=== PATIENT | female | born 1965 | race Caucasian/White ===

== ENCOUNTER 2020-02-11 13:37 | Inpatient (IN) | payer MEDICARE, OTHER ==
[~2020-02-11] VITALS: Ht 154.9 cm; Wt 67.6 kg
[2020-02-11 21:00] VITALS: BP 114/78
--- NOTE | 2020-02-11 21:00 | NUR ---
pt arrived unit with ambulance attendance via girish richard of respiratory failure, s/p covid 19 pneumonia with acute respiratory distress syndrome,htn,seizure, cva and subarochnoid hemorrage, neurogic bladder, dysphagia, stroke in 2013 and ventriculoperitoneal shunt in 2019, and depression. 54 years old female admitted to room 409, awake and alert, orientedx2, joellen cheema called and notified admission. 2109- anabella sharif called and notified admission, ordered to follow all previous medication, notified that pt is on lexapro 10mg daily and seroquel 50mg h.s. 97.5,75,17,97%,114/78, g-tube site redness noted.
[2020-02-11] MEDS ORDERED: levETIRAcetam 250 MG TABLET ONE (23:11)
[2020-02-11] MEDS: levETIRAcetam 500 MG TABLET GT SCH (23:46)
[2020-02-12 00:13] VITALS: BP 125/72
[2020-02-12] MEDS ORDERED: SENNOSIDES 1 TABLET GT PRN (05:00)
[2020-02-12] MEDS ORDERED: ACETAMINOPHEN 650 MG/20 ML UDC- SA PATIENTS-PAIN ONLY GT PRN (05:00)
[2020-02-12] MEDS ORDERED: COD LIVER OIL/ZINC OXIDE OINT 113 GM TUBE TP PRN ×2 (07:45→08:30)
[2020-02-12] MEDS ORDERED: HYDROGEN PEROXIDE 3% 118 ML BOTTLE TP PRN (08:00)
[2020-02-12 08:08] VITALS: BP 116/73
[2020-02-12] MEDS ORDERED: CHOLECALCIFEROL 1,000 UNIT TABLET PO SCH (09:00)
[2020-02-12] MEDS ORDERED: CYANOCOBALAMIN 1,000 MCG TABLET PO SCH (09:00)
[2020-02-12] MEDS ORDERED: ESCITALOPRAM OXALATE 10 MG TABLET GT SCH (09:00)
[2020-02-12] MEDS ORDERED: TUBERCULIN,PURIF.PROT.DERIV. 5 TU/0.1 ML TEST ID ONE (09:00)
[2020-02-12] MEDS ORDERED: ENOXAPARIN SODIUM 40 MG/0.4 ML DISP.SYRIN SQ SCH (09:00)
[2020-02-12] MEDS: ASPIRIN 81 MG TAB.CHEW GT SCH (09:21)
[2020-02-12] MEDS: ZINC SULFATE 220 MG CAPSULE GT SCH (09:21)
[2020-02-12] MEDS: levETIRAcetam 500 MG TABLET GT SCH ×2 (09:21→20:42)
[2020-02-12] MEDS: AMLODIPINE 5 MG TABLET PO SCH (09:22)
[2020-02-12] MEDS: NEOMY/BACITRAC/POLYMI OINT 28.35 GM TUBE TOP SCH ×2 (09:28→20:43)
[2020-02-12] MEDS: HYDROGEN PEROXIDE 3% 118 ML BOTTLE TP SCH ×2 (09:37→20:51)
[2020-02-12 12:00] VITALS: BP 120/70
[2020-02-12] MEDS ORDERED: ESCITALOPRAM OXALATE 10 MG TABLET PO SCH (13:00)
--- NOTE | 2020-02-12 14:00 | NUR ---
Pt seen and examined by Dr Masters ,orders for Seroquel and Lexapro obtained,Dr Masters spoke to the patient and sign the consent,Seen and examined by Dr Ramirez,new orders noted.Zoom done with pt's ,urine culture sent to the lab.All needs attended.
[2020-02-12 15:10] LABS: ABG BASE EXCESS 4.7 mmol/L; ABG HCO3 29.5 mmol/L; ABG PCO2 44.7 mmHg (35.0-45.0); ABG PH 7.437 (7.350-7.450); ABG PO2 86.9 mmHg (75.0-100.0); ABG SITE RIGHT RADIAL; ABG TOTAL HEMOGLOBIN 11.9 G/dL (12.0-16.0); MetHb 0.2 % (0.0-1.5); O2Hb 95.9 % (94.0-97.0)
[2020-02-12 16:00] VITALS: BP 127/75
[2020-02-12 20:16] VITALS: BP 113/69
--- NOTE | 2020-02-12 20:24 | NUR ---
Received pt awake,alert, trached with Neymar#6 DCT trach, which is in placed and secured properly, on C/A via T-Piece with FIO2-30%. No s/s of respiratory distress noted. Airway care done, pt responded to physical stimuli(suction moderate amount of pale yellow thick secretion). Resus. bag and back up trach at bedside. Sx Rodríguez changed. Trach care done. Cont. monitor.
[2020-02-12] MEDS: DOCUSATE SODIUM 100 MG/10 ML LIQUID UDC GT SCH (20:42)
[2020-02-12] MEDS: ENOXAPARIN SODIUM 40 MG/0.4 ML DISP.SYRIN SQ SCH (20:42)
[2020-02-12] MEDS: MIRALAX 17 GM POWD.PACK GT SCH (20:42)
[2020-02-12] MEDS: QUETIAPINE FUMARATE 25 MG TABLET GT SCH (20:42)
[2020-02-12] MEDS ORDERED: SERTRALINE HCL 50 MG TABLET PO SCH (21:00)
--- NOTE | 2020-02-12 22:00 | NUR ---
Resident in bed resting comfortably. No s/s of acute distress noted. No SOB. No n/v. Resident has no complaint of pain or discomfort. No facial grimacing. No grunts or moans. No s/s of infection. Resident remains afebrile. Resident kept clean and dry. Call light left within reach. All needs met at this time. Will continue to monitor.
[2020-02-13] MEDS: CYANOCOBALAMIN 1,000 MCG TABLET GT SCH (05:25)
[2020-02-13] MEDS: HYDROGEN PEROXIDE 3% 118 ML BOTTLE TP SCH ×2 (07:32→21:26)
[2020-02-13 07:53] VITALS: BP 124/67
[2020-02-13 08:42] LABS: BASOPHILS % (AUTO) 0.8 % (0.0-2.0); EOSINOPHILS # (AUTO) 0.2 K/uL (0.0-0.7); EOSINOPHILS % (AUTO) 3.6 % (0.0-7.0); HEMATOCRIT 33.5 % (31.2-41.9); HEMOGLOBIN 11.3 g/dL (10.9-14.3); LYMPHOCYTES # (AUTO) 1.3 K/uL (20.0-40.0); MEAN CORPUSCULAR HEMOGLOBIN 31.6 uug (24.7-32.8); MEAN CORPUSCULAR HGB CONC 34 g/dL (32.3-35.6); MEAN CORPUSCULAR VOLUME 93.7 fL (75.5-95.3); MONOCYTES # (AUTO) 0.6 K/uL (2.0-10.0); NEUTROPHILS # (AUTO) 3.2 K/uL (1.8-8.9); NEUTROPHILS % (AUTO) 60.6 % (38.5-71.5); PLATELET COUNT (AUTO) 323 K/uL (179-408); RED BLOOD CELL COUNT(AUTO) 3.57 MIL/uL (3.63-4.92); WHITE BLOOD COUNT (AUTO) 5.2 K/uL (3.8-11.8)
[2020-02-13 08:57] LABS: CARBON DIOXIDE 32 mmol/L (21-32); CHLORIDE 103 mmol/L (98-107); CREATININE 0.4 mg/dL (0.6-1.3); GLUCOSE 99 mg/dL (74-106); MAGNESIUM 1.8 mg/dL (1.8-2.4); PHOSPHOROUS 3.8 mg/dL (2.5-4.9); POTASSIUM 3.9 mmol/L (3.5-5.1); UREA NITROGEN, BLOOD 16 mg/dL (7-18)
[2020-02-13] MEDS ORDERED: SCOPOLAMINE HYDROBROMIDE 1.5 MG PATCH TD SCH (09:00)
[2020-02-13] MEDS: ASPIRIN 81 MG TAB.CHEW GT SCH (09:17)
[2020-02-13] MEDS: levETIRAcetam 500 MG TABLET GT SCH ×2 (09:17→20:54)
[2020-02-13] MEDS: AMLODIPINE 5 MG TABLET PO SCH (09:20)
[2020-02-13] MEDS: ZINC SULFATE 220 MG CAPSULE GT SCH (09:20)
[2020-02-13] MEDS: NEOMY/BACITRAC/POLYMI OINT 28.35 GM TUBE TOP SCH ×2 (09:29→20:54)
[2020-02-13] MEDS: ESCITALOPRAM OXALATE 10 MG TABLET GT SCH (09:34)
--- NOTE | 2020-02-13 10:00 | NUR ---
Awake, a+ox3, able to make needs known, no acute respiratory distress noted, no c/o any discomfort.
[2020-02-13 12:00] VITALS: BP 108/69
[2020-02-13] MEDS: OSMOLITE 1.2 CAL 1,000 ML LIQUID GT PRN (12:34)
[2020-02-13] MEDS: SCOPOLAMINE TP SCH (14:23)
[2020-02-13 16:00] VITALS: BP 104/58
[2020-02-13 20:10] VITALS: BP_SYST 115; BP_SYST 125; BP_DIAS 68; BP_DIAS 69
--- NOTE | 2020-02-13 20:23 | NUR ---
Pt awake,alert, trached with Ileanaley#6 DCT trach, which is in placed and secured properly, received on C/A via T-Piece with FIO2-30%. No s/s of respiratory distress noted. Airway care done, pt responded to physical stimuli(suction moderate amount of pale yellow thick secretion). Resus. bag and back up trach at bedside. Trach care done. Cont. monitor.
[2020-02-13] MEDS: DOCUSATE SODIUM 100 MG/10 ML LIQUID UDC GT SCH (20:54)
[2020-02-13] MEDS: QUETIAPINE FUMARATE 25 MG TABLET GT SCH (20:54)
[2020-02-13] MEDS: MIRALAX 17 GM POWD.PACK GT SCH (20:54)
[2020-02-13] MEDS: ENOXAPARIN SODIUM 40 MG/0.4 ML DISP.SYRIN SQ SCH (20:54)
[2020-02-14] MEDS: CYANOCOBALAMIN 1,000 MCG TABLET GT SCH (05:08)
[2020-02-14] MEDS: CHOLECALCIFEROL 1,000 UNIT TABLET PO SCH (05:08)
[2020-02-14] MEDS: OSMOLITE 1.2 CAL 1,000 ML LIQUID GT PRN ×2 (05:41→21:30)
[2020-02-14 07:35] VITALS: BP 127/79
[2020-02-14] MEDS: HYDROGEN PEROXIDE 3% 118 ML BOTTLE TP SCH ×2 (08:07→21:45)
[2020-02-14] MEDS: levETIRAcetam 500 MG TABLET GT SCH ×2 (09:00→21:03)
[2020-02-14] MEDS: ASPIRIN 81 MG TAB.CHEW GT SCH (09:00)
[2020-02-14] MEDS: ZINC SULFATE 220 MG CAPSULE GT SCH (09:00)
--- NOTE | 2020-02-14 09:00 | NUR ---
Patient in bed, alert and oriented, uses PMV to communicate needs, no s/s of any distress noted, saturation 97%, v/s stable.
[2020-02-14] MEDS: AMLODIPINE 5 MG TABLET PO SCH (09:02)
[2020-02-14] MEDS: NEOMY/BACITRAC/POLYMI OINT 28.35 GM TUBE TOP SCH ×2 (09:03→21:13)
--- NOTE | 2020-02-14 09:30 | NUR ---
video chat done with pts at this time.
[2020-02-14] MEDS: ESCITALOPRAM OXALATE 10 MG TABLET GT SCH (09:40)
[2020-02-14 12:00] VITALS: BP 114/66
--- NOTE | 2020-02-14 13:40 | NUR ---
Recreation Program Coordinator Assessment: 11:30am: This SW met with the patient today to complete the initial psychosocial assessment. Patient is a 54 year old female. Patient was awake, alert, watching TV when SW entered the room. Patient was receptive to meeting with this SW. During today's assessment, patient was oriented x 2, aware of name, overall purpose of being in the hospital, but was not oriented to year or city. Per patient's medical records, patient was hospitalized for COVID pneumonia on 12/29/2019, requiring a trach and ventilator. Patient was able to be weaned off the ventilator, but continued to require a trach. Patient was then transferred to [facility], and then to [facility] on 02/11/2020. Patient is a fair historian, and was able to provide me with some medical and personal history, however provided this SW with verbal consent to contact her for additional information which patient was not able to remember. Patient lives in [place] with her , although she could not remember her address in order to verify information on patient's face sheet. Patient has 2 children (1 daughter and 1 son). Patient presents with some confusion and forgetfulness. Patient's affect was flat, behavior was appropriate. Patient was cooperative with this SW, and engaged in dialogue with this SW although patient's voice was low, and at times a whispering, due to patient's trach. Patient does not report any feelings of sadness, and no history of mental illness, although patient's current medication list includes Zyprexa and Seroquel. Patient reports a history of cigarette use, hx of alcohol use, and a hx of marijuana and cocaine use, stating "a long long time ago". Patient reports no recent or current use of alcohol, drugs, and cigarettes. No hallucination or delusions reported or observed. SW generated a discussion about patient's healthcare wishes and patient stated "ask my ". Patient is currently a Full Code. SW discussed the admission paperwork with the patient, and patient asked for this SW to speak with her about the paperwork. Patient is current displaying some confusion, and therefore the admission paperwork will be reviewed with the and signatures will be obtained from the . Patient will speak with patient's Avinash Bowling in order to complete patient's and obtain signatures on admission paperwork.
--- NOTE | 2020-02-14 15:52 | NUR ---
Baseline summary of care reviewed w/ spouse Avinash Bowling, all questions answered and understood. Electronically signed by Yuni Sylvester RN, BSN
[2020-02-14 16:00] VITALS: BP 120/62
--- NOTE | 2020-02-14 16:49 | NUR ---
3:40pm: SW spoke with patient's Avinash Bowling to complete patient's initial assessment. Some information gathered from Avinash was different then the information gathered from the patient. Although patient stated that prior to her current medical problems and hospitalizations, which began on 12/29/2019, she was living at home with her , patient's clarified that patient has actually been living at [facility] since March 2013. Patient's stated that patient had a CVA in 11/2012 and was in coma for 2 months, after which she needed placement and was discharged to [facility] ([id number], [place] [address]). Patient's Avinash also stated that patient needed subacute care for 11 months in , and was at [facility], but then returned back to [facility]. Patient's Avinash stated that patient's functional level has deteriorated over the years, resulting in the patient needing assistance with all ADL's. SW inquired about patient's healthcare directive, and patient's Avinash stated that although they began preparing one, they have not completed it, nor gotten it signed. Avinash stated they plan to do that soon, and is waiting for visitation restrictions to be lifted in order to work on finalizing patient's healthcare directive. Avinash stated that patient's healthcare wishes are to be a Full Code. Admission paperwork discussed with Avinash and SW offered to mail the forms to him for review and signature. Avinash expressed agreement and stated that once he signs them, he will mail it back to this SW. IDT meetings discussed, and Avniash stated he would like to participate. SW to notify Avinash of dates/times when scheduled. SADIA also discussed routine services for optometry and podiatry, and Avinash expressed agreement with patient being seen for an eye exam and for podiatry services. Discharge plans discussed, and Avinash stated that his goal would be for patient to return to [facility], but is uncertain at this time and that it would depend on patient's level of care needs. SW to mail admission paperwork to Avinash for review and completion.
[2020-02-14 19:57] VITALS: BP 115/62
--- NOTE | 2020-02-14 20:27 | NUR ---
Pt awake, trached with Ileanaley#6 DCT trach, which is in placed and secured properly, received on C/A via T-Piece with PMV on and FIO2-30%. No s/s of respiratory distress noted. Pt refused to be suction. According to pt she feels no difficulty breathing with PMV on. At this time PMV off and pharmacist in charge Tic notified. C/A set up changed. Resus. bag and back up trach at bedside. Trach care done. Cont. monitor.
[2020-02-14] MEDS: DOCUSATE SODIUM 100 MG/10 ML LIQUID UDC GT SCH (21:03)
[2020-02-14] MEDS: MIRALAX 17 GM POWD.PACK GT SCH (21:04)
[2020-02-14] MEDS: QUETIAPINE FUMARATE 25 MG TABLET GT SCH (21:05)
[2020-02-14] MEDS: ENOXAPARIN SODIUM 40 MG/0.4 ML DISP.SYRIN SQ SCH (21:06)
--- NOTE | 2020-02-14 23:35 | NUR ---
Patient is alert and oriented, trach is intact and patent, suctioned with moderate yellow secretions, denies any shortness of breath, Jt site noted with redness, treatment done as ordered, JT feeding tolerating well, no nausea or vomiting noted, kept clean and comfortable. Addendum: 02/15/20 at 0244 by JATIN NI RN Patient has GT not JT. Site noted with redness, treatment done as ordered. Addendum: 02/15/20 at 0245 by JATIN NI RN On contact isolation for ESBL Pneumonia, no respiratory distress noted, 02 sat at 98%.
[2020-02-15 01:02] VITALS: BP 132/77
[2020-02-15 04:00] VITALS: BP 119/71
[2020-02-15] MEDS: CYANOCOBALAMIN 1,000 MCG TABLET GT SCH (06:22)
[2020-02-15] MEDS: CHOLECALCIFEROL 1,000 UNIT TABLET PO SCH (06:22)
[2020-02-15 07:28] VITALS: BP 120/70
[2020-02-15] MEDS: ASPIRIN 81 MG TAB.CHEW GT SCH (08:19)
[2020-02-15] MEDS: levETIRAcetam 500 MG TABLET GT SCH ×2 (08:20→21:16)
[2020-02-15] MEDS: ESCITALOPRAM OXALATE 10 MG TABLET GT SCH (08:21)
[2020-02-15] MEDS: ZINC SULFATE 220 MG CAPSULE GT SCH (08:21)
[2020-02-15] MEDS: AMLODIPINE 5 MG TABLET PO SCH (08:22)
[2020-02-15] MEDS: NEOMY/BACITRAC/POLYMI OINT 28.35 GM TUBE TOP SCH ×2 (08:23→21:20)
[2020-02-15] MEDS: HYDROGEN PEROXIDE 3% 118 ML BOTTLE TP SCH ×2 (08:37→21:07)
--- NOTE | 2020-02-15 11:15 | NUR ---
video chat done with at this time.
[2020-02-15 12:00] VITALS: BP 122/68
--- NOTE | 2020-02-15 12:15 | NUR ---
SADIA faxed patient's face sheet to Gaby at Dr. Stockton's office (tel # [phone]; fax # [phone]) and scheduled patient's initial optometry exam for 03/02/2020.
[2020-02-15 17:00] VITALS: BP 135/73
[2020-02-15] MEDS: OSMOLITE 1.2 CAL 1,000 ML LIQUID GT PRN (17:32)
[2020-02-15 20:08] VITALS: BP 124/68
[2020-02-15] MEDS: DOCUSATE SODIUM 100 MG/10 ML LIQUID UDC GT SCH (21:16)
[2020-02-15] MEDS: MIRALAX 17 GM POWD.PACK GT SCH (21:17)
[2020-02-15] MEDS: QUETIAPINE FUMARATE 25 MG TABLET GT SCH (21:18)
[2020-02-15] MEDS: ENOXAPARIN SODIUM 40 MG/0.4 ML DISP.SYRIN SQ SCH (21:20)
--- NOTE | 2020-02-15 21:45 | NUR ---
joellen cheema, notified pt's covid 19 test is negative.
[2020-02-16] MEDS: CYANOCOBALAMIN 1,000 MCG TABLET GT SCH (06:11)
[2020-02-16] MEDS: CHOLECALCIFEROL 1,000 UNIT TABLET PO SCH (06:11)
[2020-02-16 07:53] VITALS: BP 107/65
[2020-02-16] MEDS: NEOMY/BACITRAC/POLYMI OINT 28.35 GM TUBE TOP SCH ×2 (08:27→21:44)
[2020-02-16] MEDS: ESCITALOPRAM OXALATE 10 MG TABLET GT SCH ×2 (08:27→08:58)
[2020-02-16] MEDS: AMLODIPINE 5 MG TABLET PO SCH (08:27)
[2020-02-16] MEDS: levETIRAcetam 500 MG TABLET GT SCH ×2 (08:27→21:42)
[2020-02-16] MEDS: ASPIRIN 81 MG TAB.CHEW GT SCH (08:27)
[2020-02-16] MEDS: ZINC SULFATE 220 MG CAPSULE GT SCH (08:27)
[2020-02-16] MEDS: HYDROGEN PEROXIDE 3% 118 ML BOTTLE TP SCH ×2 (09:00→19:10)
--- NOTE | 2020-02-16 12:03 | NUR ---
SW mailed the admission paperwork to patient's Avinash, for review and signatures. The paperwork includes: Conditions of Admission, Patient Rights Acknowledgement, An Important Message from Medicare about your Rights, Documentation of Preferred Intensity of Care, Voluntary Prior Express Consent Form, Race and Ethnicity Patient Self-Identification, and the [facility] Agreement. SW also included a copy of the Patient's Bill of Rights. SW provided instructions on how to complete the forms. SW also included a return addressed envelope, along with instructions to mail the completed and signed forms back to this SW. Forms were mailed to: [address] [place] [address], [id number] [place] [address]
[2020-02-16] MEDS: SCOPOLAMINE TP SCH (14:00)
[2020-02-16] MEDS ORDERED: GENTAMICIN SULFATE INJ 440 MG in IV DEXTROSE 5% 250 ML IV SCH (15:00)
--- NOTE | 2020-02-16 15:10 | NUR ---
video chat done with at this time.
--- NOTE | 2020-02-16 17:40 | NUR ---
Seen and examined by Dr Ramirez with new orders noted and carried out.
[2020-02-16 20:11] VITALS: BP 117/67
[2020-02-16] MEDS: DOCUSATE SODIUM 100 MG/10 ML LIQUID UDC GT SCH (21:40)
[2020-02-16] MEDS: MIRALAX 17 GM POWD.PACK GT SCH (21:42)
[2020-02-16] MEDS: QUETIAPINE FUMARATE 25 MG TABLET GT SCH (21:43)
[2020-02-16] MEDS: ENOXAPARIN SODIUM 40 MG/0.4 ML DISP.SYRIN SQ SCH (21:44)
[2020-02-17 00:43] LABS: CREATININE 0.5 mg/dL (0.6-1.3); POTASSIUM 4.1 mmol/L (3.5-5.1)
--- NOTE | 2020-02-17 05:29 | NUR ---
started on gentamicin iv for uti, no adverse reaction noted, no respiratory distress noted.
[2020-02-17] MEDS: CYANOCOBALAMIN 1,000 MCG TABLET GT SCH (05:53)
[2020-02-17] MEDS: CHOLECALCIFEROL 1,000 UNIT TABLET PO SCH (05:53)
[2020-02-17 07:54] VITALS: BP 119/70
[2020-02-17] MEDS: levETIRAcetam 500 MG TABLET GT SCH ×2 (09:32→21:48)
[2020-02-17] MEDS: ASPIRIN 81 MG TAB.CHEW GT SCH (09:32)
[2020-02-17] MEDS: ESCITALOPRAM OXALATE 10 MG TABLET GT SCH (09:32)
[2020-02-17] MEDS: ZINC SULFATE 220 MG CAPSULE GT SCH (09:32)
[2020-02-17] MEDS: NEOMY/BACITRAC/POLYMI OINT 28.35 GM TUBE TOP SCH ×2 (09:33→21:50)
[2020-02-17] MEDS: AMLODIPINE 5 MG TABLET PO SCH (09:33)
[2020-02-17] MEDS: HYDROGEN PEROXIDE 3% 118 ML BOTTLE TP SCH ×2 (09:33→21:34)
--- NOTE | 2020-02-17 12:14 | NUR ---
NEW ORDER CARRIED OUT FROM DR. MARION HooverTO D/C GENTAMICIN AND START ON MERREM IV FOR UTI.
[2020-02-17] MEDS: MEROPENEM 0.5 G in IV NORMAL SALINE 50 ML IV SCH ×2 (14:00→22:14)
--- NOTE | 2020-02-17 16:15 | NUR ---
NO A/R TO MERREM IV.
[2020-02-17 20:10] VITALS: BP 122/67
[2020-02-17] MEDS: DOCUSATE SODIUM 100 MG/10 ML LIQUID UDC GT SCH (21:47)
[2020-02-17] MEDS: MIRALAX 17 GM POWD.PACK GT SCH (21:49)
[2020-02-17] MEDS: QUETIAPINE FUMARATE 25 MG TABLET GT SCH (21:49)
[2020-02-17] MEDS: ENOXAPARIN SODIUM 40 MG/0.4 ML DISP.SYRIN SQ SCH (21:50)
[2020-02-17] MEDS: OSMOLITE 1.2 CAL 1,000 ML LIQUID GT PRN (22:03)
[2020-02-18] MEDS: CYANOCOBALAMIN 1,000 MCG TABLET GT SCH (05:44)
[2020-02-18] MEDS: CHOLECALCIFEROL 1,000 UNIT TABLET PO SCH (05:44)
[2020-02-18] MEDS: MEROPENEM 0.5 G in IV NORMAL SALINE 50 ML IV SCH ×3 (06:26→22:00)
[2020-02-18 07:53] VITALS: BP 116/66
--- NOTE | 2020-02-18 09:00 | NUR ---
SEEN AND EXAMINED BY DR. KRISTAL Hoover AND WITH NNO.
[2020-02-18] MEDS: ASPIRIN 81 MG TAB.CHEW GT SCH (09:05)
[2020-02-18] MEDS: levETIRAcetam 500 MG TABLET GT SCH ×2 (09:06→21:00)
[2020-02-18] MEDS: ESCITALOPRAM OXALATE 10 MG TABLET GT SCH (09:07)
[2020-02-18] MEDS: ZINC SULFATE 220 MG CAPSULE GT SCH (09:11)
[2020-02-18] MEDS: AMLODIPINE 5 MG TABLET PO SCH (09:24)
[2020-02-18] MEDS: NEOMY/BACITRAC/POLYMI OINT 28.35 GM TUBE TOP SCH ×2 (09:25→21:00)
[2020-02-18] MEDS: HYDROGEN PEROXIDE 3% 118 ML BOTTLE TP SCH ×2 (09:31→21:25)
--- NOTE | 2020-02-18 14:04 | NUR ---
SADIA called patient's Avinash [phone] and informed him that the IDT meeting for the patient is scheduled for 02/22/2020 at 11am. SADIA asked Avinash if he'd like to participate in the meeting via speaker phone. Avinash expressed agreement. SADIA asked Avinash to be available between 11am-12pm on 02/21 in order to receive this SW's call. Avinash expressed understanding and agreement.
[2020-02-18] MEDS: OSMOLITE 1.2 CAL 1,000 ML LIQUID GT PRN (16:29)
[2020-02-18] MEDS: DOCUSATE SODIUM 100 MG/10 ML LIQUID UDC GT SCH (21:00)
[2020-02-18] MEDS: ENOXAPARIN SODIUM 40 MG/0.4 ML DISP.SYRIN SQ SCH (21:00)
[2020-02-18] MEDS: MIRALAX 17 GM POWD.PACK GT SCH (21:00)
[2020-02-18] MEDS: QUETIAPINE FUMARATE 25 MG TABLET GT SCH (21:00)
[2020-02-18 22:22] VITALS: BP 126/83
--- NOTE | 2020-02-18 22:55 | NUR ---
Patient is afebrile, on merrem IV for UTI, no adverse reactions noted. Fluids given as ordered, denies any urinary discomfort, no hematuria noted, voiding freely to yellow urine, good anju care rendered, kept clean and comfortable.
[2020-02-19] MEDS: CYANOCOBALAMIN 1,000 MCG TABLET GT SCH (05:51)
[2020-02-19] MEDS: CHOLECALCIFEROL 1,000 UNIT TABLET PO SCH (05:51)
[2020-02-19] MEDS: MEROPENEM 0.5 G in IV NORMAL SALINE 50 ML IV SCH ×3 (06:33→21:38)
[2020-02-19 07:36] VITALS: BP 125/67
[2020-02-19] MEDS: HYDROGEN PEROXIDE 3% 118 ML BOTTLE TP SCH ×2 (09:00→21:13)
[2020-02-19] MEDS: ASPIRIN 81 MG TAB.CHEW GT SCH (09:30)
[2020-02-19] MEDS: levETIRAcetam 500 MG TABLET GT SCH ×2 (09:30→21:28)
[2020-02-19] MEDS: ESCITALOPRAM OXALATE 10 MG TABLET GT SCH (09:30)
[2020-02-19] MEDS: NEOMY/BACITRAC/POLYMI OINT 28.35 GM TUBE TOP SCH ×2 (09:35→21:31)
[2020-02-19] MEDS: AMLODIPINE 5 MG TABLET PO SCH (09:35)
[2020-02-19] MEDS: ZINC SULFATE 220 MG CAPSULE GT SCH (09:35)
[2020-02-19] MEDS: OSMOLITE 1.2 CAL 1,000 ML LIQUID GT PRN (11:51)
[2020-02-19] MEDS: SCOPOLAMINE TP SCH (15:00)
--- NOTE | 2020-02-19 20:22 | NUR ---
Received pt awake, alert, trached with Neymar#6 DCT trach, which is in placed and secured properly, on C/A via T-Piece with FIO2-30%. No respiratory distress noted. PMV on. Pt stated that she want's to keep PMV on, RN Tic notified. Resus. bag and back up trach at bedside. Sx Rodríguez and trach tube guard changed. Trach care done. Cont. monitor.
[2020-02-19] MEDS: DOCUSATE SODIUM 100 MG/10 ML LIQUID UDC GT SCH (21:28)
[2020-02-19] MEDS: QUETIAPINE FUMARATE 25 MG TABLET GT SCH (21:30)
[2020-02-19] MEDS: MIRALAX 17 GM POWD.PACK GT SCH (21:30)
[2020-02-19] MEDS: ENOXAPARIN SODIUM 40 MG/0.4 ML DISP.SYRIN SQ SCH (21:39)
[2020-02-19 22:18] VITALS: BP 106/68
--- NOTE | 2020-02-19 22:25 | NUR ---
still on merrem IV for UTI, no adverse reactions noted. Afebrile, Fluids given as ordered, denies any urinary discomfort, no hematuria noted, voiding freely to yellow urine, good anju care rendered, kept clean and comfortable.
[2020-02-20] MEDS: CHOLECALCIFEROL 1,000 UNIT TABLET PO SCH (05:37)
[2020-02-20] MEDS: CYANOCOBALAMIN 1,000 MCG TABLET GT SCH (05:37)
[2020-02-20] MEDS: MEROPENEM 0.5 G in IV NORMAL SALINE 50 ML IV SCH ×3 (05:37→21:04)
[2020-02-20 07:29] VITALS: BP 136/59
[2020-02-20] MEDS: HYDROGEN PEROXIDE 3% 118 ML BOTTLE TP SCH ×2 (08:11→21:10)
[2020-02-20] MEDS: ASPIRIN 81 MG TAB.CHEW GT SCH (08:41)
[2020-02-20] MEDS: levETIRAcetam 500 MG TABLET GT SCH ×2 (08:41→21:47)
[2020-02-20] MEDS: ESCITALOPRAM OXALATE 10 MG TABLET GT SCH (08:42)
[2020-02-20] MEDS: ZINC SULFATE 220 MG CAPSULE GT SCH (08:42)
[2020-02-20] MEDS: NEOMY/BACITRAC/POLYMI OINT 28.35 GM TUBE TOP SCH ×2 (08:43→21:50)
[2020-02-20] MEDS: AMLODIPINE 5 MG TABLET PO SCH (08:43)
--- NOTE | 2020-02-20 12:13 | NUR ---
ZOOM PROVIDED TO DAUGHTER.
--- NOTE | 2020-02-20 18:53 | NUR ---
DR MARION Hoover WAS CALLED AND MESSAGE LEFT WITH MANAGER PRODUCT SUPPORT RE:THE LENGTH OF THERAPY OF MEROPENEM AND ACCORDING TO MANAGER PRODUCT SUPPORT HE SAID TO DISCONTINUE BUT CH. NURSE ASKED HER TO TELL HIM TO CALL BACK HIMSELF DIRECTLY BECAUSE SHE CAN NOT TAKE ORDERS FROM 3RD DEMOCRAT AND SHE STATED THAT SHE WILL NOTIFY HIM THAT.
--- NOTE | 2020-02-20 20:24 | NUR ---
Received pt awake, alert, trached with Neymar#6 DCT trach, which is in placed and secured properly, on C/A via T-Piece with FIO2-30%. No s/s of respiratory distress noted. Pt would like to keep PMV on, battery charger tester Tic notified. Resus. bag and back up trach at bedside. Trach care done. Cont. monitor.
[2020-02-20 20:56] VITALS: BP 117/72
[2020-02-20] MEDS: MIRALAX 17 GM POWD.PACK GT SCH (21:00)
[2020-02-20] MEDS: DOCUSATE SODIUM 100 MG/10 ML LIQUID UDC GT SCH (21:46)
[2020-02-20] MEDS: QUETIAPINE FUMARATE 25 MG TABLET GT SCH (21:49)
[2020-02-20] MEDS: ENOXAPARIN SODIUM 40 MG/0.4 ML DISP.SYRIN SQ SCH (22:01)
[2020-02-20] MEDS: OSMOLITE 1.2 CAL 1,000 ML LIQUID GT PRN (22:50)
[2020-02-21] MEDS: CYANOCOBALAMIN 1,000 MCG TABLET GT SCH (05:56)
[2020-02-21] MEDS: CHOLECALCIFEROL 1,000 UNIT TABLET PO SCH (05:56)
[2020-02-21] MEDS: MEROPENEM 0.5 G in IV NORMAL SALINE 50 ML IV SCH (06:38)
[2020-02-21 07:35] VITALS: BP 123/67
[2020-02-21] MEDS: HYDROGEN PEROXIDE 3% 118 ML BOTTLE TP SCH ×2 (08:00→21:33)
[2020-02-21] MEDS: ASPIRIN 81 MG TAB.CHEW GT SCH (08:39)
[2020-02-21] MEDS: ESCITALOPRAM OXALATE 10 MG TABLET GT SCH (08:40)
[2020-02-21] MEDS: ZINC SULFATE 220 MG CAPSULE GT SCH (08:40)
[2020-02-21] MEDS: levETIRAcetam 500 MG TABLET GT SCH ×2 (08:40→21:20)
[2020-02-21] MEDS: AMLODIPINE 5 MG TABLET PO SCH (08:41)
[2020-02-21] MEDS: NEOMY/BACITRAC/POLYMI OINT 28.35 GM TUBE TOP SCH ×2 (08:41→21:21)
--- NOTE | 2020-02-21 12:05 | NUR ---
NEW ORDER WAS CARRIED OUT FROM DR. SCHULTZ TO D/C IV ATB MEROPENEM.
[2020-02-21 20:00] VITALS: BP 125/73
[2020-02-21] MEDS: DOCUSATE SODIUM 100 MG/10 ML LIQUID UDC GT SCH (21:20)
[2020-02-21] MEDS: QUETIAPINE FUMARATE 25 MG TABLET GT SCH (21:21)
[2020-02-21] MEDS: MIRALAX 17 GM POWD.PACK GT SCH (21:23)
[2020-02-21] MEDS: ENOXAPARIN SODIUM 40 MG/0.4 ML DISP.SYRIN SQ SCH (21:26)
[2020-02-22] MEDS: CHOLECALCIFEROL 1,000 UNIT TABLET PO SCH (06:01)
[2020-02-22] MEDS: CYANOCOBALAMIN 1,000 MCG TABLET GT SCH (06:01)
[2020-02-22] MEDS: HYDROGEN PEROXIDE 3% 118 ML BOTTLE TP SCH ×2 (07:14→20:49)
[2020-02-22 07:30] VITALS: BP 140/75
[2020-02-22] MEDS: ESCITALOPRAM OXALATE 10 MG TABLET GT SCH (09:26)
[2020-02-22] MEDS: ZINC SULFATE 220 MG CAPSULE GT SCH (09:26)
[2020-02-22] MEDS: levETIRAcetam 500 MG TABLET GT SCH ×2 (09:26→21:54)
[2020-02-22] MEDS: ASPIRIN 81 MG TAB.CHEW GT SCH (09:26)
[2020-02-22] MEDS: AMLODIPINE 5 MG TABLET PO SCH (09:27)
[2020-02-22] MEDS: NEOMY/BACITRAC/POLYMI OINT 28.35 GM TUBE TOP SCH ×2 (09:27→21:55)
[2020-02-22] MEDS: SCOPOLAMINE TP SCH (14:48)
--- NOTE | 2020-02-22 16:12 | NUR ---
INTERDISCIPLINARY PLAN OF CARE CONFERENCE was held today. Patient's Avinash participated in the meeting through speaker phone. Dr. Ramirez and the Interdisciplinary Team reviewed the current plan of care in detail. Patient was admitted to subacute on 02/11/2020. RN reported on patient's medical condition, and stated that patient remains on isolation precautions based on 14 day post-COVID isolation regulations. See RN IDT conference notes. Pharmacy discussed patient's medication regimen and stated that patient is currently stable on her medications. PT discussed treatment plan and stated that patient will be received physician therapy [address] discussed current treatment plan. See all other disciplines IDT notes and physician's progress notes for additional details. Avinash's questions were addressed by the IDT team and by Dr. Ramirez, and Avinash expressed being content with the current plan of care.
[2020-02-22 20:25] VITALS: BP 116/69
[2020-02-22] MEDS: MIRALAX 17 GM POWD.PACK GT SCH (21:54)
[2020-02-22] MEDS: ENOXAPARIN SODIUM 40 MG/0.4 ML DISP.SYRIN SQ SCH (21:54)
[2020-02-22] MEDS: QUETIAPINE FUMARATE 25 MG TABLET GT SCH (21:54)
[2020-02-22] MEDS: DOCUSATE SODIUM 100 MG/10 ML LIQUID UDC GT SCH (21:54)
[2020-02-23] MEDS: OSMOLITE 1.2 CAL 1,000 ML LIQUID GT PRN (04:30)
[2020-02-23] MEDS: CYANOCOBALAMIN 1,000 MCG TABLET GT SCH (05:26)
[2020-02-23] MEDS: CHOLECALCIFEROL 1,000 UNIT TABLET PO SCH (05:26)
[2020-02-23 07:57] VITALS: BP 129/73
[2020-02-23] MEDS: HYDROGEN PEROXIDE 3% 118 ML BOTTLE TP SCH ×2 (09:28→20:59)
[2020-02-23] MEDS: ASPIRIN 81 MG TAB.CHEW GT SCH (09:51)
[2020-02-23] MEDS: levETIRAcetam 500 MG TABLET GT SCH ×2 (09:51→21:00)
[2020-02-23] MEDS: ZINC SULFATE 220 MG CAPSULE GT SCH (09:51)
[2020-02-23] MEDS: ESCITALOPRAM OXALATE 10 MG TABLET GT SCH (09:51)
[2020-02-23] MEDS: AMLODIPINE 5 MG TABLET PO SCH (09:51)
[2020-02-23] MEDS: NEOMY/BACITRAC/POLYMI OINT 28.35 GM TUBE TOP SCH ×2 (09:51→21:00)
[2020-02-23 20:00] VITALS: BP 131/72
[2020-02-23] MEDS: ENOXAPARIN SODIUM 40 MG/0.4 ML DISP.SYRIN SQ SCH (21:00)
[2020-02-23] MEDS: DOCUSATE SODIUM 100 MG/10 ML LIQUID UDC GT SCH (21:00)
[2020-02-23] MEDS: MIRALAX 17 GM POWD.PACK GT SCH (21:00)
[2020-02-23] MEDS: QUETIAPINE FUMARATE 25 MG TABLET GT SCH (21:00)
[2020-02-24] MEDS: OSMOLITE 1.2 CAL 1,000 ML LIQUID GT PRN (00:45)
[2020-02-24] MEDS: CYANOCOBALAMIN 1,000 MCG TABLET GT SCH (05:14)
[2020-02-24] MEDS: CHOLECALCIFEROL 1,000 UNIT TABLET PO SCH (05:14)
[2020-02-24 08:00] VITALS: BP 110/67
[2020-02-24] MEDS: AMLODIPINE 5 MG TABLET PO SCH (09:00)
[2020-02-24] MEDS: levETIRAcetam 500 MG TABLET GT SCH ×2 (09:06→21:25)
[2020-02-24] MEDS: ZINC SULFATE 220 MG CAPSULE GT SCH (09:06)
[2020-02-24] MEDS: ESCITALOPRAM OXALATE 10 MG TABLET GT SCH (09:06)
[2020-02-24] MEDS: NEOMY/BACITRAC/POLYMI OINT 28.35 GM TUBE TOP SCH ×2 (09:06→21:31)
[2020-02-24] MEDS: ASPIRIN 81 MG TAB.CHEW GT SCH (09:06)
[2020-02-24] MEDS: HYDROGEN PEROXIDE 3% 118 ML BOTTLE TP SCH ×2 (09:28→20:46)
[2020-02-24 20:00] VITALS: BP 120/70
[2020-02-24] MEDS: ENOXAPARIN SODIUM 40 MG/0.4 ML DISP.SYRIN SQ SCH (21:24)
[2020-02-24] MEDS: DOCUSATE SODIUM 100 MG/10 ML LIQUID UDC GT SCH (21:25)
[2020-02-24] MEDS: MIRALAX 17 GM POWD.PACK GT SCH (21:27)
[2020-02-24] MEDS: QUETIAPINE FUMARATE 25 MG TABLET GT SCH (21:28)
[2020-02-25] MEDS: CYANOCOBALAMIN 1,000 MCG TABLET GT SCH (05:35)
[2020-02-25] MEDS: CHOLECALCIFEROL 1,000 UNIT TABLET PO SCH (05:35)
[2020-02-25 07:41] VITALS: BP 122/75
[2020-02-25] MEDS: ASPIRIN 81 MG TAB.CHEW GT SCH (08:47)
[2020-02-25] MEDS: NEOMY/BACITRAC/POLYMI OINT 28.35 GM TUBE TOP SCH ×2 (08:48→21:45)
[2020-02-25] MEDS: AMLODIPINE 5 MG TABLET PO SCH (08:48)
[2020-02-25] MEDS: levETIRAcetam 500 MG TABLET GT SCH ×2 (08:48→21:43)
[2020-02-25] MEDS: ESCITALOPRAM OXALATE 10 MG TABLET GT SCH (08:48)
[2020-02-25] MEDS: ZINC SULFATE 220 MG CAPSULE GT SCH (08:48)
[2020-02-25] MEDS: HYDROGEN PEROXIDE 3% 118 ML BOTTLE TP SCH ×2 (09:49→21:23)
--- NOTE | 2020-02-25 11:53 | NUR ---
Per Dr. Ramirez Speech therapist (Shiva), notified regarding swallow status evaluation.
[2020-02-25] MEDS: SCOPOLAMINE TP SCH (14:08)
--- NOTE | 2020-02-25 15:18 | NUR ---
Seen by Speech Therapist, swallow video evaluation scheduled to be on 02/29/20.
[2020-02-25 20:29] VITALS: BP 125/70
[2020-02-25] MEDS: ENOXAPARIN SODIUM 40 MG/0.4 ML DISP.SYRIN SQ SCH (21:00)
[2020-02-25] MEDS: QUETIAPINE FUMARATE 25 MG TABLET GT SCH (21:43)
[2020-02-25] MEDS: DOCUSATE SODIUM 100 MG/10 ML LIQUID UDC GT SCH (21:43)
[2020-02-25] MEDS: MIRALAX 17 GM POWD.PACK GT SCH (21:43)
[2020-02-26] MEDS: OSMOLITE 1.2 CAL 1,000 ML LIQUID GT PRN ×2 (02:07→17:58)
[2020-02-26] MEDS: CHOLECALCIFEROL 1,000 UNIT TABLET PO SCH (05:56)
[2020-02-26] MEDS: CYANOCOBALAMIN 1,000 MCG TABLET GT SCH (05:56)
[2020-02-26 08:11] VITALS: BP 111/73
[2020-02-26] MEDS: ASPIRIN 81 MG TAB.CHEW GT SCH (08:36)
[2020-02-26] MEDS: AMLODIPINE 5 MG TABLET PO SCH (08:37)
[2020-02-26] MEDS: ESCITALOPRAM OXALATE 10 MG TABLET GT SCH (08:37)
[2020-02-26] MEDS: levETIRAcetam 500 MG TABLET GT SCH ×2 (08:37→21:08)
[2020-02-26] MEDS: HYDROGEN PEROXIDE 3% 118 ML BOTTLE TP SCH ×2 (09:00→21:40)
[2020-02-26 20:08] VITALS: BP 113/67
--- NOTE | 2020-02-26 20:42 | NUR ---
Received pt awake, alert, trached with Neymar#6 DCT trach, which is in placed and secured properly, on C/A via T-Piece with FIO2-30%. No s/s of respiratory distress noted. Airway care done, pt responded to physical stimuli. PMV on. Resus. bag and back up trach at bedside. Sx Rodríguez and trach tube guard changed. Trach care done. Cont. monitor.
[2020-02-26] MEDS: DOCUSATE SODIUM 100 MG/10 ML LIQUID UDC GT SCH (21:08)
[2020-02-26] MEDS: MIRALAX 17 GM POWD.PACK GT SCH (21:08)
[2020-02-26] MEDS: QUETIAPINE FUMARATE 25 MG TABLET GT SCH (21:08)
[2020-02-26] MEDS: ENOXAPARIN SODIUM 40 MG/0.4 ML DISP.SYRIN SQ SCH (21:14)
[2020-02-27] MEDS: CYANOCOBALAMIN 1,000 MCG TABLET GT SCH (05:39)
[2020-02-27] MEDS: CHOLECALCIFEROL 1,000 UNIT TABLET PO SCH (05:39)
[2020-02-27 08:03] VITALS: BP 119/76
[2020-02-27] MEDS: ESCITALOPRAM OXALATE 10 MG TABLET GT SCH (08:56)
[2020-02-27] MEDS: ASPIRIN 81 MG TAB.CHEW GT SCH (08:56)
[2020-02-27] MEDS: levETIRAcetam 500 MG TABLET GT SCH ×2 (08:56→21:01)
[2020-02-27] MEDS: AMLODIPINE 5 MG TABLET PO SCH (08:56)
[2020-02-27] MEDS: HYDROGEN PEROXIDE 3% 118 ML BOTTLE TP SCH ×2 (09:30→21:22)
[2020-02-27] MEDS: OSMOLITE 1.2 CAL 1,000 ML LIQUID GT PRN (14:59)
[2020-02-27 20:20] VITALS: BP 116/71
--- NOTE | 2020-02-27 20:23 | NUR ---
Received pt awake, alert, trached with Neymar#6 DCT trach, which is in placed and secured properly, on C/A via T-Piece with FIO2-30%. No respiratory distress noted. Airway care done, pt responded to physical stimuli. PMV on. Resus. bag and back up trach at bedside. Trach care done. Cont. monitor.
[2020-02-27] MEDS: DOCUSATE SODIUM 100 MG/10 ML LIQUID UDC GT SCH (21:01)
[2020-02-27] MEDS: QUETIAPINE FUMARATE 25 MG TABLET GT SCH (21:02)
[2020-02-27] MEDS: MIRALAX 17 GM POWD.PACK GT SCH (21:02)
[2020-02-27] MEDS: ENOXAPARIN SODIUM 40 MG/0.4 ML DISP.SYRIN SQ SCH (21:05)
[2020-02-28] MEDS: OSMOLITE 1.2 CAL 1,000 ML LIQUID GT PRN ×2 (05:45→23:00)
[2020-02-28] MEDS: CHOLECALCIFEROL 1,000 UNIT TABLET PO SCH (05:46)
[2020-02-28] MEDS: CYANOCOBALAMIN 1,000 MCG TABLET GT SCH (05:46)
[2020-02-28 07:44] VITALS: BP 133/77
[2020-02-28] MEDS: AMLODIPINE 5 MG TABLET PO SCH (09:00)
[2020-02-28] MEDS: ASPIRIN 81 MG TAB.CHEW GT SCH (09:00)
[2020-02-28] MEDS: ESCITALOPRAM OXALATE 10 MG TABLET GT SCH (09:00)
[2020-02-28] MEDS: levETIRAcetam 500 MG TABLET GT SCH ×2 (09:00→21:57)
[2020-02-28] MEDS: HYDROGEN PEROXIDE 3% 118 ML BOTTLE TP SCH ×2 (09:14→21:38)
[2020-02-28] MEDS: SCOPOLAMINE TP SCH (14:00)
--- NOTE | 2020-02-28 20:22 | NUR ---
Received pt awake, alert, trached with Neymar#6 DCT trach, which is in placed and secured properly, on C/A via T-Piece with FIO2-30%. No distress noted. Airway care done, pt responded to physical stimuli. PMV on. Cool aerosol set up changed. Resus. bag and back up trach at bedside. Trach care done. Cont. monitor.
[2020-02-28 20:29] VITALS: BP 115/63
[2020-02-28] MEDS: DOCUSATE SODIUM 100 MG/10 ML LIQUID UDC GT SCH (21:54)
[2020-02-28] MEDS: QUETIAPINE FUMARATE 25 MG TABLET GT SCH (21:57)
[2020-02-28] MEDS: MIRALAX 17 GM POWD.PACK GT SCH (21:57)
[2020-02-28] MEDS: ENOXAPARIN SODIUM 40 MG/0.4 ML DISP.SYRIN SQ SCH (21:58)
[2020-02-29] MEDS: CHOLECALCIFEROL 1,000 UNIT TABLET PO SCH (06:13)
[2020-02-29] MEDS: CYANOCOBALAMIN 1,000 MCG TABLET GT SCH (06:13)
[2020-02-29] MEDS: HYDROGEN PEROXIDE 3% 118 ML BOTTLE TP SCH ×2 (08:13→21:15)
[2020-02-29] MEDS: ASPIRIN 81 MG TAB.CHEW GT SCH (08:42)
[2020-02-29] MEDS: levETIRAcetam 500 MG TABLET GT SCH ×2 (08:42→21:08)
[2020-02-29] MEDS: DOCUSATE SODIUM 100 MG/10 ML LIQUID UDC GT SCH (08:44)
[2020-02-29] MEDS: ESCITALOPRAM OXALATE 10 MG TABLET GT SCH (08:44)
[2020-02-29] MEDS: AMLODIPINE 5 MG TABLET PO SCH (09:00)
[2020-02-29 09:20] VITALS: BP 115/69
[2020-02-29] MEDS ORDERED: BARIUM SULFATE 148 GM SUSP.RECON PO ONE (13:00)
[2020-02-29] MEDS ORDERED: BARIUM SULFATE 240 ML ORAL.SUSP PO ONE (13:00)
[2020-02-29 20:51] VITALS: BP 109/69
[2020-02-29] MEDS: MIRALAX 17 GM POWD.PACK GT SCH (21:08)
[2020-02-29] MEDS: ENOXAPARIN SODIUM 40 MG/0.4 ML DISP.SYRIN SQ SCH (21:09)
[2020-02-29] MEDS: QUETIAPINE FUMARATE 25 MG TABLET GT SCH (21:11)
[2020-03-01] MEDS: OSMOLITE 1.2 CAL 1,000 ML LIQUID GT PRN ×2 (01:00→18:08)
[2020-03-01] MEDS: CYANOCOBALAMIN 1,000 MCG TABLET GT SCH (06:04)
[2020-03-01] MEDS: CHOLECALCIFEROL 1,000 UNIT TABLET PO SCH (06:04)
[2020-03-01] MEDS: levETIRAcetam 500 MG TABLET GT SCH ×2 (08:31→21:18)
[2020-03-01] MEDS: ASPIRIN 81 MG TAB.CHEW GT SCH (08:31)
[2020-03-01] MEDS: ESCITALOPRAM OXALATE 10 MG TABLET GT SCH (08:32)
[2020-03-01] MEDS: AMLODIPINE 5 MG TABLET PO SCH (08:35)
[2020-03-01] MEDS: HYDROGEN PEROXIDE 3% 118 ML BOTTLE TP SCH ×2 (08:43→19:22)
[2020-03-01 20:26] VITALS: BP 135/66
[2020-03-01] MEDS: DOCUSATE SODIUM 100 MG/10 ML LIQUID UDC GT SCH (21:18)
[2020-03-01] MEDS: MIRALAX 17 GM POWD.PACK GT SCH (21:19)
[2020-03-01] MEDS: QUETIAPINE FUMARATE 25 MG TABLET GT SCH (21:20)
[2020-03-01] MEDS: ENOXAPARIN SODIUM 40 MG/0.4 ML DISP.SYRIN SQ SCH (21:22)
[2020-03-02] MEDS: CHOLECALCIFEROL 1,000 UNIT TABLET PO SCH (06:06)
[2020-03-02] MEDS: CYANOCOBALAMIN 1,000 MCG TABLET GT SCH (06:06)
[2020-03-02] MEDS: HYDROGEN PEROXIDE 3% 118 ML BOTTLE TP SCH ×2 (07:17→21:28)
[2020-03-02 08:00] VITALS: BP 127/72
[2020-03-02] MEDS: levETIRAcetam 500 MG TABLET GT SCH ×2 (08:19→21:50)
[2020-03-02] MEDS: AMLODIPINE 5 MG TABLET PO SCH (08:19)
[2020-03-02] MEDS: ASPIRIN 81 MG TAB.CHEW GT SCH (08:19)
[2020-03-02] MEDS: ESCITALOPRAM OXALATE 10 MG TABLET GT SCH (08:19)
--- NOTE | 2020-03-02 10:41 | NUR ---
PER PT'S STATEMENT. PNEUMONIA VACCINE WAS GIVEN TO PT. ON 03/30/18 AND FLU VACCINE ON 02/24/19.
--- NOTE | 2020-03-02 11:26 | NUR ---
PT'S NERY WAS OFFERED FLU VACCINE FOR PT. AND HE GAVE CONSENT BY PHONE AND DR. ALVAREZ WAS OK ACCORDING TO NARENDRA GREEN KNOWING THAT PT. IS S/P COVID 19.
--- NOTE | 2020-03-02 11:33 | NUR ---
PER DR. ALVAREZ OK TO GET FLU VACCINE IF PT/ IS S/P COVID 19 .
--- NOTE | 2020-03-02 12:43 | NUR ---
SW met with the patient to check in on how patient was doing. Patient was awake and watching TV. Patient was receptive to meeting with this SW, and engaged in conversation with this SW. Patient expressed doing well, not having any concerns at this time. Patient stated that she is content with the care provided by nursing, and continues to participate in therapy. Patient asked when her can come visit her, and SW reminded the patient that visitation restrictions continue to remain in place due to the COVID-19 pandemic. Patient expressed understanding. SW reminded patient that she can continue to communicate with her by ZOOM, and patient expressed agreement. Patient thanked this SW for checking in with her. SW reminded the patient that SW continues to remain available to her, as needed, and patient expressed understanding.
[2020-03-02] MEDS: SCOPOLAMINE TP SCH (14:18)
--- NOTE | 2020-03-02 14:57 | NUR ---
SADIA called patient's Avinash [phone]. Avinash was not available, and therefore SADIA left a voicemail message for Avinash informing him that the next IDT meeting for the patient is scheduled for 03/07/2020 at 11am. SADIA asked Avinash to let this SW know if he would like to participate in the meeting through speaker phone.
[2020-03-02] MEDS: OSMOLITE 1.2 CAL 1,000 ML LIQUID GT PRN (17:19)
--- NOTE | 2020-03-02 19:03 | NUR ---
NEW ORDER OBTAINED FROM NARENDRA PETER P.AArmond FOR FLU VACCINE.
[2020-03-02] MEDS ORDERED: INFLUENZA VACCINE 2020-2021 0.5 ML DISP.SYRIN IM ONE (20:00)
[2020-03-02 20:39] VITALS: BP 140/59
--- NOTE | 2020-03-02 20:49 | NUR ---
Received pt awake, alert, trached with Neymar#6 DCT trach, which is in placed and secured properly, on C/A via T-Piece with FIO2-30%. No SOB noted. Pt refused to be suction. PMV on. Resus. bag and back up trach at bedside. Trach care done. Cont. monitor.
[2020-03-02] MEDS: DOCUSATE SODIUM 100 MG/10 ML LIQUID UDC GT SCH (21:50)
[2020-03-02] MEDS: MIRALAX 17 GM POWD.PACK GT SCH (21:51)
[2020-03-02] MEDS: QUETIAPINE FUMARATE 25 MG TABLET GT SCH (21:52)
[2020-03-02] MEDS: ENOXAPARIN SODIUM 40 MG/0.4 ML DISP.SYRIN SQ SCH (21:54)
[2020-03-03] MEDS: CHOLECALCIFEROL 1,000 UNIT TABLET PO SCH (05:14)
[2020-03-03] MEDS: CYANOCOBALAMIN 1,000 MCG TABLET GT SCH (05:14)
[2020-03-03 07:46] VITALS: BP 107/63
[2020-03-03] MEDS: HYDROGEN PEROXIDE 3% 118 ML BOTTLE TP SCH ×2 (08:11→21:22)
[2020-03-03] MEDS: ESCITALOPRAM OXALATE 10 MG TABLET GT SCH (08:16)
[2020-03-03] MEDS: AMLODIPINE 5 MG TABLET PO SCH (08:16)
[2020-03-03] MEDS: ASPIRIN 81 MG TAB.CHEW GT SCH (08:16)
[2020-03-03] MEDS: levETIRAcetam 500 MG TABLET GT SCH ×2 (08:16→21:17)
[2020-03-03] MEDS: OSMOLITE 1.2 CAL 1,000 ML LIQUID GT PRN ×2 (10:01→21:57)
--- NOTE | 2020-03-03 11:56 | NUR ---
ZOOM PROVIDED TO .
--- NOTE | 2020-03-03 15:30 | NUR ---
Patient seen by Dr. Stockton on 03/02/2020 for her initial eye exam. Please see optometry notes in patient's chart for details.
--- NOTE | 2020-03-03 18:48 | NUR ---
NO A/R TO FLU VACCINE ,AFEBRILE.
[2020-03-03 20:46] VITALS: BP 107/71
[2020-03-03] MEDS: DOCUSATE SODIUM 100 MG/10 ML LIQUID UDC GT SCH (21:17)
[2020-03-03] MEDS: MIRALAX 17 GM POWD.PACK GT SCH (21:18)
[2020-03-03] MEDS: QUETIAPINE FUMARATE 25 MG TABLET GT SCH (21:18)
[2020-03-03] MEDS: ENOXAPARIN SODIUM 40 MG/0.4 ML DISP.SYRIN SQ SCH (21:19)
--- NOTE | 2020-03-03 22:49 | NUR ---
Afebrile, no adverse reactions noted from the flu vaccine.
[2020-03-04] MEDS: CHOLECALCIFEROL 1,000 UNIT TABLET PO SCH (05:07)
[2020-03-04] MEDS: CYANOCOBALAMIN 1,000 MCG TABLET GT SCH (05:07)
[2020-03-04] MEDS: HYDROGEN PEROXIDE 3% 118 ML BOTTLE TP SCH ×2 (07:30→19:08)
[2020-03-04 07:46] VITALS: BP 115/67
[2020-03-04] MEDS: ASPIRIN 81 MG TAB.CHEW GT SCH (08:48)
[2020-03-04] MEDS: levETIRAcetam 500 MG TABLET GT SCH ×2 (08:49→20:16)
[2020-03-04] MEDS: ESCITALOPRAM OXALATE 10 MG TABLET GT SCH (08:50)
[2020-03-04] MEDS: AMLODIPINE 5 MG TABLET PO SCH (09:02)
--- NOTE | 2020-03-04 18:04 | NUR ---
NO A/R TO ATB TX ,AFEBRILE.
[2020-03-04] MEDS: MIRALAX 17 GM POWD.PACK GT SCH (20:16)
[2020-03-04] MEDS: QUETIAPINE FUMARATE 25 MG TABLET GT SCH (20:16)
[2020-03-04] MEDS: DOCUSATE SODIUM 100 MG/10 ML LIQUID UDC GT SCH (20:16)
[2020-03-04] MEDS: ENOXAPARIN SODIUM 40 MG/0.4 ML DISP.SYRIN SQ SCH (20:18)
[2020-03-04 20:52] VITALS: BP 115/61
--- NOTE | 2020-03-04 21:48 | NUR ---
Afebrile, no adverse reactions from flu vaccine, no redness on injection site.
[2020-03-05] MEDS: OSMOLITE 1.2 CAL 1,000 ML LIQUID GT PRN (05:51)
[2020-03-05] MEDS: CYANOCOBALAMIN 1,000 MCG TABLET GT SCH (05:51)
[2020-03-05] MEDS: CHOLECALCIFEROL 1,000 UNIT TABLET PO SCH (05:51)
[2020-03-05 07:48] VITALS: BP 130/61
[2020-03-05] MEDS: HYDROGEN PEROXIDE 3% 118 ML BOTTLE TP SCH ×2 (07:48→21:00)
[2020-03-05] MEDS: ASPIRIN 81 MG TAB.CHEW GT SCH (08:57)
[2020-03-05] MEDS: levETIRAcetam 500 MG TABLET GT SCH ×2 (08:57→21:49)
[2020-03-05] MEDS: ESCITALOPRAM OXALATE 10 MG TABLET GT SCH (08:58)
[2020-03-05] MEDS: AMLODIPINE 5 MG TABLET PO SCH (08:58)
--- NOTE | 2020-03-05 10:30 | NUR ---
VIDE0 ZOOM DONE WITH PT'S SISTER MIL PT'S ALLOWED IT.FOR 5 MIN AND PT. WAS VERY HAPPY.
--- NOTE | 2020-03-05 13:54 | NUR ---
NO A/R TO FLU VACCINE ,AFEBRILE.
[2020-03-05] MEDS: SCOPOLAMINE TP SCH (16:02)
[2020-03-05 20:25] VITALS: BP 104/71
[2020-03-05] MEDS: ENOXAPARIN SODIUM 40 MG/0.4 ML DISP.SYRIN SQ SCH (21:00)
[2020-03-05] MEDS: DOCUSATE SODIUM 100 MG/10 ML LIQUID UDC GT SCH (21:43)
[2020-03-05] MEDS: QUETIAPINE FUMARATE 25 MG TABLET GT SCH (21:49)
[2020-03-05] MEDS: MIRALAX 17 GM POWD.PACK GT SCH (21:49)
[2020-03-06] MEDS: CYANOCOBALAMIN 1,000 MCG TABLET GT SCH (05:29)
[2020-03-06] MEDS: CHOLECALCIFEROL 1,000 UNIT TABLET PO SCH (05:29)
--- NOTE | 2020-03-06 06:57 | NUR ---
No A/R to flu vaccine, afebrile.
[2020-03-06 07:49] VITALS: BP 133/64
[2020-03-06] MEDS: ASPIRIN 81 MG TAB.CHEW GT SCH (08:45)
[2020-03-06] MEDS: levETIRAcetam 500 MG TABLET GT SCH ×2 (08:46→20:51)
[2020-03-06] MEDS: ESCITALOPRAM OXALATE 10 MG TABLET GT SCH (08:47)
[2020-03-06] MEDS: AMLODIPINE 5 MG TABLET PO SCH (08:48)
[2020-03-06] MEDS: HYDROGEN PEROXIDE 3% 118 ML BOTTLE TP SCH ×2 (09:44→21:38)
--- NOTE | 2020-03-06 13:30 | NUR ---
SEEN BY NARENDRA MCDANIEL.
--- NOTE | 2020-03-06 14:21 | NUR ---
SADIA received a voicemail message from patient's Avinash, , in response to this SADIA's message left for Avinash on 03/02/2020 (see SS note dated 03/02), inviting Avinash to participate in the IDT meeting on 03/07/2020. Avinash stated in his voicemail that he would like to participate via speaker phone. This SW to contact Avinash during the IDT meeting.
--- NOTE | 2020-03-06 16:02 | NUR ---
DR. EDOUARD Hoover WAS CALLED AND MESSAGE LEFT TO F/U A PSYCHIATRIC CONSULT TO EVALUATE MEDICATIONS.
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
--- NOTE | 2020-03-06 17:14 | NUR ---
Zoom meeting provided with pt's .
--- NOTE | 2020-03-06 19:50 | NUR ---
Received pt awake, alert, trached with Neymar#6 DCT trach, which is in placed and secured properly, on C/A via T-Piece with FIO2-30%. No respiratory distress noted. PMV on. Resus. bag and back up trach at bedside. Trach care done. Cont. monitor.
[2020-03-06 20:44] VITALS: BP 128/67
[2020-03-06] MEDS: DOCUSATE SODIUM 100 MG/10 ML LIQUID UDC GT SCH (20:50)
[2020-03-06] MEDS: MIRALAX 17 GM POWD.PACK GT SCH (20:51)
[2020-03-06] MEDS: QUETIAPINE FUMARATE 25 MG TABLET GT SCH (20:51)
[2020-03-06] MEDS: ENOXAPARIN SODIUM 40 MG/0.4 ML DISP.SYRIN SQ SCH (21:00)
[2020-03-07] MEDS: CHOLECALCIFEROL 1,000 UNIT TABLET PO SCH (05:05)
[2020-03-07] MEDS: CYANOCOBALAMIN 1,000 MCG TABLET GT SCH (05:05)
[2020-03-07] MEDS: OSMOLITE 1.2 CAL 1,000 ML LIQUID GT PRN ×2 (05:06→22:14)
[2020-03-07 08:03] VITALS: BP 128/80
[2020-03-07] MEDS: HYDROGEN PEROXIDE 3% 118 ML BOTTLE TP SCH ×2 (08:12→21:37)
[2020-03-07] MEDS: levETIRAcetam 500 MG TABLET GT SCH ×2 (08:15→21:03)
[2020-03-07] MEDS: ASPIRIN 81 MG TAB.CHEW GT SCH (08:15)
[2020-03-07] MEDS: ESCITALOPRAM OXALATE 10 MG TABLET GT SCH (08:15)
[2020-03-07] MEDS: AMLODIPINE 5 MG TABLET PO SCH (08:16)
--- NOTE | 2020-03-07 16:12 | NUR ---
INTERDISCIPLINARY PLAN OF CARE CONFERENCE was held today. Patient's Avinash participated in the meeting through speaker phone. Dr. Ramirez and the Interdisciplinary Team reviewed the current plan of care in detail. RN reported on patient's medical condition and recent treatments, and stated that the regulatory 14-day isolation precautions have been discontinued. See RN IDT conference notes. PT, OT, and ST discussed their treatment plans and progress. Pharmacy, Dietary, and RT reported no concerns. See all disciplines IDT notes and physician's progress notes for additional details. Avinash's questions were addressed by Dr. Ramirez and the IDT team, and Avinash expressed being content with the current plan of care.
[2020-03-07 20:00] VITALS: BP 126/82
--- NOTE | 2020-03-07 20:23 | NUR ---
Received pt awake, alert, trached with Neymar#6 DCT trach, which is in placed and secured properly, on C/A via T-Piece with FIO2-30%. No distress noted. PMV on. Resus. bag and back up trach at bedside. Trach care done. Cont. monitor.
[2020-03-07] MEDS: MIRALAX 17 GM POWD.PACK GT SCH (21:03)
[2020-03-07] MEDS: DOCUSATE SODIUM 100 MG/10 ML LIQUID UDC GT SCH (21:03)
[2020-03-07] MEDS: QUETIAPINE FUMARATE 25 MG TABLET GT SCH (21:04)
[2020-03-07] MEDS: ENOXAPARIN SODIUM 40 MG/0.4 ML DISP.SYRIN SQ SCH (21:04)
[2020-03-08] MEDS: CYANOCOBALAMIN 1,000 MCG TABLET GT SCH (05:59)
[2020-03-08] MEDS: CHOLECALCIFEROL 1,000 UNIT TABLET PO SCH (05:59)
[2020-03-08] MEDS: HYDROGEN PEROXIDE 3% 118 ML BOTTLE TP SCH ×2 (07:13→21:17)
[2020-03-08 07:46] LABS: ALANINE AMINOTRANSFERASE 20 U/L (14-59); ALKALINE PHOSPHATASE 69 U/L (50-136); ASPARTATE AMINOTRANSFERASE 6 U/L (15-37); BILIRUBIN,TOTAL 0.2 mg/dL (0.2-1.0); CARBON DIOXIDE 37 mmol/L (21-32); CHLORIDE 101 mmol/L (98-107); CREATININE 0.4 mg/dL (0.6-1.3); GLUCOSE 106 mg/dL (74-106); POTASSIUM 4.3 mmol/L (3.5-5.1); TOTAL PROTEIN, SERUM 7.9 g/dL (6.4-8.2); UREA NITROGEN, BLOOD 16 mg/dL (7-18)
[2020-03-08 07:47] VITALS: BP 132/87
[2020-03-08 07:49] LABS: BASOPHILS % (AUTO) 0.5 % (0.0-2.0); EOSINOPHILS # (AUTO) 0.1 K/uL (0.0-0.7); EOSINOPHILS % (AUTO) 2.6 % (0.0-7.0); HEMATOCRIT 34.6 % (31.2-41.9); HEMOGLOBIN 11.7 g/dL (10.9-14.3); LYMPHOCYTES # (AUTO) 1.4 K/uL (20.0-40.0); LYMPHOCYTES % (AUTO) 31.9 % (20.5-51.5); MEAN CORPUSCULAR HEMOGLOBIN 31.6 uug (24.7-32.8); MEAN CORPUSCULAR HGB CONC 34 g/dL (32.3-35.6); MEAN CORPUSCULAR VOLUME 93.5 fL (75.5-95.3); MONOCYTES # (AUTO) 0.5 K/uL (2.0-10.0); MONOCYTES % (AUTO) 10.6 % (0.0-11.0); NEUTROPHILS # (AUTO) 2.5 K/uL (1.8-8.9); NEUTROPHILS % (AUTO) 54.4 % (38.5-71.5); PLATELET COUNT (AUTO) 284 K/uL (179-408); WHITE BLOOD COUNT (AUTO) 4.5 K/uL (3.8-11.8)
[2020-03-08] MEDS: ASPIRIN 81 MG TAB.CHEW GT SCH (09:00)
[2020-03-08] MEDS: ESCITALOPRAM OXALATE 10 MG TABLET GT SCH (09:04)
[2020-03-08] MEDS: levETIRAcetam 500 MG TABLET GT SCH ×2 (09:04→20:46)
[2020-03-08] MEDS: AMLODIPINE 5 MG TABLET PO SCH (09:05)
[2020-03-08] MEDS: SCOPOLAMINE TP SCH (14:14)
[2020-03-08] MEDS: OSMOLITE 1.2 CAL 1,000 ML LIQUID GT PRN (18:00)
[2020-03-08 20:00] VITALS: BP 117/73
[2020-03-08] MEDS: DOCUSATE SODIUM 100 MG/10 ML LIQUID UDC GT SCH (20:46)
[2020-03-08] MEDS: MIRALAX 17 GM POWD.PACK GT SCH (20:46)
[2020-03-08] MEDS: QUETIAPINE FUMARATE 25 MG TABLET GT SCH (20:47)
[2020-03-08] MEDS: ENOXAPARIN SODIUM 40 MG/0.4 ML DISP.SYRIN SQ SCH (20:48)
--- NOTE | 2020-03-08 22:49 | NUR ---
Staff noted patient's finger nails are long and asked the patient to cut her nails but she refused.
[2020-03-09] MEDS: CYANOCOBALAMIN 1,000 MCG TABLET GT SCH (06:07)
[2020-03-09] MEDS: CHOLECALCIFEROL 1,000 UNIT TABLET PO SCH (06:07)
[2020-03-09 07:25] VITALS: BP 102/74
[2020-03-09] MEDS: HYDROGEN PEROXIDE 3% 118 ML BOTTLE TP SCH ×2 (09:00→21:34)
[2020-03-09] MEDS: levETIRAcetam 500 MG TABLET GT SCH ×2 (09:00→21:44)
[2020-03-09] MEDS: ASPIRIN 81 MG TAB.CHEW GT SCH (09:00)
[2020-03-09] MEDS: ESCITALOPRAM OXALATE 10 MG TABLET GT SCH (09:00)
[2020-03-09] MEDS: AMLODIPINE 5 MG TABLET PO SCH (09:00)
[2020-03-09] MEDS: OSMOLITE 1.2 CAL 1,000 ML LIQUID GT PRN (11:26)
--- NOTE | 2020-03-09 12:52 | NUR ---
CALLED RESPONSIBLE LIBERTARIAN, MAIRA GABRIEL ON [phone] AND INFORMED HIM OF HIS WIFES POSSIBLE COVID-19 EXPOSURE, PLANED 10 DAYS QUARANTINE AND THE TESTING PLAN FOR THE NEXT 14 DAYS, MANDATED BY [facility] REGULATIONS ALSO MAIRA NOTIFIED THAT NURSING WILL CALL HIM WITH THE COVID-19 RESULT. MAIRA EXPRESSED UNDERSTANDING.
[2020-03-09 20:00] VITALS: BP 108/76
--- NOTE | 2020-03-09 20:42 | NUR ---
Received a phone call from Marina from the lab result on the Rapid COVID-19 test is negative.
--- NOTE | 2020-03-09 20:47 | NUR ---
I spoke with Avinash ( patient's ) and made him aware that covid-19 test result that was done today which resulted negative.
[2020-03-09] MEDS: DOCUSATE SODIUM 100 MG/10 ML LIQUID UDC GT SCH (21:44)
[2020-03-09] MEDS: QUETIAPINE FUMARATE 25 MG TABLET GT SCH (21:44)
[2020-03-09] MEDS: MIRALAX 17 GM POWD.PACK GT SCH (21:44)
[2020-03-09] MEDS: ENOXAPARIN SODIUM 40 MG/0.4 ML DISP.SYRIN SQ SCH (21:45)
[2020-03-10] MEDS: OSMOLITE 1.2 CAL 1,000 ML LIQUID GT PRN ×2 (01:12→21:12)
--- NOTE | 2020-03-10 01:14 | NUR ---
Patient is afebrile, denies any respiratory distress, 02 sat is 100%, will continue monitor.
[2020-03-10] MEDS: CHOLECALCIFEROL 1,000 UNIT TABLET PO SCH (05:51)
[2020-03-10] MEDS: CYANOCOBALAMIN 1,000 MCG TABLET GT SCH (05:51)
--- NOTE | 2020-03-10 07:07 | NUR ---
Patient called and showed me a red and intact blister like on Right lateral thumb, skin is intact and patient denies pain when I touched the affected area. No treatment indicated at this time, will continue monitor.
[2020-03-10 07:40] VITALS: BP 113/77
[2020-03-10] MEDS: ASPIRIN 81 MG TAB.CHEW GT SCH (08:58)
[2020-03-10] MEDS: ESCITALOPRAM OXALATE 10 MG TABLET GT SCH (08:59)
[2020-03-10] MEDS: levETIRAcetam 500 MG TABLET GT SCH ×2 (08:59→20:40)
[2020-03-10] MEDS: AMLODIPINE 5 MG TABLET PO SCH (08:59)
[2020-03-10] MEDS: HYDROGEN PEROXIDE 3% 118 ML BOTTLE TP SCH ×2 (09:10→21:00)
--- NOTE | 2020-03-10 15:42 | NUR ---
ZOOM PROVIDED TO .
[2020-03-10] MEDS: MIRALAX 17 GM POWD.PACK GT SCH (20:40)
[2020-03-10] MEDS: DOCUSATE SODIUM 100 MG/10 ML LIQUID UDC GT SCH (20:40)
[2020-03-10] MEDS: QUETIAPINE FUMARATE 25 MG TABLET GT SCH (20:40)
[2020-03-10] MEDS: ENOXAPARIN SODIUM 40 MG/0.4 ML DISP.SYRIN SQ SCH (20:41)
[2020-03-10 22:46] VITALS: BP 112/74
[2020-03-11] MEDS: CHOLECALCIFEROL 1,000 UNIT TABLET PO SCH (05:21)
[2020-03-11] MEDS: CYANOCOBALAMIN 1,000 MCG TABLET GT SCH (05:21)
[2020-03-11] MEDS: HYDROGEN PEROXIDE 3% 118 ML BOTTLE TP SCH ×2 (07:11→21:01)
[2020-03-11 07:56] VITALS: BP 124/50
--- NOTE | 2020-03-11 09:00 | NUR ---
notified covid19 results (negative).
[2020-03-11] MEDS: levETIRAcetam 500 MG TABLET GT SCH ×2 (09:25→20:36)
[2020-03-11] MEDS: ESCITALOPRAM OXALATE 10 MG TABLET GT SCH (09:25)
[2020-03-11] MEDS: ASPIRIN 81 MG TAB.CHEW GT SCH (09:25)
[2020-03-11] MEDS: AMLODIPINE 5 MG TABLET PO SCH (09:27)
[2020-03-11] MEDS: SCOPOLAMINE TP SCH (14:50)
[2020-03-11] MEDS: OSMOLITE 1.2 CAL 1,000 ML LIQUID GT PRN (14:50)
--- NOTE | 2020-03-11 20:00 | NUR ---
Resident in bed, appears to be comfortable. MRI SPECIALIST offered resident if she wanted to be changed. Resident refused to be changed. MRI SPECIALIST notified nurse. Nurse asked resident why she didn't want to be changed. Resident stated that she didn't need to be changed at this time. Risks and benefits explained. Will continue to monitor. Call light left within reach.
--- NOTE | 2020-03-11 20:12 | NUR ---
Pt received awake, alert, trached with Neymar#6 DCT trach, which is in placed and secured properly, on C/A via T-Piece with FIO2-30%. No respiratory distress noted. PMV on. Sx Rodríguez changed. Resus. bag and back up trach at bedside. Trach care done. Cont. monitor.
[2020-03-11] MEDS: DOCUSATE SODIUM 100 MG/10 ML LIQUID UDC GT SCH (20:36)
[2020-03-11] MEDS: MIRALAX 17 GM POWD.PACK GT SCH (20:36)
[2020-03-11] MEDS: QUETIAPINE FUMARATE 25 MG TABLET GT SCH (20:36)
[2020-03-11] MEDS: ENOXAPARIN SODIUM 40 MG/0.4 ML DISP.SYRIN SQ SCH (20:36)
[2020-03-11 23:03] VITALS: BP 137/75
--- NOTE | 2020-03-12 00:01 | NUR ---
Resident in bed, appears to be comfortable. MERCHANDISE EXECUTION LEADER offered resident if she needed to be changed. Resident refused and verbalized that she did not want to be changed at this time. MERCHANDISE EXECUTION LEADER notified nurse. Nurse explained risks and benefits to resident. Resident continued to refuse. Call light left within reach, will continue to monitor.
[2020-03-12] MEDS: CYANOCOBALAMIN 1,000 MCG TABLET GT SCH (05:01)
[2020-03-12] MEDS: CHOLECALCIFEROL 1,000 UNIT TABLET PO SCH (05:02)
--- NOTE | 2020-03-12 05:29 | NUR ---
Resident called via call light at this time, stated that she wanted to be changed. Nurse notified INSURANCE CLAIM REPRESENTATIVE. Nurse also explained to the resident the risks of not being changed throughout the shift. Resident verbalized understanding. Resident currently being changed at this time. Call light left within reach. Will continue to monitor.
[2020-03-12 07:44] VITALS: BP 120/175
[2020-03-12] MEDS: ASPIRIN 81 MG TAB.CHEW GT SCH (08:43)
[2020-03-12] MEDS: levETIRAcetam 500 MG TABLET GT SCH ×2 (08:43→20:37)
[2020-03-12] MEDS: AMLODIPINE 5 MG TABLET PO SCH (08:43)
[2020-03-12] MEDS: ESCITALOPRAM OXALATE 10 MG TABLET GT SCH (08:43)
[2020-03-12] MEDS: HYDROGEN PEROXIDE 3% 118 ML BOTTLE TP SCH ×2 (09:14→21:28)
--- NOTE | 2020-03-12 11:46 | NUR ---
New orders for Covid 19 today.carried out.
--- NOTE | 2020-03-12 12:00 | NUR ---
Resident used ZOOM to call . Will continue to monitor.
[2020-03-12] MEDS: OSMOLITE 1.2 CAL 1,000 ML LIQUID GT PRN (16:56)
--- NOTE | 2020-03-12 17:15 | NUR ---
Resident in stable condition. Remains afebrile. No SOB noted. Continues on quarantine per protocol. Will continue to monitor.
[2020-03-12] MEDS: QUETIAPINE FUMARATE 25 MG TABLET GT SCH (20:37)
[2020-03-12] MEDS: DOCUSATE SODIUM 100 MG/10 ML LIQUID UDC GT SCH (20:37)
[2020-03-12] MEDS: MIRALAX 17 GM POWD.PACK GT SCH (20:37)
[2020-03-12] MEDS: ENOXAPARIN SODIUM 40 MG/0.4 ML DISP.SYRIN SQ SCH (20:38)
[2020-03-12 22:47] VITALS: BP 118/66
[2020-03-13] MEDS: OSMOLITE 1.2 CAL 1,000 ML LIQUID GT PRN (01:52)
[2020-03-13] MEDS: CYANOCOBALAMIN 1,000 MCG TABLET GT SCH (05:17)
[2020-03-13] MEDS: CHOLECALCIFEROL 1,000 UNIT TABLET PO SCH (05:17)
[2020-03-13 07:34] VITALS: BP 127/74
[2020-03-13] MEDS: ASPIRIN 81 MG TAB.CHEW GT SCH (08:01)
[2020-03-13] MEDS: levETIRAcetam 500 MG TABLET GT SCH ×2 (08:02→20:47)
[2020-03-13] MEDS: ESCITALOPRAM OXALATE 10 MG TABLET GT SCH (08:02)
[2020-03-13] MEDS: AMLODIPINE 5 MG TABLET PO SCH (08:03)
[2020-03-13] MEDS: HYDROGEN PEROXIDE 3% 118 ML BOTTLE TP SCH ×2 (09:00→21:37)
--- NOTE | 2020-03-13 10:00 | NUR ---
video chat done with pt's .
--- NOTE | 2020-03-13 15:31 | NUR ---
3:29pm: SADIA called patient's Avinash [phone]. Avinash was not available, and this SW left a voicemail message for Avinash. In the voicemail message, SADIA reminded Avinash that SADIA had not yet received the admission paperwork back from Avinash that SADIA had mailed to him a couple of weeks ago for review and signatures. SADIA also stated in this voicemail message information pertaining to ordering new eye glasses for the patient, per recommendations of Dr. Stockton (vc++ developer). SADIA asked Avinash to call this SW back to further discuss the status of the admission paperwork and the eyeglasses.
[2020-03-13 20:34] VITALS: BP 126/78
[2020-03-13] MEDS: MIRALAX 17 GM POWD.PACK GT SCH (20:47)
[2020-03-13] MEDS: QUETIAPINE FUMARATE 25 MG TABLET GT SCH (20:47)
[2020-03-13] MEDS: DOCUSATE SODIUM 100 MG/10 ML LIQUID UDC GT SCH (20:47)
[2020-03-13] MEDS: ENOXAPARIN SODIUM 40 MG/0.4 ML DISP.SYRIN SQ SCH (20:49)
--- NOTE | 2020-03-13 23:17 | NUR ---
Patient refused to be change and repositioned, offered to change X 2 but patient refused.
[2020-03-13 23:30] VITALS: BP 126/78
--- NOTE | 2020-03-14 01:25 | NUR ---
Received a call from [facility] ( Lab) about the COVID-19 test that was done on Friday which had resulted and the patient's result is negative.
[2020-03-14] MEDS: CYANOCOBALAMIN 1,000 MCG TABLET GT SCH (06:34)
[2020-03-14] MEDS: CHOLECALCIFEROL 1,000 UNIT TABLET PO SCH (06:34)
[2020-03-14 07:26] VITALS: BP 139/70
[2020-03-14] MEDS: HYDROGEN PEROXIDE 3% 118 ML BOTTLE TP SCH ×2 (07:28→21:00)
[2020-03-14] MEDS: ESCITALOPRAM OXALATE 10 MG TABLET GT SCH (08:00)
[2020-03-14] MEDS: levETIRAcetam 500 MG TABLET GT SCH ×2 (08:00→21:43)
[2020-03-14] MEDS: ASPIRIN 81 MG TAB.CHEW GT SCH (08:00)
[2020-03-14] MEDS: AMLODIPINE 5 MG TABLET PO SCH (08:00)
--- NOTE | 2020-03-14 14:30 | NUR ---
PATIENT'S WAS NOTIFIED OF COVID19 RESULT WAS NEGATIVE.
[2020-03-14] MEDS: SCOPOLAMINE TP SCH (14:38)
--- NOTE | 2020-03-14 18:00 | NUR ---
VIDEO CHAT DONE WITH PT'S .
[2020-03-14 20:18] VITALS: BP 123/68
[2020-03-14] MEDS: DOCUSATE SODIUM 100 MG/10 ML LIQUID UDC GT SCH (21:43)
[2020-03-14] MEDS: MIRALAX 17 GM POWD.PACK GT SCH (21:46)
[2020-03-14] MEDS: QUETIAPINE FUMARATE 25 MG TABLET GT SCH (21:47)
[2020-03-14] MEDS: ENOXAPARIN SODIUM 40 MG/0.4 ML DISP.SYRIN SQ SCH (21:50)
[2020-03-14] MEDS: OSMOLITE 1.2 CAL 1,000 ML LIQUID GT PRN (23:00)
[2020-03-15] MEDS: CYANOCOBALAMIN 1,000 MCG TABLET GT SCH (05:28)
[2020-03-15] MEDS: CHOLECALCIFEROL 1,000 UNIT TABLET PO SCH (05:28)
[2020-03-15 07:31] VITALS: BP 122/69
[2020-03-15] MEDS: ESCITALOPRAM OXALATE 10 MG TABLET GT SCH (08:13)
[2020-03-15] MEDS: levETIRAcetam 500 MG TABLET GT SCH ×2 (08:13→21:59)
[2020-03-15] MEDS: ASPIRIN 81 MG TAB.CHEW GT SCH (08:13)
[2020-03-15] MEDS: AMLODIPINE 5 MG TABLET PO SCH (08:15)
[2020-03-15] MEDS: HYDROGEN PEROXIDE 3% 118 ML BOTTLE TP SCH ×2 (08:18→21:31)
--- NOTE | 2020-03-15 12:11 | NUR ---
SADIA had received a voicemail message from patient's Avinash [phone], in response to the message this SW had left Avinash on 03/13. Avinash was not available. SW left another voicemail for Avinash, asking for Avniash to call this SW back.
--- NOTE | 2020-03-15 12:30 | NUR ---
VIDEO CHAT DONE WITH PT'S .
[2020-03-15 20:27] VITALS: BP 120/84
[2020-03-15] MEDS: MIRALAX 17 GM POWD.PACK GT SCH (21:00)
[2020-03-15] MEDS: ENOXAPARIN SODIUM 40 MG/0.4 ML DISP.SYRIN SQ SCH (21:00)
[2020-03-15] MEDS: QUETIAPINE FUMARATE 25 MG TABLET GT SCH (21:00)
--- NOTE | 2020-03-15 21:12 | NUR ---
Pt received awake, alert, trached with Neymar#6 DCT trach, which is in placed and secured properly, on C/A via trach mask with FIO2-30%. No respiratory distress noted. Airway care done, pt responded to physical stimuli. PMV was off and per pt's request placed PMV back on, nurse Anita notified. Resus. bag and back up trach at bedside. Trach care done. Cont. monitor.
[2020-03-15] MEDS: DOCUSATE SODIUM 100 MG/10 ML LIQUID UDC GT SCH (21:59)
[2020-03-16] MEDS: CHOLECALCIFEROL 1,000 UNIT TABLET PO SCH (05:27)
[2020-03-16] MEDS: CYANOCOBALAMIN 1,000 MCG TABLET GT SCH (05:27)
[2020-03-16] MEDS: OSMOLITE 1.2 CAL 1,000 ML LIQUID GT PRN ×2 (06:21→18:35)
[2020-03-16 08:06] VITALS: BP 120/75
[2020-03-16] MEDS: ASPIRIN 81 MG TAB.CHEW GT SCH (08:49)
[2020-03-16] MEDS: levETIRAcetam 500 MG TABLET GT SCH ×2 (08:50→21:42)
[2020-03-16] MEDS: ESCITALOPRAM OXALATE 10 MG TABLET GT SCH (08:50)
[2020-03-16] MEDS: AMLODIPINE 5 MG TABLET PO SCH (08:52)
[2020-03-16] MEDS: HYDROGEN PEROXIDE 3% 118 ML BOTTLE TP SCH ×2 (09:51→21:43)
--- NOTE | 2020-03-16 17:20 | NUR ---
Patient's Avinash called this SW back today. Avinash apologized for the delay in sending back the admission paperwork, however stated that they were all completed and he would be mailing it back to this SW today. SADIA thanked Avinash for her response. SADIA will follow-up with Avinash if paperwork is not received.
[2020-03-16 20:00] VITALS: BP 114/79
[2020-03-16] MEDS: DOCUSATE SODIUM 100 MG/10 ML LIQUID UDC GT SCH (21:42)
[2020-03-16] MEDS: MIRALAX 17 GM POWD.PACK GT SCH (21:43)
[2020-03-16] MEDS: QUETIAPINE FUMARATE 25 MG TABLET GT SCH (21:43)
[2020-03-16] MEDS: ENOXAPARIN SODIUM 40 MG/0.4 ML DISP.SYRIN SQ SCH (21:45)
[2020-03-17] MEDS: CHOLECALCIFEROL 1,000 UNIT TABLET PO SCH (06:06)
[2020-03-17] MEDS: CYANOCOBALAMIN 1,000 MCG TABLET GT SCH (06:06)
[2020-03-17 08:07] VITALS: BP 120/74
[2020-03-17] MEDS: ASPIRIN 81 MG TAB.CHEW GT SCH (08:42)
[2020-03-17] MEDS: ESCITALOPRAM OXALATE 10 MG TABLET GT SCH (08:42)
[2020-03-17] MEDS: levETIRAcetam 500 MG TABLET GT SCH ×2 (08:42→20:50)
[2020-03-17] MEDS: AMLODIPINE 5 MG TABLET PO SCH (08:43)
[2020-03-17] MEDS: HYDROGEN PEROXIDE 3% 118 ML BOTTLE TP SCH ×2 (09:00→20:27)
[2020-03-17] MEDS: OSMOLITE 1.2 CAL 1,000 ML LIQUID GT PRN (11:57)
[2020-03-17] MEDS: SCOPOLAMINE TP SCH (14:15)
[2020-03-17 20:13] VITALS: BP 120/62
[2020-03-17] MEDS: QUETIAPINE FUMARATE 25 MG TABLET GT SCH (20:50)
[2020-03-17] MEDS: MIRALAX 17 GM POWD.PACK GT SCH (20:50)
[2020-03-17] MEDS: DOCUSATE SODIUM 100 MG/10 ML LIQUID UDC GT SCH (20:50)
[2020-03-17] MEDS: ENOXAPARIN SODIUM 40 MG/0.4 ML DISP.SYRIN SQ SCH (20:53)
[2020-03-18] MEDS: CHOLECALCIFEROL 1,000 UNIT TABLET PO SCH (05:15)
[2020-03-18] MEDS: CYANOCOBALAMIN 1,000 MCG TABLET GT SCH (05:15)
[2020-03-18 07:59] VITALS: BP 118/80
[2020-03-18] MEDS: ESCITALOPRAM OXALATE 10 MG TABLET GT SCH (08:26)
[2020-03-18] MEDS: levETIRAcetam 500 MG TABLET GT SCH ×2 (08:26→20:48)
[2020-03-18] MEDS: ASPIRIN 81 MG TAB.CHEW GT SCH (08:26)
[2020-03-18] MEDS: AMLODIPINE 5 MG TABLET PO SCH (08:27)
[2020-03-18] MEDS: HYDROGEN PEROXIDE 3% 118 ML BOTTLE TP SCH ×2 (09:00→21:45)
[2020-03-18 20:15] VITALS: BP 119/74
[2020-03-18] MEDS: QUETIAPINE FUMARATE 25 MG TABLET GT SCH (20:48)
[2020-03-18] MEDS: MIRALAX 17 GM POWD.PACK GT SCH (20:48)
[2020-03-18] MEDS: DOCUSATE SODIUM 100 MG/10 ML LIQUID UDC GT SCH (20:48)
[2020-03-18] MEDS: ENOXAPARIN SODIUM 40 MG/0.4 ML DISP.SYRIN SQ SCH (20:50)
[2020-03-18] MEDS: NEOMY/BACITRA/POLYMYXIN B OINT UD PACKET TP SCH (20:51)
[2020-03-18] MEDS: OSMOLITE 1.2 CAL 1,000 ML LIQUID GT PRN (21:26)
[2020-03-19] MEDS: CYANOCOBALAMIN 1,000 MCG TABLET GT SCH (05:17)
[2020-03-19] MEDS: CHOLECALCIFEROL 1,000 UNIT TABLET PO SCH (05:17)
[2020-03-19] MEDS: OSMOLITE 1.2 CAL 1,000 ML LIQUID GT PRN ×2 (05:18→17:09)
[2020-03-19] MEDS: HYDROGEN PEROXIDE 3% 118 ML BOTTLE TP SCH ×2 (07:34→21:18)
[2020-03-19 08:05] VITALS: BP 139/84
[2020-03-19] MEDS: ASPIRIN 81 MG TAB.CHEW GT SCH (08:35)
[2020-03-19] MEDS: levETIRAcetam 500 MG TABLET GT SCH ×2 (08:37→21:28)
[2020-03-19] MEDS: ESCITALOPRAM OXALATE 10 MG TABLET GT SCH (08:47)
[2020-03-19] MEDS: AMLODIPINE 5 MG TABLET PO SCH (08:48)
[2020-03-19] MEDS: NEOMY/BACITRA/POLYMYXIN B OINT UD PACKET TP SCH ×2 (09:00→21:29)
--- NOTE | 2020-03-19 11:00 | NUR ---
Video chat provided with .
--- NOTE | 2020-03-19 13:30 | NUR ---
PT'S REQUESTED VIDEO CHAT VIA ZOOM FOR PT'S DTR. SASHA D/T SHE JUST GOT IN THIS PRECISE MOMENTS AND WANTS TO SAY HELLO TO HER MOTHER WEARING HER WEDDING DRESS AND DONE AT THIS TIME FOR 2 MIN.,PT. VERY HAPPY AND THANKED THE NURSE.
[2020-03-19 20:58] VITALS: BP 121/80
[2020-03-19] MEDS: DOCUSATE SODIUM 100 MG/10 ML LIQUID UDC GT SCH (21:28)
[2020-03-19] MEDS: MIRALAX 17 GM POWD.PACK GT SCH (21:28)
[2020-03-19] MEDS: QUETIAPINE FUMARATE 25 MG TABLET GT SCH (21:29)
[2020-03-19] MEDS: ENOXAPARIN SODIUM 40 MG/0.4 ML DISP.SYRIN SQ SCH (21:34)
[2020-03-20] MEDS: CYANOCOBALAMIN 1,000 MCG TABLET GT SCH (05:38)
[2020-03-20] MEDS: CHOLECALCIFEROL 1,000 UNIT TABLET PO SCH (05:38)
[2020-03-20 07:33] VITALS: BP 125/80
[2020-03-20] MEDS: ASPIRIN 81 MG TAB.CHEW GT SCH (09:03)
[2020-03-20] MEDS: levETIRAcetam 500 MG TABLET GT SCH ×2 (09:03→20:49)
[2020-03-20] MEDS: AMLODIPINE 5 MG TABLET PO SCH (09:04)
[2020-03-20] MEDS: ESCITALOPRAM OXALATE 10 MG TABLET GT SCH (09:04)
[2020-03-20] MEDS: NEOMY/BACITRA/POLYMYXIN B OINT UD PACKET TP SCH ×2 (09:05→21:03)
[2020-03-20] MEDS: HYDROGEN PEROXIDE 3% 118 ML BOTTLE TP SCH ×2 (09:10→21:30)
--- NOTE | 2020-03-20 09:30 | NUR ---
DATA TYPIST assigned to Pt for the shift reported pt became restless and aggressive at the time AM care was been rendered. Pt pushed DATA TYPIST away with her hand and kicked the water basin that was been used to give her bed bath on the floor. When asked why she did that she stated she wanted to watch TV. DATA TYPIST asked pt to allow her to finish her performing AM care but Pt showed more attention to the show playing on TV than what she was been told. She eventually allowed her to continue after a few minutes and Pt stated, she liked that show and wanted to watch it. Pt has Hx. of short term memory loss and easily forgets conversations, repeatedly asks same question over and over again. Pt re-oriented all the time to place and time. She is oriented to person. Will continue to monitor for any further aggressive and restless episode/incidents.
[2020-03-20] MEDS: SCOPOLAMINE TP SCH (13:05)
--- NOTE | 2020-03-20 16:00 | NUR ---
SEEN BY NARENDRA Mtz AND DR. EDOUARD HooverAND NEW ORDERS CARRIED OUT.
[2020-03-20 20:36] VITALS: BP 115/66
[2020-03-20] MEDS: ENOXAPARIN SODIUM 40 MG/0.4 ML DISP.SYRIN SQ SCH (20:47)
[2020-03-20] MEDS: DOCUSATE SODIUM 100 MG/10 ML LIQUID UDC GT SCH (20:49)
[2020-03-20] MEDS: MIRALAX 17 GM POWD.PACK GT SCH (20:50)
[2020-03-20] MEDS: QUETIAPINE FUMARATE 25 MG TABLET GT SCH (20:50)
[2020-03-21] MEDS: CHOLECALCIFEROL 1,000 UNIT TABLET PO SCH (05:01)
[2020-03-21] MEDS: CYANOCOBALAMIN 1,000 MCG TABLET GT SCH (05:01)
--- NOTE | 2020-03-21 05:46 | NUR ---
pt called, went in room, feeding was alarming, pt pointed machine, nurse turned off due to dose fed, pt watching t.v., no distress noted.
[2020-03-21 07:26] LABS: BASOPHILS % (AUTO) 0.3 % (0.0-2.0); EOSINOPHILS # (AUTO) 0.2 K/uL (0.0-0.7); EOSINOPHILS % (AUTO) 3.6 % (0.0-7.0); HEMATOCRIT 34.4 % (31.2-41.9); HEMOGLOBIN 11.2 g/dL (10.9-14.3); LYMPHOCYTES # (AUTO) 1.5 K/uL (20.0-40.0); LYMPHOCYTES % (AUTO) 27.1 % (20.5-51.5); MEAN CORPUSCULAR HEMOGLOBIN 30.2 uug (24.7-32.8); MEAN CORPUSCULAR HGB CONC 33 g/dL (32.3-35.6); MEAN CORPUSCULAR VOLUME 92.6 fL (75.5-95.3); MONOCYTES # (AUTO) 0.6 K/uL (2.0-10.0); NEUTROPHILS # (AUTO) 3.2 K/uL (1.8-8.9); PLATELET COUNT (AUTO) 291 K/uL (179-408); RED BLOOD CELL COUNT(AUTO) 3.72 MIL/uL (3.63-4.92); WHITE BLOOD COUNT (AUTO) 5.4 K/uL (3.8-11.8)
[2020-03-21] MEDS: HYDROGEN PEROXIDE 3% 118 ML BOTTLE TP SCH ×2 (07:28→21:13)
[2020-03-21 07:45] LABS: ALANINE AMINOTRANSFERASE 22 U/L (14-59); ALKALINE PHOSPHATASE 62 U/L (50-136); ASPARTATE AMINOTRANSFERASE 12 U/L (15-37); BILIRUBIN,TOTAL 0.1 mg/dL (0.2-1.0); CHLORIDE 102 mmol/L (98-107); CREATININE 0.4 mg/dL (0.6-1.3); GLUCOSE 98 mg/dL (74-106); PHOSPHOROUS 3.5 mg/dL (2.5-4.9); POTASSIUM 4.3 mmol/L (3.5-5.1); TOTAL PROTEIN, SERUM 7.4 g/dL (6.4-8.2); UREA NITROGEN, BLOOD 16 mg/dL (7-18)
[2020-03-21 07:48] LABS: CARBON DIOXIDE 42 mmol/L (21-32)
--- NOTE | 2020-03-21 07:50 | NUR ---
Reported by Elidia Henry is 43 ,Left message to Dr Masters.
[2020-03-21 07:56] VITALS: BP 136/57
[2020-03-21] MEDS: ASPIRIN 81 MG TAB.CHEW GT SCH (09:38)
[2020-03-21] MEDS: levETIRAcetam 500 MG TABLET GT SCH ×2 (09:38→21:31)
[2020-03-21] MEDS: ESCITALOPRAM OXALATE 10 MG TABLET GT SCH (09:39)
[2020-03-21] MEDS: NEOMY/BACITRA/POLYMYXIN B OINT UD PACKET TP SCH ×2 (09:40→21:33)
[2020-03-21] MEDS: AMLODIPINE 5 MG TABLET PO SCH (09:40)
--- NOTE | 2020-03-21 10:43 | NUR ---
Verified with Faizan from infectious disease,regarding the isolation precaution for Covid exposure,he Stated today is 14 days since the exposure day and we can dc the isolation.
--- NOTE | 2020-03-21 10:53 | NUR ---
SADIA received a recommendation for bifocal glasses for the patient from Dr. Stockton, pathology tech. SADIA called patient's Avinash [phone] to inform him of this, and Avinash has some questions for Dr. Stockton. SADIA stated that she will try to coordinate contact between Avinash and Dr. Stockton. Avinash expressed agreement. Avinash wanted to discuss the consideration of having the patient move to a facility closer to him, since Avinash lives in [place]. Avinash discussed a recent conversation he had had with patient's physician, Dr. Ramirez, specifically pertaining to the removal of patient's trach. Avinash expressed his wishes about eventually having the trach removed, however stated that Dr. Ramirez had informed him about the current need for the trach. Avinash stated that ideally he would want for patient to return to [facility], which was the facility that patient was living at prior to her hospitalizations. SADIA offered to look into facilities closer to [place] that can provide trach care, and Avinash expressed agreement. SW to work on these resources.
--- NOTE | 2020-03-21 11:09 | NUR ---
SADIA called Dr. Stockton's office and spoke with Gaby regarding patient's 's request to speak with Dr. Stockton. Gaby stated that Dr. Stockton would be in the office on Tuesday 03/27 and Wednesday 03/28, and that the patient's can call the office and ask to speak with Dr. Stockton. SADIA called patients' Avinash again, , and informed him of above. SADIA provided Avinash with Dr. Stockton's office number [phone]. Avinash stated that he will follow-up with Dr. Stockton. SADIA also informed Avinash that the next IDT meeting for the patient is scheduled for 03/28/2020, and asked Avinash if he would like to participate in the meeting through speaker phone. Avinash stated that he would like to participate. SADIA asked Avinash to be available on 03/28 between 11am-12pm in order to receive this SADIA's call during the meeting, and Avinash expressed agreement.
--- NOTE | 2020-03-21 13:22 | NUR ---
Cleo Brock aware of Co2 results,with new orders noted.ABG in Am.
--- NOTE | 2020-03-21 16:12 | NUR ---
PT. OBSERVED WITH SHORT TERM MEMORY ,ABLE TO USE CALL LIGHT BUT THEN FORGETTING WHY SHE WAS CALLING THE NURSE.
[2020-03-21] MEDS: OSMOLITE 1.2 CAL 1,000 ML LIQUID GT PRN (18:17)
--- NOTE | 2020-03-21 20:08 | NUR ---
Received pt awake, trached with Neymar#6 DCT trach, which is in placed and secured properly, on C/A via trach mask with FIO2-30%. No s/s of respiratory distress noted. PMV on. Resus. bag and back up trach at bedside. Trach care done. Cont. monitor.
[2020-03-21 20:42] VITALS: BP 138/75
[2020-03-21] MEDS: ENOXAPARIN SODIUM 40 MG/0.4 ML DISP.SYRIN SQ SCH (21:29)
[2020-03-21] MEDS: DOCUSATE SODIUM 100 MG/10 ML LIQUID UDC GT SCH (21:31)
[2020-03-21] MEDS: QUETIAPINE FUMARATE 25 MG TABLET GT SCH (21:31)
[2020-03-21] MEDS: MIRALAX 17 GM POWD.PACK GT SCH (21:31)
[2020-03-22] MEDS: CYANOCOBALAMIN 1,000 MCG TABLET GT SCH (05:24)
[2020-03-22] MEDS: CHOLECALCIFEROL 1,000 UNIT TABLET PO SCH (05:24)
[2020-03-22 07:28] VITALS: BP 120/74
[2020-03-22 07:42] LABS: ABG BASE EXCESS 12.4 mmol/L; ABG HCO3 41.3 mmol/L; ABG PH 7.331 (7.350-7.450); ABG PO2 140.8 mmHg (75.0-100.0); ABG SITE RIGHT RADIAL; ABG TOTAL HEMOGLOBIN 11.8 G/dL (12.0-16.0); COHb 0.8 % (0.5-1.5); MetHb 0.3 % (0.0-1.5); O2Hb 98.1 % (94.0-97.0); VENT MODE Trach Collar 30%
[2020-03-22] MEDS: HYDROGEN PEROXIDE 3% 118 ML BOTTLE TP SCH ×2 (08:05→21:46)
[2020-03-22] MEDS: ESCITALOPRAM OXALATE 10 MG TABLET GT SCH (09:07)
[2020-03-22] MEDS: ASPIRIN 81 MG TAB.CHEW GT SCH (09:07)
[2020-03-22] MEDS: levETIRAcetam 500 MG TABLET GT SCH ×2 (09:07→21:09)
[2020-03-22] MEDS: AMLODIPINE 5 MG TABLET PO SCH (09:07)
[2020-03-22] MEDS: NEOMY/BACITRA/POLYMYXIN B OINT UD PACKET TP SCH ×2 (09:07→21:09)
--- NOTE | 2020-03-22 11:00 | NUR ---
Left message to Dr Ramirez regarding the ABG results.
--- NOTE | 2020-03-22 12:34 | NUR ---
Cleo Brock called back ,Dr Ramirez will be here later afternoon and will examine the patient.
--- NOTE | 2020-03-22 17:15 | NUR ---
Seen and examined by Dr Ramirez notified regarding the Abg result with new orders noted,o2 decrease to 28 %.
--- NOTE | 2020-03-22 18:02 | NUR ---
Video chat provided to pt.and her with no problem noted, pt. kept clean and comfortable, all needs attended and anticipated.
--- NOTE | 2020-03-22 19:00 | NUR ---
Covid 19 results negative.
[2020-03-22 20:56] VITALS: BP 124/79
[2020-03-22] MEDS: ENOXAPARIN SODIUM 40 MG/0.4 ML DISP.SYRIN SQ SCH (21:00)
[2020-03-22] MEDS: QUETIAPINE FUMARATE 25 MG TABLET GT SCH (21:09)
[2020-03-22] MEDS: DOCUSATE SODIUM 100 MG/10 ML LIQUID UDC GT SCH (21:09)
[2020-03-22] MEDS: MIRALAX 17 GM POWD.PACK GT SCH (21:09)
--- NOTE | 2020-03-22 23:35 | NUR ---
Patient is alert with episodes of forgetfulness, noted with productive cough, denies any difficulty breathing, suctioned frequently, kept patient clean and comfortable.
[2020-03-23] MEDS: CYANOCOBALAMIN 1,000 MCG TABLET GT SCH (06:49)
[2020-03-23] MEDS: CHOLECALCIFEROL 1,000 UNIT TABLET PO SCH (06:49)
[2020-03-23] MEDS: OSMOLITE 1.2 CAL 1,000 ML LIQUID GT PRN ×2 (06:50→21:08)
[2020-03-23 07:45] VITALS: BP 123/76
[2020-03-23] MEDS: ACETAzolamide 250 MG TABLET GT SCH (09:03)
[2020-03-23] MEDS: AMLODIPINE 5 MG TABLET PO SCH (09:03)
[2020-03-23] MEDS: ASPIRIN 81 MG TAB.CHEW GT SCH (09:03)
[2020-03-23] MEDS: levETIRAcetam 500 MG TABLET GT SCH ×2 (09:03→20:58)
[2020-03-23] MEDS: ESCITALOPRAM OXALATE 10 MG TABLET GT SCH (09:03)
[2020-03-23] MEDS: NEOMY/BACITRA/POLYMYXIN B OINT UD PACKET TP SCH ×2 (09:03→20:59)
[2020-03-23] MEDS: HYDROGEN PEROXIDE 3% 118 ML BOTTLE TP SCH ×2 (09:19→20:53)
[2020-03-23 12:27] LABS: CREATININE 0.5 mg/dL (0.6-1.3); POTASSIUM 3.5 mmol/L (3.5-5.1)
[2020-03-23] MEDS: SCOPOLAMINE TP SCH (14:08)
[2020-03-23] MEDS: QUETIAPINE FUMARATE 25 MG TABLET GT SCH (20:58)
[2020-03-23] MEDS: MIRALAX 17 GM POWD.PACK GT SCH (20:58)
[2020-03-23] MEDS: DOCUSATE SODIUM 100 MG/10 ML LIQUID UDC GT SCH (20:58)
[2020-03-23] MEDS: ENOXAPARIN SODIUM 40 MG/0.4 ML DISP.SYRIN SQ SCH (21:01)
[2020-03-23 22:16] VITALS: BP 122/74
--- NOTE | 2020-03-24 04:45 | NUR ---
Patient is sleeping, suctioned with moderate yellow secretions, suctioned, 02 sat is 97%, no signs of any distress, needs anticipated, will continue monitor.
[2020-03-24] MEDS: CYANOCOBALAMIN 1,000 MCG TABLET GT SCH (05:20)
[2020-03-24] MEDS: CHOLECALCIFEROL 1,000 UNIT TABLET PO SCH (05:20)
[2020-03-24 07:31] VITALS: BP 123/78
[2020-03-24] MEDS: ASPIRIN 81 MG TAB.CHEW GT SCH (08:57)
[2020-03-24] MEDS: ESCITALOPRAM OXALATE 10 MG TABLET GT SCH (08:58)
[2020-03-24] MEDS: ACETAzolamide 250 MG TABLET GT SCH (08:58)
[2020-03-24] MEDS: levETIRAcetam 500 MG TABLET GT SCH ×2 (08:58→21:22)
[2020-03-24] MEDS: AMLODIPINE 5 MG TABLET PO SCH (08:59)
[2020-03-24] MEDS: NEOMY/BACITRA/POLYMYXIN B OINT UD PACKET TP SCH ×2 (08:59→21:22)
[2020-03-24] MEDS: HYDROGEN PEROXIDE 3% 118 ML BOTTLE TP SCH ×2 (09:00→21:13)
[2020-03-24] MEDS: OSMOLITE 1.2 CAL 1,000 ML LIQUID GT PRN (15:22)
[2020-03-24] MEDS: DOCUSATE SODIUM 100 MG/10 ML LIQUID UDC GT SCH (21:00)
[2020-03-24] MEDS: MIRALAX 17 GM POWD.PACK GT SCH (21:00)
[2020-03-24] MEDS: QUETIAPINE FUMARATE 25 MG TABLET GT SCH (21:22)
[2020-03-24] MEDS: ENOXAPARIN SODIUM 40 MG/0.4 ML DISP.SYRIN SQ SCH (21:36)
[2020-03-24 22:23] VITALS: BP 111/72
[2020-03-25] MEDS: CHOLECALCIFEROL 1,000 UNIT TABLET PO SCH (05:07)
[2020-03-25] MEDS: CYANOCOBALAMIN 1,000 MCG TABLET GT SCH (05:07)
[2020-03-25 07:36] VITALS: BP 109/74
[2020-03-25] MEDS: HYDROGEN PEROXIDE 3% 118 ML BOTTLE TP SCH ×2 (09:00→20:27)
[2020-03-25] MEDS: AMLODIPINE 5 MG TABLET PO SCH (09:00)
[2020-03-25] MEDS: ASPIRIN 81 MG TAB.CHEW GT SCH (09:06)
[2020-03-25] MEDS: ACETAzolamide 250 MG TABLET GT SCH (09:07)
[2020-03-25] MEDS: ESCITALOPRAM OXALATE 10 MG TABLET GT SCH (09:08)
[2020-03-25] MEDS: levETIRAcetam 500 MG TABLET GT SCH ×2 (09:08→21:25)
[2020-03-25] MEDS: NEOMY/BACITRA/POLYMYXIN B OINT UD PACKET TP SCH (09:09)
[2020-03-25] MEDS: OSMOLITE 1.2 CAL 1,000 ML LIQUID GT PRN (09:27)
--- NOTE | 2020-03-25 20:04 | NUR ---
Pt received awake, trached with Neymar#6 DCT trach, which is in placed and secured properly, on C/A via trach mask with FIO2-28% No s/s of respiratory distress noted. PMV on and pt wants to keep it over night. Resus. bag and back up trach at bedside. Trach care done. Cont. monitor.
[2020-03-25] MEDS: ENOXAPARIN SODIUM 40 MG/0.4 ML DISP.SYRIN SQ SCH (21:24)
[2020-03-25] MEDS: MIRALAX 17 GM POWD.PACK GT SCH (21:25)
[2020-03-25] MEDS: DOCUSATE SODIUM 100 MG/10 ML LIQUID UDC GT SCH (21:25)
[2020-03-25] MEDS: QUETIAPINE FUMARATE 25 MG TABLET GT SCH (21:25)
[2020-03-25 22:36] VITALS: BP 101/73
[2020-03-26] MEDS: OSMOLITE 1.2 CAL 1,000 ML LIQUID GT PRN ×2 (00:06→16:49)
[2020-03-26] MEDS: CYANOCOBALAMIN 1,000 MCG TABLET GT SCH (05:21)
[2020-03-26] MEDS: CHOLECALCIFEROL 1,000 UNIT TABLET PO SCH (05:21)
[2020-03-26 07:50] VITALS: BP 126/76
[2020-03-26] MEDS: ASPIRIN 81 MG TAB.CHEW GT SCH (08:41)
[2020-03-26] MEDS: ACETAzolamide 250 MG TABLET GT SCH (08:51)
[2020-03-26] MEDS: levETIRAcetam 500 MG TABLET GT SCH ×2 (08:51→21:00)
[2020-03-26] MEDS: ESCITALOPRAM OXALATE 10 MG TABLET GT SCH (08:52)
[2020-03-26] MEDS: AMLODIPINE 5 MG TABLET PO SCH (08:53)
[2020-03-26] MEDS: HYDROGEN PEROXIDE 3% 118 ML BOTTLE TP SCH ×2 (09:20→21:15)
[2020-03-26] MEDS: SCOPOLAMINE TP SCH (13:48)
--- NOTE | 2020-03-26 20:08 | NUR ---
Pt awake, received trached with Neymar#6 DCT trach, which is in placed and secured properly, on C/A via trach mask with FIO2-28% No s/s of respiratory distress noted. PMV on. Resus. bag and back up trach at bedside. Trach care done. Sx PRN. Cont. monitor.
[2020-03-26] MEDS: DOCUSATE SODIUM 100 MG/10 ML LIQUID UDC GT SCH (21:00)
[2020-03-26] MEDS: MIRALAX 17 GM POWD.PACK GT SCH (21:00)
[2020-03-26] MEDS: QUETIAPINE FUMARATE 25 MG TABLET GT SCH (21:00)
[2020-03-26] MEDS: ENOXAPARIN SODIUM 40 MG/0.4 ML DISP.SYRIN SQ SCH (21:00)
[2020-03-26 22:55] VITALS: BP 116/66
[2020-03-27] MEDS: CYANOCOBALAMIN 1,000 MCG TABLET GT SCH (05:49)
[2020-03-27] MEDS: CHOLECALCIFEROL 1,000 UNIT TABLET PO SCH (05:49)
[2020-03-27 07:37] VITALS: BP 124/71
[2020-03-27] MEDS: ACETAzolamide 250 MG TABLET GT SCH (08:32)
[2020-03-27] MEDS: levETIRAcetam 500 MG TABLET GT SCH ×2 (08:33→21:59)
[2020-03-27] MEDS: AMLODIPINE 5 MG TABLET PO SCH (08:33)
[2020-03-27] MEDS: ESCITALOPRAM OXALATE 10 MG TABLET GT SCH (08:33)
[2020-03-27] MEDS: ASPIRIN 81 MG TAB.CHEW GT SCH (08:41)
[2020-03-27] MEDS: HYDROGEN PEROXIDE 3% 118 ML BOTTLE TP SCH ×2 (09:27→21:45)
[2020-03-27] MEDS: OSMOLITE 1.2 CAL 1,000 ML LIQUID GT PRN (15:40)
[2020-03-27 20:24] VITALS: BP 110/66
[2020-03-27] MEDS: DOCUSATE SODIUM 100 MG/10 ML LIQUID UDC GT SCH (21:59)
[2020-03-27] MEDS: MIRALAX 17 GM POWD.PACK GT SCH (21:59)
[2020-03-27] MEDS: ENOXAPARIN SODIUM 40 MG/0.4 ML DISP.SYRIN SQ SCH (21:59)
[2020-03-27] MEDS: QUETIAPINE FUMARATE 25 MG TABLET GT SCH (21:59)
[2020-03-28] MEDS: CYANOCOBALAMIN 1,000 MCG TABLET GT SCH (05:43)
[2020-03-28] MEDS: CHOLECALCIFEROL 1,000 UNIT TABLET PO SCH (05:43)
[2020-03-28] MEDS: OSMOLITE 1.2 CAL 1,000 ML LIQUID GT PRN ×2 (06:52→23:18)
[2020-03-28 07:37] VITALS: BP 125/77
[2020-03-28] MEDS: HYDROGEN PEROXIDE 3% 118 ML BOTTLE TP SCH ×2 (08:42→21:09)
[2020-03-28] MEDS: ASPIRIN 81 MG TAB.CHEW GT SCH (08:54)
[2020-03-28] MEDS: levETIRAcetam 500 MG TABLET GT SCH ×2 (08:55→21:11)
[2020-03-28] MEDS: ESCITALOPRAM OXALATE 10 MG TABLET GT SCH (08:55)
[2020-03-28] MEDS: AMLODIPINE 5 MG TABLET PO SCH (08:56)
--- NOTE | 2020-03-28 15:29 | NUR ---
INTERDISCIPLINARY PLAN OF CARE CONFERENCE was held today. Patient's Avinash participated in the meeting through speaker phone. Dr. Ramirez and the Interdisciplinary team reviewed the current plan of care in detail. RN reported on the patient's medical condition and new medications. Pharmacy also discussed medications and reported that patient is currently stable on medication regimen. No major changes in condition were reported by RN. See RN IDT conference notes. PT, OT, and ST discussed the patient's current treatment plan and progress. See all disciplines IDT notes and physician's progress notes for additional details. Avinash's questions were addressed by the IDT team and by Dr. Ramirez, and Avinash expressed being content with the current plan of care.
[2020-03-28 20:19] VITALS: BP 117/69
[2020-03-28] MEDS: DOCUSATE SODIUM 100 MG/10 ML LIQUID UDC GT SCH (21:11)
[2020-03-28] MEDS: MIRALAX 17 GM POWD.PACK GT SCH (21:11)
[2020-03-28] MEDS: QUETIAPINE FUMARATE 25 MG TABLET GT SCH (21:11)
[2020-03-28] MEDS: ENOXAPARIN SODIUM 40 MG/0.4 ML DISP.SYRIN SQ SCH (21:12)
[2020-03-29] MEDS: CYANOCOBALAMIN 1,000 MCG TABLET GT SCH (05:54)
[2020-03-29] MEDS: CHOLECALCIFEROL 1,000 UNIT TABLET PO SCH (05:54)
[2020-03-29 07:30] VITALS: BP 125/69
[2020-03-29] MEDS: HYDROGEN PEROXIDE 3% 118 ML BOTTLE TP SCH ×2 (07:30→19:10)
[2020-03-29] MEDS: ASPIRIN 81 MG TAB.CHEW GT SCH (08:53)
[2020-03-29] MEDS: AMLODIPINE 5 MG TABLET PO SCH (08:53)
[2020-03-29] MEDS: ESCITALOPRAM OXALATE 10 MG TABLET GT SCH (08:53)
[2020-03-29] MEDS: levETIRAcetam 500 MG TABLET GT SCH ×2 (08:53→21:16)
[2020-03-29] MEDS: SCOPOLAMINE TP SCH (13:01)
--- NOTE | 2020-03-29 16:59 | NUR ---
on 03/27, SADIA received patient's admission paperwork, signed by patient's Avinash. The admission paperwork included Conditions of Admission, Patient Rights Acknowledgement, An Important Message from Medicare about your Rights, Documentation of Preferred Intensity of Care, Voluntary Prior Express Consent Form, Race and Ethnicity Patient Self-Identification, and the [facility] Agreement. Today, SADIA mailed a copy of the paperwork to Avinash, per Avinash's request. The paperwork was mailed to: [address] [place] [address], [id number] [place] [address]
[2020-03-29] MEDS: OSMOLITE 1.2 CAL 1,000 ML LIQUID GT PRN (17:47)
[2020-03-29 19:56] VITALS: BP 94/71
[2020-03-29] MEDS: MIRALAX 17 GM POWD.PACK GT SCH (21:16)
[2020-03-29] MEDS: ENOXAPARIN SODIUM 40 MG/0.4 ML DISP.SYRIN SQ SCH (21:16)
[2020-03-29] MEDS: QUETIAPINE FUMARATE 25 MG TABLET GT SCH (21:16)
[2020-03-29] MEDS: DOCUSATE SODIUM 100 MG/10 ML LIQUID UDC GT SCH (21:16)
[2020-03-30] MEDS: CYANOCOBALAMIN 1,000 MCG TABLET GT SCH (05:59)
[2020-03-30] MEDS: CHOLECALCIFEROL 1,000 UNIT TABLET PO SCH (05:59)
[2020-03-30] MEDS: HYDROGEN PEROXIDE 3% 118 ML BOTTLE TP SCH ×2 (07:49→21:23)
[2020-03-30 07:54] VITALS: BP 96/71
[2020-03-30] MEDS: ESCITALOPRAM OXALATE 10 MG TABLET GT SCH (08:49)
[2020-03-30] MEDS: levETIRAcetam 500 MG TABLET GT SCH ×2 (08:49→21:13)
[2020-03-30] MEDS: ASPIRIN 81 MG TAB.CHEW GT SCH (08:49)
[2020-03-30] MEDS: AMLODIPINE 5 MG TABLET PO SCH (08:50)
[2020-03-30] MEDS: OSMOLITE 1.2 CAL 1,000 ML LIQUID GT PRN (10:52)
[2020-03-30 20:01] VITALS: BP 115/71
--- NOTE | 2020-03-30 20:34 | NUR ---
Pt awake, received trached with Neymar#6 DCT trach, which is in placed and secured properly, on C/A via trach mask with FIO2-28% No SOB noted. PMV on. Resus. bag and back up trach at bedside. Trach care done. Sx PRN. Cont. monitor.
[2020-03-30] MEDS: DOCUSATE SODIUM 100 MG/10 ML LIQUID UDC GT SCH (21:13)
[2020-03-30] MEDS: MIRALAX 17 GM POWD.PACK GT SCH (21:13)
[2020-03-30] MEDS: QUETIAPINE FUMARATE 25 MG TABLET GT SCH (21:14)
[2020-03-30] MEDS: ENOXAPARIN SODIUM 40 MG/0.4 ML DISP.SYRIN SQ SCH (21:16)
[2020-03-31] MEDS: OSMOLITE 1.2 CAL 1,000 ML LIQUID GT PRN ×2 (02:50→20:31)
[2020-03-31] MEDS: CHOLECALCIFEROL 1,000 UNIT TABLET PO SCH (06:22)
[2020-03-31] MEDS: CYANOCOBALAMIN 1,000 MCG TABLET GT SCH (06:22)
[2020-03-31 07:30] VITALS: BP 124/73
[2020-03-31] MEDS: ESCITALOPRAM OXALATE 10 MG TABLET GT SCH (08:33)
[2020-03-31] MEDS: ASPIRIN 81 MG TAB.CHEW GT SCH (08:33)
[2020-03-31] MEDS: levETIRAcetam 500 MG TABLET GT SCH ×2 (08:33→20:30)
[2020-03-31] MEDS: AMLODIPINE 5 MG TABLET PO SCH (08:33)
[2020-03-31] MEDS: HYDROGEN PEROXIDE 3% 118 ML BOTTLE TP SCH ×2 (09:50→18:59)
--- NOTE | 2020-03-31 18:33 | NUR ---
PT. WAS SEEN NAD EXAMINED BY DR. ALVAREZ AND WITH NEW ORDERS AND CARRIED OUT.
[2020-03-31] MEDS: ENOXAPARIN SODIUM 40 MG/0.4 ML DISP.SYRIN SQ SCH (20:30)
[2020-03-31] MEDS: QUETIAPINE FUMARATE 25 MG TABLET GT SCH (20:30)
[2020-03-31] MEDS: DOCUSATE SODIUM 100 MG/10 ML LIQUID UDC GT SCH (20:30)
[2020-03-31] MEDS: MIRALAX 17 GM POWD.PACK GT SCH (20:30)
[2020-03-31 20:43] VITALS: BP 168/78
[2020-04-01] MEDS: CHOLECALCIFEROL 1,000 UNIT TABLET PO SCH (05:20)
[2020-04-01] MEDS: CYANOCOBALAMIN 1,000 MCG TABLET GT SCH (05:20)
[2020-04-01] MEDS: HYDROGEN PEROXIDE 3% 118 ML BOTTLE TP SCH ×2 (07:14→21:29)
[2020-04-01 07:28] VITALS: BP 142/89
[2020-04-01] MEDS: NEOMY/BACITRA/POLYMYXIN B OINT UD PACKET TP SCH ×2 (09:51→20:38)
[2020-04-01] MEDS: ASPIRIN 81 MG TAB.CHEW GT SCH (09:51)
[2020-04-01] MEDS: levETIRAcetam 500 MG TABLET GT SCH ×2 (09:52→20:38)
[2020-04-01] MEDS: ESCITALOPRAM OXALATE 10 MG TABLET GT SCH (09:53)
[2020-04-01] MEDS: AMLODIPINE 5 MG TABLET PO SCH (09:58)
--- NOTE | 2020-04-01 13:21 | NUR ---
PT. HAD VIDEO CHAT ZOOM WITH HER AND WHEN HE MENTIONED IF SHE COULD CONSIDER TRIMMING HER LONG AND SHARP FINGERNAILS OR HER HAIR SHE REFUSED AND ENDED CONVERSATION SOONER ALSO BECAUSE CONNECTION SOUND WAS NOT VERY GOOD.
[2020-04-01] MEDS: SCOPOLAMINE TP SCH (13:32)
[2020-04-01] MEDS: OSMOLITE 1.2 CAL 1,000 ML LIQUID GT PRN (15:43)
[2020-04-01 20:00] VITALS: BP 110/72
[2020-04-01] MEDS: QUETIAPINE FUMARATE 25 MG TABLET GT SCH (20:38)
[2020-04-01] MEDS: MIRALAX 17 GM POWD.PACK GT SCH (20:38)
[2020-04-01] MEDS: DOCUSATE SODIUM 100 MG/10 ML LIQUID UDC GT SCH (20:38)
[2020-04-01] MEDS: ENOXAPARIN SODIUM 40 MG/0.4 ML DISP.SYRIN SQ SCH (20:39)
[2020-04-02] MEDS: CYANOCOBALAMIN 1,000 MCG TABLET GT SCH (05:02)
[2020-04-02] MEDS: CHOLECALCIFEROL 1,000 UNIT TABLET PO SCH (05:02)
[2020-04-02] MEDS: HYDROGEN PEROXIDE 3% 118 ML BOTTLE TP SCH ×2 (07:19→21:21)
[2020-04-02 07:26] VITALS: BP 124/71
[2020-04-02] MEDS: ASPIRIN 81 MG TAB.CHEW GT SCH (08:37)
[2020-04-02] MEDS: levETIRAcetam 500 MG TABLET GT SCH ×2 (08:37→20:40)
[2020-04-02] MEDS: AMLODIPINE 5 MG TABLET PO SCH (08:38)
[2020-04-02] MEDS: ESCITALOPRAM OXALATE 10 MG TABLET GT SCH (08:38)
[2020-04-02] MEDS: NEOMY/BACITRA/POLYMYXIN B OINT UD PACKET TP SCH ×2 (08:38→20:40)
[2020-04-02] MEDS: OSMOLITE 1.2 CAL 1,000 ML LIQUID GT PRN (11:17)
--- NOTE | 2020-04-02 16:06 | NUR ---
NEW ORDER WAS CARRIED OUT FROM DR. NUNN FOR COVID 19 TEST.AND MESSAGE LEFT TO PT'S .
[2020-04-02 20:26] VITALS: BP 120/74
--- NOTE | 2020-04-02 20:34 | NUR ---
Pt awake, received trached with Neymar#6 DCT trach, which is in placed and secured properly, on C/A via trach mask with FIO2-28% No distress noted. PMV on. Resus. bag and back up trach at bedside. Trach care done. Sx PRN. Cont. monitor.
[2020-04-02] MEDS: QUETIAPINE FUMARATE 25 MG TABLET GT SCH (20:40)
[2020-04-02] MEDS: ENOXAPARIN SODIUM 40 MG/0.4 ML DISP.SYRIN SQ SCH (20:40)
[2020-04-02] MEDS: DOCUSATE SODIUM 100 MG/10 ML LIQUID UDC GT SCH (20:40)
[2020-04-02] MEDS: MIRALAX 17 GM POWD.PACK GT SCH (20:40)
[2020-04-03] MEDS: OSMOLITE 1.2 CAL 1,000 ML LIQUID GT PRN ×2 (01:37→21:15)
[2020-04-03] MEDS: CYANOCOBALAMIN 1,000 MCG TABLET GT SCH (05:14)
[2020-04-03] MEDS: CHOLECALCIFEROL 1,000 UNIT TABLET PO SCH (05:14)
[2020-04-03 05:57] LABS: ABG BASE EXCESS 12.4 mmol/L; ABG HCO3 41.2 mmol/L; ABG PCO2 78.9 mmHg (35.0-45.0); ABG PH 7.336 (7.350-7.450); ABG PO2 105.2 mmHg (75.0-100.0); ABG SITE RIGHT RADIAL; ABG TOTAL HEMOGLOBIN 11.9 G/dL (12.0-16.0); COHb 0.7 % (0.5-1.5); MetHb 0.1 % (0.0-1.5); O2Hb 97.1 % (94.0-97.0); VENT MODE COOL AEROSOL
--- NOTE | 2020-04-03 06:25 | NUR ---
ABG done, critical values reported to charge poster Tic.
--- NOTE | 2020-04-03 06:45 | NUR ---
LEFT MESSAGE TO REGARDING THE ABG RESULT AND AWAITING TO CALL BACK.
--- NOTE | 2020-04-03 07:05 | NUR ---
DR. ALVAREZ RETURNED CALL AND ASKED HOW THE RESIDENT WAS DOING. NOTIFIED THAT THE RESIDENT IS IN BED COMFORTABLE WATCHING TV. PER DR. ALVAREZ, HE WILL EXAMINE RESIDENT LATER IN THE DAY. WILL NOTIFY CHARGE NURSE
[2020-04-03 07:30] VITALS: BP 109/79
[2020-04-03] MEDS: HYDROGEN PEROXIDE 3% 118 ML BOTTLE TP SCH ×2 (07:37→21:04)
[2020-04-03] MEDS: ESCITALOPRAM OXALATE 10 MG TABLET GT SCH (08:41)
[2020-04-03] MEDS: levETIRAcetam 500 MG TABLET GT SCH ×2 (08:41→20:43)
[2020-04-03] MEDS: ASPIRIN 81 MG TAB.CHEW GT SCH (08:41)
[2020-04-03] MEDS: AMLODIPINE 5 MG TABLET PO SCH (08:42)
[2020-04-03] MEDS: NEOMY/BACITRA/POLYMYXIN B OINT UD PACKET TP SCH ×2 (08:43→20:44)
--- NOTE | 2020-04-03 10:30 | NUR ---
[facility]
--- NOTE | 2020-04-03 11:00 | NUR ---
PT. REFUSED TO STAY IN [facility] AND REQUESTED TO GO BACK TO BED AND PT. AWARE.
--- NOTE | 2020-04-03 15:22 | NUR ---
PT'S WAS CALLED AND AWARE THAT PT. IS NEGATIVE FOR COVID 19 TEST YESTERDAY AND HE WAS AWARE THAT [facility] AND THAT SHE WANTED TO GO BACK TO BED ,HE STATED THAT ASK PT. TO MAYBE USE A MEMORY FOAM CUSHION WHEN SHE IS SITTING.
--- NOTE | 2020-04-03 15:28 | NUR ---
PER PT. KASSI REDDY CUSHION WAS USED BUT STILL SHE DIS NOT WANT TO STAY UP IN [facility].
--- NOTE | 2020-04-03 18:34 | NUR ---
ZOOM PROVIDED TO .
--- NOTE | 2020-04-03 20:32 | NUR ---
Pt awake, received trached with Neymar#6 DCT trach, which is in placed and secured properly, on C/A via trach mask with FIO2-28% No respiratory distress noted. PMV on. Resus. bag and back up trach at bedside. Trach care done. Sx PRN. Cont. monitor.
[2020-04-03 20:37] VITALS: BP 140/90
[2020-04-03] MEDS: QUETIAPINE FUMARATE 25 MG TABLET GT SCH (20:43)
[2020-04-03] MEDS: DOCUSATE SODIUM 100 MG/10 ML LIQUID UDC GT SCH (20:43)
[2020-04-03] MEDS: MIRALAX 17 GM POWD.PACK GT SCH (20:43)
[2020-04-03] MEDS: ENOXAPARIN SODIUM 40 MG/0.4 ML DISP.SYRIN SQ SCH (21:47)
[2020-04-04] MEDS: CYANOCOBALAMIN 1,000 MCG TABLET GT SCH (05:15)
[2020-04-04] MEDS: CHOLECALCIFEROL 1,000 UNIT TABLET PO SCH (05:15)
[2020-04-04 07:30] VITALS: BP 121/79
[2020-04-04] MEDS: ESCITALOPRAM OXALATE 10 MG TABLET GT SCH (09:11)
[2020-04-04] MEDS: ASPIRIN 81 MG TAB.CHEW GT SCH (09:11)
[2020-04-04] MEDS: levETIRAcetam 500 MG TABLET GT SCH ×2 (09:11→20:57)
[2020-04-04] MEDS: NEOMY/BACITRA/POLYMYXIN B OINT UD PACKET TP SCH ×2 (09:13→21:05)
[2020-04-04] MEDS: AMLODIPINE 5 MG TABLET PO SCH (09:13)
[2020-04-04] MEDS: HYDROGEN PEROXIDE 3% 118 ML BOTTLE TP SCH ×2 (09:23→18:56)
[2020-04-04] MEDS: SCOPOLAMINE TP SCH (14:00)
[2020-04-04 20:21] VITALS: BP 134/81
[2020-04-04] MEDS: DOCUSATE SODIUM 100 MG/10 ML LIQUID UDC GT SCH (20:57)
[2020-04-04] MEDS: MIRALAX 17 GM POWD.PACK GT SCH (21:00)
[2020-04-04] MEDS: QUETIAPINE FUMARATE 25 MG TABLET GT SCH (21:03)
[2020-04-04] MEDS: ENOXAPARIN SODIUM 40 MG/0.4 ML DISP.SYRIN SQ SCH (21:07)
[2020-04-05] MEDS: CYANOCOBALAMIN 1,000 MCG TABLET GT SCH (05:36)
[2020-04-05] MEDS: CHOLECALCIFEROL 1,000 UNIT TABLET PO SCH (05:36)
[2020-04-05 07:29] VITALS: BP 127/88
[2020-04-05] MEDS: ASPIRIN 81 MG TAB.CHEW GT SCH (08:51)
[2020-04-05] MEDS: ESCITALOPRAM OXALATE 10 MG TABLET GT SCH (08:52)
[2020-04-05] MEDS: levETIRAcetam 500 MG TABLET GT SCH ×2 (08:52→20:49)
[2020-04-05] MEDS: NEOMY/BACITRA/POLYMYXIN B OINT UD PACKET TP SCH ×2 (08:53→20:53)
[2020-04-05] MEDS: AMLODIPINE 5 MG TABLET PO SCH (08:53)
[2020-04-05] MEDS: HYDROGEN PEROXIDE 3% 118 ML BOTTLE TP SCH ×2 (09:19→21:32)
[2020-04-05] MEDS ORDERED: ALBUTEROL SULFATE 1.25 MG/3 ML NEBU NEB PRN (19:00)
[2020-04-05] MEDS ORDERED: IPRATROPIUM BROMIDE 0.5 MG/2.5 ML NEBU NEB PRN (19:00)
[2020-04-05] MEDS: BUDESONIDE 0.5 MG/2 ML NEBU NEB SCH (19:40)
[2020-04-05 20:20] VITALS: BP 126/86
[2020-04-05] MEDS: DOCUSATE SODIUM 100 MG/10 ML LIQUID UDC GT SCH (20:49)
[2020-04-05] MEDS: MIRALAX 17 GM POWD.PACK GT SCH (20:52)
[2020-04-05] MEDS: QUETIAPINE FUMARATE 25 MG TABLET GT SCH (20:52)
[2020-04-05] MEDS: ENOXAPARIN SODIUM 40 MG/0.4 ML DISP.SYRIN SQ SCH (20:53)
[2020-04-05] MEDS: OSMOLITE 1.2 CAL 1,000 ML LIQUID GT PRN (20:58)
[2020-04-06] MEDS: ALBUTEROL SULFATE 2.5 MG/3 ML NEBU NEB SCH ×7 (00:12→23:14)
[2020-04-06] MEDS: IPRATROPIUM BROMIDE 0.5 MG/2.5 ML NEBU NEB SCH ×7 (00:12→23:14)
[2020-04-06] MEDS: CYANOCOBALAMIN 1,000 MCG TABLET GT SCH (05:22)
[2020-04-06] MEDS: CHOLECALCIFEROL 1,000 UNIT TABLET PO SCH (05:22)
[2020-04-06 07:30] VITALS: BP 120/68
[2020-04-06] MEDS: BUDESONIDE 0.5 MG/2 ML NEBU NEB SCH ×2 (07:33→19:18)
[2020-04-06] MEDS: HYDROGEN PEROXIDE 3% 118 ML BOTTLE TP SCH ×2 (07:33→21:00)
[2020-04-06] MEDS: ASPIRIN 81 MG TAB.CHEW GT SCH (08:59)
[2020-04-06] MEDS: levETIRAcetam 500 MG TABLET GT SCH ×2 (08:59→21:53)
[2020-04-06] MEDS: ESCITALOPRAM OXALATE 10 MG TABLET GT SCH (09:00)
[2020-04-06] MEDS: AMLODIPINE 5 MG TABLET PO SCH (09:01)
[2020-04-06] MEDS: NEOMY/BACITRA/POLYMYXIN B OINT UD PACKET TP SCH ×2 (09:01→21:55)
[2020-04-06] MEDS: OSMOLITE 1.2 CAL 1,000 ML LIQUID GT PRN (17:07)
[2020-04-06 20:00] VITALS: BP 114/77
[2020-04-06] MEDS: ENOXAPARIN SODIUM 40 MG/0.4 ML DISP.SYRIN SQ SCH (21:00)
[2020-04-06] MEDS: DOCUSATE SODIUM 100 MG/10 ML LIQUID UDC GT SCH (21:53)
[2020-04-06] MEDS: MIRALAX 17 GM POWD.PACK GT SCH (21:54)
[2020-04-06] MEDS: QUETIAPINE FUMARATE 25 MG TABLET GT SCH (21:55)
[2020-04-07] MEDS: ALBUTEROL SULFATE 2.5 MG/3 ML NEBU NEB SCH ×6 (03:06→23:30)
[2020-04-07] MEDS: IPRATROPIUM BROMIDE 0.5 MG/2.5 ML NEBU NEB SCH ×6 (03:06→23:30)
[2020-04-07] MEDS: CYANOCOBALAMIN 1,000 MCG TABLET GT SCH (05:21)
[2020-04-07] MEDS: CHOLECALCIFEROL 1,000 UNIT TABLET PO SCH (05:21)
[2020-04-07] MEDS: BUDESONIDE 0.5 MG/2 ML NEBU NEB SCH ×2 (07:05→18:59)
[2020-04-07 07:31] VITALS: BP 129/77
[2020-04-07] MEDS: ASPIRIN 81 MG TAB.CHEW GT SCH (08:16)
[2020-04-07] MEDS: levETIRAcetam 500 MG TABLET GT SCH ×2 (08:16→21:57)
[2020-04-07] MEDS: ESCITALOPRAM OXALATE 10 MG TABLET GT SCH (08:17)
[2020-04-07] MEDS: NEOMY/BACITRA/POLYMYXIN B OINT UD PACKET TP SCH ×2 (08:18→21:58)
[2020-04-07] MEDS: AMLODIPINE 5 MG TABLET PO SCH (08:18)
[2020-04-07] MEDS: HYDROGEN PEROXIDE 3% 118 ML BOTTLE TP SCH ×2 (08:35→18:59)
--- NOTE | 2020-04-07 10:49 | NUR ---
This SW received a physician's order to schedule an ENT appointment for the patient, with Dr. Jean Khanna. SW called patient's Avinash [phone] and informed him of order for ENT appointment, and that SW would be contacting the ENT's office to obtain options for appointment times to then coordinate with him. Avinash expressed agreement. Transportation also discussed, and this SW to coordinate safe and appropriate transportation. SW also informed Avinash that the next IDT meeting for the patient is scheduled for 04/11/2020 and asked Avinash if he would like to participate in the meeting through speaker phone. Avinash stated that he would like to participate in the meeting, and this SW asked Avinash to be available on 04/11 between 11am-12pm to received this SW's call. Avinash expressed understanding and agreement. SW to follow up with Avinash regarding arrangements for ENT appointment.
[2020-04-07] MEDS: OSMOLITE 1.2 CAL 1,000 ML LIQUID GT PRN (12:04)
--- NOTE | 2020-04-07 12:16 | NUR ---
SADIA called Dr. Jean Khanna's office and spoke with Savannah regarding appointment options. Savannah provided available days and times for both Tuesday 04/10 and Wednesday 04/11. SADIA stated she will speak with patient's and call back to confirm appointment day/time. SADIA then called patient's Avinash [phone] and discussed appointment options with him. Avinash confirmed his availability for 04/11 at 2:45pm. Transportation options discussed, and SADIA stated that ambulance transport would be arranged for the patient, and the patient's can either follow the ambulance in his own car, or just meet the patient at Dr. Khanna's office. SADIA then called Dr. Khanna's office and spoke with Shane, and scheduled an appointment for the patient for 04/11 at 2:45pm. Shane stated that 1 person can accompany the patient, which in this case will be patient's . Shane asked for patient to bring a copy of her face sheet and list of medications, along with an ID, to the appointment. SADIA to coordinate this.
--- NOTE | 2020-04-07 13:43 | NUR ---
SADIA called [facility] to arrange ambulance transport for the patient for the ENT appointment scheduled for Wednesday 04/11. SADIA spoke with Zachery in dispatch, . Zachery ran patient's insurance and stated that Medicare wouldn't cover transport for this type of doctor's appointment, and stated that patient's [facility] [employer] would require a pre-authorization. SADIA to call [facility] [place], operated by [facility] [phone].
[2020-04-07] MEDS: SCOPOLAMINE TP SCH (14:00)
--- NOTE | 2020-04-07 14:03 | NUR ---
1:45pm: This SW called [facility] [phone] to request a pre-authorization for patient's ambulance transport. SADIA spoke with Dora, who then transferred this SW to the authorization department. SADIA then spoke with Yana who stated that the ambulance company would need to call [facility] directly in order to request authorization, and provide their NPI number, along with information on the services codes and units of services. SW to follow-up with [facility] again.
--- NOTE | 2020-04-07 14:17 | NUR ---
This SW spoke with Zac, county supervisor, at [facility], , and discussed need for ambulance transport and insurance requirements, as written in previous SS notes. Zac stated that he would look into patient's benefits and get back to this SW with further information. SW waiting to hear back from Zac.
--- NOTE | 2020-04-07 14:26 | NUR ---
SADIA called patient's Avinash [phone] and informed him that patient ENT appointment is scheduled with Dr. Jean Khanna for Friday04/11/2020 at 2:45pm. SADIA informed Avinash to bring patient's ID with him, but Avinash stated that patient's ID was misplaced years ago, and has been . SADIA stated that SW will let doctor's office know. SADIA stated that SADIA will be working on transportation arrangements. SADIA asked Avinash if he would be interested in receiving information on [employer] transportation services, which is something that he can arrange and use with the patient in the future, and Avinash expressed agreement with receiving this information. Avinash reported that earlier this week he had spoken with social science professor at [facility], where patient was living perviously, and that they expressed agreement with having the patient return to their facility when patient was medically stable, however they would not be able to provide trach care at [facility]. Avinash stated that this would be his ideal wish, for patient to be able to return to [facility]. SADIA offered to send Avinash a list of facility closer to him that provide trach care, just for him to have additional resource, if needed, and Avinash expressed agreement. SADIA will be mailing Avinash a list of these facilities, along with information on ACCESS transportation services.
--- NOTE | 2020-04-07 15:58 | NUR ---
3:10pm: SADIA received a call back from Zac from [facility], who stated that he will be assigning this request to Tara, , who would be assisting this SW with obtaining authorization from patient's [employer] insurance. SADIA called Tara at 3:19pm. Tara was not available, and therefore SADIA left a voicemail message asking for a call back.
--- NOTE | 2020-04-07 16:03 | NUR ---
SW mailed patient's information on ACCESS transportation, including eligibility guidelines and how to apply, by calling Customer Service at [phone]. SADIA also mailed the following [facility] facilities as alternate facilities for patient's to consider, if he would prefer to have patient closer to his home: [facility] [address] [place] [address] [facility] [address] [place] [address] [address] All above information was mailed to patient's Avinash Bowling at: [address] [facility] [id number] [place] [address]
[2020-04-07] MEDS: QUETIAPINE FUMARATE 25 MG TABLET GT SCH (21:57)
[2020-04-07] MEDS: MIRALAX 17 GM POWD.PACK GT SCH (21:57)
[2020-04-07] MEDS: DOCUSATE SODIUM 100 MG/10 ML LIQUID UDC GT SCH (21:58)
[2020-04-07] MEDS: ENOXAPARIN SODIUM 40 MG/0.4 ML DISP.SYRIN SQ SCH (22:03)
[2020-04-07 22:22] VITALS: BP 127/62
[2020-04-08] MEDS: OSMOLITE 1.2 CAL 1,000 ML LIQUID GT PRN ×2 (02:38→18:52)
[2020-04-08] MEDS: ALBUTEROL SULFATE 2.5 MG/3 ML NEBU NEB SCH ×6 (02:41→23:00)
[2020-04-08] MEDS: IPRATROPIUM BROMIDE 0.5 MG/2.5 ML NEBU NEB SCH ×6 (02:41→23:00)
[2020-04-08] MEDS: CYANOCOBALAMIN 1,000 MCG TABLET GT SCH (06:23)
[2020-04-08] MEDS: CHOLECALCIFEROL 1,000 UNIT TABLET PO SCH (06:24)
[2020-04-08] MEDS: BUDESONIDE 0.5 MG/2 ML NEBU NEB SCH ×2 (07:04→19:50)
[2020-04-08 07:41] VITALS: BP 111/73
[2020-04-08] MEDS: ESCITALOPRAM OXALATE 10 MG TABLET GT SCH (08:11)
[2020-04-08] MEDS: levETIRAcetam 500 MG TABLET GT SCH ×2 (08:11→20:35)
[2020-04-08] MEDS: ASPIRIN 81 MG TAB.CHEW GT SCH (08:11)
[2020-04-08] MEDS: AMLODIPINE 5 MG TABLET PO SCH (08:12)
[2020-04-08] MEDS: HYDROGEN PEROXIDE 3% 118 ML BOTTLE TP SCH ×2 (09:00→21:23)
[2020-04-08] MEDS: DOCUSATE SODIUM 100 MG/10 ML LIQUID UDC GT SCH (20:34)
[2020-04-08] MEDS: MIRALAX 17 GM POWD.PACK GT SCH (20:35)
[2020-04-08] MEDS: QUETIAPINE FUMARATE 25 MG TABLET GT SCH (20:35)
[2020-04-08] MEDS: ENOXAPARIN SODIUM 40 MG/0.4 ML DISP.SYRIN SQ SCH (21:34)
[2020-04-08 22:31] VITALS: BP 102/71
[2020-04-09] MEDS: IPRATROPIUM BROMIDE 0.5 MG/2.5 ML NEBU NEB SCH ×6 (03:01→22:35)
[2020-04-09] MEDS: ALBUTEROL SULFATE 2.5 MG/3 ML NEBU NEB SCH ×6 (03:01→22:35)
[2020-04-09] MEDS: CYANOCOBALAMIN 1,000 MCG TABLET GT SCH (05:15)
[2020-04-09] MEDS: CHOLECALCIFEROL 1,000 UNIT TABLET PO SCH (05:15)
[2020-04-09] MEDS: BUDESONIDE 0.5 MG/2 ML NEBU NEB SCH ×2 (07:28→18:43)
[2020-04-09 07:53] VITALS: BP 133/84
[2020-04-09] MEDS: ASPIRIN 81 MG TAB.CHEW GT SCH (08:54)
[2020-04-09] MEDS: levETIRAcetam 500 MG TABLET GT SCH ×2 (08:54→21:17)
[2020-04-09] MEDS: ESCITALOPRAM OXALATE 10 MG TABLET GT SCH (08:56)
[2020-04-09] MEDS: AMLODIPINE 5 MG TABLET PO SCH (08:57)
[2020-04-09] MEDS: HYDROGEN PEROXIDE 3% 118 ML BOTTLE TP SCH ×2 (09:21→18:44)
[2020-04-09] MEDS ORDERED: ALBUTEROL SULFATE 2.5 MG/3 ML NEBU NEB PRN (16:15)
[2020-04-09] MEDS: OSMOLITE 1.2 CAL 1,000 ML LIQUID GT PRN (17:54)
--- NOTE | 2020-04-09 18:37 | NUR ---
Covid 19 test done today.per [facility] requirement.
[2020-04-09] MEDS: ENOXAPARIN SODIUM 40 MG/0.4 ML DISP.SYRIN SQ SCH (21:15)
[2020-04-09] MEDS: DOCUSATE SODIUM 100 MG/10 ML LIQUID UDC GT SCH (21:17)
[2020-04-09] MEDS: QUETIAPINE FUMARATE 25 MG TABLET GT SCH (21:17)
[2020-04-09] MEDS: MIRALAX 17 GM POWD.PACK GT SCH (21:17)
[2020-04-09 22:28] VITALS: BP 126/76
[2020-04-10] MEDS: ALBUTEROL SULFATE 2.5 MG/3 ML NEBU NEB SCH ×6 (02:30→22:40)
[2020-04-10] MEDS: IPRATROPIUM BROMIDE 0.5 MG/2.5 ML NEBU NEB SCH ×6 (02:30→22:40)
[2020-04-10] MEDS: CYANOCOBALAMIN 1,000 MCG TABLET GT SCH (05:08)
[2020-04-10] MEDS: CHOLECALCIFEROL 1,000 UNIT TABLET PO SCH (05:08)
[2020-04-10] MEDS: BUDESONIDE 0.5 MG/2 ML NEBU NEB SCH ×2 (07:19→19:50)
[2020-04-10 07:32] VITALS: BP 122/72
[2020-04-10] MEDS: HYDROGEN PEROXIDE 3% 118 ML BOTTLE TP SCH ×2 (08:26→21:20)
[2020-04-10] MEDS: levETIRAcetam 500 MG TABLET GT SCH ×2 (08:37→20:22)
[2020-04-10] MEDS: ASPIRIN 81 MG TAB.CHEW GT SCH (08:37)
[2020-04-10] MEDS: AMLODIPINE 5 MG TABLET PO SCH (08:38)
[2020-04-10] MEDS: ESCITALOPRAM OXALATE 10 MG TABLET GT SCH (08:38)
[2020-04-10] MEDS: OSMOLITE 1.2 CAL 1,000 ML LIQUID GT PRN ×2 (09:55→10:13)
--- NOTE | 2020-04-10 10:30 | NUR ---
9:00am: Zac from [facility] followed up with this SW to see if SADIA was able to coordinate with Tara (see previous SS note dated 04/07). SADIA stated that SADIA has not been able to connect with Tara. Zac stated he would follow-up. 10:00am: Zac called this SW and informed her to once again try calling [facility] for an authorization, and that [facility] would then follow up with additional paperwork, once authorization is obtained. SADIA stated she will try and let Zac know. SADIA also informed SANDY Lugo of above, and will provide Jean with an update after [facility] one more [facility].
--- NOTE | 2020-04-10 12:24 | NUR ---
10:37am: This SW called patient's insurance, [facility] [phone], and spoke with Karely. Karely transferred this SW to health care services, and SADIA spoke with sample case porter Jennifer. Jennifer then transferred this SW to the authorization department. SW remained on the phone for over 15 minutes and was not able to connect with anyone and was then asked by an automated services to leave a voicemail. SADIA then consulted with SANDY Lugo, who stated that this SW can still move forward with contacting Zac at [facility] to coordinate transportation. SW contact Zac, who stated that he worl on coordination of transport and get back to this SW with further instructions/information.
--- NOTE | 2020-04-10 13:13 | NUR ---
PT. WAS SEEN AND EXAMINED BY NARENDRA Mtz AND WITH NEW ORDER TO CHANGE TRACH TO CUFFLESS BUT HAVE CUFFED TRACH AVAILABLE PER DR. ALVAREZ'S RECOMMENDATION.
[2020-04-10] MEDS: SCOPOLAMINE TP SCH (14:10)
--- NOTE | 2020-04-10 15:02 | NUR ---
2:50pm: After receiving approval from SANDY Lugo, this SW scheduled ambulance transportation for this patient. SW called [facility] and spoke with Jaylen. Reservations were made for patient to be picked-up on 04/11 from [facility] and taken to Dr. Jean Khanna's office at [address] [place] [address],. [address], [place] (phone # [phone]). Ambulance pick-up scheduled for 1:45pm on 04/11/2020.
[2020-04-10] MEDS: ENOXAPARIN SODIUM 40 MG/0.4 ML DISP.SYRIN SQ SCH (20:16)
[2020-04-10 20:21] VITALS: BP 113/73
[2020-04-10] MEDS: QUETIAPINE FUMARATE 25 MG TABLET GT SCH (20:22)
[2020-04-10] MEDS: MIRALAX 17 GM POWD.PACK GT SCH (20:22)
[2020-04-10] MEDS: DOCUSATE SODIUM 100 MG/10 ML LIQUID UDC GT SCH (20:22)
[2020-04-10 20:48] VITALS: BP 140/90
[2020-04-11] MEDS: IPRATROPIUM BROMIDE 0.5 MG/2.5 ML NEBU NEB SCH ×6 (02:40→23:16)
[2020-04-11] MEDS: ALBUTEROL SULFATE 2.5 MG/3 ML NEBU NEB SCH ×6 (02:40→23:16)
[2020-04-11] MEDS: CYANOCOBALAMIN 1,000 MCG TABLET GT SCH (05:34)
[2020-04-11] MEDS: CHOLECALCIFEROL 1,000 UNIT TABLET PO SCH (05:34)
[2020-04-11 07:20] VITALS: BP 107/64
[2020-04-11] MEDS: BUDESONIDE 0.5 MG/2 ML NEBU NEB SCH ×2 (07:42→19:07)
[2020-04-11] MEDS: HYDROGEN PEROXIDE 3% 118 ML BOTTLE TP SCH ×2 (08:36→21:09)
[2020-04-11] MEDS: levETIRAcetam 500 MG TABLET GT SCH ×2 (08:52→21:00)
[2020-04-11] MEDS: ASPIRIN 81 MG TAB.CHEW GT SCH (08:52)
[2020-04-11] MEDS: ESCITALOPRAM OXALATE 10 MG TABLET GT SCH (08:52)
[2020-04-11] MEDS: AMLODIPINE 5 MG TABLET PO SCH (08:52)
--- NOTE | 2020-04-11 15:35 | NUR ---
INTERDISCIPLINARY PLAN OF CARE CONFERENCE was held today. Patient's Avinash participated in the meeting through speaker phone. Dr. Ramirez and the Interdisciplinary Team reviewed the current plan of care in detail. RN reported on patient's medical condition. See RN IDT conference notes. PT, OT, and ST reported on ongoing treatment plan and patient's progress. See all disciplines IDT notes and physician's progress notes for additional details. Avinash's questions were addressed by the IDT team and Avinash expressed understanding and agreement with the current plan of care.
[2020-04-11 20:22] VITALS: BP 116/68
[2020-04-11] MEDS: DOCUSATE SODIUM 100 MG/10 ML LIQUID UDC GT SCH (21:00)
[2020-04-11] MEDS: QUETIAPINE FUMARATE 25 MG TABLET GT SCH (21:00)
[2020-04-11] MEDS: MIRALAX 17 GM POWD.PACK GT SCH (21:00)
[2020-04-11] MEDS: ENOXAPARIN SODIUM 40 MG/0.4 ML DISP.SYRIN SQ SCH (21:00)
[2020-04-12] MEDS: OSMOLITE 1.2 CAL 1,000 ML LIQUID GT PRN (00:45)
[2020-04-12] MEDS: IPRATROPIUM BROMIDE 0.5 MG/2.5 ML NEBU NEB SCH ×6 (02:54→22:40)
[2020-04-12] MEDS: ALBUTEROL SULFATE 2.5 MG/3 ML NEBU NEB SCH ×6 (02:54→22:40)
[2020-04-12] MEDS: CHOLECALCIFEROL 1,000 UNIT TABLET PO SCH (05:43)
[2020-04-12] MEDS: CYANOCOBALAMIN 1,000 MCG TABLET GT SCH (05:43)
[2020-04-12] MEDS: BUDESONIDE 0.5 MG/2 ML NEBU NEB SCH ×2 (07:00→18:52)
[2020-04-12] MEDS: HYDROGEN PEROXIDE 3% 118 ML BOTTLE TP SCH ×2 (07:20→18:52)
[2020-04-12 07:30] VITALS: BP 103/59
[2020-04-12] MEDS: AMLODIPINE 5 MG TABLET PO SCH (09:00)
[2020-04-12] MEDS: levETIRAcetam 500 MG TABLET GT SCH ×2 (09:11→21:19)
[2020-04-12] MEDS: ESCITALOPRAM OXALATE 10 MG TABLET GT SCH (09:11)
[2020-04-12] MEDS: ASPIRIN 81 MG TAB.CHEW GT SCH (09:11)
--- NOTE | 2020-04-12 18:00 | NUR ---
Pt went for appointment with Dr Jey Malik by Ambulance,back in stable condition. Addendum: 04/12/20 at 2015 by SELENA JENNINGS RN MIKEY for 04/11/20 1800 pm
--- NOTE | 2020-04-12 18:30 | NUR ---
Seen and examined by Dr Ramirez ,notified regarding Dr Khanna consultation notes ,no new orders.
[2020-04-12 20:39] VITALS: BP 121/66
[2020-04-12] MEDS: DOCUSATE SODIUM 100 MG/10 ML LIQUID UDC GT SCH (21:19)
[2020-04-12] MEDS: QUETIAPINE FUMARATE 25 MG TABLET GT SCH (21:19)
[2020-04-12] MEDS: MIRALAX 17 GM POWD.PACK GT SCH (21:19)
[2020-04-12] MEDS: ENOXAPARIN SODIUM 40 MG/0.4 ML DISP.SYRIN SQ SCH (21:50)
[2020-04-13] MEDS: ALBUTEROL SULFATE 2.5 MG/3 ML NEBU NEB SCH ×6 (02:35→22:30)
[2020-04-13] MEDS: IPRATROPIUM BROMIDE 0.5 MG/2.5 ML NEBU NEB SCH ×6 (02:35→22:30)
[2020-04-13] MEDS: CHOLECALCIFEROL 1,000 UNIT TABLET PO SCH (05:04)
[2020-04-13] MEDS: CYANOCOBALAMIN 1,000 MCG TABLET GT SCH (05:04)
[2020-04-13] MEDS: HYDROGEN PEROXIDE 3% 118 ML BOTTLE TP SCH ×2 (07:10→18:56)
[2020-04-13] MEDS: BUDESONIDE 0.5 MG/2 ML NEBU NEB SCH ×2 (07:10→18:56)
[2020-04-13 07:52] VITALS: BP 115/61
[2020-04-13] MEDS: AMLODIPINE 5 MG TABLET PO SCH (09:00)
[2020-04-13] MEDS: ASPIRIN 81 MG TAB.CHEW GT SCH (09:19)
[2020-04-13] MEDS: ESCITALOPRAM OXALATE 10 MG TABLET GT SCH (09:19)
[2020-04-13] MEDS: levETIRAcetam 500 MG TABLET GT SCH ×2 (09:19→21:38)
[2020-04-13] MEDS: OSMOLITE 1.2 CAL 1,000 ML LIQUID GT PRN (12:11)
[2020-04-13] MEDS: SCOPOLAMINE TP SCH (14:14)
--- NOTE | 2020-04-13 18:00 | NUR ---
SEEN AND EXAMINED BY AND AWARE THAT PT.AT TIMES SHAKES HER HANDS AND HE ASKED PT. AND SHE ALSO CONFIRMED IT (WHEN BRUSHING HER TEETH) AND NNO AT THIS TIME HE STATED THAT WILL BE MONITORED AND A LOT OF CAUTION SHOULD BE DONE WHEN IF NEEDED TO REASSESS PSYCH. MEDS.
[2020-04-13 20:00] VITALS: BP 120/63
[2020-04-13] MEDS: MIRALAX 17 GM POWD.PACK GT SCH (21:00)
[2020-04-13] MEDS: QUETIAPINE FUMARATE 25 MG TABLET GT SCH (21:38)
[2020-04-13] MEDS: DOCUSATE SODIUM 100 MG/10 ML LIQUID UDC GT SCH (21:38)
[2020-04-13] MEDS: ENOXAPARIN SODIUM 40 MG/0.4 ML DISP.SYRIN SQ SCH (21:40)
[2020-04-13] MEDS: COD LIVER OIL/ZINC OXIDE OINT 113 GM TUBE TP SCH (21:43)
[2020-04-14] MEDS: ALBUTEROL SULFATE 2.5 MG/3 ML NEBU NEB SCH ×6 (02:30→23:08)
[2020-04-14] MEDS: IPRATROPIUM BROMIDE 0.5 MG/2.5 ML NEBU NEB SCH ×6 (02:30→23:08)
[2020-04-14] MEDS: CYANOCOBALAMIN 1,000 MCG TABLET GT SCH (05:02)
[2020-04-14] MEDS: CHOLECALCIFEROL 1,000 UNIT TABLET PO SCH (05:02)
[2020-04-14] MEDS: OSMOLITE 1.2 CAL 1,000 ML LIQUID GT PRN ×2 (06:10→21:25)
[2020-04-14] MEDS: BUDESONIDE 0.5 MG/2 ML NEBU NEB SCH ×2 (07:20→19:06)
[2020-04-14 07:33] VITALS: BP 124/68
[2020-04-14] MEDS: HYDROGEN PEROXIDE 3% 118 ML BOTTLE TP SCH ×2 (09:07→21:10)
[2020-04-14] MEDS: ASPIRIN 81 MG TAB.CHEW GT SCH (09:09)
[2020-04-14] MEDS: levETIRAcetam 500 MG TABLET GT SCH (09:09)
[2020-04-14] MEDS: ESCITALOPRAM OXALATE 10 MG TABLET GT SCH (09:09)
[2020-04-14] MEDS: AMLODIPINE 5 MG TABLET PO SCH (09:10)
[2020-04-14] MEDS: COD LIVER OIL/ZINC OXIDE OINT 113 GM TUBE TP SCH ×2 (09:11→21:22)
--- NOTE | 2020-04-14 16:49 | NUR ---
SADIA called patient's Avinash [phone], who was available to speak with this SW. SADIA informed Avinash that the next IDT meeting for the patient is scheduled for 04/18/2020 at 11am, and asked Avinash if he would like to participate in the meeting through speaker phone. Avinash stated he would like to participate, and this SW asked Avinash to be available between 11am-12pm to receive the team's call. Avinash expressed agreement.
[2020-04-14 20:30] VITALS: BP 112/50
[2020-04-14] MEDS: QUETIAPINE FUMARATE 25 MG TABLET GT SCH (21:22)
[2020-04-14] MEDS: DOCUSATE SODIUM 100 MG/10 ML LIQUID UDC GT SCH (21:22)
[2020-04-14] MEDS: levETIRAcetam 500 MG/5 ML LIQUID UDC GT SCH (21:22)
[2020-04-14] MEDS: MIRALAX 17 GM POWD.PACK GT SCH (21:22)
[2020-04-14] MEDS: ENOXAPARIN SODIUM 40 MG/0.4 ML DISP.SYRIN SQ SCH (21:34)
[2020-04-15] MEDS: ALBUTEROL SULFATE 2.5 MG/3 ML NEBU NEB SCH ×6 (03:01→22:40)
[2020-04-15] MEDS: IPRATROPIUM BROMIDE 0.5 MG/2.5 ML NEBU NEB SCH ×6 (03:01→22:40)
[2020-04-15] MEDS: CYANOCOBALAMIN 1,000 MCG TABLET GT SCH (05:36)
[2020-04-15] MEDS: CHOLECALCIFEROL 1,000 UNIT TABLET PO SCH (05:36)
[2020-04-15 07:35] VITALS: BP 118/99
[2020-04-15] MEDS: BUDESONIDE 0.5 MG/2 ML NEBU NEB SCH ×2 (07:50→19:41)
[2020-04-15] MEDS: ASPIRIN 81 MG TAB.CHEW GT SCH (08:45)
[2020-04-15] MEDS: levETIRAcetam 500 MG/5 ML LIQUID UDC GT SCH ×2 (08:46→21:28)
[2020-04-15] MEDS: ESCITALOPRAM OXALATE 10 MG TABLET GT SCH (08:48)
[2020-04-15] MEDS: AMLODIPINE 5 MG TABLET PO SCH (08:52)
[2020-04-15] MEDS: COD LIVER OIL/ZINC OXIDE OINT 113 GM TUBE TP SCH ×2 (08:53→21:29)
[2020-04-15] MEDS: HYDROGEN PEROXIDE 3% 118 ML BOTTLE TP SCH ×2 (08:57→21:19)
[2020-04-15] MEDS: OSMOLITE 1.2 CAL 1,000 ML LIQUID GT PRN (13:48)
[2020-04-15 20:31] VITALS: BP 99/65
[2020-04-15] MEDS: MIRALAX 17 GM POWD.PACK GT SCH (21:00)
[2020-04-15] MEDS: DOCUSATE SODIUM 100 MG/10 ML LIQUID UDC GT SCH (21:00)
[2020-04-15] MEDS: QUETIAPINE FUMARATE 25 MG TABLET GT SCH (21:29)
[2020-04-15] MEDS: ENOXAPARIN SODIUM 40 MG/0.4 ML DISP.SYRIN SQ SCH (21:35)
[2020-04-16] MEDS: ALBUTEROL SULFATE 2.5 MG/3 ML NEBU NEB SCH ×6 (02:40→22:40)
[2020-04-16] MEDS: IPRATROPIUM BROMIDE 0.5 MG/2.5 ML NEBU NEB SCH ×6 (02:40→22:40)
[2020-04-16] MEDS: CYANOCOBALAMIN 1,000 MCG TABLET GT SCH (05:36)
[2020-04-16] MEDS: CHOLECALCIFEROL 1,000 UNIT TABLET PO SCH (05:36)
--- NOTE | 2020-04-16 06:00 | NUR ---
Nurse noted blood on patient's diaper and asked patient if she is expecting her monthly period, patient stated " yes, I still get my periods." Patient denies any pain or discomfort at this time, kept patient clean and comfortable, will continue monitor.
[2020-04-16] MEDS: HYDROGEN PEROXIDE 3% 118 ML BOTTLE TP SCH ×2 (07:14→20:49)
[2020-04-16] MEDS: BUDESONIDE 0.5 MG/2 ML NEBU NEB SCH ×2 (07:14→19:45)
[2020-04-16 07:48] VITALS: BP 110/70
[2020-04-16] MEDS: AMLODIPINE 5 MG TABLET PO SCH (09:00)
[2020-04-16] MEDS: ASPIRIN 81 MG TAB.CHEW GT SCH (09:01)
[2020-04-16] MEDS: levETIRAcetam 500 MG/5 ML LIQUID UDC GT SCH ×2 (09:02→21:43)
[2020-04-16] MEDS: ESCITALOPRAM OXALATE 10 MG TABLET GT SCH (09:03)
[2020-04-16] MEDS: SCOPOLAMINE PATCH 1 MG/72 HRS PATCH TD SCH (09:04)
[2020-04-16] MEDS: COD LIVER OIL/ZINC OXIDE OINT 113 GM TUBE TP SCH ×2 (09:04→21:45)
[2020-04-16 20:36] VITALS: BP 99/57
[2020-04-16] MEDS: DOCUSATE SODIUM 100 MG/10 ML LIQUID UDC GT SCH (21:43)
[2020-04-16] MEDS: MIRALAX 17 GM POWD.PACK GT SCH (21:43)
[2020-04-16] MEDS: QUETIAPINE FUMARATE 25 MG TABLET GT SCH (21:45)
[2020-04-16] MEDS: OSMOLITE 1.2 CAL 1,000 ML LIQUID GT PRN (21:53)
[2020-04-16] MEDS: ENOXAPARIN SODIUM 40 MG/0.4 ML DISP.SYRIN SQ SCH (22:19)
[2020-04-17] MEDS: ALBUTEROL SULFATE 2.5 MG/3 ML NEBU NEB SCH ×6 (02:40→22:50)
[2020-04-17] MEDS: IPRATROPIUM BROMIDE 0.5 MG/2.5 ML NEBU NEB SCH ×6 (02:40→22:50)
[2020-04-17] MEDS: CHOLECALCIFEROL 1,000 UNIT TABLET PO SCH (05:27)
[2020-04-17] MEDS: CYANOCOBALAMIN 1,000 MCG TABLET GT SCH (05:27)
--- NOTE | 2020-04-17 06:54 | NUR ---
Will test patient for COVID-19 today.
[2020-04-17] MEDS: BUDESONIDE 0.5 MG/2 ML NEBU NEB SCH ×2 (07:20→19:10)
[2020-04-17 07:27] VITALS: BP 111/65
[2020-04-17] MEDS: ASPIRIN 81 MG TAB.CHEW GT SCH (08:38)
[2020-04-17] MEDS: levETIRAcetam 500 MG/5 ML LIQUID UDC GT SCH ×2 (08:38→21:46)
[2020-04-17] MEDS: ESCITALOPRAM OXALATE 10 MG TABLET GT SCH (08:39)
[2020-04-17] MEDS: AMLODIPINE 5 MG TABLET PO SCH (08:39)
[2020-04-17] MEDS: COD LIVER OIL/ZINC OXIDE OINT 113 GM TUBE TP SCH ×2 (08:40→21:47)
[2020-04-17 08:48] LABS: ABG BASE EXCESS 5.5 mmol/L; ABG HCO3 31.3 mmol/L; ABG PCO2 51.3 mmHg (35.0-45.0); ABG PH 7.403 (7.350-7.450); ABG PO2 92.1 mmHg (75.0-100.0); ABG SITE RIGHT RADIAL; ABG TOTAL HEMOGLOBIN 11.1 G/dL (12.0-16.0); COHb 0.5 % (0.5-1.5); MetHb 0.1 % (0.0-1.5); O2Hb 96.1 % (94.0-97.0); VENT MODE COOL AEROSOL
[2020-04-17] MEDS: HYDROGEN PEROXIDE 3% 118 ML BOTTLE TP SCH ×2 (09:21→21:28)
--- NOTE | 2020-04-17 10:23 | NUR ---
PT'S AWARE AND IN AGREEMENT OF COVID 19 TEST TODAY.
--- NOTE | 2020-04-17 12:45 | NUR ---
SEEN BY NARENDRA Mtz AND WITH NNO.
[2020-04-17 20:16] VITALS: BP 118/67
[2020-04-17] MEDS: ENOXAPARIN SODIUM 40 MG/0.4 ML DISP.SYRIN SQ SCH (21:00)
[2020-04-17] MEDS: DOCUSATE SODIUM 100 MG/10 ML LIQUID UDC GT SCH (21:46)
[2020-04-17] MEDS: MIRALAX 17 GM POWD.PACK GT SCH (21:46)
[2020-04-17] MEDS: QUETIAPINE FUMARATE 25 MG TABLET GT SCH (21:47)
[2020-04-18] MEDS: ALBUTEROL SULFATE 2.5 MG/3 ML NEBU NEB SCH ×6 (03:27→22:40)
[2020-04-18] MEDS: IPRATROPIUM BROMIDE 0.5 MG/2.5 ML NEBU NEB SCH ×6 (03:27→22:40)
[2020-04-18] MEDS: CHOLECALCIFEROL 1,000 UNIT TABLET PO SCH (06:24)
[2020-04-18] MEDS: CYANOCOBALAMIN 1,000 MCG TABLET GT SCH (06:24)
[2020-04-18] MEDS: BUDESONIDE 0.5 MG/2 ML NEBU NEB SCH ×2 (07:23→19:40)
[2020-04-18 07:35] VITALS: BP 125/77
[2020-04-18] MEDS: AMLODIPINE 5 MG TABLET PO SCH (09:00)
[2020-04-18] MEDS: ASPIRIN 81 MG TAB.CHEW GT SCH (09:27)
[2020-04-18] MEDS: ESCITALOPRAM OXALATE 10 MG TABLET GT SCH (09:27)
[2020-04-18] MEDS: levETIRAcetam 500 MG/5 ML LIQUID UDC GT SCH ×2 (09:27→20:48)
[2020-04-18] MEDS: COD LIVER OIL/ZINC OXIDE OINT 113 GM TUBE TP SCH ×2 (09:28→20:43)
[2020-04-18] MEDS: HYDROGEN PEROXIDE 3% 118 ML BOTTLE TP SCH ×2 (09:58→21:10)
[2020-04-18] MEDS: OSMOLITE 1.2 CAL 1,000 ML LIQUID GT PRN (12:23)
--- NOTE | 2020-04-18 13:59 | NUR ---
INTERDISCIPLINARY PLAN OF CARE CONFERENCE was held today. Patient's Avinash participated in the meeting through speaker phone. Dr. Ramirez and the Interdisciplinary team reviewed the current plan of care in detail. RN reported on the patient's medical condition. Pharmacy, RT, and RD reported on patient's current treatment plan, stating that patient remains stable. PT, OT, and ST reported on patient's ongoing treatment plan and progress in therapy. No major changes in patient's condition were reported by RN or by the other disciplines. See all disciplines IDT notes and physician's progress notes for additional details. Patient's recent ENT appointment was discussed by Dr. Ramirez, and Avinash's questions were addressed by Dr. Ramirez and the IDT team. Avinash expressed not having any concerns with the current plan of care.
[2020-04-18 20:09] VITALS: BP 106/60
[2020-04-18] MEDS: QUETIAPINE FUMARATE 25 MG TABLET GT SCH (20:48)
[2020-04-18] MEDS: MIRALAX 17 GM POWD.PACK GT SCH (20:48)
[2020-04-18] MEDS: DOCUSATE SODIUM 100 MG/10 ML LIQUID UDC GT SCH (20:48)
[2020-04-18] MEDS: ENOXAPARIN SODIUM 40 MG/0.4 ML DISP.SYRIN SQ SCH (20:49)
[2020-04-19] MEDS: IPRATROPIUM BROMIDE 0.5 MG/2.5 ML NEBU NEB SCH ×6 (02:40→22:40)
[2020-04-19] MEDS: ALBUTEROL SULFATE 2.5 MG/3 ML NEBU NEB SCH ×6 (02:40→22:40)
--- NOTE | 2020-04-19 05:39 | NUR ---
Patient is still having her period (menstruation) at this time, denies any pain or discomfort, will continue monitor.
[2020-04-19] MEDS: CYANOCOBALAMIN 1,000 MCG TABLET GT SCH (06:01)
[2020-04-19] MEDS: CHOLECALCIFEROL 1,000 UNIT TABLET PO SCH (06:01)
[2020-04-19 07:22] VITALS: BP 110/63
[2020-04-19] MEDS: BUDESONIDE 0.5 MG/2 ML NEBU NEB SCH ×2 (08:10→19:41)
[2020-04-19] MEDS: ASPIRIN 81 MG TAB.CHEW GT SCH (08:19)
[2020-04-19] MEDS: ESCITALOPRAM OXALATE 10 MG TABLET GT SCH (08:19)
[2020-04-19] MEDS: levETIRAcetam 500 MG/5 ML LIQUID UDC GT SCH ×2 (08:19→21:09)
[2020-04-19] MEDS: AMLODIPINE 5 MG TABLET PO SCH (08:19)
[2020-04-19] MEDS: SCOPOLAMINE PATCH 1 MG/72 HRS PATCH TD SCH (08:20)
[2020-04-19] MEDS: COD LIVER OIL/ZINC OXIDE OINT 113 GM TUBE TP SCH ×2 (08:21→21:17)
[2020-04-19] MEDS: OSMOLITE 1.2 CAL 1,000 ML LIQUID GT PRN ×2 (08:21→21:30)
[2020-04-19] MEDS: HYDROGEN PEROXIDE 3% 118 ML BOTTLE TP SCH ×2 (09:07→20:47)
--- NOTE | 2020-04-19 15:00 | NUR ---
video chat done with pt's .
--- NOTE | 2020-04-19 17:06 | NUR ---
Seen and examined by Dr Masters ,no new orders.
[2020-04-19] MEDS: MIRALAX 17 GM POWD.PACK GT SCH (21:09)
[2020-04-19] MEDS: QUETIAPINE FUMARATE 25 MG TABLET GT SCH (21:09)
[2020-04-19] MEDS: DOCUSATE SODIUM 100 MG/10 ML LIQUID UDC GT SCH (21:09)
[2020-04-19] MEDS: ENOXAPARIN SODIUM 40 MG/0.4 ML DISP.SYRIN SQ SCH (21:10)
[2020-04-19 22:28] VITALS: BP 107/56
[2020-04-20] MEDS: IPRATROPIUM BROMIDE 0.5 MG/2.5 ML NEBU NEB SCH ×6 (02:42→22:35)
[2020-04-20] MEDS: ALBUTEROL SULFATE 2.5 MG/3 ML NEBU NEB SCH ×6 (02:42→22:35)
[2020-04-20] MEDS: CHOLECALCIFEROL 1,000 UNIT TABLET PO SCH (06:13)
[2020-04-20] MEDS: CYANOCOBALAMIN 1,000 MCG TABLET GT SCH ×2 (06:13→21:10)
--- NOTE | 2020-04-20 06:41 | NUR ---
Changed time of administration for Vitamin D and Vitamin B12 per patient's request, patient doesn't want to bothered too early in the morning.
[2020-04-20 06:44] LABS: CARBON DIOXIDE 33 mmol/L (21-32); CHLORIDE 105 mmol/L (98-107); CREATININE 0.4 mg/dL (0.6-1.3); GLUCOSE 74 mg/dL (74-106); MAGNESIUM 2.1 mg/dL (1.8-2.4); PHOSPHOROUS 4.1 mg/dL (2.5-4.9); POTASSIUM 4.1 mmol/L (3.5-5.1); UREA NITROGEN, BLOOD 18 mg/dL (7-18)
[2020-04-20 06:46] LABS: BASOPHILS % (AUTO) 0.3 % (0.0-2.0); EOSINOPHILS # (AUTO) 0.2 K/uL (0.0-0.7); EOSINOPHILS % (AUTO) 3.5 % (0.0-7.0); HEMATOCRIT 30.5 % (31.2-41.9); HEMOGLOBIN 10.1 g/dL (10.9-14.3); LYMPHOCYTES # (AUTO) 1.8 K/uL (20.0-40.0); LYMPHOCYTES % (AUTO) 37.3 % (20.5-51.5); MEAN CORPUSCULAR HEMOGLOBIN 30.3 uug (24.7-32.8); MEAN CORPUSCULAR HGB CONC 33 g/dL (32.3-35.6); MEAN CORPUSCULAR VOLUME 91.4 fL (75.5-95.3); MONOCYTES # (AUTO) 0.5 K/uL (2.0-10.0); MONOCYTES % (AUTO) 10.2 % (0.0-11.0); NEUTROPHILS # (AUTO) 2.3 K/uL (1.8-8.9); NEUTROPHILS % (AUTO) 48.7 % (38.5-71.5); PLATELET COUNT (AUTO) 301 K/uL (179-408); RED BLOOD CELL COUNT(AUTO) 3.34 MIL/uL (3.63-4.92); WHITE BLOOD COUNT (AUTO) 4.8 K/uL (3.8-11.8)
[2020-04-20] MEDS: BUDESONIDE 0.5 MG/2 ML NEBU NEB SCH ×2 (07:18→18:59)
[2020-04-20 07:27] VITALS: BP 113/72
[2020-04-20] MEDS: AMLODIPINE 5 MG TABLET PO SCH (09:00)
[2020-04-20] MEDS: ASPIRIN 81 MG TAB.CHEW GT SCH (09:08)
[2020-04-20] MEDS: ESCITALOPRAM OXALATE 10 MG TABLET GT SCH (09:08)
[2020-04-20] MEDS: levETIRAcetam 500 MG/5 ML LIQUID UDC GT SCH ×2 (09:08→21:06)
[2020-04-20] MEDS: COD LIVER OIL/ZINC OXIDE OINT 113 GM TUBE TP SCH ×2 (09:09→21:13)
[2020-04-20] MEDS: HYDROGEN PEROXIDE 3% 118 ML BOTTLE TP SCH ×2 (11:30→18:59)
--- NOTE | 2020-04-20 17:38 | NUR ---
SEEN AND EXAMINED BY DR. ALVAREZ WITH NEW ORDERS NOTED AND CARRIED OUT.
[2020-04-20 20:04] VITALS: BP 112/61
[2020-04-20] MEDS: DOCUSATE SODIUM 100 MG/10 ML LIQUID UDC GT SCH (21:06)
[2020-04-20] MEDS: MIRALAX 17 GM POWD.PACK GT SCH (21:09)
[2020-04-20] MEDS: QUETIAPINE FUMARATE 25 MG TABLET GT SCH (21:09)
[2020-04-20] MEDS: CHOLECALCIFEROL 1,000 UNIT TABLET GT SCH (21:11)
[2020-04-20] MEDS: ENOXAPARIN SODIUM 40 MG/0.4 ML DISP.SYRIN SQ SCH (21:12)
[2020-04-21] MEDS: IPRATROPIUM BROMIDE 0.5 MG/2.5 ML NEBU NEB SCH ×6 (02:35→23:06)
[2020-04-21] MEDS: ALBUTEROL SULFATE 2.5 MG/3 ML NEBU NEB SCH ×6 (02:35→23:06)
--- NOTE | 2020-04-21 03:26 | NUR ---
Dago from Lab called to relay patient's covid-19 result that is negative.
[2020-04-21] MEDS: OSMOLITE 1.2 CAL 1,000 ML LIQUID GT PRN ×2 (03:27→20:57)
--- NOTE | 2020-04-21 05:34 | NUR ---
No menstrual bleeding at this time, patient denies any pain or discomfort at this time.
[2020-04-21] MEDS: BUDESONIDE 0.5 MG/2 ML NEBU NEB SCH ×2 (07:20→19:06)
[2020-04-21 07:34] VITALS: BP 113/62
[2020-04-21] MEDS: HYDROGEN PEROXIDE 3% 118 ML BOTTLE TP SCH ×2 (08:56→21:09)
[2020-04-21] MEDS: AMLODIPINE 5 MG TABLET PO SCH (09:00)
[2020-04-21] MEDS: ASPIRIN 81 MG TAB.CHEW GT SCH (09:34)
[2020-04-21] MEDS: ESCITALOPRAM OXALATE 10 MG TABLET GT SCH (09:35)
[2020-04-21] MEDS: levETIRAcetam 500 MG/5 ML LIQUID UDC GT SCH ×2 (09:35→20:56)
[2020-04-21] MEDS: COD LIVER OIL/ZINC OXIDE OINT 113 GM TUBE TP SCH ×2 (09:35→20:57)
--- NOTE | 2020-04-21 11:45 | NUR ---
WOUND CARE CONSULT: PT SEEN FOR DRY SCRATCH TO LEFT SIDE OF NOSE. PER NURSING STAFF, PT PREVIOUSLY SCRATCHED AT HER NOSE. CONCUR WITH CURRENT TREATMENT OF TRIPLE AB OINTMENT. WILL SEE PRN. IN AGREEMENT WITH PLAN OF CARE.
[2020-04-21 19:37] VITALS: BP 96/52
[2020-04-21] MEDS: MIRALAX 17 GM POWD.PACK GT SCH (20:56)
[2020-04-21] MEDS: CYANOCOBALAMIN 1,000 MCG TABLET GT SCH (20:56)
[2020-04-21] MEDS: CHOLECALCIFEROL 1,000 UNIT TABLET GT SCH (20:56)
[2020-04-21] MEDS: DOCUSATE SODIUM 100 MG/10 ML LIQUID UDC GT SCH (20:56)
[2020-04-21] MEDS: QUETIAPINE FUMARATE 25 MG TABLET GT SCH (20:56)
[2020-04-21] MEDS: ENOXAPARIN SODIUM 40 MG/0.4 ML DISP.SYRIN SQ SCH (20:56)
[2020-04-22] MEDS: ALBUTEROL SULFATE 2.5 MG/3 ML NEBU NEB SCH ×6 (03:34→22:40)
[2020-04-22] MEDS: IPRATROPIUM BROMIDE 0.5 MG/2.5 ML NEBU NEB SCH ×6 (03:34→22:40)
[2020-04-22] MEDS: OSMOLITE 1.2 CAL 1,000 ML LIQUID GT PRN ×2 (06:57→21:02)
[2020-04-22] MEDS: BUDESONIDE 0.5 MG/2 ML NEBU NEB SCH ×2 (07:20→18:51)
[2020-04-22 07:30] VITALS: BP 121/66
[2020-04-22] MEDS: ASPIRIN 81 MG TAB.CHEW GT SCH (08:03)
[2020-04-22] MEDS: AMLODIPINE 5 MG TABLET PO SCH (08:03)
[2020-04-22] MEDS: ESCITALOPRAM OXALATE 10 MG TABLET GT SCH (08:03)
[2020-04-22] MEDS: levETIRAcetam 500 MG/5 ML LIQUID UDC GT SCH ×2 (08:03→21:01)
[2020-04-22] MEDS: COD LIVER OIL/ZINC OXIDE OINT 113 GM TUBE TP SCH ×2 (08:05→21:01)
[2020-04-22] MEDS: HYDROGEN PEROXIDE 3% 118 ML BOTTLE TP SCH ×2 (08:58→18:51)
[2020-04-22] MEDS: SCOPOLAMINE PATCH 1 MG/72 HRS PATCH TD SCH (09:00)
[2020-04-22 19:33] VITALS: BP 109/61
[2020-04-22] MEDS: MIRALAX 17 GM POWD.PACK GT SCH (21:01)
[2020-04-22] MEDS: CHOLECALCIFEROL 1,000 UNIT TABLET GT SCH (21:01)
[2020-04-22] MEDS: QUETIAPINE FUMARATE 25 MG TABLET GT SCH (21:01)
[2020-04-22] MEDS: ENOXAPARIN SODIUM 40 MG/0.4 ML DISP.SYRIN SQ SCH (21:01)
[2020-04-22] MEDS: CYANOCOBALAMIN 1,000 MCG TABLET GT SCH (21:01)
[2020-04-22] MEDS: DOCUSATE SODIUM 100 MG/10 ML LIQUID UDC GT SCH (21:01)
[2020-04-23] MEDS: ALBUTEROL SULFATE 2.5 MG/3 ML NEBU NEB SCH ×6 (02:35→23:06)
[2020-04-23] MEDS: IPRATROPIUM BROMIDE 0.5 MG/2.5 ML NEBU NEB SCH ×6 (02:35→23:06)
[2020-04-23] MEDS: BUDESONIDE 0.5 MG/2 ML NEBU NEB SCH ×2 (07:20→19:31)
[2020-04-23 07:25] VITALS: BP 112/67
[2020-04-23] MEDS: AMLODIPINE 5 MG TABLET PO SCH (09:00)
[2020-04-23] MEDS: HYDROGEN PEROXIDE 3% 118 ML BOTTLE TP SCH ×2 (09:00→20:29)
[2020-04-23] MEDS: ASPIRIN 81 MG TAB.CHEW GT SCH (09:35)
[2020-04-23] MEDS: levETIRAcetam 500 MG/5 ML LIQUID UDC GT SCH ×2 (09:36→21:02)
[2020-04-23] MEDS: ESCITALOPRAM OXALATE 10 MG TABLET GT SCH (09:38)
[2020-04-23] MEDS: COD LIVER OIL/ZINC OXIDE OINT 113 GM TUBE TP SCH ×2 (09:39→21:02)
--- NOTE | 2020-04-23 16:00 | NUR ---
Video chat done with pt's .
[2020-04-23 19:15] VITALS: BP 108/69
[2020-04-23] MEDS: DOCUSATE SODIUM 100 MG/10 ML LIQUID UDC GT SCH (21:02)
[2020-04-23] MEDS: ENOXAPARIN SODIUM 40 MG/0.4 ML DISP.SYRIN SQ SCH (21:02)
[2020-04-23] MEDS: CHOLECALCIFEROL 1,000 UNIT TABLET GT SCH (21:02)
[2020-04-23] MEDS: MIRALAX 17 GM POWD.PACK GT SCH (21:02)
[2020-04-23] MEDS: CYANOCOBALAMIN 1,000 MCG TABLET GT SCH (21:02)
[2020-04-23] MEDS: QUETIAPINE FUMARATE 25 MG TABLET GT SCH (21:02)
--- NOTE | 2020-04-23 21:50 | NUR ---
SOAP GRINDER NOTED RESIDENT HAD TO BE CHANGED AT THIS TIME. RESIDENT REFUSED SO SOAP GRINDER NOTIFIED NURSE. NURSE ASKS THE RESIDENT WHY SHE IS REFUSING AND RESIDENT ANGRILY STATES, " THE SOAP GRINDER SAYS I'M WET BUT I AM NOT WET." NURSE EXPLAINED RISKS AND BENEFITS. RESIDENT CONTINUES TO REFUSE CARE. WILL OFFER CARE AGAIN AT A LATER TIME.
--- NOTE | 2020-04-23 23:42 | NUR ---
RESIDENT CONTINUE TO REFUSE CARE. RISKS AND BENEFITS EXPLAINED TO RESIDENT. WILL OFFER CARE AGAIN AT A LATER TIME
--- NOTE | 2020-04-24 02:30 | NUR ---
RESIDENT REFUSED TO BE CHANGED AT THIS TIME. RISKS AND BENEFITS EXPLAINED. WILL OFFER CARE AGAIN AT A LATER TIME
[2020-04-24] MEDS: IPRATROPIUM BROMIDE 0.5 MG/2.5 ML NEBU NEB SCH ×6 (03:10→23:08)
[2020-04-24] MEDS: ALBUTEROL SULFATE 2.5 MG/3 ML NEBU NEB SCH ×6 (03:10→23:08)
--- NOTE | 2020-04-24 05:20 | NUR ---
Resident called and asked to be changed at this time. Notified LENS INSERTER. Resident is currently being changed
[2020-04-24] MEDS: BUDESONIDE 0.5 MG/2 ML NEBU NEB SCH ×2 (07:13→18:57)
[2020-04-24 07:35] VITALS: BP 108/66
[2020-04-24] MEDS: AMLODIPINE 5 MG TABLET PO SCH (09:00)
[2020-04-24] MEDS: HYDROGEN PEROXIDE 3% 118 ML BOTTLE TP SCH ×2 (09:00→21:08)
[2020-04-24] MEDS: levETIRAcetam 500 MG/5 ML LIQUID UDC GT SCH ×2 (09:39→20:48)
[2020-04-24] MEDS: ESCITALOPRAM OXALATE 10 MG TABLET GT SCH (09:39)
[2020-04-24] MEDS: ASPIRIN 81 MG TAB.CHEW GT SCH (09:39)
[2020-04-24] MEDS: COD LIVER OIL/ZINC OXIDE OINT 113 GM TUBE TP SCH ×2 (09:40→20:54)
[2020-04-24 20:28] VITALS: BP 113/71
[2020-04-24] MEDS: DOCUSATE SODIUM 100 MG/10 ML LIQUID UDC GT SCH (20:47)
[2020-04-24] MEDS: MIRALAX 17 GM POWD.PACK GT SCH (20:48)
[2020-04-24] MEDS: QUETIAPINE FUMARATE 25 MG TABLET GT SCH (20:49)
[2020-04-24] MEDS: CYANOCOBALAMIN 1,000 MCG TABLET GT SCH (20:49)
[2020-04-24] MEDS: CHOLECALCIFEROL 1,000 UNIT TABLET GT SCH (20:53)
[2020-04-24] MEDS: ENOXAPARIN SODIUM 40 MG/0.4 ML DISP.SYRIN SQ SCH (20:54)
[2020-04-25] MEDS: OSMOLITE 1.2 CAL 1,000 ML LIQUID GT PRN (02:00)
[2020-04-25] MEDS: IPRATROPIUM BROMIDE 0.5 MG/2.5 ML NEBU NEB SCH ×6 (03:07→23:09)
[2020-04-25] MEDS: ALBUTEROL SULFATE 2.5 MG/3 ML NEBU NEB SCH ×6 (03:08→23:09)
[2020-04-25] MEDS: BUDESONIDE 0.5 MG/2 ML NEBU NEB SCH ×2 (07:18→19:07)
[2020-04-25 07:30] VITALS: BP 136/70
[2020-04-25] MEDS: ASPIRIN 81 MG TAB.CHEW GT SCH (09:00)
[2020-04-25] MEDS: levETIRAcetam 500 MG/5 ML LIQUID UDC GT SCH ×2 (09:00→21:02)
[2020-04-25] MEDS: ESCITALOPRAM OXALATE 10 MG TABLET GT SCH (09:02)
[2020-04-25] MEDS: AMLODIPINE 5 MG TABLET PO SCH (09:03)
[2020-04-25] MEDS: SCOPOLAMINE PATCH 1 MG/72 HRS PATCH TD SCH (09:05)
[2020-04-25] MEDS: COD LIVER OIL/ZINC OXIDE OINT 113 GM TUBE TP SCH ×2 (09:05→21:12)
[2020-04-25] MEDS: HYDROGEN PEROXIDE 3% 118 ML BOTTLE TP SCH ×2 (09:36→20:40)
[2020-04-25 20:27] VITALS: BP 99/55
[2020-04-25] MEDS: DOCUSATE SODIUM 100 MG/10 ML LIQUID UDC GT SCH (21:02)
[2020-04-25] MEDS: MIRALAX 17 GM POWD.PACK GT SCH (21:02)
[2020-04-25] MEDS: QUETIAPINE FUMARATE 25 MG TABLET GT SCH (21:10)
[2020-04-25] MEDS: CHOLECALCIFEROL 1,000 UNIT TABLET GT SCH (21:11)
[2020-04-25] MEDS: CYANOCOBALAMIN 1,000 MCG TABLET GT SCH (21:11)
[2020-04-25] MEDS: ENOXAPARIN SODIUM 40 MG/0.4 ML DISP.SYRIN SQ SCH (21:27)
[2020-04-26] MEDS: ALBUTEROL SULFATE 2.5 MG/3 ML NEBU NEB SCH ×6 (03:07→22:40)
[2020-04-26] MEDS: IPRATROPIUM BROMIDE 0.5 MG/2.5 ML NEBU NEB SCH ×6 (03:07→22:40)
[2020-04-26] MEDS: BUDESONIDE 0.5 MG/2 ML NEBU NEB SCH ×2 (07:15→19:50)
[2020-04-26 08:02] VITALS: BP 110/63
[2020-04-26] MEDS: levETIRAcetam 500 MG/5 ML LIQUID UDC GT SCH ×2 (08:44→21:01)
[2020-04-26] MEDS: ASPIRIN 81 MG TAB.CHEW GT SCH (08:44)
[2020-04-26] MEDS: ESCITALOPRAM OXALATE 10 MG TABLET GT SCH (08:47)
[2020-04-26] MEDS: AMLODIPINE 5 MG TABLET PO SCH (08:48)
[2020-04-26] MEDS: COD LIVER OIL/ZINC OXIDE OINT 113 GM TUBE TP SCH ×2 (08:49→21:05)
[2020-04-26] MEDS: HYDROGEN PEROXIDE 3% 118 ML BOTTLE TP SCH ×2 (08:50→21:01)
[2020-04-26] MEDS: CHOLECALCIFEROL 1,000 UNIT TABLET GT SCH (21:04)
[2020-04-26] MEDS: MIRALAX 17 GM POWD.PACK GT SCH (21:04)
[2020-04-26] MEDS: CYANOCOBALAMIN 1,000 MCG TABLET GT SCH (21:04)
[2020-04-26] MEDS: QUETIAPINE FUMARATE 25 MG TABLET GT SCH (21:04)
[2020-04-26] MEDS: DOCUSATE SODIUM 100 MG/10 ML LIQUID UDC GT SCH (21:14)
[2020-04-26] MEDS: ENOXAPARIN SODIUM 40 MG/0.4 ML DISP.SYRIN SQ SCH (21:19)
[2020-04-26 22:46] VITALS: BP 122/60
[2020-04-27] MEDS: OSMOLITE 1.2 CAL 1,000 ML LIQUID GT PRN ×2 (02:00→17:49)
[2020-04-27] MEDS: ALBUTEROL SULFATE 2.5 MG/3 ML NEBU NEB SCH ×6 (02:40→23:05)
[2020-04-27] MEDS: IPRATROPIUM BROMIDE 0.5 MG/2.5 ML NEBU NEB SCH ×6 (02:40→23:05)
[2020-04-27] MEDS: BUDESONIDE 0.5 MG/2 ML NEBU NEB SCH ×2 (07:31→19:44)
[2020-04-27] MEDS: HYDROGEN PEROXIDE 3% 118 ML BOTTLE TP SCH ×2 (07:31→20:54)
[2020-04-27 07:46] VITALS: BP 115/68
[2020-04-27] MEDS: levETIRAcetam 500 MG/5 ML LIQUID UDC GT SCH ×2 (08:23→20:46)
[2020-04-27] MEDS: ASPIRIN 81 MG TAB.CHEW GT SCH (08:23)
[2020-04-27] MEDS: ESCITALOPRAM OXALATE 10 MG TABLET GT SCH (08:24)
[2020-04-27] MEDS: AMLODIPINE 5 MG TABLET PO SCH (08:24)
[2020-04-27] MEDS: COD LIVER OIL/ZINC OXIDE OINT 113 GM TUBE TP SCH ×2 (08:24→20:49)
--- NOTE | 2020-04-27 19:07 | NUR ---
SEEN AND EXAMINED BY DR. ALVAREZ AND WITH NEW ORDER CARRIED OUT.
[2020-04-27 20:00] VITALS: BP 115/62
[2020-04-27] MEDS: DOCUSATE SODIUM 100 MG/10 ML LIQUID UDC GT SCH (20:43)
[2020-04-27] MEDS: MIRALAX 17 GM POWD.PACK GT SCH (20:47)
[2020-04-27] MEDS: CHOLECALCIFEROL 1,000 UNIT TABLET GT SCH (20:48)
[2020-04-27] MEDS: CYANOCOBALAMIN 1,000 MCG TABLET GT SCH (20:48)
[2020-04-27] MEDS: QUETIAPINE FUMARATE 25 MG TABLET GT SCH (20:48)
[2020-04-27] MEDS: ENOXAPARIN SODIUM 40 MG/0.4 ML DISP.SYRIN SQ SCH (21:15)
[2020-04-28] MEDS: ALBUTEROL SULFATE 2.5 MG/3 ML NEBU NEB SCH ×6 (03:06→23:05)
[2020-04-28] MEDS: IPRATROPIUM BROMIDE 0.5 MG/2.5 ML NEBU NEB SCH ×6 (03:06→23:05)
[2020-04-28] MEDS: BUDESONIDE 0.5 MG/2 ML NEBU NEB SCH ×2 (07:20→19:03)
[2020-04-28 07:48] VITALS: BP 115/68
[2020-04-28] MEDS: ESCITALOPRAM OXALATE 10 MG TABLET GT SCH (08:57)
[2020-04-28] MEDS: ASPIRIN 81 MG TAB.CHEW GT SCH (08:57)
[2020-04-28] MEDS: levETIRAcetam 500 MG/5 ML LIQUID UDC GT SCH ×2 (08:57→21:44)
[2020-04-28] MEDS: SCOPOLAMINE PATCH 1 MG/72 HRS PATCH TD SCH (08:58)
[2020-04-28] MEDS: COD LIVER OIL/ZINC OXIDE OINT 113 GM TUBE TP SCH ×2 (08:58→21:44)
[2020-04-28] MEDS: AMLODIPINE 5 MG TABLET PO SCH (08:58)
[2020-04-28] MEDS: HYDROGEN PEROXIDE 3% 118 ML BOTTLE TP SCH ×2 (09:21→21:18)
--- NOTE | 2020-04-28 16:00 | NUR ---
Provided video chat to pt and her with no problem noted, pt remains comfortable, all needs attended and anticipated.
[2020-04-28] MEDS: ENOXAPARIN SODIUM 40 MG/0.4 ML DISP.SYRIN SQ SCH (21:00)
[2020-04-28] MEDS: DOCUSATE SODIUM 100 MG/10 ML LIQUID UDC GT SCH (21:44)
[2020-04-28] MEDS: MIRALAX 17 GM POWD.PACK GT SCH (21:44)
[2020-04-28] MEDS: CYANOCOBALAMIN 1,000 MCG TABLET GT SCH (21:44)
[2020-04-28] MEDS: CHOLECALCIFEROL 1,000 UNIT TABLET GT SCH (21:44)
[2020-04-28] MEDS: QUETIAPINE FUMARATE 25 MG TABLET GT SCH (21:44)
[2020-04-28 22:24] VITALS: BP 109/66
[2020-04-29] MEDS: IPRATROPIUM BROMIDE 0.5 MG/2.5 ML NEBU NEB SCH ×6 (03:01→22:40)
[2020-04-29] MEDS: ALBUTEROL SULFATE 2.5 MG/3 ML NEBU NEB SCH ×6 (03:01→22:40)
[2020-04-29] MEDS: BUDESONIDE 0.5 MG/2 ML NEBU NEB SCH ×2 (07:19→19:40)
[2020-04-29 07:37] VITALS: BP 115/60
[2020-04-29] MEDS: ESCITALOPRAM OXALATE 10 MG TABLET GT SCH (08:31)
[2020-04-29] MEDS: AMLODIPINE 5 MG TABLET PO SCH (08:31)
[2020-04-29] MEDS: ASPIRIN 81 MG TAB.CHEW GT SCH (08:31)
[2020-04-29] MEDS: COD LIVER OIL/ZINC OXIDE OINT 113 GM TUBE TP SCH ×2 (08:31→21:12)
[2020-04-29] MEDS: levETIRAcetam 500 MG/5 ML LIQUID UDC GT SCH ×2 (08:31→21:10)
[2020-04-29] MEDS: HYDROGEN PEROXIDE 3% 118 ML BOTTLE TP SCH ×2 (09:09→21:13)
[2020-04-29] MEDS: ENOXAPARIN SODIUM 40 MG/0.4 ML DISP.SYRIN SQ SCH (21:00)
[2020-04-29] MEDS: DOCUSATE SODIUM 100 MG/10 ML LIQUID UDC GT SCH (21:06)
[2020-04-29] MEDS: MIRALAX 17 GM POWD.PACK GT SCH (21:08)
[2020-04-29] MEDS: QUETIAPINE FUMARATE 25 MG TABLET GT SCH (21:10)
[2020-04-29] MEDS: CHOLECALCIFEROL 1,000 UNIT TABLET GT SCH (21:12)
[2020-04-29] MEDS: CYANOCOBALAMIN 1,000 MCG TABLET GT SCH (21:13)
[2020-04-29] MEDS: OSMOLITE 1.2 CAL 1,000 ML LIQUID GT PRN (21:45)
[2020-04-29 22:19] VITALS: BP 106/59
[2020-04-30] MEDS: ALBUTEROL SULFATE 2.5 MG/3 ML NEBU NEB SCH ×6 (02:40→22:40)
[2020-04-30] MEDS: IPRATROPIUM BROMIDE 0.5 MG/2.5 ML NEBU NEB SCH ×6 (02:40→22:40)
[2020-04-30 07:36] VITALS: BP 119/70
[2020-04-30] MEDS: HYDROGEN PEROXIDE 3% 118 ML BOTTLE TP SCH ×2 (07:42→21:14)
[2020-04-30] MEDS: BUDESONIDE 0.5 MG/2 ML NEBU NEB SCH ×2 (07:42→19:40)
[2020-04-30] MEDS: ESCITALOPRAM OXALATE 10 MG TABLET GT SCH (09:03)
[2020-04-30] MEDS: levETIRAcetam 500 MG/5 ML LIQUID UDC GT SCH ×2 (09:03→20:39)
[2020-04-30] MEDS: ASPIRIN 81 MG TAB.CHEW GT SCH (09:03)
[2020-04-30] MEDS: AMLODIPINE 5 MG TABLET PO SCH (09:04)
[2020-04-30] MEDS: COD LIVER OIL/ZINC OXIDE OINT 113 GM TUBE TP SCH ×2 (09:05→20:50)
--- NOTE | 2020-04-30 12:05 | NUR ---
Video chat provided to pt.and her with no problem noted, pt. kept clean and comfortable, all needs attended and anticipated.
[2020-04-30] MEDS: DOCUSATE SODIUM 100 MG/10 ML LIQUID UDC GT SCH (20:39)
[2020-04-30] MEDS: MIRALAX 17 GM POWD.PACK GT SCH (20:39)
[2020-04-30] MEDS: QUETIAPINE FUMARATE 25 MG TABLET GT SCH (20:39)
[2020-04-30] MEDS: CHOLECALCIFEROL 1,000 UNIT TABLET GT SCH (20:40)
[2020-04-30] MEDS: CYANOCOBALAMIN 1,000 MCG TABLET GT SCH (20:40)
[2020-04-30] MEDS: ENOXAPARIN SODIUM 40 MG/0.4 ML DISP.SYRIN SQ SCH (20:49)
[2020-04-30 21:31] VITALS: BP 116/78
[2020-05-01] MEDS: IPRATROPIUM BROMIDE 0.5 MG/2.5 ML NEBU NEB SCH ×6 (02:40→22:30)
[2020-05-01] MEDS: ALBUTEROL SULFATE 2.5 MG/3 ML NEBU NEB SCH ×6 (02:40→22:30)
[2020-05-01] MEDS: BUDESONIDE 0.5 MG/2 ML NEBU NEB SCH ×2 (07:26→19:15)
[2020-05-01 07:27] VITALS: BP 109/68
[2020-05-01] MEDS: HYDROGEN PEROXIDE 3% 118 ML BOTTLE TP SCH ×2 (07:27→19:15)
[2020-05-01] MEDS: levETIRAcetam 500 MG/5 ML LIQUID UDC GT SCH ×2 (08:41→21:42)
[2020-05-01] MEDS: AMLODIPINE 5 MG TABLET PO SCH (08:41)
[2020-05-01] MEDS: ESCITALOPRAM OXALATE 10 MG TABLET GT SCH (08:41)
[2020-05-01] MEDS: ASPIRIN 81 MG TAB.CHEW GT SCH (08:41)
[2020-05-01] MEDS: SCOPOLAMINE PATCH 1 MG/72 HRS PATCH TD SCH (08:42)
[2020-05-01] MEDS: COD LIVER OIL/ZINC OXIDE OINT 113 GM TUBE TP SCH ×2 (08:42→21:44)
--- NOTE | 2020-05-01 15:10 | NUR ---
Zoom chat provided to pt. and her with no problem noted, pt. kept clean and comfortable, all needs attended and anticipated.
--- NOTE | 2020-05-01 18:00 | NUR ---
NEW ORDER CARRIED OUT FROM DR. ALVAREZ PER [facility] RECOMMENDATION FOR VIDEOSWALLOW IN AM.
[2020-05-01 20:16] VITALS: BP 111/63
[2020-05-01] MEDS: ENOXAPARIN SODIUM 40 MG/0.4 ML DISP.SYRIN SQ SCH (21:14)
[2020-05-01] MEDS: DOCUSATE SODIUM 100 MG/10 ML LIQUID UDC GT SCH (21:42)
[2020-05-01] MEDS: CHOLECALCIFEROL 1,000 UNIT TABLET GT SCH (21:43)
[2020-05-01] MEDS: QUETIAPINE FUMARATE 25 MG TABLET GT SCH (21:43)
[2020-05-01] MEDS: CYANOCOBALAMIN 1,000 MCG TABLET GT SCH (21:43)
[2020-05-01] MEDS: MIRALAX 17 GM POWD.PACK GT SCH (21:43)
[2020-05-02] MEDS: IPRATROPIUM BROMIDE 0.5 MG/2.5 ML NEBU NEB SCH ×6 (02:35→23:24)
[2020-05-02] MEDS: ALBUTEROL SULFATE 2.5 MG/3 ML NEBU NEB SCH ×6 (02:35→23:24)
[2020-05-02 05:50] LABS: ABG BASE EXCESS 3.8 mmol/L; ABG HCO3 29.5 mmol/L; ABG PCO2 49.9 mmHg (35.0-45.0); ABG PO2 97.9 mmHg (75.0-100.0); ABG SITE RIGHT RADIAL; ABG TOTAL HEMOGLOBIN 10.9 G/dL (12.0-16.0); COHb 1.5 % (0.5-1.5); MetHb 0.2 % (0.0-1.5); O2Hb 96.3 % (94.0-97.0); VENT MODE C/A FIO2-28%
[2020-05-02] MEDS: OSMOLITE 1.2 CAL 1,000 ML LIQUID GT PRN ×2 (07:00→21:45)
[2020-05-02 07:34] VITALS: BP 131/68
[2020-05-02] MEDS: BUDESONIDE 0.5 MG/2 ML NEBU NEB SCH ×2 (07:40→19:49)
[2020-05-02] MEDS: levETIRAcetam 500 MG/5 ML LIQUID UDC GT SCH ×2 (09:28→21:39)
[2020-05-02] MEDS: ASPIRIN 81 MG TAB.CHEW GT SCH (09:28)
[2020-05-02] MEDS: ESCITALOPRAM OXALATE 10 MG TABLET GT SCH (09:29)
[2020-05-02] MEDS: AMLODIPINE 5 MG TABLET PO SCH (09:29)
[2020-05-02] MEDS: COD LIVER OIL/ZINC OXIDE OINT 113 GM TUBE TP SCH ×2 (09:30→21:40)
[2020-05-02] MEDS: HYDROGEN PEROXIDE 3% 118 ML BOTTLE TP SCH ×2 (09:48→20:51)
--- NOTE | 2020-05-02 15:30 | NUR ---
SEEN AND EXAMINED BY DR Sandoval,NO NEW ORDERS.
--- NOTE | 2020-05-02 15:51 | NUR ---
PT. HAD VIDEO SWALLO WITH ST (SEE RECORD).
[2020-05-02 20:03] VITALS: BP 105/69
[2020-05-02] MEDS: DOCUSATE SODIUM 100 MG/10 ML LIQUID UDC GT SCH (21:39)
[2020-05-02] MEDS: CYANOCOBALAMIN 1,000 MCG TABLET GT SCH (21:39)
[2020-05-02] MEDS: CHOLECALCIFEROL 1,000 UNIT TABLET GT SCH (21:39)
[2020-05-02] MEDS: QUETIAPINE FUMARATE 25 MG TABLET GT SCH (21:39)
[2020-05-02] MEDS: MIRALAX 17 GM POWD.PACK GT SCH (21:39)
[2020-05-02] MEDS: ENOXAPARIN SODIUM 40 MG/0.4 ML DISP.SYRIN SQ SCH (21:46)
[2020-05-03] MEDS: ALBUTEROL SULFATE 2.5 MG/3 ML NEBU NEB SCH ×6 (03:18→22:40)
[2020-05-03] MEDS: IPRATROPIUM BROMIDE 0.5 MG/2.5 ML NEBU NEB SCH ×6 (03:18→22:40)
[2020-05-03] MEDS: BUDESONIDE 0.5 MG/2 ML NEBU NEB SCH ×2 (07:17→19:46)
[2020-05-03 07:24] VITALS: BP 116/66
[2020-05-03] MEDS: HYDROGEN PEROXIDE 3% 118 ML BOTTLE TP SCH ×2 (09:00→21:26)
--- NOTE | 2020-05-03 09:00 | NUR ---
PT. GOT BED BATH AT THIS TIME AND SHE BRUSHED HER TEETH BY HERSELF .
[2020-05-03] MEDS: levETIRAcetam 500 MG/5 ML LIQUID UDC GT SCH ×2 (09:28→21:24)
[2020-05-03] MEDS: ASPIRIN 81 MG TAB.CHEW GT SCH (09:28)
[2020-05-03] MEDS: ESCITALOPRAM OXALATE 10 MG TABLET GT SCH (09:29)
[2020-05-03] MEDS: AMLODIPINE 5 MG TABLET PO SCH (09:29)
[2020-05-03] MEDS: COD LIVER OIL/ZINC OXIDE OINT 113 GM TUBE TP SCH ×2 (09:31→21:26)
--- NOTE | 2020-05-03 10:00 | NUR ---
PT. STATED THAT SHE DOES OT REMEMBER BRUSHING HER TEETH EARLIER ,REASSURANCE AND CUEIND DONE TO HELP HER REMEMBER AND AVOID WORRY AND ANXIETY.
[2020-05-03] MEDS: OSMOLITE 1.2 CAL 1,000 ML LIQUID GT PRN (15:30)
--- NOTE | 2020-05-03 16:00 | NUR ---
PT. OBSERVED WITH STRONG ODOR URINE AND TEA COLOR /PINKISH COLOR URINE ON DIAPER.DENIES ANY DYSURIA ,REMAINS AFEBRILE ,NO C/O DISCOMFORT ONLY OBSERVED FREQUENT DIAPER CHANGE TO PLYWOOD LAYUP LINE CORE FEEDER ,WATER FLUSHES GIVEN ORDERED ,GOOD PROMPT PERINEAL CARE GIVEN ,CH. NURSE AWARE AND WILL F/U.
[2020-05-03 20:04] VITALS: BP 102/63
[2020-05-03] MEDS: QUETIAPINE FUMARATE 25 MG TABLET GT SCH (21:24)
[2020-05-03] MEDS: DOCUSATE SODIUM 100 MG/10 ML LIQUID UDC GT SCH (21:24)
[2020-05-03] MEDS: CYANOCOBALAMIN 1,000 MCG TABLET GT SCH (21:24)
[2020-05-03] MEDS: MIRALAX 17 GM POWD.PACK GT SCH (21:24)
[2020-05-03] MEDS: CHOLECALCIFEROL 1,000 UNIT TABLET GT SCH (21:26)
[2020-05-03] MEDS: ENOXAPARIN SODIUM 40 MG/0.4 ML DISP.SYRIN SQ SCH (21:27)
[2020-05-04] MEDS: ALBUTEROL SULFATE 2.5 MG/3 ML NEBU NEB SCH ×6 (02:40→23:08)
[2020-05-04] MEDS: IPRATROPIUM BROMIDE 0.5 MG/2.5 ML NEBU NEB SCH ×6 (02:40→23:08)
--- NOTE | 2020-05-04 03:01 | NUR ---
Patient is sleeping, denies any pain, voided x1 with yellow urine, good anju care rendered, patient denies any abdominal pain or pain on urination, fluids given as ordered, kept clean and comfortable. Will continue monitor.
[2020-05-04 06:45] VITALS: BP 100/60
--- NOTE | 2020-05-04 06:46 | NUR ---
SOFTWARE DEVELOPER MANAGER reported that patient have pinkish urine on her diaper, urine has strong smell, patient denies any abdominal pain, or pain in urination. Good anju care rendered,patient is afebrile, fluids given as ordered, will continue monitor.
[2020-05-04 07:43] VITALS: BP 122/64
[2020-05-04] MEDS: BUDESONIDE 0.5 MG/2 ML NEBU NEB SCH ×2 (07:48→19:00)
[2020-05-04] MEDS: ASPIRIN 81 MG TAB.CHEW GT SCH (08:45)
[2020-05-04] MEDS: levETIRAcetam 500 MG/5 ML LIQUID UDC GT SCH ×2 (08:45→21:49)
[2020-05-04] MEDS: ESCITALOPRAM OXALATE 10 MG TABLET GT SCH (08:47)
[2020-05-04] MEDS: AMLODIPINE 5 MG TABLET PO SCH (08:48)
[2020-05-04] MEDS: SCOPOLAMINE PATCH 1 MG/72 HRS PATCH TD SCH (08:48)
[2020-05-04] MEDS: COD LIVER OIL/ZINC OXIDE OINT 113 GM TUBE TP SCH ×2 (08:48→21:50)
[2020-05-04] MEDS: HYDROGEN PEROXIDE 3% 118 ML BOTTLE TP SCH ×2 (09:00→21:03)
[2020-05-04] MEDS: OSMOLITE 1.2 CAL 1,000 ML LIQUID GT PRN (10:52)
[2020-05-04 20:00] VITALS: BP 128/63
[2020-05-04] MEDS: MIRALAX 17 GM POWD.PACK GT SCH (21:49)
[2020-05-04] MEDS: QUETIAPINE FUMARATE 25 MG TABLET GT SCH (21:49)
[2020-05-04] MEDS: DOCUSATE SODIUM 100 MG/10 ML LIQUID UDC GT SCH (21:49)
[2020-05-04] MEDS: CHOLECALCIFEROL 1,000 UNIT TABLET GT SCH (21:50)
[2020-05-04] MEDS: CYANOCOBALAMIN 1,000 MCG TABLET GT SCH (21:50)
[2020-05-04] MEDS: ENOXAPARIN SODIUM 40 MG/0.4 ML DISP.SYRIN SQ SCH (22:00)
[2020-05-05] MEDS: OSMOLITE 1.2 CAL 1,000 ML LIQUID GT PRN ×2 (01:18→19:46)
[2020-05-05] MEDS: IPRATROPIUM BROMIDE 0.5 MG/2.5 ML NEBU NEB SCH ×6 (03:06→22:41)
[2020-05-05] MEDS: ALBUTEROL SULFATE 2.5 MG/3 ML NEBU NEB SCH ×6 (03:06→22:41)
--- NOTE | 2020-05-05 06:26 | NUR ---
Patient is afebrile, fluids given as ordered, voiding freely, no hematuria noted, urine is yellow, denies any pain in urination, or itching in the vaginal area, good anju care rendered, kept clean and comfortable, will continue monitor.
[2020-05-05] MEDS: BUDESONIDE 0.5 MG/2 ML NEBU NEB SCH ×2 (07:21→19:49)
[2020-05-05 07:31] VITALS: BP 138/65
[2020-05-05] MEDS: ASPIRIN 81 MG TAB.CHEW GT SCH (08:53)
[2020-05-05] MEDS: levETIRAcetam 500 MG/5 ML LIQUID UDC GT SCH ×2 (08:53→20:15)
[2020-05-05] MEDS: COD LIVER OIL/ZINC OXIDE OINT 113 GM TUBE TP SCH ×2 (08:54→20:21)
[2020-05-05] MEDS: AMLODIPINE 5 MG TABLET PO SCH (08:54)
[2020-05-05] MEDS: ESCITALOPRAM OXALATE 10 MG TABLET GT SCH (08:54)
[2020-05-05] MEDS: HYDROGEN PEROXIDE 3% 118 ML BOTTLE TP SCH ×2 (09:10→21:22)
--- NOTE | 2020-05-05 11:42 | NUR ---
ZOOM PROVIDED TO .
--- NOTE | 2020-05-05 15:46 | NUR ---
SADIA called patient's Avinash [phone] and informed him that the next IDT meeting for the patient is scheduled for Friday, 05/09, at 11am. SADIA asked Avinash if he wanted to participate in the meeting via speaker phone, and Avinash expressed agreement. SADIA asked Avinash to be available on 05/09 between 11am-12pm to receive the team's call, and Avinash expressed understanding and agreement.
[2020-05-05 20:00] VITALS: BP 106/59
[2020-05-05] MEDS: DOCUSATE SODIUM 100 MG/10 ML LIQUID UDC GT SCH (20:14)
[2020-05-05] MEDS: CHOLECALCIFEROL 1,000 UNIT TABLET GT SCH (20:15)
[2020-05-05] MEDS: MIRALAX 17 GM POWD.PACK GT SCH (20:15)
[2020-05-05] MEDS: CYANOCOBALAMIN 1,000 MCG TABLET GT SCH (20:15)
[2020-05-05] MEDS: QUETIAPINE FUMARATE 25 MG TABLET GT SCH (20:15)
[2020-05-05] MEDS: ENOXAPARIN SODIUM 40 MG/0.4 ML DISP.SYRIN SQ SCH (20:20)
[2020-05-06] MEDS: ALBUTEROL SULFATE 2.5 MG/3 ML NEBU NEB SCH ×6 (02:53→22:40)
[2020-05-06] MEDS: IPRATROPIUM BROMIDE 0.5 MG/2.5 ML NEBU NEB SCH ×6 (02:53→22:40)
--- NOTE | 2020-05-06 06:00 | NUR ---
Afebrile, on monitoring for strong odor urine, per staff no odor at this time but alpa color, denies any pain on urination, or vaginal itching, fluids given as ordered, good anju care rendered, will continue monitor.
[2020-05-06 07:48] VITALS: BP 118/67
[2020-05-06] MEDS: BUDESONIDE 0.5 MG/2 ML NEBU NEB SCH ×2 (07:49→19:40)
[2020-05-06] MEDS: levETIRAcetam 500 MG/5 ML LIQUID UDC GT SCH ×2 (08:45→20:26)
[2020-05-06] MEDS: ASPIRIN 81 MG TAB.CHEW GT SCH (08:45)
[2020-05-06] MEDS: ESCITALOPRAM OXALATE 10 MG TABLET GT SCH (08:46)
[2020-05-06] MEDS: COD LIVER OIL/ZINC OXIDE OINT 113 GM TUBE TP SCH ×2 (08:47→20:26)
[2020-05-06] MEDS: AMLODIPINE 5 MG TABLET PO SCH (08:47)
[2020-05-06] MEDS: HYDROGEN PEROXIDE 3% 118 ML BOTTLE TP SCH ×2 (09:00→21:31)
--- NOTE | 2020-05-06 11:00 | NUR ---
Dr Masters was notified ,regarding the strong odor urine,pinkish reddish colored with new orders for Ua and urine culture carried out.
[2020-05-06 16:06] LABS: *BILIRUBIN,URIN NEGATIVE (NEGATIVE); *BLOOD, URINE 3+ (NEGATIVE); *CLARITY,URINE CLOUDY (CLEAR); *COLOR,URINE Brown (YELLOW); *KETONES,URINE NEGATIVE (NEGATIVE); *UROBILINOGEN,URINE 0.2 E.U./dl (NORMAL); LEUKOCYTE ESTERASE ,URINE 3+ (NEGATIVE); NITRITE, URINE POSITIVE (NEGATIVE); PH,URINE 8.5 (5.0-8.0); UGLUCOSE NEGATIVE (NEGATIVE)
--- NOTE | 2020-05-06 17:21 | NUR ---
New ivatb orders for uti,Cefepine 1 gm Ivpb every 12 hours ,carried out.
[2020-05-06] MEDS ORDERED: CEFEPIME HCL 1 G in IV DEXTROSE 5% 50 ML IV SCH (18:00)
--- NOTE | 2020-05-06 18:16 | NUR ---
Pt's joellen notified regarding the new orders,he agreed with the new orders and plan of care.
[2020-05-06 19:17] LABS: BACTERIA,URINE MODERATE /HPF (NONE SEEN); RBC,URINE TNTC /HPF (0-3); SQUAMOUS EPITHELIAL CELL,UR FEW /HPF (NONE SEEN); WBC,URINE 50-80 /HPF (0-3)
[2020-05-06] MEDS: QUETIAPINE FUMARATE 25 MG TABLET GT SCH (20:26)
[2020-05-06] MEDS: CHOLECALCIFEROL 1,000 UNIT TABLET GT SCH (20:26)
[2020-05-06] MEDS: DOCUSATE SODIUM 100 MG/10 ML LIQUID UDC GT SCH (20:26)
[2020-05-06] MEDS: MIRALAX 17 GM POWD.PACK GT SCH (20:26)
[2020-05-06] MEDS: CYANOCOBALAMIN 1,000 MCG TABLET GT SCH (20:26)
[2020-05-06] MEDS: ENOXAPARIN SODIUM 40 MG/0.4 ML DISP.SYRIN SQ SCH (20:27)
[2020-05-06] MEDS: CEFEPIME HCL 1 G in IV DEXTROSE 5% 50 ML IV SCH (20:28)
[2020-05-06 22:07] VITALS: BP 106/62
[2020-05-07] MEDS: IPRATROPIUM BROMIDE 0.5 MG/2.5 ML NEBU NEB SCH ×6 (02:40→22:35)
[2020-05-07] MEDS: ALBUTEROL SULFATE 2.5 MG/3 ML NEBU NEB SCH ×6 (02:40→22:35)
[2020-05-07] MEDS: BUDESONIDE 0.5 MG/2 ML NEBU NEB SCH ×2 (07:32→19:13)
[2020-05-07 07:35] VITALS: BP 105/61
[2020-05-07] MEDS: SCOPOLAMINE PATCH 1 MG/72 HRS PATCH TD SCH (08:26)
[2020-05-07] MEDS: levETIRAcetam 500 MG/5 ML LIQUID UDC GT SCH ×2 (08:26→21:14)
[2020-05-07] MEDS: ASPIRIN 81 MG TAB.CHEW GT SCH (08:26)
[2020-05-07] MEDS: ESCITALOPRAM OXALATE 10 MG TABLET GT SCH (08:26)
[2020-05-07] MEDS: AMLODIPINE 5 MG TABLET PO SCH (08:26)
[2020-05-07] MEDS: COD LIVER OIL/ZINC OXIDE OINT 113 GM TUBE TP SCH ×2 (08:26→21:20)
[2020-05-07] MEDS: CEFEPIME HCL 1 G in IV DEXTROSE 5% 50 ML IV SCH ×2 (08:31→20:00)
[2020-05-07] MEDS: HYDROGEN PEROXIDE 3% 118 ML BOTTLE TP SCH ×2 (09:54→19:13)
[2020-05-07] MEDS: OSMOLITE 1.2 CAL 1,000 ML LIQUID GT PRN (10:30)
--- NOTE | 2020-05-07 18:00 | NUR ---
pt on ivatb cefepine 1 gm ivpb for uti,no adverse reaction noted,iv site on the L hand intact ,no s/s of infiltration noted.No complaints of bladder discomfort noted.
[2020-05-07 20:22] VITALS: BP 119/67
[2020-05-07] MEDS ORDERED: CEFEPIME HCL 1 G VIAL ONE (20:39)
[2020-05-07] MEDS: ENOXAPARIN SODIUM 40 MG/0.4 ML DISP.SYRIN SQ SCH (21:00)
[2020-05-07] MEDS: MIRALAX 17 GM POWD.PACK GT SCH (21:14)
[2020-05-07] MEDS: DOCUSATE SODIUM 100 MG/10 ML LIQUID UDC GT SCH (21:14)
[2020-05-07] MEDS: QUETIAPINE FUMARATE 25 MG TABLET GT SCH (21:15)
[2020-05-07] MEDS: CYANOCOBALAMIN 1,000 MCG TABLET GT SCH (21:15)
[2020-05-07] MEDS: CHOLECALCIFEROL 1,000 UNIT TABLET GT SCH (21:20)
[2020-05-08] MEDS: ALBUTEROL SULFATE 2.5 MG/3 ML NEBU NEB SCH ×6 (02:35→22:40)
[2020-05-08] MEDS: IPRATROPIUM BROMIDE 0.5 MG/2.5 ML NEBU NEB SCH ×6 (02:35→22:40)
[2020-05-08] MEDS: OSMOLITE 1.2 CAL 1,000 ML LIQUID GT PRN (05:37)
[2020-05-08 07:42] VITALS: BP 122/69
[2020-05-08] MEDS: BUDESONIDE 0.5 MG/2 ML NEBU NEB SCH ×2 (07:50→20:06)
[2020-05-08] MEDS: CEFEPIME HCL 1 G in IV DEXTROSE 5% 50 ML IV SCH ×2 (08:56→20:03)
[2020-05-08] MEDS: COD LIVER OIL/ZINC OXIDE OINT 113 GM TUBE TP SCH ×2 (09:25→21:03)
[2020-05-08] MEDS: ESCITALOPRAM OXALATE 10 MG TABLET GT SCH (09:25)
[2020-05-08] MEDS: AMLODIPINE 5 MG TABLET PO SCH (09:25)
[2020-05-08] MEDS: levETIRAcetam 500 MG/5 ML LIQUID UDC GT SCH ×2 (09:25→21:00)
[2020-05-08] MEDS: ASPIRIN 81 MG TAB.CHEW GT SCH (09:25)
[2020-05-08] MEDS: HYDROGEN PEROXIDE 3% 118 ML BOTTLE TP SCH ×2 (12:23→21:59)
--- NOTE | 2020-05-08 15:00 | NUR ---
Provided video chat to pt. and her with no problem. Kept pt. clean and comfortable.
[2020-05-08 20:10] VITALS: BP 111/74
[2020-05-08] MEDS: QUETIAPINE FUMARATE 25 MG TABLET GT SCH (21:00)
[2020-05-08] MEDS: MIRALAX 17 GM POWD.PACK GT SCH (21:00)
[2020-05-08] MEDS: DOCUSATE SODIUM 100 MG/10 ML LIQUID UDC GT SCH (21:00)
[2020-05-08] MEDS: CHOLECALCIFEROL 1,000 UNIT TABLET GT SCH (21:01)
[2020-05-08] MEDS: CYANOCOBALAMIN 1,000 MCG TABLET GT SCH (21:01)
[2020-05-08] MEDS: ENOXAPARIN SODIUM 40 MG/0.4 ML DISP.SYRIN SQ SCH (21:02)
--- NOTE | 2020-05-08 21:28 | NUR ---
Patient is Cefepime IV for UTI, no adverse reactions noted, fluids given as ordered, voiding freely to yellow urine, denies vaginal itching or pain on urination, good anju care rendered, kept clean and comfortable.
[2020-05-09] MEDS: IPRATROPIUM BROMIDE 0.5 MG/2.5 ML NEBU NEB SCH ×6 (02:32→23:56)
[2020-05-09] MEDS: ALBUTEROL SULFATE 2.5 MG/3 ML NEBU NEB SCH ×6 (02:32→23:56)
[2020-05-09] MEDS: CYANOCOBALAMIN 1,000 MCG TABLET GT SCH (05:37)
[2020-05-09] MEDS: HYDROGEN PEROXIDE 3% 118 ML BOTTLE TP SCH ×2 (07:25→21:20)
[2020-05-09] MEDS: BUDESONIDE 0.5 MG/2 ML NEBU NEB SCH ×2 (07:25→19:29)
[2020-05-09 07:26] VITALS: BP 116/69
[2020-05-09] MEDS: CEFEPIME HCL 1 G in IV DEXTROSE 5% 50 ML IV SCH ×2 (07:44→20:15)
[2020-05-09] MEDS: COD LIVER OIL/ZINC OXIDE OINT 113 GM TUBE TP SCH ×2 (09:19→21:07)
[2020-05-09] MEDS: ASPIRIN 81 MG TAB.CHEW GT SCH (09:19)
[2020-05-09] MEDS: AMLODIPINE 5 MG TABLET PO SCH (09:19)
[2020-05-09] MEDS: ESCITALOPRAM OXALATE 10 MG TABLET GT SCH (09:19)
[2020-05-09] MEDS: levETIRAcetam 500 MG/5 ML LIQUID UDC GT SCH ×2 (09:19→21:00)
--- NOTE | 2020-05-09 15:19 | NUR ---
INTERDISCIPLINARY PLAN OF CARE CONFERENCE was held today. Patient's Avinash participated in the IDT meeting through speaker phone. Dr. Ramirez and the Interdisciplinary Team reviewed the current plan of care in detail. Nursing reported on patient's medical condition and current treatments. See nursing IDT conference notes. PT, OT, and ST reported on current treatment plan and ongoing progress. No major changes in medical condition were reported by nursing. See all other disciplines IDT notes and physician's progress notes for additional details. Avinash's questions were addressed by the IDT team and by Dr. Ramirez, and Avinash expressed being content with the current plan of care.
--- NOTE | 2020-05-09 16:27 | NUR ---
Noted with new order for PT evaluation and therapeutic exercises noted and carried out. Left a message to PT department .
[2020-05-09 20:02] VITALS: BP 119/66
[2020-05-09] MEDS: DOCUSATE SODIUM 100 MG/10 ML LIQUID UDC GT SCH (20:59)
[2020-05-09] MEDS: MIRALAX 17 GM POWD.PACK GT SCH (21:04)
[2020-05-09] MEDS: QUETIAPINE FUMARATE 25 MG TABLET GT SCH (21:05)
[2020-05-09] MEDS: CHOLECALCIFEROL 1,000 UNIT TABLET GT SCH (21:05)
[2020-05-09] MEDS: ENOXAPARIN SODIUM 40 MG/0.4 ML DISP.SYRIN SQ SCH (21:06)
[2020-05-10] MEDS: ALBUTEROL SULFATE 2.5 MG/3 ML NEBU NEB SCH ×6 (03:11→23:07)
[2020-05-10] MEDS: IPRATROPIUM BROMIDE 0.5 MG/2.5 ML NEBU NEB SCH ×6 (03:11→23:07)
--- NOTE | 2020-05-10 05:28 | NUR ---
continue on cefepime 1gm iv for uti, no adverse reaction noted, afebrile, call light within reach.
[2020-05-10] MEDS: BUDESONIDE 0.5 MG/2 ML NEBU NEB SCH ×2 (07:02→19:14)
[2020-05-10 07:30] VITALS: BP 109/55
[2020-05-10] MEDS: CEFEPIME HCL 1 G in IV DEXTROSE 5% 50 ML IV SCH ×2 (08:45→20:27)
[2020-05-10] MEDS: ESCITALOPRAM OXALATE 10 MG TABLET GT SCH (08:57)
[2020-05-10] MEDS: levETIRAcetam 500 MG/5 ML LIQUID UDC GT SCH ×2 (08:57→21:26)
[2020-05-10] MEDS: AMLODIPINE 5 MG TABLET PO SCH (08:57)
[2020-05-10] MEDS: ASPIRIN 81 MG TAB.CHEW GT SCH (08:57)
[2020-05-10] MEDS: COD LIVER OIL/ZINC OXIDE OINT 113 GM TUBE TP SCH ×2 (08:58→21:38)
[2020-05-10] MEDS: SCOPOLAMINE PATCH 1 MG/72 HRS PATCH TD SCH (08:58)
[2020-05-10] MEDS: HYDROGEN PEROXIDE 3% 118 ML BOTTLE TP SCH ×2 (09:00→20:51)
--- NOTE | 2020-05-10 12:30 | NUR ---
Resident appears to get easily upset when being offered to be cleaned or any nursing activity. Pt appears agitated and becomes mad with any other explanation being given if it's not what she wants. Will continue to monitor pt.
--- NOTE | 2020-05-10 12:45 | NUR ---
CONTINUE ON IVATB CEFEPINE 1 GM FOR UTI ,NO ADVERSE REACTION NOTED.
--- NOTE | 2020-05-10 14:00 | NUR ---
Resident used the call light and made aware that her gown was wet and wants to be changed due to spillage of some GT feeding which was small amount and that can easily happen. Pt. noted to be trying to get out of the bed and appears to be upset and mumbling words that is difficult to understand. Tried to console and calm pt. down but still remains to be pre occupied with anger instead of focusing on the solution that is being done at the moment. Charge nurse made aware of this situation.
--- NOTE | 2020-05-10 15:53 | NUR ---
Dr Pretty notified regarding patient behavior with new orders noted and carried out.
--- NOTE | 2020-05-10 17:00 | NUR ---
Provided video chat to pt and her with no problem noted. Pt remains comfortable, all needs attended.
--- NOTE | 2020-05-10 17:00 | NUR ---
Provided video chat to pt. and her with no problem noted, Pt remains vcom
--- NOTE | 2020-05-10 18:44 | NUR ---
Pt's notify regarding the Covid 19 result negative,and notify regarding the new orders to increase Lexapro,pt's refused,he stated "if they increase the lexapro can cause pt to get more anxious",Dr Pretty was notified with new orders to continue with Lexapro 10 mg and get a Psych consult.
--- NOTE | 2020-05-10 19:20 | NUR ---
Dr Pretty call back he stated "pt's spoke to him and inform him regarding the list of medications ,pt was use to be on for anxiety ," with new orders noted to Flakito Juan,and start on welbutrin 100 mg via GT at bedtime.pt's was notified of new orders ,but he stated the pt use to be on 150 mg twice a day,notified him, Psych consult is ordered,and we will be inform the psychiatrist to talk to him when he comes
[2020-05-10 20:09] VITALS: BP 105/60
[2020-05-10] MEDS: DOCUSATE SODIUM 100 MG/10 ML LIQUID UDC GT SCH (21:25)
[2020-05-10] MEDS: MIRALAX 17 GM POWD.PACK GT SCH (21:27)
[2020-05-10] MEDS: QUETIAPINE FUMARATE 25 MG TABLET GT SCH (21:30)
[2020-05-10] MEDS: CHOLECALCIFEROL 1,000 UNIT TABLET GT SCH (21:32)
[2020-05-10] MEDS: CYANOCOBALAMIN 1,000 MCG TABLET GT SCH (21:32)
[2020-05-10] MEDS: ENOXAPARIN SODIUM 40 MG/0.4 ML DISP.SYRIN SQ SCH (21:36)
[2020-05-11] MEDS: OSMOLITE 1.2 CAL 1,000 ML LIQUID GT PRN ×2 (01:24→20:40)
[2020-05-11] MEDS: IPRATROPIUM BROMIDE 0.5 MG/2.5 ML NEBU NEB SCH ×6 (03:18→23:05)
[2020-05-11] MEDS: ALBUTEROL SULFATE 2.5 MG/3 ML NEBU NEB SCH ×6 (03:18→23:05)
[2020-05-11] MEDS: HYDROGEN PEROXIDE 3% 118 ML BOTTLE TP SCH ×2 (07:21→21:05)
[2020-05-11] MEDS: BUDESONIDE 0.5 MG/2 ML NEBU NEB SCH ×2 (07:21→19:07)
[2020-05-11 07:37] VITALS: BP 118/67
[2020-05-11] MEDS: ASPIRIN 81 MG TAB.CHEW GT SCH (08:18)
[2020-05-11] MEDS: levETIRAcetam 500 MG/5 ML LIQUID UDC GT SCH ×2 (08:18→20:44)
[2020-05-11] MEDS: AMLODIPINE 5 MG TABLET PO SCH (08:20)
[2020-05-11] MEDS: COD LIVER OIL/ZINC OXIDE OINT 113 GM TUBE TP SCH ×2 (08:21→20:54)
[2020-05-11] MEDS: CEFEPIME HCL 1 G in IV DEXTROSE 5% 50 ML IV SCH ×2 (08:28→20:30)
--- NOTE | 2020-05-11 08:30 | NUR ---
PT. OBSERVED CALMED AND AWARE OF SURROUNDINGS ABLE TO MAKE NEEDS KNOWN VERBALLY AND NOTED WITH CLEAR SPEECH.
--- NOTE | 2020-05-11 08:50 | NUR ---
PT'S CALLED TO THE UNIT AT THIS TIME AND REQUESTED TO SPEAK TO PSYCHIATRIST WHEN HE COMES AND ASSESS PT.
--- NOTE | 2020-05-11 09:59 | NUR ---
MESSAGE LEFT TO DR. DEL RIO (PSYCHIATRIST) RE: NEW CONSULTATION ORDERED BY DR. BERGERON.(NEUROLOGIST)
--- NOTE | 2020-05-11 11:53 | NUR ---
PT'S AND RESP. DEMOCRAT NERY RAO GAVE CONSENT TO 2 NURSES TO CONTINUE WITH TX OF SEROQUEL AND WELLBUTRIN SINCE HE ALREADY SPOKE TO DR. BERGERON ABOUT HER NEW TX REGIMEN AND IN AGREEMENT WITH IT.HE STATED THAT WHEN THE PSYCHIATRIST EVALUATE PT. HE WILLSPEAK TO HIM ABOUT THE PAST MEDICATIONS THAT PT. USED TO HAVE IN THE PREVIOUS FACILITY.HE WAS ALSO AWARE AND REMINDED THAT PT. IS CURRENTLY BEING TREATED FOR UTI AND IN AGREEMENT.
--- NOTE | 2020-05-11 15:22 | NUR ---
DR. BERGERON (NEUROLOGIST) WAS HERE AND SAW PT. SIGNED CONSENT FOR WELLBUTRIN AND STATED THAT HE SPOKE TO PT'S MAIRA GABRIEL AND HE REFERED HIM TO THE PSYCHIATRIST PIECE MAKER TODAY DR. DEL RIO.
--- NOTE | 2020-05-11 18:00 | NUR ---
PT. REMAINS CALMED AND COHERENT NO S/S OF ACUTE DISTRESSNO A/R TO IV ATB TX,LEFT HAND PERIPHERAL LINE INTACT AND PATENT,ABLE TO MAKE NEEDS KNOWN AND ABLE TO USE CALL LIGHT.
--- NOTE | 2020-05-11 18:50 | NUR ---
NEW ORDER CARRIED OUT FROM DR. EDOUARD Hoover ( [place] PHARMACIST SPOKE TO HIM)
[2020-05-11] MEDS: DOCUSATE SODIUM 100 MG/10 ML LIQUID UDC GT SCH (20:43)
[2020-05-11] MEDS: MIRALAX 17 GM POWD.PACK GT SCH (20:44)
[2020-05-11] MEDS: QUETIAPINE FUMARATE 25 MG TABLET GT SCH (20:44)
[2020-05-11] MEDS: buPROPion 100 MG TABLET GT SCH (20:50)
[2020-05-11] MEDS: CYANOCOBALAMIN 1,000 MCG TABLET GT SCH (20:50)
[2020-05-11] MEDS: CHOLECALCIFEROL 1,000 UNIT TABLET GT SCH (20:50)
[2020-05-11] MEDS: ENOXAPARIN SODIUM 40 MG/0.4 ML DISP.SYRIN SQ SCH (20:54)
[2020-05-11 22:47] VITALS: BP 131/71
[2020-05-12] MEDS: ALBUTEROL SULFATE 2.5 MG/3 ML NEBU NEB SCH ×6 (03:06→23:43)
[2020-05-12] MEDS: IPRATROPIUM BROMIDE 0.5 MG/2.5 ML NEBU NEB SCH ×6 (03:06→23:43)
[2020-05-12] MEDS: BUDESONIDE 0.5 MG/2 ML NEBU NEB SCH ×2 (07:28→19:20)
[2020-05-12 07:31] VITALS: BP 123/65
[2020-05-12] MEDS: CEFEPIME HCL 1 G in IV DEXTROSE 5% 50 ML IV SCH ×2 (07:59→20:00)
[2020-05-12] MEDS: AMLODIPINE 5 MG TABLET PO SCH (08:56)
[2020-05-12] MEDS: ASPIRIN 81 MG TAB.CHEW GT SCH (08:56)
[2020-05-12] MEDS: levETIRAcetam 500 MG/5 ML LIQUID UDC GT SCH ×2 (08:56→20:43)
[2020-05-12] MEDS: COD LIVER OIL/ZINC OXIDE OINT 113 GM TUBE TOP SCH ×2 (08:57→21:01)
[2020-05-12] MEDS: COD LIVER OIL/ZINC OXIDE OINT 113 GM TUBE TP SCH ×2 (08:57→21:01)
[2020-05-12] MEDS: HYDROGEN PEROXIDE 3% 118 ML BOTTLE TP SCH ×2 (09:10→21:20)
--- NOTE | 2020-05-12 09:49 | NUR ---
PSYCHIATRIST MILIEU THERAPIST WAS CALLED AND MESSAGE LEFT AGAIN. RE:PENDING CONSULTATION REQUESTED BY DR. BERGERON.PT. REMAINS CALMED AND COHERENT,ABLE TO USE CALL LIGHT AND MAKE NEEDS KNOWN.
--- NOTE | 2020-05-12 09:53 | NUR ---
NO A/R TO IV ATB TX ,LEFT HAND PERIPHERAL LINE INTACT AND PATENT.
[2020-05-12 15:40] LABS: BASOPHILS % (AUTO) 0.4 % (0.0-2.0); EOSINOPHILS # (AUTO) 0.1 K/uL (0.0-0.7); EOSINOPHILS % (AUTO) 2.4 % (0.0-7.0); HEMATOCRIT 31.3 % (31.2-41.9); HEMOGLOBIN 10.4 g/dL (10.9-14.3); LYMPHOCYTES # (AUTO) 1.4 K/uL (20.0-40.0); MEAN CORPUSCULAR HGB CONC 33 g/dL (32.3-35.6); MEAN CORPUSCULAR VOLUME 90.8 fL (75.5-95.3); MONOCYTES # (AUTO) 0.6 K/uL (2.0-10.0); MONOCYTES % (AUTO) 11.3 % (0.0-11.0); NEUTROPHILS # (AUTO) 3.1 K/uL (1.8-8.9); NEUTROPHILS % (AUTO) 58.9 % (38.5-71.5); PLATELET COUNT (AUTO) 330 K/uL (179-408); RED BLOOD CELL COUNT(AUTO) 3.45 MIL/uL (3.63-4.92); WHITE BLOOD COUNT (AUTO) 5.3 K/uL (3.8-11.8)
[2020-05-12 15:46] LABS: CREATININE 0.5 mg/dL (0.6-1.3); POTASSIUM 4.1 mmol/L (3.5-5.1)
[2020-05-12] MEDS: OSMOLITE 1.2 CAL 1,000 ML LIQUID GT PRN (17:01)
--- NOTE | 2020-05-12 18:15 | NUR ---
FREQUENT VISUAL CHECKS DONE AND NOTED NO BEHAVIORAL PROBLEMS OBSERVED ,ALL MEDSATTENDED IN ADVANCE AND ABLE TO USE CALL LIGHT,PT'S AWARE AND HE ASKED NURSETP PLEASE PLACE BED ALARM ON JUST IN CASE SHE TRIES TO GET OUT OF BED BECAUSE SHE HAD DONE IT IN PREVIOUS FACILITY WHEN SHE USED TO BE AGITATED ,HE WANTS IT LIKE THAT JUST FOR HIS PEACE OF MIND .STILL AWAITING FOR PSYCH. CONSULT . NO A/R TO IV ATB TX ,LEFT HAND WITH INTACT AND PATENT PERIPHERAL LINE.
--- NOTE | 2020-05-12 18:50 | NUR ---
New order carried out from dr. palmira buckley for bed alarm per pt's request.
[2020-05-12] MEDS: CHOLECALCIFEROL 1,000 UNIT TABLET GT SCH (20:43)
[2020-05-12] MEDS: CYANOCOBALAMIN 1,000 MCG TABLET GT SCH (20:43)
[2020-05-12] MEDS: DOCUSATE SODIUM 100 MG/10 ML LIQUID UDC GT SCH (20:43)
[2020-05-12] MEDS: QUETIAPINE FUMARATE 25 MG TABLET GT SCH (20:43)
[2020-05-12] MEDS: buPROPion 100 MG TABLET GT SCH (20:43)
[2020-05-12] MEDS: MIRALAX 17 GM POWD.PACK GT SCH (20:43)
[2020-05-12] MEDS: ENOXAPARIN SODIUM 40 MG/0.4 ML DISP.SYRIN SQ SCH (20:44)
--- NOTE | 2020-05-12 22:06 | NUR ---
Alert with episode of forgetfulness, oriented as necessary, Afebrile, on Maxepime IV for UTI, no adverse reactions noted, fluids given as ordered, voiding freely with yellow urine, no hematuria noted, denies vaginal itching or pain on urination, good anju care rendered, kept clean and comfortable.
[2020-05-12 22:11] VITALS: BP 118/69
--- NOTE | 2020-05-13 00:25 | NUR ---
For COVID-19 testing as per [facility] requirement.
[2020-05-13] MEDS: IPRATROPIUM BROMIDE 0.5 MG/2.5 ML NEBU NEB SCH ×6 (03:22→23:15)
[2020-05-13] MEDS: ALBUTEROL SULFATE 2.5 MG/3 ML NEBU NEB SCH ×6 (03:22→23:15)
[2020-05-13] MEDS: BUDESONIDE 0.5 MG/2 ML NEBU NEB SCH ×2 (07:20→19:20)
[2020-05-13 07:34] VITALS: BP 117/69
--- NOTE | 2020-05-13 08:35 | NUR ---
PT. OBSERVED IRRITABLE AND ANXIOUS ,REFUSED IV ATB AT THIS TIME AND CRYING BECAUSE SHE WANTS TO SEE HER AND CHILDREN AND ESCALATING LITTLE BY LITTLE THAT THE NURSE CAN NOT COMMUNICATE WITH HER ANY MORE DUE TO SHE WOULD NOT LISTEN TO NOBODY.FREQUENT VISUAL CHECKS DONE FOR SAFETY AND TO ATTEND ALL NEEDS IN ADVANCE MUCH POSSIBLE.
[2020-05-13] MEDS: CEFEPIME HCL 1 G in IV DEXTROSE 5% 50 ML IV SCH (08:39)
[2020-05-13] MEDS: HYDROGEN PEROXIDE 3% 118 ML BOTTLE TP SCH ×2 (08:57→21:10)
[2020-05-13] MEDS: COD LIVER OIL/ZINC OXIDE OINT 113 GM TUBE TOP SCH ×2 (09:00→20:50)
--- NOTE | 2020-05-13 09:35 | NUR ---
CNO HENRIQUE MCGUIRE AND CARBIDE POWDER PROCESSOR JACKY MONTANO WERE NOTIFIED RE: NO CALL BACK FROM PSYCHIATRIST DR. DEL RIO,AND PER HENRIQUE HAMMOND(PSYCHIATRIST) WILL F/U CONSULT .
[2020-05-13] MEDS: ASPIRIN 81 MG TAB.CHEW GT SCH (10:30)
[2020-05-13] MEDS: AMLODIPINE 5 MG TABLET PO SCH (10:30)
[2020-05-13] MEDS: levETIRAcetam 500 MG/5 ML LIQUID UDC GT SCH ×2 (10:30→20:50)
[2020-05-13] MEDS: COD LIVER OIL/ZINC OXIDE OINT 113 GM TUBE TP SCH ×2 (10:30→20:50)
[2020-05-13] MEDS: SCOPOLAMINE PATCH 1 MG/72 HRS PATCH TD SCH (10:30)
--- NOTE | 2020-05-13 11:00 | NUR ---
DR. HAMMOND (PSYCHIATRIST) CONSULTED AND INTERVIEWED PT. VIA FACE TIME AND HE WILL TALK TO PT'S DIRECTLY BEFORE ORDERING ANY MEDICATION OR BEFORE MAKING ANY CHANGES AND LAUREN FAX THE CONSENT SIGNED BY HIM VIA FAX TO SUB ACUTE UNIT IF NEEDED.(ALL THESE WAS DONE IN ORDER TO FOLLOW COVID 19 PRECAUTIONS )PT. WAS COHERENT IN INTERVIEW AND ACCEPTED THAT SHE FELT VERY IRRITABLE ,ALSO OBSERVED SOMEHOW FORGETFUL( SEE NOTES FROM PSYCH).
--- NOTE | 2020-05-13 11:13 | NUR ---
DR. ALVAREZ JUST NOW AWARE OF PT'S CONSULTATION .PT'S MAIRA ALSO AWARE THAT DR. HAMMOND WILL CONTACT HIM ANY TIME SOON TO DISCUSS TX AND CONDITION OF PT. AND HE WAS ADVISED TO BE ATTENT TO THE PHONE BECAUSE NO NEW TX WILL BE STARTED WITH OUT HIS AUTHORIZATION AND WITH OUT HIS AUTHORIZATION.PT'S ASLO NOTIFIED CH. NURSE THAT HE WILL BE SENDING SOME MEDICAL RECORDS FROM PREVIOUS HOSPITAL TO THE UNIT SO MD CAN REVIEW AND USE TO ASSESS BETTER PT.
[2020-05-13] MEDS: OSMOLITE 1.2 CAL 1,000 ML LIQUID GT PRN (11:58)
--- NOTE | 2020-05-13 12:36 | NUR ---
PT'S AWARE AND IN AGREEMENT OF COVID 19 TEST FOR TODAY.
--- NOTE | 2020-05-13 16:00 | NUR ---
CH. NURSE WAS AWAITING FOR PT'S TO CALL TO UNIT AND ARRANGE FOR ZOOM TIME D/T HE WAS WORKING DRIVING AND NOW HE HAS A FREE TIME TO DO IT.PT.WAS AWARE OF THIS AND IMPROVED HER MOOD TO HAPPY JUST TO KNOW IT.ZOOM TIME WENT FINE PT. WAS VERY HAPPY AND SWEET TO HER ,COHERENT AND AWARE THAT SHE WAS SEEN BY PSYCHIATRIST TODAY.PT'S ASKED HER TO PLS DON'T TRY TO JUMP OUT OF BED AND PT. WAS IN AGREEMENT AND SHE IS THE ONE THAT ENDED VIDEO CALL WITH HER AFTER ABOUT 4 MIN.
[2020-05-13] MEDS: DOCUSATE SODIUM 100 MG/10 ML LIQUID UDC GT SCH (20:50)
[2020-05-13] MEDS: QUETIAPINE FUMARATE 25 MG TABLET GT SCH (20:50)
[2020-05-13] MEDS: CYANOCOBALAMIN 1,000 MCG TABLET GT SCH (20:50)
[2020-05-13] MEDS: buPROPion 100 MG TABLET GT SCH (20:50)
[2020-05-13] MEDS: MIRALAX 17 GM POWD.PACK GT SCH (20:50)
[2020-05-13] MEDS: CHOLECALCIFEROL 1,000 UNIT TABLET GT SCH (20:50)
[2020-05-13] MEDS: ENOXAPARIN SODIUM 40 MG/0.4 ML DISP.SYRIN SQ SCH (21:06)
--- NOTE | 2020-05-13 21:23 | NUR ---
Patient is awake watching TV at this time, answers questions appropriately, no aggressive or untoward behaviors noted at this time, Denies pain at t his time, will continue monitor closely.
--- NOTE | 2020-05-13 21:26 | NUR ---
Last dose of IV Maxepime given in am, patient is afebrile, fluids given as ordered, voiding freely,no hematuria, denies itching or pain on urination, good anju care rendered, kept patient clean and comfortable.
[2020-05-13 22:06] VITALS: BP 99/61
[2020-05-14] MEDS: OSMOLITE 1.2 CAL 1,000 ML LIQUID GT PRN ×2 (01:26→20:50)
[2020-05-14] MEDS: ALBUTEROL SULFATE 2.5 MG/3 ML NEBU NEB SCH ×6 (02:46→23:27)
[2020-05-14] MEDS: IPRATROPIUM BROMIDE 0.5 MG/2.5 ML NEBU NEB SCH ×6 (02:46→23:27)
[2020-05-14] MEDS: BUDESONIDE 0.5 MG/2 ML NEBU NEB SCH ×2 (07:20→19:21)
[2020-05-14 07:42] VITALS: BP 116/68
[2020-05-14] MEDS: HYDROGEN PEROXIDE 3% 118 ML BOTTLE TP SCH ×2 (08:41→21:37)
[2020-05-14] MEDS: COD LIVER OIL/ZINC OXIDE OINT 113 GM TUBE TOP SCH ×2 (08:47→21:00)
[2020-05-14] MEDS: AMLODIPINE 5 MG TABLET PO SCH (08:47)
[2020-05-14] MEDS: COD LIVER OIL/ZINC OXIDE OINT 113 GM TUBE TP SCH ×2 (08:47→21:00)
[2020-05-14] MEDS: levETIRAcetam 500 MG/5 ML LIQUID UDC GT SCH ×2 (08:47→20:59)
[2020-05-14] MEDS: ASPIRIN 81 MG TAB.CHEW GT SCH (08:47)
--- NOTE | 2020-05-14 17:15 | NUR ---
PT'S MAIRA WAS AWARE COVID 19 TEST WAS NEGATIVE.
[2020-05-14] MEDS: DOCUSATE SODIUM 100 MG/10 ML LIQUID UDC GT SCH (20:59)
[2020-05-14] MEDS: MIRALAX 17 GM POWD.PACK GT SCH (20:59)
[2020-05-14] MEDS: QUETIAPINE FUMARATE 25 MG TABLET GT SCH (20:59)
[2020-05-14] MEDS: CYANOCOBALAMIN 1,000 MCG TABLET GT SCH (21:00)
[2020-05-14] MEDS: CHOLECALCIFEROL 1,000 UNIT TABLET GT SCH (21:00)
[2020-05-14] MEDS: buPROPion 100 MG TABLET GT SCH (21:00)
[2020-05-14] MEDS: ENOXAPARIN SODIUM 40 MG/0.4 ML DISP.SYRIN SQ SCH (21:25)
[2020-05-14 22:10] VITALS: BP 112/62
[2020-05-15] MEDS: IPRATROPIUM BROMIDE 0.5 MG/2.5 ML NEBU NEB SCH ×6 (03:02→23:05)
[2020-05-15] MEDS: ALBUTEROL SULFATE 2.5 MG/3 ML NEBU NEB SCH ×6 (03:03→23:05)
[2020-05-15 07:34] VITALS: BP 120/68
[2020-05-15] MEDS: BUDESONIDE 0.5 MG/2 ML NEBU NEB SCH ×2 (07:53→19:10)
[2020-05-15] MEDS: COD LIVER OIL/ZINC OXIDE OINT 113 GM TUBE TP SCH ×2 (08:39→21:02)
[2020-05-15] MEDS: AMLODIPINE 5 MG TABLET PO SCH (08:39)
[2020-05-15] MEDS: ASPIRIN 81 MG TAB.CHEW GT SCH (08:39)
[2020-05-15] MEDS: COD LIVER OIL/ZINC OXIDE OINT 113 GM TUBE TOP SCH ×2 (08:39→21:02)
[2020-05-15] MEDS: levETIRAcetam 500 MG/5 ML LIQUID UDC GT SCH ×2 (08:39→20:59)
[2020-05-15] MEDS: HYDROGEN PEROXIDE 3% 118 ML BOTTLE TP SCH ×2 (09:00→21:18)
--- NOTE | 2020-05-15 13:47 | NUR ---
PT. WAS SEEN AND EXAMINED BY NARENDRA SAAVEDRA AND WITH BILLYO.
--- NOTE | 2020-05-15 16:12 | NUR ---
NEW ORDER WAS CARRIED OUT FROM DR. EDOUARD Hoover PER PT. RECOMMENDATION.
[2020-05-15] MEDS: OSMOLITE 1.2 CAL 1,000 ML LIQUID GT PRN (16:45)
--- NOTE | 2020-05-15 18:50 | NUR ---
PT. REQUESTED TO SPEAK WITH HER BY PHONE AND CONTACTED AND ABLE TO DO IT.
[2020-05-15 20:00] VITALS: BP 138/77
[2020-05-15] MEDS: DOCUSATE SODIUM 100 MG/10 ML LIQUID UDC GT SCH (20:59)
[2020-05-15] MEDS: QUETIAPINE FUMARATE 25 MG TABLET GT SCH (21:00)
[2020-05-15] MEDS: CYANOCOBALAMIN 1,000 MCG TABLET GT SCH (21:00)
[2020-05-15] MEDS: MIRALAX 17 GM POWD.PACK GT SCH (21:00)
[2020-05-15] MEDS: buPROPion 100 MG TABLET GT SCH (21:01)
[2020-05-15] MEDS: CHOLECALCIFEROL 1,000 UNIT TABLET GT SCH (21:02)
[2020-05-15] MEDS: ENOXAPARIN SODIUM 40 MG/0.4 ML DISP.SYRIN SQ SCH (21:56)
[2020-05-16] MEDS: IPRATROPIUM BROMIDE 0.5 MG/2.5 ML NEBU NEB SCH ×6 (03:06→23:08)
[2020-05-16] MEDS: ALBUTEROL SULFATE 2.5 MG/3 ML NEBU NEB SCH ×6 (03:06→23:08)
[2020-05-16 07:26] VITALS: BP 115/71
[2020-05-16] MEDS: BUDESONIDE 0.5 MG/2 ML NEBU NEB SCH ×2 (07:31→19:13)
[2020-05-16] MEDS: HYDROGEN PEROXIDE 3% 118 ML BOTTLE TP SCH ×2 (08:52→21:00)
[2020-05-16] MEDS: levETIRAcetam 500 MG/5 ML LIQUID UDC GT SCH ×2 (09:29→21:04)
[2020-05-16] MEDS: ASPIRIN 81 MG TAB.CHEW GT SCH (09:29)
[2020-05-16] MEDS: AMLODIPINE 5 MG TABLET PO SCH (09:29)
[2020-05-16] MEDS: SCOPOLAMINE PATCH 1 MG/72 HRS PATCH TD SCH (09:30)
[2020-05-16] MEDS: COD LIVER OIL/ZINC OXIDE OINT 113 GM TUBE TOP SCH ×2 (09:30→21:12)
[2020-05-16] MEDS: COD LIVER OIL/ZINC OXIDE OINT 113 GM TUBE TP SCH ×2 (09:30→21:12)
[2020-05-16] MEDS: OSMOLITE 1.2 CAL 1,000 ML LIQUID GT PRN (11:10)
--- NOTE | 2020-05-16 13:55 | NUR ---
Seen and examined by Dr rubin ,no new orders.
--- NOTE | 2020-05-16 14:18 | NUR ---
Seen and examined by Cleo Brock,no new orders.
[2020-05-16 20:00] VITALS: BP 112/53
[2020-05-16] MEDS: DOCUSATE SODIUM 100 MG/10 ML LIQUID UDC GT SCH (21:04)
[2020-05-16] MEDS: MIRALAX 17 GM POWD.PACK GT SCH (21:05)
[2020-05-16] MEDS: QUETIAPINE FUMARATE 25 MG TABLET GT SCH (21:05)
[2020-05-16] MEDS: CYANOCOBALAMIN 1,000 MCG TABLET GT SCH (21:07)
[2020-05-16] MEDS: CHOLECALCIFEROL 1,000 UNIT TABLET GT SCH (21:08)
[2020-05-16] MEDS: ENOXAPARIN SODIUM 40 MG/0.4 ML DISP.SYRIN SQ SCH (21:12)
[2020-05-16] MEDS: buPROPion 100 MG TABLET GT SCH (21:12)
[2020-05-17] MEDS: IPRATROPIUM BROMIDE 0.5 MG/2.5 ML NEBU NEB SCH ×6 (04:28→23:11)
[2020-05-17] MEDS: ALBUTEROL SULFATE 2.5 MG/3 ML NEBU NEB SCH ×6 (04:28→23:11)
[2020-05-17] MEDS: OSMOLITE 1.2 CAL 1,000 ML LIQUID GT PRN ×2 (07:00→21:20)
[2020-05-17 07:28] VITALS: BP 108/63
[2020-05-17] MEDS: BUDESONIDE 0.5 MG/2 ML NEBU NEB SCH ×2 (07:44→19:42)
[2020-05-17] MEDS: levETIRAcetam 500 MG/5 ML LIQUID UDC GT SCH ×2 (08:32→20:56)
[2020-05-17] MEDS: AMLODIPINE 5 MG TABLET PO SCH (08:32)
[2020-05-17] MEDS: ASPIRIN 81 MG TAB.CHEW GT SCH (08:32)
[2020-05-17] MEDS: COD LIVER OIL/ZINC OXIDE OINT 113 GM TUBE TOP SCH ×2 (08:32→20:59)
[2020-05-17] MEDS: COD LIVER OIL/ZINC OXIDE OINT 113 GM TUBE TP SCH ×2 (08:33→20:59)
[2020-05-17] MEDS: HYDROGEN PEROXIDE 3% 118 ML BOTTLE TP SCH ×2 (11:11→21:38)
--- NOTE | 2020-05-17 17:10 | NUR ---
video chat done with pt's .
[2020-05-17 20:00] VITALS: BP 102/64
[2020-05-17] MEDS: DOCUSATE SODIUM 100 MG/10 ML LIQUID UDC GT SCH (20:56)
[2020-05-17] MEDS: MIRALAX 17 GM POWD.PACK GT SCH (20:56)
[2020-05-17] MEDS: QUETIAPINE FUMARATE 25 MG TABLET GT SCH (20:57)
[2020-05-17] MEDS: CHOLECALCIFEROL 1,000 UNIT TABLET GT SCH (20:58)
[2020-05-17] MEDS: buPROPion 100 MG TABLET GT SCH (20:58)
[2020-05-17] MEDS: CYANOCOBALAMIN 1,000 MCG TABLET GT SCH (20:58)
[2020-05-17] MEDS: ENOXAPARIN SODIUM 40 MG/0.4 ML DISP.SYRIN SQ SCH (21:19)
[2020-05-18] MEDS: IPRATROPIUM BROMIDE 0.5 MG/2.5 ML NEBU NEB SCH ×6 (03:10→23:20)
[2020-05-18] MEDS: ALBUTEROL SULFATE 2.5 MG/3 ML NEBU NEB SCH ×6 (03:10→23:20)
[2020-05-18] MEDS: HYDROGEN PEROXIDE 3% 118 ML BOTTLE TP SCH ×2 (07:22→21:37)
[2020-05-18] MEDS: BUDESONIDE 0.5 MG/2 ML NEBU NEB SCH ×2 (07:22→18:27)
[2020-05-18 07:34] VITALS: BP 119/67
[2020-05-18] MEDS: ASPIRIN 81 MG TAB.CHEW GT SCH (08:25)
[2020-05-18] MEDS: AMLODIPINE 5 MG TABLET PO SCH (08:25)
[2020-05-18] MEDS: levETIRAcetam 500 MG/5 ML LIQUID UDC GT SCH ×2 (08:25→21:17)
[2020-05-18] MEDS: COD LIVER OIL/ZINC OXIDE OINT 113 GM TUBE TP SCH ×2 (08:26→21:24)
[2020-05-18] MEDS: COD LIVER OIL/ZINC OXIDE OINT 113 GM TUBE TOP SCH ×2 (08:26→21:24)
[2020-05-18] MEDS: OSMOLITE 1.2 CAL 1,000 ML LIQUID GT PRN (17:54)
--- NOTE | 2020-05-18 19:30 | NUR ---
Patient was very frustrated looking for her make- up bag and cellphone, staff informed her that she does not have make-up bag and cellphone and patient is saying the "F" word to the staff. Patient is getting so upset and keeps talking about her make- up bag and cellphone that she thought that was on her bedside table all this time. I called patient's Avinash and ask to talk with the patient. Avinash () talked to the patient and explained to her that, She has a make up bag but is currently in her room at the facility where she used to live. Avinash ( ) promised her that he will go and pick it up and will send it to her here. Also, he told her that he has the patient's cellphone in his storage and will keep it for now, the patient agreed. I thanked Avinash for talking to the patient. The patient thanked staff and is more calm, needs attended, call light within reach, will monitor closely.
[2020-05-18 20:00] VITALS: BP 100/76
[2020-05-18] MEDS: DOCUSATE SODIUM 100 MG/10 ML LIQUID UDC GT SCH (21:16)
[2020-05-18] MEDS: MIRALAX 17 GM POWD.PACK GT SCH (21:18)
[2020-05-18] MEDS: QUETIAPINE FUMARATE 25 MG TABLET GT SCH (21:20)
[2020-05-18] MEDS: CYANOCOBALAMIN 1,000 MCG TABLET GT SCH (21:20)
[2020-05-18] MEDS: CHOLECALCIFEROL 1,000 UNIT TABLET GT SCH (21:22)
[2020-05-18] MEDS: buPROPion 100 MG TABLET GT SCH (21:22)
[2020-05-18] MEDS: ENOXAPARIN SODIUM 40 MG/0.4 ML DISP.SYRIN SQ SCH (21:24)
--- NOTE | 2020-05-18 22:12 | NUR ---
Patient is still awake and is watching TV, no signs of any distress, patient is clam and is talking to the staff calmly, patient's needs anticipated and call light within reach, will continue monitor.
[2020-05-19] MEDS: ALBUTEROL SULFATE 2.5 MG/3 ML NEBU NEB SCH ×6 (03:18→23:00)
[2020-05-19] MEDS: IPRATROPIUM BROMIDE 0.5 MG/2.5 ML NEBU NEB SCH ×6 (03:18→22:59)
--- NOTE | 2020-05-19 05:10 | NUR ---
Patient is sleeping, no signs of any distress, restlessness or agitation noted at this time, needs attended, call light within reach.
[2020-05-19] MEDS: BUDESONIDE 0.5 MG/2 ML NEBU NEB SCH ×2 (07:13→19:45)
[2020-05-19 07:35] VITALS: BP 101/62
[2020-05-19] MEDS: AMLODIPINE 5 MG TABLET PO SCH (08:43)
[2020-05-19] MEDS: ASPIRIN 81 MG TAB.CHEW GT SCH (08:43)
[2020-05-19] MEDS: levETIRAcetam 500 MG/5 ML LIQUID UDC GT SCH ×2 (08:43→21:59)
[2020-05-19] MEDS: SCOPOLAMINE PATCH 1 MG/72 HRS PATCH TD SCH (08:44)
[2020-05-19] MEDS: COD LIVER OIL/ZINC OXIDE OINT 113 GM TUBE TOP SCH ×2 (09:00→21:00)
[2020-05-19] MEDS: OSMOLITE 1.2 CAL 1,000 ML LIQUID GT PRN (09:00)
[2020-05-19] MEDS: COD LIVER OIL/ZINC OXIDE OINT 113 GM TUBE TP SCH ×2 (09:00→21:00)
[2020-05-19] MEDS: HYDROGEN PEROXIDE 3% 118 ML BOTTLE TP SCH ×2 (09:29→21:38)
--- NOTE | 2020-05-19 10:00 | NUR ---
noted patient agitated and crying saying she wants to see her , charge nurse made aware, joellen called and provided zoom call for patient with . patient stated she feels better but misses , patient stable, will continue to monitor.
--- NOTE | 2020-05-19 14:49 | NUR ---
SADIA called patient's Avinash [phone] and informed him that the next IDT meeting for the patient is scheduled for Friday, 05/23 at 11am. SADIA asked Avinash if he would like to participate in the meeting on speaker phone, and Avinash expressed agreement. SADIA asked Avinash to be available on 05/23 between 11am-12pm to receive the IDT team's call. Avinash also expressed concerns over the changes in patient's psych medications, and stated that he has left a message for Dr. Agosto. SADIA stated that SADIA will ask charge nurse to also follow-up with Dr. Agosto, and ask Dr. Agosto to follow-up with Avinash. SADIA informed charge operator Mingo about Avinash's request to want to speak with Dr. Agosto, and Mingo stated that he would contact Dr. Agosto.
--- NOTE | 2020-05-19 15:00 | NUR ---
Left message to Dr. Agosto to call back regarding patient's agitation episode, and per request to review medications and to contact him.
--- NOTE | 2020-05-19 19:30 | NUR ---
pt called, staff went in room, pt very upset and stating my diaper is wet, i have been calling over 30minutes for diaper change, pt try to hit staff, staff left room, went back to room this time she let staff to change diaper, no further episode noted.
[2020-05-19 20:00] VITALS: BP 109/70
[2020-05-19] MEDS: buPROPion 100 MG TABLET GT SCH (21:00)
[2020-05-19] MEDS: ENOXAPARIN SODIUM 40 MG/0.4 ML DISP.SYRIN SQ SCH (21:00)
[2020-05-19] MEDS: CHOLECALCIFEROL 1,000 UNIT TABLET GT SCH (21:00)
[2020-05-19] MEDS: MIRALAX 17 GM POWD.PACK GT SCH (21:59)
[2020-05-19] MEDS: DOCUSATE SODIUM 100 MG/10 ML LIQUID UDC GT SCH (21:59)
[2020-05-19] MEDS: QUETIAPINE FUMARATE 25 MG TABLET GT SCH (21:59)
[2020-05-19] MEDS: CYANOCOBALAMIN 1,000 MCG TABLET GT SCH (22:00)
[2020-05-20] MEDS: IPRATROPIUM BROMIDE 0.5 MG/2.5 ML NEBU NEB SCH ×6 (03:05→23:08)
[2020-05-20] MEDS: ALBUTEROL SULFATE 2.5 MG/3 ML NEBU NEB SCH ×6 (03:05→23:08)
[2020-05-20] MEDS: BUDESONIDE 0.5 MG/2 ML NEBU NEB SCH ×2 (07:29→19:19)
[2020-05-20 07:49] VITALS: BP 119/66
[2020-05-20] MEDS: ASPIRIN 81 MG TAB.CHEW GT SCH (08:57)
[2020-05-20] MEDS: AMLODIPINE 5 MG TABLET PO SCH (08:57)
[2020-05-20] MEDS: levETIRAcetam 500 MG/5 ML LIQUID UDC GT SCH ×2 (08:57→21:52)
[2020-05-20] MEDS: COD LIVER OIL/ZINC OXIDE OINT 113 GM TUBE TOP SCH ×2 (08:57→21:54)
[2020-05-20] MEDS: COD LIVER OIL/ZINC OXIDE OINT 113 GM TUBE TP SCH ×2 (08:57→21:54)
[2020-05-20] MEDS: OSMOLITE 1.2 CAL 1,000 ML LIQUID GT PRN ×2 (08:58→23:56)
[2020-05-20] MEDS: HYDROGEN PEROXIDE 3% 118 ML BOTTLE TP SCH ×2 (09:20→21:55)
--- NOTE | 2020-05-20 14:47 | NUR ---
patient called when entered room noted patient very upset and crying asking where she was, reoriented her told her she was in [facility] and her blue makeup bag she is looking for is being mailed to her by her . called patients joellen for zoom with patient. charge nurse notified regarding incident. will continue monitoring.
--- NOTE | 2020-05-20 15:00 | NUR ---
ana mariaom provided for patient with joellen, explained to patient that he will send her the makeup bag by mail, patient remains upset and refused to speak to him. patient called to nursing station phone showing concern for and if the doctor could be notified about getting an order for ativan. charge nurse notified. will continue to monitor patient.
--- NOTE | 2020-05-20 15:33 | NUR ---
patient appears calm and relaxed at this time. will continue monitoring.
[2020-05-20] MEDS ORDERED: QUETIAPINE FUMARATE 25 MG TABLET GT SCH (16:15)
--- NOTE | 2020-05-20 19:30 | NUR ---
New orders noted from Dr Agosto,psych,with new orders noted for seroquel 25 mg at 0900,1300,and 50 mg at bedtime.orders carried out.
[2020-05-20 20:28] VITALS: BP 106/60
[2020-05-20] MEDS: DOCUSATE SODIUM 100 MG/10 ML LIQUID UDC GT SCH (21:52)
[2020-05-20] MEDS: QUETIAPINE FUMARATE 25 MG TABLET GT SCH (21:53)
[2020-05-20] MEDS: CHOLECALCIFEROL 1,000 UNIT TABLET GT SCH (21:53)
[2020-05-20] MEDS: MIRALAX 17 GM POWD.PACK GT SCH (21:53)
[2020-05-20] MEDS: buPROPion 100 MG TABLET GT SCH (21:53)
[2020-05-20] MEDS: CYANOCOBALAMIN 1,000 MCG TABLET GT SCH (21:53)
[2020-05-20] MEDS: ENOXAPARIN SODIUM 40 MG/0.4 ML DISP.SYRIN SQ SCH (21:54)
[2020-05-21] MEDS: ALBUTEROL SULFATE 2.5 MG/3 ML NEBU NEB SCH ×6 (03:08→23:07)
[2020-05-21] MEDS: IPRATROPIUM BROMIDE 0.5 MG/2.5 ML NEBU NEB SCH ×6 (03:08→23:07)
--- NOTE | 2020-05-21 04:34 | NUR ---
no episode of agitation observed, pt calm and oriented, slept on long hours, call light within reach.
[2020-05-21] MEDS: BUDESONIDE 0.5 MG/2 ML NEBU NEB SCH ×2 (07:21→19:08)
[2020-05-21 07:32] VITALS: BP 106/62
[2020-05-21] MEDS: AMLODIPINE 5 MG TABLET PO SCH (09:00)
[2020-05-21] MEDS: HYDROGEN PEROXIDE 3% 118 ML BOTTLE TP SCH ×2 (09:00→21:08)
[2020-05-21] MEDS: levETIRAcetam 500 MG/5 ML LIQUID UDC GT SCH ×2 (09:18→21:00)
[2020-05-21] MEDS: QUETIAPINE FUMARATE 25 MG TABLET GT SCH ×3 (09:18→21:00)
[2020-05-21] MEDS: ASPIRIN 81 MG TAB.CHEW GT SCH (09:18)
[2020-05-21] MEDS: COD LIVER OIL/ZINC OXIDE OINT 113 GM TUBE TOP SCH ×2 (09:19→21:00)
[2020-05-21] MEDS: COD LIVER OIL/ZINC OXIDE OINT 113 GM TUBE TP SCH ×2 (09:19→21:00)
[2020-05-21] MEDS: OSMOLITE 1.2 CAL 1,000 ML LIQUID GT PRN (18:05)
--- NOTE | 2020-05-21 18:39 | NUR ---
Video call provided with the pt. and family(). No complaint and issues brought up by the family. Pt. stable and no respiratory distress. No episode of agitation. Pt. is calm and can follow simple instruction. Will continue to monitor.
[2020-05-21 20:07] VITALS: BP 125/70
[2020-05-21] MEDS: buPROPion 100 MG TABLET GT SCH (21:00)
[2020-05-21] MEDS: CYANOCOBALAMIN 1,000 MCG TABLET GT SCH (21:00)
[2020-05-21] MEDS: ENOXAPARIN SODIUM 40 MG/0.4 ML DISP.SYRIN SQ SCH (21:00)
[2020-05-21] MEDS: CHOLECALCIFEROL 1,000 UNIT TABLET GT SCH (21:00)
[2020-05-21] MEDS: DOCUSATE SODIUM 100 MG/10 ML LIQUID UDC GT SCH (21:00)
[2020-05-21] MEDS: MIRALAX 17 GM POWD.PACK GT SCH (21:00)
[2020-05-22] MEDS: IPRATROPIUM BROMIDE 0.5 MG/2.5 ML NEBU NEB SCH ×6 (03:00→23:15)
[2020-05-22] MEDS: ALBUTEROL SULFATE 2.5 MG/3 ML NEBU NEB SCH ×6 (03:00→23:16)
[2020-05-22] MEDS: BUDESONIDE 0.5 MG/2 ML NEBU NEB SCH ×2 (07:15→19:25)
[2020-05-22 07:34] VITALS: BP 124/68
[2020-05-22] MEDS: ASPIRIN 81 MG TAB.CHEW GT SCH (08:49)
[2020-05-22] MEDS: levETIRAcetam 500 MG/5 ML LIQUID UDC GT SCH ×2 (08:49→21:33)
[2020-05-22] MEDS: QUETIAPINE FUMARATE 25 MG TABLET GT SCH ×3 (08:49→21:33)
[2020-05-22] MEDS: COD LIVER OIL/ZINC OXIDE OINT 113 GM TUBE TP SCH ×2 (08:50→21:34)
[2020-05-22] MEDS: AMLODIPINE 5 MG TABLET PO SCH (08:50)
[2020-05-22] MEDS: COD LIVER OIL/ZINC OXIDE OINT 113 GM TUBE TOP SCH ×2 (08:50→21:34)
[2020-05-22] MEDS: SCOPOLAMINE PATCH 1 MG/72 HRS PATCH TD SCH (08:50)
[2020-05-22] MEDS: HYDROGEN PEROXIDE 3% 118 ML BOTTLE TP SCH ×2 (09:09→21:25)
--- NOTE | 2020-05-22 15:47 | NUR ---
Video call provided with the patient and family(). No complaint at this time. Pt. stable and no respiratory distress at this time. Calm and no episode of agitation. Will continue to monitor.
[2020-05-22 20:23] VITALS: BP 111/61
--- NOTE | 2020-05-22 21:12 | NUR ---
Noted patient's diaper with pinkish urine, patient denies any pain on urination, denies abdominal pain or costovertebral pain, patient denies itching in the vaginal area, fluids given as ordered, good anju care rendered, kept patient clean and comfortable, call light within reach, will continue monitor.
[2020-05-22] MEDS: ENOXAPARIN SODIUM 40 MG/0.4 ML DISP.SYRIN SQ SCH (21:31)
[2020-05-22] MEDS: MIRALAX 17 GM POWD.PACK GT SCH (21:33)
[2020-05-22] MEDS: CHOLECALCIFEROL 1,000 UNIT TABLET GT SCH (21:33)
[2020-05-22] MEDS: CYANOCOBALAMIN 1,000 MCG TABLET GT SCH (21:33)
[2020-05-22] MEDS: buPROPion 100 MG TABLET GT SCH (21:34)
[2020-05-22] MEDS: DOCUSATE SODIUM 100 MG/10 ML LIQUID UDC GT SCH (21:36)
[2020-05-23] MEDS: ALBUTEROL SULFATE 2.5 MG/3 ML NEBU NEB SCH ×6 (03:18→22:51)
[2020-05-23] MEDS: IPRATROPIUM BROMIDE 0.5 MG/2.5 ML NEBU NEB SCH ×6 (03:18→22:51)
[2020-05-23] MEDS: OSMOLITE 1.2 CAL 1,000 ML LIQUID GT PRN ×2 (06:53→20:43)
[2020-05-23] MEDS: BUDESONIDE 0.5 MG/2 ML NEBU NEB SCH ×2 (07:25→19:05)
[2020-05-23] MEDS: HYDROGEN PEROXIDE 3% 118 ML BOTTLE TP SCH ×2 (07:25→21:58)
[2020-05-23 07:31] VITALS: BP 108/63
[2020-05-23] MEDS: AMLODIPINE 5 MG TABLET PO SCH (09:00)
[2020-05-23] MEDS: ASPIRIN 81 MG TAB.CHEW GT SCH (09:08)
[2020-05-23] MEDS: levETIRAcetam 500 MG/5 ML LIQUID UDC GT SCH ×2 (09:08→20:28)
[2020-05-23] MEDS: QUETIAPINE FUMARATE 25 MG TABLET GT SCH ×3 (09:08→20:28)
[2020-05-23] MEDS: COD LIVER OIL/ZINC OXIDE OINT 113 GM TUBE TOP SCH ×2 (09:09→20:38)
[2020-05-23] MEDS: COD LIVER OIL/ZINC OXIDE OINT 113 GM TUBE TP SCH ×2 (09:09→20:30)
--- NOTE | 2020-05-23 16:26 | NUR ---
INTERDISCIPLINARY PLAN OF CARE CONFERENCE was held today. Patient's Avinash was on speaker phone during the the IDT meeting today. Dr. Ramirez and the Interdisciplinary Team reviewed the current plan of care in detail. Nursing reported on patient's medical condition and recent psychiatry consultation. See RN IDT conference notes. PT, OT, and ST reported on current treatment plan. No major changes in medical condition were reported. See all disciplines IDT notes and physician's progress notes for additional details. Avinash's questions were addressed by the IDT team and by Dr. Ramirez, and Avinash expressed being content with the current plan of care.
--- NOTE | 2020-05-23 18:39 | NUR ---
No episodes of pinkish urine,hieu color urine,no discomfort noted.
--- NOTE | 2020-05-23 18:42 | NUR ---
Video call provided with the pt. and family (). The brought up the isue about the make-up kit whether it is allowed to give it to her . As per Young, do not give the make up kit bag for safety reason. Pt. no episode of agitation, pt is calm and cooperative. Will continue to monitor.
[2020-05-23 20:00] VITALS: BP 111/66
[2020-05-23] MEDS: DOCUSATE SODIUM 100 MG/10 ML LIQUID UDC GT SCH (20:27)
[2020-05-23] MEDS: MIRALAX 17 GM POWD.PACK GT SCH (20:28)
[2020-05-23] MEDS: CHOLECALCIFEROL 1,000 UNIT TABLET GT SCH (20:28)
[2020-05-23] MEDS: CYANOCOBALAMIN 1,000 MCG TABLET GT SCH (20:28)
[2020-05-23] MEDS: buPROPion 100 MG TABLET GT SCH (20:30)
[2020-05-23] MEDS: ENOXAPARIN SODIUM 40 MG/0.4 ML DISP.SYRIN SQ SCH (20:37)
[2020-05-24] MEDS: IPRATROPIUM BROMIDE 0.5 MG/2.5 ML NEBU NEB SCH ×6 (03:08→23:06)
[2020-05-24] MEDS: ALBUTEROL SULFATE 2.5 MG/3 ML NEBU NEB SCH ×6 (03:08→23:06)
[2020-05-24] MEDS: BUDESONIDE 0.5 MG/2 ML NEBU NEB SCH ×2 (07:10→19:17)
[2020-05-24 07:35] VITALS: BP 114/65
[2020-05-24] MEDS: QUETIAPINE FUMARATE 25 MG TABLET GT SCH ×3 (09:00→20:57)
[2020-05-24] MEDS: COD LIVER OIL/ZINC OXIDE OINT 113 GM TUBE TP SCH ×2 (09:00→21:01)
[2020-05-24] MEDS: COD LIVER OIL/ZINC OXIDE OINT 113 GM TUBE TOP SCH ×2 (09:00→21:01)
[2020-05-24] MEDS: AMLODIPINE 5 MG TABLET PO SCH (09:00)
[2020-05-24] MEDS: levETIRAcetam 500 MG/5 ML LIQUID UDC GT SCH ×2 (09:00→20:56)
[2020-05-24] MEDS: ASPIRIN 81 MG TAB.CHEW GT SCH (09:00)
[2020-05-24] MEDS: HYDROGEN PEROXIDE 3% 118 ML BOTTLE TP SCH ×2 (09:31→21:19)
[2020-05-24 20:00] VITALS: BP 116/65
[2020-05-24] MEDS: DOCUSATE SODIUM 100 MG/10 ML LIQUID UDC GT SCH (20:53)
[2020-05-24] MEDS: MIRALAX 17 GM POWD.PACK GT SCH (20:56)
[2020-05-24] MEDS: CHOLECALCIFEROL 1,000 UNIT TABLET GT SCH (20:59)
[2020-05-24] MEDS: CYANOCOBALAMIN 1,000 MCG TABLET GT SCH (20:59)
[2020-05-24] MEDS: buPROPion 100 MG TABLET GT SCH (20:59)
[2020-05-24] MEDS: ENOXAPARIN SODIUM 40 MG/0.4 ML DISP.SYRIN SQ SCH (21:04)
[2020-05-25] MEDS: IPRATROPIUM BROMIDE 0.5 MG/2.5 ML NEBU NEB SCH ×6 (03:07→22:40)
[2020-05-25] MEDS: ALBUTEROL SULFATE 2.5 MG/3 ML NEBU NEB SCH ×6 (03:07→22:40)
[2020-05-25] MEDS: BUDESONIDE 0.5 MG/2 ML NEBU NEB SCH ×2 (07:10→19:52)
[2020-05-25] MEDS: OSMOLITE 1.2 CAL 1,000 ML LIQUID GT PRN ×2 (07:36→23:56)
[2020-05-25 07:51] VITALS: BP 122/67
[2020-05-25] MEDS: ASPIRIN 81 MG TAB.CHEW GT SCH (08:25)
[2020-05-25] MEDS: levETIRAcetam 500 MG/5 ML LIQUID UDC GT SCH ×2 (08:25→21:17)
[2020-05-25] MEDS: QUETIAPINE FUMARATE 25 MG TABLET GT SCH ×3 (08:26→21:20)
[2020-05-25] MEDS: SCOPOLAMINE PATCH 1 MG/72 HRS PATCH TD SCH (08:26)
[2020-05-25] MEDS: AMLODIPINE 5 MG TABLET PO SCH (08:26)
[2020-05-25] MEDS: COD LIVER OIL/ZINC OXIDE OINT 113 GM TUBE TP SCH ×2 (08:27→21:24)
[2020-05-25] MEDS: COD LIVER OIL/ZINC OXIDE OINT 113 GM TUBE TOP SCH ×2 (08:27→21:24)
[2020-05-25] MEDS: HYDROGEN PEROXIDE 3% 118 ML BOTTLE TP SCH ×2 (09:00→21:36)
--- NOTE | 2020-05-25 12:29 | NUR ---
Spoke with Pt's Avinash Bowling. Verbal consent given by Avinash Bowling for patient to receive COVID 19 Vaccine.
[2020-05-25 20:00] VITALS: BP 121/65
[2020-05-25] MEDS: DOCUSATE SODIUM 100 MG/10 ML LIQUID UDC GT SCH (21:17)
[2020-05-25] MEDS: MIRALAX 17 GM POWD.PACK GT SCH (21:19)
[2020-05-25] MEDS: buPROPion 100 MG TABLET GT SCH (21:22)
[2020-05-25] MEDS: CYANOCOBALAMIN 1,000 MCG TABLET GT SCH (21:22)
[2020-05-25] MEDS: CHOLECALCIFEROL 1,000 UNIT TABLET GT SCH (21:22)
[2020-05-25] MEDS: ENOXAPARIN SODIUM 40 MG/0.4 ML DISP.SYRIN SQ SCH (21:24)
[2020-05-26] MEDS: ALBUTEROL SULFATE 2.5 MG/3 ML NEBU NEB SCH ×6 (02:40→22:40)
[2020-05-26] MEDS: IPRATROPIUM BROMIDE 0.5 MG/2.5 ML NEBU NEB SCH ×6 (02:40→22:40)
[2020-05-26] MEDS: BUDESONIDE 0.5 MG/2 ML NEBU NEB SCH ×2 (07:09→19:51)
[2020-05-26 08:08] VITALS: BP 112/61
[2020-05-26] MEDS: AMLODIPINE 5 MG TABLET PO SCH (09:00)
[2020-05-26] MEDS: HYDROGEN PEROXIDE 3% 118 ML BOTTLE TP SCH ×2 (09:00→21:34)
[2020-05-26] MEDS: QUETIAPINE FUMARATE 25 MG TABLET GT SCH ×3 (09:12→21:25)
[2020-05-26] MEDS: ASPIRIN 81 MG TAB.CHEW GT SCH (09:12)
[2020-05-26] MEDS: levETIRAcetam 500 MG/5 ML LIQUID UDC GT SCH ×2 (09:12→21:25)
[2020-05-26] MEDS: COD LIVER OIL/ZINC OXIDE OINT 113 GM TUBE TP SCH ×2 (09:13→21:29)
[2020-05-26] MEDS: OSMOLITE 1.2 CAL 1,000 ML LIQUID GT PRN (18:48)
[2020-05-26 20:00] VITALS: BP 136/60
[2020-05-26] MEDS: ENOXAPARIN SODIUM 40 MG/0.4 ML DISP.SYRIN SQ SCH (21:22)
[2020-05-26] MEDS: DOCUSATE SODIUM 100 MG/10 ML LIQUID UDC GT SCH (21:24)
[2020-05-26] MEDS: MIRALAX 17 GM POWD.PACK GT SCH (21:25)
[2020-05-26] MEDS: CYANOCOBALAMIN 1,000 MCG TABLET GT SCH (21:29)
[2020-05-26] MEDS: CHOLECALCIFEROL 1,000 UNIT TABLET GT SCH (21:29)
[2020-05-26] MEDS: buPROPion 100 MG TABLET GT SCH (21:29)
[2020-05-27] MEDS: IPRATROPIUM BROMIDE 0.5 MG/2.5 ML NEBU NEB SCH ×6 (02:40→22:35)
[2020-05-27] MEDS: ALBUTEROL SULFATE 2.5 MG/3 ML NEBU NEB SCH ×6 (02:40→22:35)
[2020-05-27] MEDS: OSMOLITE 1.2 CAL 1,000 ML LIQUID GT PRN (04:47)
[2020-05-27] MEDS: HYDROGEN PEROXIDE 3% 118 ML BOTTLE TP SCH ×2 (07:20→21:09)
[2020-05-27] MEDS: BUDESONIDE 0.5 MG/2 ML NEBU NEB SCH ×2 (07:20→18:06)
[2020-05-27 08:04] VITALS: BP 141/69
[2020-05-27] MEDS: levETIRAcetam 500 MG/5 ML LIQUID UDC GT SCH ×2 (08:53→21:25)
[2020-05-27] MEDS: QUETIAPINE FUMARATE 25 MG TABLET GT SCH ×3 (08:56→21:26)
[2020-05-27] MEDS: COD LIVER OIL/ZINC OXIDE OINT 113 GM TUBE TP SCH ×2 (08:57→21:27)
[2020-05-27] MEDS: AMLODIPINE 5 MG TABLET PO SCH (08:57)
[2020-05-27] MEDS: ASPIRIN 81 MG TAB.CHEW GT SCH (08:58)
[2020-05-27] MEDS: MIRALAX 17 GM POWD.PACK GT SCH (21:25)
[2020-05-27] MEDS: DOCUSATE SODIUM 100 MG/10 ML LIQUID UDC GT SCH (21:25)
[2020-05-27] MEDS: CHOLECALCIFEROL 1,000 UNIT TABLET GT SCH (21:26)
[2020-05-27] MEDS: CYANOCOBALAMIN 1,000 MCG TABLET GT SCH (21:26)
[2020-05-27] MEDS: buPROPion 100 MG TABLET GT SCH (21:26)
[2020-05-27] MEDS: ENOXAPARIN SODIUM 40 MG/0.4 ML DISP.SYRIN SQ SCH (21:27)
[2020-05-27 22:02] VITALS: BP 118/67
--- NOTE | 2020-05-27 22:57 | NUR ---
Patient threw her oxygen mask on the floor saying, " I don't need that anymore, I am ok with room air."
--- NOTE | 2020-05-27 22:58 | NUR ---
Patient refused to use oxygen at this time, offered X3 but patient refused. Patient is breathing even and non-labored, 02 sat 100% will closely monitor patient.
[2020-05-28] MEDS: ALBUTEROL SULFATE 2.5 MG/3 ML NEBU NEB SCH ×7 (02:48→23:30)
[2020-05-28] MEDS: IPRATROPIUM BROMIDE 0.5 MG/2.5 ML NEBU NEB SCH ×7 (02:48→23:30)
--- NOTE | 2020-05-28 04:30 | NUR ---
Air mattress was delivered, utilized air mattress for skin management.
[2020-05-28] MEDS: OSMOLITE 1.2 CAL 1,000 ML LIQUID GT PRN ×2 (04:40→23:43)
--- NOTE | 2020-05-28 06:30 | NUR ---
Patient is awake and no signs of any respiratory distress noted, still refusing oxygen use. Patient on room air. Will continue monitor.
--- NOTE | 2020-05-28 07:33 | NUR ---
Patient is still on room air and is breathing even and non- labored, no signs of any respiratory distress noted during rounds, endorse to incoming shift, patient still refused to pack back oxygen mask and oxygen use, Patient stated, I am ok.
[2020-05-28] MEDS: HYDROGEN PEROXIDE 3% 118 ML BOTTLE TP SCH ×2 (07:42→21:35)
[2020-05-28] MEDS: BUDESONIDE 0.5 MG/2 ML NEBU NEB SCH ×2 (07:42→19:00)
[2020-05-28 07:46] VITALS: BP 102/59
[2020-05-28] MEDS: ASPIRIN 81 MG TAB.CHEW GT SCH (08:49)
[2020-05-28] MEDS: levETIRAcetam 500 MG/5 ML LIQUID UDC GT SCH ×2 (08:52→21:46)
[2020-05-28] MEDS: QUETIAPINE FUMARATE 25 MG TABLET GT SCH ×3 (08:52→21:46)
[2020-05-28] MEDS: COD LIVER OIL/ZINC OXIDE OINT 113 GM TUBE TP SCH ×2 (08:53→21:46)
[2020-05-28] MEDS: SCOPOLAMINE PATCH 1 MG/72 HRS PATCH TD SCH (08:53)
[2020-05-28] MEDS: AMLODIPINE 5 MG TABLET PO SCH (08:53)
--- NOTE | 2020-05-28 12:43 | NUR ---
DR. ALVAREZ WAS CALLED RE: PT. REFUSING O2 TRACH MASK ,NO S/S OF ACUTE DISTRESS NOTED ,FREQUENT VISUAL CHECKS DONE FOR SAFETY AND COMFORT.
--- NOTE | 2020-05-28 12:46 | NUR ---
PT'S WAS CALLED AND MESSAGE LEFT RE: REFUSING OXIGEN AND THAT PT. IS NEGATIVE FOR COVID 19 TEST FROM 05/25/20.
--- NOTE | 2020-05-28 16:10 | NUR ---
DR. HUTTON AWARE OF PT. REFUSING O2 VIA TRACH MASK AND OF O2 SAT 98% AND HR 76X' AND NO S/S OF ACUTE DISTRESS,NO SOB ,NO DESATURATION AND NNO AT THIS TIME JUST MONITOR PT.
[2020-05-28] MEDS: ENOXAPARIN SODIUM 40 MG/0.4 ML DISP.SYRIN SQ SCH (21:00)
[2020-05-28] MEDS: CHOLECALCIFEROL 1,000 UNIT TABLET GT SCH (21:46)
[2020-05-28] MEDS: MIRALAX 17 GM POWD.PACK GT SCH (21:46)
[2020-05-28] MEDS: CYANOCOBALAMIN 1,000 MCG TABLET GT SCH (21:46)
[2020-05-28] MEDS: DOCUSATE SODIUM 100 MG/10 ML LIQUID UDC GT SCH (21:46)
[2020-05-28] MEDS: buPROPion 100 MG TABLET GT SCH (21:46)
[2020-05-28 22:28] VITALS: BP 118/62
[2020-05-29] MEDS: IPRATROPIUM BROMIDE 0.5 MG/2.5 ML NEBU NEB SCH ×6 (03:30→23:30)
[2020-05-29] MEDS: ALBUTEROL SULFATE 2.5 MG/3 ML NEBU NEB SCH ×6 (03:30→23:30)
[2020-05-29 07:33] VITALS: BP 121/67
[2020-05-29] MEDS: BUDESONIDE 0.5 MG/2 ML NEBU NEB SCH ×2 (07:42→19:23)
[2020-05-29] MEDS: QUETIAPINE FUMARATE 25 MG TABLET GT SCH ×3 (09:15→21:47)
[2020-05-29] MEDS: ASPIRIN 81 MG TAB.CHEW GT SCH (09:15)
[2020-05-29] MEDS: levETIRAcetam 500 MG/5 ML LIQUID UDC GT SCH ×2 (09:15→21:47)
[2020-05-29] MEDS: COD LIVER OIL/ZINC OXIDE OINT 113 GM TUBE TP SCH ×2 (09:18→21:48)
[2020-05-29] MEDS: AMLODIPINE 5 MG TABLET PO SCH (09:18)
[2020-05-29] MEDS: HYDROGEN PEROXIDE 3% 118 ML BOTTLE TP SCH ×2 (09:57→21:15)
--- NOTE | 2020-05-29 13:02 | NUR ---
SEEN NARENDRA Mtz AND WITH BILLYO.
[2020-05-29] MEDS: OSMOLITE 1.2 CAL 1,000 ML LIQUID GT PRN (18:05)
[2020-05-29 20:47] VITALS: BP 124/71
[2020-05-29] MEDS: ENOXAPARIN SODIUM 40 MG/0.4 ML DISP.SYRIN SQ SCH (21:00)
[2020-05-29] MEDS: buPROPion 100 MG TABLET GT SCH (21:47)
[2020-05-29] MEDS: MIRALAX 17 GM POWD.PACK GT SCH (21:47)
[2020-05-29] MEDS: DOCUSATE SODIUM 100 MG/10 ML LIQUID UDC GT SCH (21:47)
[2020-05-29] MEDS: CYANOCOBALAMIN 1,000 MCG TABLET GT SCH (21:47)
[2020-05-29] MEDS: CHOLECALCIFEROL 1,000 UNIT TABLET GT SCH (21:47)
[2020-05-30] MEDS: ALBUTEROL SULFATE 2.5 MG/3 ML NEBU NEB SCH ×6 (03:30→23:30)
[2020-05-30] MEDS: IPRATROPIUM BROMIDE 0.5 MG/2.5 ML NEBU NEB SCH ×6 (03:30→23:30)
[2020-05-30] MEDS: BUDESONIDE 0.5 MG/2 ML NEBU NEB SCH ×2 (07:24→19:00)
[2020-05-30] MEDS: HYDROGEN PEROXIDE 3% 118 ML BOTTLE TP SCH ×2 (07:25→21:47)
[2020-05-30 07:34] VITALS: BP 119/69
[2020-05-30] MEDS: levETIRAcetam 500 MG/5 ML LIQUID UDC GT SCH ×2 (08:35→20:56)
[2020-05-30] MEDS: QUETIAPINE FUMARATE 25 MG TABLET GT SCH ×3 (08:35→21:08)
[2020-05-30] MEDS: ASPIRIN 81 MG TAB.CHEW GT SCH (08:35)
[2020-05-30] MEDS: AMLODIPINE 5 MG TABLET PO SCH (08:38)
[2020-05-30] MEDS: COD LIVER OIL/ZINC OXIDE OINT 113 GM TUBE TP SCH ×2 (08:38→21:09)
[2020-05-30] MEDS: OSMOLITE 1.2 CAL 1,000 ML LIQUID GT PRN (12:50)
--- NOTE | 2020-05-30 13:00 | NUR ---
Seen and examined by Cleo Brock ,notified her pt still refusing the O2,no respiratory distress noted O2 sat 97 %,no new orders.
--- NOTE | 2020-05-30 19:48 | NUR ---
New orders to Give COVID vaccine x 1 carried out.
--- NOTE | 2020-05-30 19:57 | NUR ---
RT reported that patient has been refusing breathing treatment, patient still refusing oxygen use. Patient is alert with forgetful, will continue to offer oxygen and breathing treatments. Patient is breathing even and non- labored, 02 sat is 99% on room air, will continue monitor.
[2020-05-30 20:29] VITALS: BP 129/66
[2020-05-30] MEDS: DOCUSATE SODIUM 100 MG/10 ML LIQUID UDC GT SCH (20:56)
[2020-05-30] MEDS: buPROPion 100 MG TABLET GT SCH (21:08)
[2020-05-30] MEDS: MIRALAX 17 GM POWD.PACK GT SCH (21:08)
[2020-05-30] MEDS: CYANOCOBALAMIN 1,000 MCG TABLET GT SCH (21:08)
[2020-05-30] MEDS: CHOLECALCIFEROL 1,000 UNIT TABLET GT SCH (21:08)
[2020-05-30] MEDS: ENOXAPARIN SODIUM 40 MG/0.4 ML DISP.SYRIN SQ SCH (21:09)
[2020-05-31] MEDS: IPRATROPIUM BROMIDE 0.5 MG/2.5 ML NEBU NEB SCH ×6 (03:30→23:30)
[2020-05-31] MEDS: ALBUTEROL SULFATE 2.5 MG/3 ML NEBU NEB SCH ×6 (03:30→23:30)
[2020-05-31] MEDS: OSMOLITE 1.2 CAL 1,000 ML LIQUID GT PRN (03:55)
[2020-05-31 04:15] VITALS: BP 122/68
--- NOTE | 2020-05-31 04:30 | NUR ---
Patient called because she is wet on her abdominal area. On assessment, noted with blood coming from the gt site, gt is intact and is flushing well, patient doesn't remember if she tried to pull out gt or scratched gt site. Cleansed gt area and gt care done, will monitor for any further bleeding, patient is currently on Lovenox and aspirin at this time.Kept patient clean and comfortable, will continue monitor closely.
[2020-05-31] MEDS: HYDROGEN PEROXIDE 3% 118 ML BOTTLE TP SCH ×2 (07:30→21:27)
[2020-05-31] MEDS: BUDESONIDE 0.5 MG/2 ML NEBU NEB SCH ×2 (07:30→19:50)
[2020-05-31 07:32] VITALS: BP 108/66
[2020-05-31] MEDS: AMLODIPINE 5 MG TABLET PO SCH (09:00)
[2020-05-31] MEDS: levETIRAcetam 500 MG/5 ML LIQUID UDC GT SCH ×2 (09:05→21:01)
[2020-05-31] MEDS: ASPIRIN 81 MG TAB.CHEW GT SCH (09:05)
[2020-05-31] MEDS: QUETIAPINE FUMARATE 25 MG TABLET GT SCH ×3 (09:16→21:03)
[2020-05-31] MEDS: SCOPOLAMINE PATCH 1 MG/72 HRS PATCH TD SCH (09:22)
[2020-05-31] MEDS: COD LIVER OIL/ZINC OXIDE OINT 113 GM TUBE TP SCH ×2 (09:23→21:09)
--- NOTE | 2020-05-31 17:00 | NUR ---
PT. HAD COVID 19 VACCINE FROM MODERNA ON RT DELTOID AND HAD NO A/R AND MESSAGE LEFT TO AND PT. STATED THAT SHE FEELS OK.
[2020-05-31] MEDS ORDERED: COVID-19 VACC,MRNA(MODERNA)/PF 100 MCG/0.5 ML VIAL IM ONE (17:15)
--- NOTE | 2020-05-31 18:08 | NUR ---
PT'S CALLED BACK AND AWARE OF ADMINISTRATION OF COVID 19 VACCINE AND THAT PT. STATED THAT SHE FEELS OK WITH NO A/R.
[2020-05-31 20:36] VITALS: BP 104/75
[2020-05-31] MEDS: DOCUSATE SODIUM 100 MG/10 ML LIQUID UDC GT SCH (21:01)
[2020-05-31] MEDS: MIRALAX 17 GM POWD.PACK GT SCH (21:03)
[2020-05-31] MEDS: CYANOCOBALAMIN 1,000 MCG TABLET GT SCH (21:04)
[2020-05-31] MEDS: CHOLECALCIFEROL 1,000 UNIT TABLET GT SCH (21:04)
[2020-05-31] MEDS: buPROPion 100 MG TABLET GT SCH (21:08)
[2020-05-31] MEDS: ENOXAPARIN SODIUM 40 MG/0.4 ML DISP.SYRIN SQ SCH (21:09)
[2020-06-01] MEDS: IPRATROPIUM BROMIDE 0.5 MG/2.5 ML NEBU NEB SCH ×6 (03:30→23:23)
[2020-06-01] MEDS: ALBUTEROL SULFATE 2.5 MG/3 ML NEBU NEB SCH ×6 (03:30→23:23)
[2020-06-01] MEDS: BUDESONIDE 0.5 MG/2 ML NEBU NEB SCH ×2 (08:00→18:03)
[2020-06-01 08:30] VITALS: BP 130/70
[2020-06-01] MEDS: HYDROGEN PEROXIDE 3% 118 ML BOTTLE TP SCH ×2 (09:23→20:35)
[2020-06-01] MEDS: ASPIRIN 81 MG TAB.CHEW GT SCH (09:28)
[2020-06-01] MEDS: levETIRAcetam 500 MG/5 ML LIQUID UDC GT SCH ×2 (09:29→20:43)
[2020-06-01] MEDS: QUETIAPINE FUMARATE 25 MG TABLET GT SCH ×3 (09:29→20:46)
[2020-06-01] MEDS: AMLODIPINE 5 MG TABLET PO SCH (09:31)
[2020-06-01] MEDS: COD LIVER OIL/ZINC OXIDE OINT 113 GM TUBE TP SCH ×2 (09:32→20:48)
--- NOTE | 2020-06-01 18:32 | NUR ---
No a/r noted from covid19 vaccine.
[2020-06-01] MEDS: OSMOLITE 1.2 CAL 1,000 ML LIQUID GT PRN (20:40)
[2020-06-01] MEDS: DOCUSATE SODIUM 100 MG/10 ML LIQUID UDC GT SCH (20:43)
[2020-06-01] MEDS: MIRALAX 17 GM POWD.PACK GT SCH (20:44)
[2020-06-01] MEDS: CHOLECALCIFEROL 1,000 UNIT TABLET GT SCH (20:48)
[2020-06-01] MEDS: buPROPion 100 MG TABLET GT SCH (20:48)
[2020-06-01] MEDS: CYANOCOBALAMIN 1,000 MCG TABLET GT SCH (20:48)
[2020-06-01] MEDS: ENOXAPARIN SODIUM 40 MG/0.4 ML DISP.SYRIN SQ SCH (21:41)
[2020-06-01 23:00] VITALS: BP 107/74
--- NOTE | 2020-06-01 23:30 | NUR ---
Patient is afebrile, no signs of any adverse reactions noted from the COVID-19 vaccine.
--- NOTE | 2020-06-02 01:00 | NUR ---
Patient is refusing oxygen and breathing treatment, no signs of any distress noted, kept clean and comfortable.
[2020-06-02] MEDS: ALBUTEROL SULFATE 2.5 MG/3 ML NEBU NEB SCH ×6 (03:30→23:30)
[2020-06-02] MEDS: IPRATROPIUM BROMIDE 0.5 MG/2.5 ML NEBU NEB SCH ×6 (03:30→23:30)
[2020-06-02] MEDS: BUDESONIDE 0.5 MG/2 ML NEBU NEB SCH ×2 (07:28→19:20)
[2020-06-02 07:48] VITALS: BP 112/64
[2020-06-02] MEDS: QUETIAPINE FUMARATE 25 MG TABLET GT SCH ×3 (09:00→21:00)
[2020-06-02] MEDS: AMLODIPINE 5 MG TABLET PO SCH (09:00)
[2020-06-02] MEDS: HYDROGEN PEROXIDE 3% 118 ML BOTTLE TP SCH ×2 (09:00→21:25)
[2020-06-02] MEDS: ASPIRIN 81 MG TAB.CHEW GT SCH (09:00)
[2020-06-02] MEDS: levETIRAcetam 500 MG/5 ML LIQUID UDC GT SCH ×2 (09:00→21:00)
[2020-06-02] MEDS: COD LIVER OIL/ZINC OXIDE OINT 113 GM TUBE TP SCH ×2 (09:01→21:00)
[2020-06-02] MEDS: OSMOLITE 1.2 CAL 1,000 ML LIQUID GT PRN (12:17)
--- NOTE | 2020-06-02 17:51 | NUR ---
No a/r noted from covid19 vaccine, no acute respiratory distress noted o2 sat 97%, pt on room air.
[2020-06-02 20:30] VITALS: BP 125/84
[2020-06-02] MEDS: ENOXAPARIN SODIUM 40 MG/0.4 ML DISP.SYRIN SQ SCH (21:00)
[2020-06-02] MEDS: MIRALAX 17 GM POWD.PACK GT SCH (21:00)
[2020-06-02] MEDS: CYANOCOBALAMIN 1,000 MCG TABLET GT SCH (21:00)
[2020-06-02] MEDS: DOCUSATE SODIUM 100 MG/10 ML LIQUID UDC GT SCH (21:00)
[2020-06-02] MEDS: CHOLECALCIFEROL 1,000 UNIT TABLET GT SCH (21:00)
[2020-06-02] MEDS: buPROPion 100 MG TABLET GT SCH (21:00)
--- NOTE | 2020-06-02 23:08 | NUR ---
Patient is afebrile, no signs of adverse effects from Covid-19 vaccine.
[2020-06-03] MEDS: ALBUTEROL SULFATE 2.5 MG/3 ML NEBU NEB SCH ×6 (03:30→23:12)
[2020-06-03] MEDS: IPRATROPIUM BROMIDE 0.5 MG/2.5 ML NEBU NEB SCH ×6 (03:30→23:12)
[2020-06-03 07:42] VITALS: BP 118/65
[2020-06-03] MEDS: BUDESONIDE 0.5 MG/2 ML NEBU NEB SCH ×2 (08:19→19:10)
[2020-06-03] MEDS: AMLODIPINE 5 MG TABLET PO SCH (09:00)
[2020-06-03] MEDS: HYDROGEN PEROXIDE 3% 118 ML BOTTLE TP SCH ×2 (09:20→20:35)
[2020-06-03] MEDS: levETIRAcetam 500 MG/5 ML LIQUID UDC GT SCH ×2 (09:33→21:19)
[2020-06-03] MEDS: ASPIRIN 81 MG TAB.CHEW GT SCH (09:33)
[2020-06-03] MEDS: SCOPOLAMINE PATCH 1 MG/72 HRS PATCH TD SCH (09:36)
[2020-06-03] MEDS: COD LIVER OIL/ZINC OXIDE OINT 113 GM TUBE TP SCH ×2 (09:36→21:32)
[2020-06-03] MEDS: QUETIAPINE FUMARATE 25 MG TABLET GT SCH ×3 (09:37→21:19)
--- NOTE | 2020-06-03 17:20 | NUR ---
Patient found on the floor by primary nurse, patient stated " I sled out of bed", bed in low position and locked, call light within reach, body check done, no injuries noted, no c/o pain or discomfort, soda dry house operator, Sneha Sebastian and (Avinash) notified of incident, will continue monitoring. 105/54, p 79, o2sat 97%, t 98.3.
[2020-06-03 17:30] VITALS: BP 105/54
--- NOTE | 2020-06-03 18:27 | NUR ---
Patient continues in bed,alert, v/s. patient stated, " I feel good and no pain.", rails up as ordered, bed lock position and call light in place. will continue monitoring pt.
--- NOTE | 2020-06-03 18:35 | NUR ---
NO A/R OF COVID19 VACCINE NOTED AT THIS TIME. WILL CONTINUE MONITORING.
[2020-06-03 20:08] VITALS: BP 102/62
[2020-06-03] MEDS: DOCUSATE SODIUM 100 MG/10 ML LIQUID UDC GT SCH (21:19)
[2020-06-03] MEDS: MIRALAX 17 GM POWD.PACK GT SCH (21:19)
[2020-06-03] MEDS: CYANOCOBALAMIN 1,000 MCG TABLET GT SCH (21:20)
[2020-06-03] MEDS: CHOLECALCIFEROL 1,000 UNIT TABLET GT SCH (21:27)
[2020-06-03] MEDS: buPROPion 100 MG TABLET GT SCH (21:30)
[2020-06-03] MEDS: ENOXAPARIN SODIUM 40 MG/0.4 ML DISP.SYRIN SQ SCH (21:35)
--- NOTE | 2020-06-04 02:45 | NUR ---
call light within reach, bed in low position, no c/o pain or discomfort, 98.1,102/62,82,18, o2sat 99%, slept long hours.
[2020-06-04] MEDS: ALBUTEROL SULFATE 2.5 MG/3 ML NEBU NEB SCH ×6 (03:10→23:12)
[2020-06-04] MEDS: IPRATROPIUM BROMIDE 0.5 MG/2.5 ML NEBU NEB SCH ×6 (03:10→23:12)
[2020-06-04] MEDS: BUDESONIDE 0.5 MG/2 ML NEBU NEB SCH ×2 (07:11→19:21)
[2020-06-04 07:42] VITALS: BP 116/66
[2020-06-04] MEDS: HYDROGEN PEROXIDE 3% 118 ML BOTTLE TP SCH ×2 (09:00→20:38)
[2020-06-04] MEDS: QUETIAPINE FUMARATE 25 MG TABLET GT SCH ×3 (09:23→20:37)
[2020-06-04] MEDS: levETIRAcetam 500 MG/5 ML LIQUID UDC GT SCH ×2 (09:23→20:34)
[2020-06-04] MEDS: ASPIRIN 81 MG TAB.CHEW GT SCH (09:23)
[2020-06-04] MEDS: COD LIVER OIL/ZINC OXIDE OINT 113 GM TUBE TP SCH ×2 (09:24→20:41)
[2020-06-04] MEDS: AMLODIPINE 5 MG TABLET PO SCH (09:24)
[2020-06-04 20:04] VITALS: BP 110/68
[2020-06-04] MEDS: DOCUSATE SODIUM 100 MG/10 ML LIQUID UDC GT SCH (20:32)
[2020-06-04] MEDS: CHOLECALCIFEROL 1,000 UNIT TABLET GT SCH (20:33)
[2020-06-04] MEDS: MIRALAX 17 GM POWD.PACK GT SCH (20:33)
[2020-06-04] MEDS: CYANOCOBALAMIN 1,000 MCG TABLET GT SCH (20:38)
[2020-06-04] MEDS: buPROPion 100 MG TABLET GT SCH (20:38)
[2020-06-04] MEDS: ENOXAPARIN SODIUM 40 MG/0.4 ML DISP.SYRIN SQ SCH (20:39)
[2020-06-04] MEDS: OSMOLITE 1.2 CAL 1,000 ML LIQUID GT PRN (20:47)
[2020-06-05] MEDS: ALBUTEROL SULFATE 2.5 MG/3 ML NEBU NEB SCH (03:10)
[2020-06-05] MEDS: IPRATROPIUM BROMIDE 0.5 MG/2.5 ML NEBU NEB SCH (03:10)
== END 2020-06-01 23:59 | disposition still patient (30) | DRG 189 ==
LOC: SA 21:53
PROVIDERS: ADMIT Internal Medicine Nephrology; ATTEND Internal Medicine Nephrology
DX: J96.01 Acute respiratory failure with hypoxia (principal); N39.0 Urinary tract infection, site not specified; F33.2 Major depressive disorder, recurrent severe without psychotic features; Z16.19 Resistance to other specified beta lactam antibiotics; Z93.0 Tracheostomy status; G40.909 Epilepsy, unspecified, not intractable, without status epilepticus; I10 Essential (primary) hypertension; J40 Bronchitis, not specified as acute or chronic; N31.9 Neuromuscular dysfunction of bladder, unspecified; R13.10 Dysphagia, unspecified; Z74.01 Bed confinement status; F41.9 Anxiety disorder, unspecified; Z93.1 Gastrostomy status; Z98.2 Presence of cerebrospinal fluid drainage device; Z86.19 Personal history of other infectious and parasitic diseases; Z88.2 Allergy status to sulfonamides; Z87.01 Personal history of pneumonia (recurrent); Z88.0 Allergy status to penicillin; Z87.891 Personal history of nicotine dependence
CPT/HCPCS: 36415; 36600; 71045; 74230; 83735; 84100; 85025; 86580; 86625; 87046; 87070; 87077; 87086; 90686; 94640; 94664; A4663; C1758; J0692; J1580; J1650; J2185; J3490; J3590; J7060; J8499; U0003

== ENCOUNTER 2020-06-02 | Inpatient (IN) | payer MEDICARE, OTHER ==
[~2020-06-02] VITALS: Ht 154.9 cm; Wt 68.9 kg
[2020-06-05 07:29] VITALS: BP 113/59
[2020-06-05] MEDS: HYDROGEN PEROXIDE 3% 118 ML BOTTLE TP SCH ×2 (07:30→21:00)
[2020-06-05] MEDS ORDERED: HYDROGEN PEROXIDE 3% 118 ML BOTTLE TP PRN (08:45)
[2020-06-05] MEDS ORDERED: ALBUTEROL SULFATE 2.5 MG/3 ML NEBU NEB PRN (08:45)
[2020-06-05] MEDS ORDERED: COD LIVER OIL/ZINC OXIDE OINT 113 GM TUBE TP PRN (08:45)
[2020-06-05] MEDS ORDERED: IPRATROPIUM BROMIDE 0.5 MG/2.5 ML NEBU NEB PRN (08:45)
[2020-06-05] MEDS ORDERED: SCOPOLAMINE PATCH 1 MG/72 HRS PATCH TD SCH (08:45)
[2020-06-05] MEDS ORDERED: BUDESONIDE 0.5 MG/2 ML NEBU NEB SCH (08:45)
[2020-06-05] MEDS ORDERED: SENNOSIDES 1 TABLET GT PRN (08:45)
[2020-06-05] MEDS ORDERED: OSMOLITE 1.2 CAL 1,000 ML LIQUID GT PRN (08:45)
[2020-06-05] MEDS: QUETIAPINE FUMARATE 25 MG TABLET GT SCH ×3 (09:00→20:44)
[2020-06-05] MEDS: AMLODIPINE 5 MG TABLET PO SCH (09:00)
[2020-06-05] MEDS: levETIRAcetam 500 MG/5 ML LIQUID UDC GT SCH ×2 (09:00→20:45)
[2020-06-05] MEDS: COD LIVER OIL/ZINC OXIDE OINT 113 GM TUBE TP SCH ×2 (09:00→20:47)
[2020-06-05] MEDS: ASPIRIN 81 MG TAB.CHEW GT SCH (09:00)
[2020-06-05] MEDS: ALBUTEROL SULFATE 2.5 MG/3 ML NEBU NEB SCH ×4 (11:30→23:30)
[2020-06-05] MEDS: IPRATROPIUM BROMIDE 0.5 MG/2.5 ML NEBU NEB SCH ×4 (11:30→23:30)
[2020-06-05] MEDS: OSMOLITE 1.2 CAL 1,000 ML LIQUID GT PRN (17:53)
--- NOTE | 2020-06-05 17:55 | NUR ---
video call provided with the pt. and family (). No issues brought up by the family at this time. Pt. calm and no agitation episodes. Will continue to monitor.
[2020-06-05] MEDS: BUDESONIDE 0.5 MG/2 ML NEBU NEB SCH (19:20)
[2020-06-05 20:27] VITALS: BP 112/65
[2020-06-05] MEDS: DOCUSATE SODIUM 100 MG/10 ML LIQUID UDC GT SCH (20:44)
[2020-06-05] MEDS: MIRALAX 17 GM POWD.PACK GT SCH (20:44)
[2020-06-05] MEDS: ENOXAPARIN SODIUM 40 MG/0.4 ML DISP.SYRIN SQ SCH (20:44)
[2020-06-05] MEDS: CYANOCOBALAMIN 1,000 MCG TABLET GT SCH (20:54)
[2020-06-05] MEDS: buPROPion 100 MG TABLET GT SCH (20:54)
[2020-06-05] MEDS: CHOLECALCIFEROL 1,000 UNIT TABLET GT SCH (20:54)
[2020-06-06] MEDS: IPRATROPIUM BROMIDE 0.5 MG/2.5 ML NEBU NEB SCH ×7 (03:30→23:30)
[2020-06-06] MEDS: ALBUTEROL SULFATE 2.5 MG/3 ML NEBU NEB SCH ×7 (03:30→23:30)
[2020-06-06 07:24] VITALS: BP 120/58
[2020-06-06] MEDS: BUDESONIDE 0.5 MG/2 ML NEBU NEB SCH ×3 (07:30→20:07)
[2020-06-06] MEDS: HYDROGEN PEROXIDE 3% 118 ML BOTTLE TP SCH ×2 (07:51→20:07)
[2020-06-06] MEDS: QUETIAPINE FUMARATE 25 MG TABLET GT SCH ×3 (09:36→20:56)
[2020-06-06] MEDS: AMLODIPINE 5 MG TABLET PO SCH (09:36)
[2020-06-06] MEDS: SCOPOLAMINE PATCH 1 MG/72 HRS PATCH TD SCH (09:36)
[2020-06-06] MEDS: levETIRAcetam 500 MG/5 ML LIQUID UDC GT SCH ×2 (09:36→20:56)
[2020-06-06] MEDS: COD LIVER OIL/ZINC OXIDE OINT 113 GM TUBE TP SCH ×2 (09:36→20:56)
[2020-06-06] MEDS: ASPIRIN 81 MG TAB.CHEW GT SCH (09:36)
--- NOTE | 2020-06-06 17:48 | NUR ---
pt. is calm and no episode of agitation. pt refused oxygen and breathing tx. Explained pt risk and benefits of 02 used and breathing. Family made aware. v/s wnl with o2 sat 97% RA. Will continue to offer and monitor pt.
[2020-06-06 20:50] VITALS: BP 111/64
[2020-06-06] MEDS: buPROPion 100 MG TABLET GT SCH (20:56)
[2020-06-06] MEDS: CHOLECALCIFEROL 1,000 UNIT TABLET GT SCH (20:56)
[2020-06-06] MEDS: DOCUSATE SODIUM 100 MG/10 ML LIQUID UDC GT SCH (20:56)
[2020-06-06] MEDS: CYANOCOBALAMIN 1,000 MCG TABLET GT SCH (20:56)
[2020-06-06] MEDS: MIRALAX 17 GM POWD.PACK GT SCH (20:56)
[2020-06-06] MEDS: ENOXAPARIN SODIUM 40 MG/0.4 ML DISP.SYRIN SQ SCH (20:59)
[2020-06-07] MEDS: OSMOLITE 1.2 CAL 1,000 ML LIQUID GT PRN ×2 (00:14→22:40)
[2020-06-07] MEDS: IPRATROPIUM BROMIDE 0.5 MG/2.5 ML NEBU NEB SCH ×6 (03:30→23:15)
[2020-06-07] MEDS: ALBUTEROL SULFATE 2.5 MG/3 ML NEBU NEB SCH ×6 (03:30→23:15)
[2020-06-07] MEDS: BUDESONIDE 0.5 MG/2 ML NEBU NEB SCH ×2 (07:10→20:08)
[2020-06-07 07:32] VITALS: BP 113/65
[2020-06-07] MEDS: levETIRAcetam 500 MG/5 ML LIQUID UDC GT SCH ×2 (08:42→20:31)
[2020-06-07] MEDS: ASPIRIN 81 MG TAB.CHEW GT SCH (08:42)
[2020-06-07] MEDS: QUETIAPINE FUMARATE 25 MG TABLET GT SCH ×3 (08:43→20:33)
[2020-06-07] MEDS: COD LIVER OIL/ZINC OXIDE OINT 113 GM TUBE TP SCH ×2 (08:45→20:34)
[2020-06-07] MEDS: AMLODIPINE 5 MG TABLET PO SCH (08:45)
[2020-06-07] MEDS: HYDROGEN PEROXIDE 3% 118 ML BOTTLE TP SCH ×2 (08:46→21:37)
[2020-06-07 20:00] VITALS: BP 117/68
[2020-06-07] MEDS: DOCUSATE SODIUM 100 MG/10 ML LIQUID UDC GT SCH (20:31)
[2020-06-07] MEDS: MIRALAX 17 GM POWD.PACK GT SCH (20:31)
[2020-06-07] MEDS: CYANOCOBALAMIN 1,000 MCG TABLET GT SCH (20:33)
[2020-06-07] MEDS: CHOLECALCIFEROL 1,000 UNIT TABLET GT SCH (20:33)
[2020-06-07] MEDS: buPROPion 100 MG TABLET GT SCH (20:34)
[2020-06-07] MEDS: ENOXAPARIN SODIUM 40 MG/0.4 ML DISP.SYRIN SQ SCH (20:44)
[2020-06-08] MEDS: ALBUTEROL SULFATE 2.5 MG/3 ML NEBU NEB SCH ×6 (03:25→23:30)
[2020-06-08] MEDS: IPRATROPIUM BROMIDE 0.5 MG/2.5 ML NEBU NEB SCH ×6 (03:25→23:30)
[2020-06-08] MEDS: BUDESONIDE 0.5 MG/2 ML NEBU NEB SCH ×2 (07:30→19:54)
[2020-06-08 07:31] VITALS: BP 118/72
[2020-06-08] MEDS: ASPIRIN 81 MG TAB.CHEW GT SCH (08:46)
[2020-06-08] MEDS: levETIRAcetam 500 MG/5 ML LIQUID UDC GT SCH ×2 (08:46→21:51)
[2020-06-08] MEDS: QUETIAPINE FUMARATE 25 MG TABLET GT SCH ×3 (08:49→21:52)
[2020-06-08] MEDS: AMLODIPINE 5 MG TABLET PO SCH (08:50)
[2020-06-08] MEDS: COD LIVER OIL/ZINC OXIDE OINT 113 GM TUBE TP SCH ×2 (08:51→21:57)
[2020-06-08] MEDS: HYDROGEN PEROXIDE 3% 118 ML BOTTLE TP SCH ×2 (08:51→21:35)
--- NOTE | 2020-06-08 12:12 | NUR ---
SADIA called patient's Avinash [phone] and informed him that the next IDT meeting for the patient is scheduled for 06/13/2020 at 11am. SADIA asked Avinash if he would like to participate in the meeting by speaker phone, and Avinash expressed agreement. SADIA asked Avinash to be available on 06/13 between 11am-12pm in order to received the team's call during the meeting, and Avinash expressed understanding and agreement.
[2020-06-08] MEDS ORDERED: ACETAMINOPHEN 650 MG/20 ML UDC- SA PATIENTS-FEVER ONLY GT PRN (17:30)
--- NOTE | 2020-06-08 17:31 | NUR ---
PT. HAD VIDEO CHAT WITH HER X 5 MIN. VIA ZOOM.
[2020-06-08 20:00] VITALS: BP 112/67
[2020-06-08] MEDS: ENOXAPARIN SODIUM 40 MG/0.4 ML DISP.SYRIN SQ SCH (21:00)
[2020-06-08] MEDS: DOCUSATE SODIUM 100 MG/10 ML LIQUID UDC GT SCH (21:51)
[2020-06-08] MEDS: MIRALAX 17 GM POWD.PACK GT SCH (21:52)
[2020-06-08] MEDS: CYANOCOBALAMIN 1,000 MCG TABLET GT SCH (21:54)
[2020-06-08] MEDS: CHOLECALCIFEROL 1,000 UNIT TABLET GT SCH (21:54)
[2020-06-08] MEDS: buPROPion 100 MG TABLET GT SCH (21:55)
[2020-06-09] MEDS: IPRATROPIUM BROMIDE 0.5 MG/2.5 ML NEBU NEB SCH ×6 (03:07→23:30)
[2020-06-09] MEDS: ALBUTEROL SULFATE 2.5 MG/3 ML NEBU NEB SCH ×6 (03:07→23:30)
[2020-06-09] MEDS: BUDESONIDE 0.5 MG/2 ML NEBU NEB SCH ×2 (07:30→19:58)
[2020-06-09 07:36] VITALS: BP 113/63
[2020-06-09] MEDS: ASPIRIN 81 MG TAB.CHEW GT SCH (08:46)
[2020-06-09] MEDS: levETIRAcetam 500 MG/5 ML LIQUID UDC GT SCH ×2 (08:47→21:42)
[2020-06-09] MEDS: QUETIAPINE FUMARATE 25 MG TABLET GT SCH ×3 (08:48→21:42)
[2020-06-09] MEDS: AMLODIPINE 5 MG TABLET PO SCH (08:49)
[2020-06-09] MEDS: COD LIVER OIL/ZINC OXIDE OINT 113 GM TUBE TP SCH ×2 (08:53→21:43)
[2020-06-09] MEDS: SCOPOLAMINE PATCH 1 MG/72 HRS PATCH TD SCH (08:53)
[2020-06-09] MEDS: HYDROGEN PEROXIDE 3% 118 ML BOTTLE TP SCH ×2 (09:00→21:47)
--- NOTE | 2020-06-09 09:01 | NUR ---
PT'S MAIRA WAS AWARE OF PT'S NEGATIVE FOR COVID 19 TEST FROM 06/07/20.
[2020-06-09] MEDS: OSMOLITE 1.2 CAL 1,000 ML LIQUID GT PRN (13:35)
--- NOTE | 2020-06-09 16:00 | NUR ---
Video chat done with pt's daughter.
[2020-06-09 20:00] VITALS: BP 129/76
[2020-06-09] MEDS: CHOLECALCIFEROL 1,000 UNIT TABLET GT SCH (21:42)
[2020-06-09] MEDS: CYANOCOBALAMIN 1,000 MCG TABLET GT SCH (21:42)
[2020-06-09] MEDS: DOCUSATE SODIUM 100 MG/10 ML LIQUID UDC GT SCH (21:42)
[2020-06-09] MEDS: buPROPion 100 MG TABLET GT SCH (21:42)
[2020-06-09] MEDS: MIRALAX 17 GM POWD.PACK GT SCH (21:42)
[2020-06-09] MEDS: ENOXAPARIN SODIUM 40 MG/0.4 ML DISP.SYRIN SQ SCH (21:44)
[2020-06-10] MEDS: ALBUTEROL SULFATE 2.5 MG/3 ML NEBU NEB SCH ×6 (03:30→22:54)
[2020-06-10] MEDS: IPRATROPIUM BROMIDE 0.5 MG/2.5 ML NEBU NEB SCH ×6 (03:30→22:54)
--- NOTE | 2020-06-10 06:32 | NUR ---
Patient is on room air, no respiratory distress noted, alert with episodes of forgetfulness, denies any SOB,02 sat is 99% on room air, needs attended, call light within reach.
[2020-06-10 07:28] VITALS: BP 128/56
[2020-06-10] MEDS: HYDROGEN PEROXIDE 3% 118 ML BOTTLE TP SCH ×2 (07:31→20:02)
[2020-06-10] MEDS: BUDESONIDE 0.5 MG/2 ML NEBU NEB SCH ×2 (07:31→20:01)
[2020-06-10] MEDS: ASPIRIN 81 MG TAB.CHEW GT SCH (08:46)
[2020-06-10] MEDS: levETIRAcetam 500 MG/5 ML LIQUID UDC GT SCH ×2 (08:48→21:00)
[2020-06-10] MEDS: QUETIAPINE FUMARATE 25 MG TABLET GT SCH ×3 (08:48→21:00)
[2020-06-10] MEDS: COD LIVER OIL/ZINC OXIDE OINT 113 GM TUBE TP SCH ×2 (08:50→21:00)
[2020-06-10] MEDS: AMLODIPINE 5 MG TABLET PO SCH (08:50)
[2020-06-10] MEDS: OSMOLITE 1.2 CAL 1,000 ML LIQUID GT PRN ×2 (09:09→23:08)
[2020-06-10 20:00] VITALS: BP 125/75
[2020-06-10] MEDS: CHOLECALCIFEROL 1,000 UNIT TABLET GT SCH (21:00)
[2020-06-10] MEDS: MIRALAX 17 GM POWD.PACK GT SCH (21:00)
[2020-06-10] MEDS: DOCUSATE SODIUM 100 MG/10 ML LIQUID UDC GT SCH (21:00)
[2020-06-10] MEDS: CYANOCOBALAMIN 1,000 MCG TABLET GT SCH (21:00)
[2020-06-10] MEDS: ENOXAPARIN SODIUM 40 MG/0.4 ML DISP.SYRIN SQ SCH (21:00)
[2020-06-10] MEDS: buPROPion 100 MG TABLET GT SCH (21:00)
[2020-06-11] MEDS: IPRATROPIUM BROMIDE 0.5 MG/2.5 ML NEBU NEB SCH ×6 (02:54→23:30)
[2020-06-11] MEDS: ALBUTEROL SULFATE 2.5 MG/3 ML NEBU NEB SCH ×6 (02:54→23:30)
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
--- NOTE | 2020-06-11 06:00 | NUR ---
Patient in bed , eyes close, holding on to her call light, will monitor closely.
--- NOTE | 2020-06-11 07:07 | NUR ---
Patient is awake and said, "Hi", no aggressive behavior at this time.
--- NOTE | 2020-06-11 07:24 | NUR ---
Avinash () was notified about patient's aggressive behavior. The stated that, patient used to have aggressive behavior everyday two years ago. is aware that the patient has lapse in her memory too. Avniash was thankful for being notified about the incident.
[2020-06-11 07:27] VITALS: BP 127/78
[2020-06-11] MEDS: BUDESONIDE 0.5 MG/2 ML NEBU NEB SCH ×2 (07:30→19:30)
[2020-06-11] MEDS: HYDROGEN PEROXIDE 3% 118 ML BOTTLE TP SCH ×2 (09:00→21:52)
[2020-06-11] MEDS: ASPIRIN 81 MG TAB.CHEW GT SCH (09:09)
[2020-06-11] MEDS: levETIRAcetam 500 MG/5 ML LIQUID UDC GT SCH ×2 (09:09→21:00)
[2020-06-11] MEDS: AMLODIPINE 5 MG TABLET PO SCH (09:10)
[2020-06-11] MEDS: COD LIVER OIL/ZINC OXIDE OINT 113 GM TUBE TP SCH ×2 (09:10→21:00)
[2020-06-11] MEDS: QUETIAPINE FUMARATE 25 MG TABLET GT SCH ×3 (09:10→21:00)
[2020-06-11] MEDS: OSMOLITE 1.2 CAL 1,000 ML LIQUID GT PRN (12:00)
--- NOTE | 2020-06-11 18:44 | NUR ---
PT. HAD NO AGGRESSIVE BEHAVIOR EPISODES ,SHE WAS COOPERATIVE WITH CARE PER NURSING STAFF.
[2020-06-11 20:00] VITALS: BP 98/65
[2020-06-11] MEDS: CHOLECALCIFEROL 1,000 UNIT TABLET GT SCH (21:00)
[2020-06-11] MEDS: MIRALAX 17 GM POWD.PACK GT SCH (21:00)
[2020-06-11] MEDS: buPROPion 100 MG TABLET GT SCH (21:00)
[2020-06-11] MEDS: DOCUSATE SODIUM 100 MG/10 ML LIQUID UDC GT SCH (21:00)
[2020-06-11] MEDS: CYANOCOBALAMIN 1,000 MCG TABLET GT SCH (21:00)
[2020-06-11] MEDS: ENOXAPARIN SODIUM 40 MG/0.4 ML DISP.SYRIN SQ SCH (21:00)
[2020-06-12] MEDS: IPRATROPIUM BROMIDE 0.5 MG/2.5 ML NEBU NEB SCH ×6 (02:48→22:57)
[2020-06-12] MEDS: ALBUTEROL SULFATE 2.5 MG/3 ML NEBU NEB SCH ×6 (02:48→22:57)
[2020-06-12] MEDS: BUDESONIDE 0.5 MG/2 ML NEBU NEB SCH ×2 (07:23→19:30)
[2020-06-12 07:44] VITALS: BP 109/66
[2020-06-12] MEDS: ASPIRIN 81 MG TAB.CHEW GT SCH (08:58)
[2020-06-12] MEDS: QUETIAPINE FUMARATE 25 MG TABLET GT SCH ×3 (08:59→21:00)
[2020-06-12] MEDS: levETIRAcetam 500 MG/5 ML LIQUID UDC GT SCH ×2 (08:59→21:00)
[2020-06-12] MEDS: SCOPOLAMINE PATCH 1 MG/72 HRS PATCH TD SCH (09:00)
[2020-06-12] MEDS: COD LIVER OIL/ZINC OXIDE OINT 113 GM TUBE TP SCH ×2 (09:00→21:00)
[2020-06-12] MEDS: AMLODIPINE 5 MG TABLET PO SCH (09:00)
--- NOTE | 2020-06-12 09:00 | NUR ---
ARABIC TEACHER REPORTED PT. REFUSING CARE, CRYING AND YELLING IN THE MIDDLE OF THE MORNING BATH.PT. TRIED TO HELP ARABIC TEACHER TO REMOVE HER OWN GOWN BUT SHE DID FAST THAT SHE GOT HER TRACH DISLODGED OUT A LITTLE AND WHEN EDUCATIONAL TECHNICIAN ASSISTED PT. TO GENTLY ADJUST IT IT BACK THEN SHE STARTED CRYING AND YELLING AND CH. NURSE WENT TO CHECK PT. STATED THAT SHE DID NOT WANT THE TRACH ANYMORE THAT SHE WAS TIRED AND SHE WAS GONNA PULL IT OUT BUT CH. NURSE TOLD HER TO PLS STOP THAT SHE WAS GONNA HURT HERSELF(NURSES APPROACHED IN A CALMED AND AN UNHURRIED MANNER CAUTIOUSLY TO AVOID ESCALATING FRUSTRATION AND ANGER BEHAVIOR)NURSES LEFT THE ROOM WITH THE DOOR OPEN TO OBSERVE PT. CLOSELY AND ALSO BECAUSE PT. STATED THAT SHE WANTED TO BE ALONE.
[2020-06-12] MEDS: HYDROGEN PEROXIDE 3% 118 ML BOTTLE TP SCH ×2 (09:53→21:51)
--- NOTE | 2020-06-12 10:00 | NUR ---
FREQUENT VISUAL CHECKS DONE AND CALL LIGHT ON REACH AND REMINDING PT. THAT SHE CAN CALL NURSE WHEN SHE IS READY TO CONTINUE CARE.SHE ACCEPTED FIRST TO BE COVERED WITH SHEETS AND ACCEPTED TO WEAR GOWN THEN LATER ON SHE ACCEPTED TOTAL CARE WITH BED BATH AND SHAMPOO BEING COOPERATIVE WITH NURSES AND WITH A CALMED MOOD.PT. ALSO WAS ABLE TO PUT MAKE UP ON HER FACE BY HERSELF .NOTED TOO WITH HEMATURIA WHEN PROSTHODONTIST DOING PERINEAL CARE AND WILL BE F/U WITH .
[2020-06-12] MEDS: OSMOLITE 1.2 CAL 1,000 ML LIQUID GT PRN (10:40)
--- NOTE | 2020-06-12 14:16 | NUR ---
PT. WAS SEEN AND EXAMINED BY NARENDRA Mtz AND AWARE OF HEMATURIA AND EPISODE OF REFUSING CARE AND CRYING BEHAVIOR EARLY AND WITH NEW ORDERS CARRIED OUT.
--- NOTE | 2020-06-12 14:35 | NUR ---
PT'S WAS NOTIFIED ABOUT PT'S CONDITION,BEHAVIOR AND ORDERS AND IN AGREEMENT AND HE DID VIDE CHAT VIA ZOOM WITH PT. AND SHE WAS CALMED TALKING TO HIM AND ABOUT HOW SHE FEELS .PT'S IN AGREEMENT WITH CARE AND APPROACH AND PT. TOO.
--- NOTE | 2020-06-12 16:06 | NUR ---
SADIA mailed patient's annual admission paperwork for review and signatures to patient's mother Marycarmen. The paperwork includes: Conditions of Admission, Patient Rights Acknowledgement, An Important Message from Medicare about your Rights, Documentation of Preferred Intensity of Care, Voluntary Prior Express Consent Form, Race and Ethnicity Patient Self-Identification, and the [facility] Agreement. SADIA included instructions to return completed and signed forms to this SW. Paperwork mailed to: [id number] [facility]. [id number] [place] [address] Addendum: 06/13/20 at 1711 by MAULIK MCCULLOUGH CORRECTION: SADIA mailed patient's annual admission paperwork for review and signatures to patient's
[2020-06-12 17:18] LABS: *BILIRUBIN,URIN NEGATIVE (NEGATIVE); *BLOOD, URINE 3+ (NEGATIVE); *CLARITY,URINE CLOUDY (CLEAR); *COLOR,URINE PINK (YELLOW); *KETONES,URINE NEGATIVE (NEGATIVE); *UROBILINOGEN,URINE 0.2 E.U./dl (NORMAL); LEUKOCYTE ESTERASE ,URINE 3+ (NEGATIVE); NITRITE, URINE POSITIVE (NEGATIVE); PH,URINE >=9.0 (5.0-8.0); UGLUCOSE NEGATIVE (NEGATIVE)
[2020-06-12 18:34] LABS: BACTERIA,URINE MODERATE /HPF (NONE SEEN); RBC,URINE 50-80 /HPF (0-3); SQUAMOUS EPITHELIAL CELL,UR FEW /HPF (NONE SEEN); TRIPLE PHOSPHATE CRYSTAL,UR MODERATE /HPF (NONE SEEN); WBC,URINE 80-100 /HPF (0-3)
[2020-06-12] MEDS: ENOXAPARIN SODIUM 40 MG/0.4 ML DISP.SYRIN SQ SCH (21:00)
[2020-06-12] MEDS: CHOLECALCIFEROL 1,000 UNIT TABLET GT SCH (21:00)
[2020-06-12] MEDS: DOCUSATE SODIUM 100 MG/10 ML LIQUID UDC GT SCH (21:00)
[2020-06-12] MEDS: CYANOCOBALAMIN 1,000 MCG TABLET GT SCH (21:00)
[2020-06-12] MEDS: buPROPion 100 MG TABLET GT SCH (21:00)
[2020-06-12] MEDS: MIRALAX 17 GM POWD.PACK GT SCH (21:00)
[2020-06-12 23:37] VITALS: BP 113/73
[2020-06-13] MEDS: ALBUTEROL SULFATE 2.5 MG/3 ML NEBU NEB SCH ×6 (03:07→23:30)
[2020-06-13] MEDS: IPRATROPIUM BROMIDE 0.5 MG/2.5 ML NEBU NEB SCH ×6 (03:07→23:30)
--- NOTE | 2020-06-13 04:30 | NUR ---
PT IN BED CALLED LIGHT FOR DIAPER CHANGE. NO COMPLAIN OF BURN OR PAIN NO HEMATURIA NOTED.CONTINUE MONITOR FOR HEMATURIA KEEP CLEAN AND DRY NEMESIO AREA.
--- NOTE | 2020-06-13 06:00 | NUR ---
PT IN BED AWAKE AND STARTED YELLING SCREAMING TO SUPERINTENDENT GAS DISTRIBUTION WHEN SUPERINTENDENT GAS DISTRIBUTION TURN THE LIGHT ON.PT REFUSED AM CARE AND VERY UPSET CLOSE HER FACE KEEP YELLING " FUCK YOU FUCK YOU" PT HAS EPISODES OF AGGRESSIVE BEHAVIOR CONTINUE MONITOR BEHAVIOR PROBLEM.
--- NOTE | 2020-06-13 06:31 | NUR ---
PT IN BED ON ROOM AIR NO SOB DISTRESS AT 06.00 MATHS TUTOR WHEN TO PT"S ROOM FOR DO BLOOD DRAW ORDER AND TURN THE LIGHT ON. PT VERY UPSET STARTED YELLING SCREAMING TO MATHS TUTOR AND REFUSED BLOOD DRAW IN AM THEN. WANT TO TURN OFF THE LIGHT CONTINUE MONITOR FOR BEHAVIOR PROBLEM.
[2020-06-13] MEDS: OSMOLITE 1.2 CAL 1,000 ML LIQUID GT PRN ×2 (07:17→21:44)
[2020-06-13] MEDS: BUDESONIDE 0.5 MG/2 ML NEBU NEB SCH ×2 (07:30→19:16)
[2020-06-13 07:40] VITALS: BP 114/78
[2020-06-13 08:07] LABS: BASOPHILS % (AUTO) 0.4 % (0.0-2.0); EOSINOPHILS # (AUTO) 0.2 K/uL (0.0-0.7); EOSINOPHILS % (AUTO) 3.7 % (0.0-7.0); HEMATOCRIT 32.2 % (31.2-41.9); HEMOGLOBIN 10.6 g/dL (10.9-14.3); LYMPHOCYTES # (AUTO) 1.9 K/uL (20.0-40.0); LYMPHOCYTES % (AUTO) 30.8 % (20.5-51.5); MEAN CORPUSCULAR HGB CONC 33 g/dL (32.3-35.6); MEAN CORPUSCULAR VOLUME 90.8 fL (75.5-95.3); MONOCYTES # (AUTO) 0.7 K/uL (2.0-10.0); MONOCYTES % (AUTO) 10.5 % (0.0-11.0); NEUTROPHILS # (AUTO) 3.4 K/uL (1.8-8.9); NEUTROPHILS % (AUTO) 54.6 % (38.5-71.5); PLATELET COUNT (AUTO) 380 K/uL (179-408); RED BLOOD CELL COUNT(AUTO) 3.55 MIL/uL (3.63-4.92); WHITE BLOOD COUNT (AUTO) 6.2 K/uL (3.8-11.8)
[2020-06-13 08:13] LABS: BILIRUBIN,TOTAL 0.2 mg/dL (0.2-1.0); CREATININE 0.6 mg/dL (0.6-1.3); POTASSIUM 3.9 mmol/L (3.5-5.1); TOTAL PROTEIN, SERUM 7.8 g/dL (6.4-8.2)
[2020-06-13] MEDS: AMLODIPINE 5 MG TABLET PO SCH (09:00)
[2020-06-13] MEDS: levETIRAcetam 500 MG/5 ML LIQUID UDC GT SCH ×2 (09:46→21:45)
[2020-06-13] MEDS: ASPIRIN 81 MG TAB.CHEW GT SCH (09:46)
[2020-06-13] MEDS: COD LIVER OIL/ZINC OXIDE OINT 113 GM TUBE TP SCH ×2 (09:47→21:52)
[2020-06-13] MEDS: QUETIAPINE FUMARATE 25 MG TABLET GT SCH ×3 (09:47→21:46)
[2020-06-13] MEDS: HYDROGEN PEROXIDE 3% 118 ML BOTTLE TP SCH ×2 (09:48→21:00)
--- NOTE | 2020-06-13 11:32 | NUR ---
PT. WAS SEEN AND EXAMINED BY DR. EDOUARD Hoover AND WITH NEW ORDER CARRIED OUT.
--- NOTE | 2020-06-13 11:35 | NUR ---
ALLISON CASTELLANOS N.P.WAS CALLED AND MESSAGE LEFT RE:CONSULTATION TO FREDDIE. HYPERGRANULATION TISSUE ON GT SITE.
--- NOTE | 2020-06-13 14:20 | NUR ---
ALLISON CASTELLANOS N.P.(SX0 CAME AND CHECK PT'S GT SITE AND AWARE THAT BLEEDS A LITTLE BIT ON AND OF FROM HYPERGRANULATION TISSUE AND BUT PT. REFUSED ANY LOCAL TX TO IT.
--- NOTE | 2020-06-13 16:31 | NUR ---
INTERDISCIPLINARY PLAN OF CARE CONFERENCE was held today. Patient's participated in the meeting today by speaker phone. Dr. Ramirez and the Interdisciplinary Team reviewed the current plan of care in detail. RN reported on patient's medical condition, findings of most recent labs, and stated that urine culture was still pending. See RN IDT conference notes. Patient continues to received physical therapy services. No major changes in medical condition were reported by nursing or by the other disciplines. See all other disciplines IDT notes and physician's progress notes for additional details.
[2020-06-13 20:00] VITALS: BP 123/88
[2020-06-13] MEDS: DOCUSATE SODIUM 100 MG/10 ML LIQUID UDC GT SCH (21:45)
[2020-06-13] MEDS: MIRALAX 17 GM POWD.PACK GT SCH (21:46)
[2020-06-13] MEDS: CYANOCOBALAMIN 1,000 MCG TABLET GT SCH (21:48)
[2020-06-13] MEDS: CHOLECALCIFEROL 1,000 UNIT TABLET GT SCH (21:49)
[2020-06-13] MEDS: buPROPion 100 MG TABLET GT SCH (21:50)
[2020-06-13] MEDS: ENOXAPARIN SODIUM 40 MG/0.4 ML DISP.SYRIN SQ SCH (21:52)
--- NOTE | 2020-06-13 22:00 | NUR ---
anabella sharif ordered cefepime 1 gm iv q 8hrs uti, heplock@ right forearm, started cefepime, no adverse reaction noted.
[2020-06-13] MEDS: CEFEPIME HCL 1 G in IV DEXTROSE 5% 50 ML IV SCH (23:00)
[2020-06-14] MEDS: IPRATROPIUM BROMIDE 0.5 MG/2.5 ML NEBU NEB SCH ×6 (03:08→22:54)
[2020-06-14] MEDS: ALBUTEROL SULFATE 2.5 MG/3 ML NEBU NEB SCH ×6 (03:08→22:54)
[2020-06-14] MEDS: CEFEPIME HCL 1 G in IV DEXTROSE 5% 50 ML IV SCH ×3 (06:02→22:00)
[2020-06-14] MEDS: BUDESONIDE 0.5 MG/2 ML NEBU NEB SCH ×2 (07:10→19:30)
[2020-06-14 07:37] VITALS: BP 119/59
[2020-06-14] MEDS: QUETIAPINE FUMARATE 25 MG TABLET GT SCH ×3 (08:31→21:24)
[2020-06-14] MEDS: ASPIRIN 81 MG TAB.CHEW GT SCH (08:31)
[2020-06-14] MEDS: levETIRAcetam 500 MG/5 ML LIQUID UDC GT SCH ×2 (08:31→21:23)
[2020-06-14] MEDS: AMLODIPINE 5 MG TABLET PO SCH (08:41)
[2020-06-14] MEDS: COD LIVER OIL/ZINC OXIDE OINT 113 GM TUBE TP SCH ×2 (08:41→21:26)
[2020-06-14] MEDS: HYDROGEN PEROXIDE 3% 118 ML BOTTLE TP SCH ×2 (09:15→21:45)
--- NOTE | 2020-06-14 15:58 | NUR ---
on Ivatb cefepine 1 gm for uti,no adverse reaction noted,Hl intact.No s/s of infiltration noted.
--- NOTE | 2020-06-14 19:00 | NUR ---
Covid test done today,family request to call then only for results.
[2020-06-14 20:00] VITALS: BP 116/62
[2020-06-14] MEDS: MIRALAX 17 GM POWD.PACK GT SCH (21:23)
[2020-06-14] MEDS: DOCUSATE SODIUM 100 MG/10 ML LIQUID UDC GT SCH (21:23)
[2020-06-14] MEDS: CYANOCOBALAMIN 1,000 MCG TABLET GT SCH (21:24)
[2020-06-14] MEDS: CHOLECALCIFEROL 1,000 UNIT TABLET GT SCH (21:25)
[2020-06-14] MEDS: buPROPion 100 MG TABLET GT SCH (21:26)
[2020-06-14] MEDS: ENOXAPARIN SODIUM 40 MG/0.4 ML DISP.SYRIN SQ SCH (21:27)
--- NOTE | 2020-06-15 01:28 | NUR ---
Afebrile, on Cefepime IV for UTI, no adverse reactions noted. Fluids given as ordered, voiding freely with yellow urine, no hematuria noted, good anju care rendered, kept patient clean and comfortable.
[2020-06-15] MEDS: ALBUTEROL SULFATE 2.5 MG/3 ML NEBU NEB SCH ×6 (02:57→23:00)
[2020-06-15] MEDS: IPRATROPIUM BROMIDE 0.5 MG/2.5 ML NEBU NEB SCH ×6 (02:57→23:00)
[2020-06-15] MEDS: CEFEPIME HCL 1 G in IV DEXTROSE 5% 50 ML IV SCH ×3 (06:21→22:30)
--- NOTE | 2020-06-15 06:47 | NUR ---
Patient on room air, no respiratory distress noted, 02 sat is 99%, patient refused to be change at his time, offered X 3 but still refused.
[2020-06-15] MEDS: BUDESONIDE 0.5 MG/2 ML NEBU NEB SCH ×2 (07:30→19:30)
[2020-06-15 07:35] VITALS: BP 120/77
[2020-06-15] MEDS: SCOPOLAMINE PATCH 1 MG/72 HRS PATCH TD SCH (09:00)
[2020-06-15] MEDS: HYDROGEN PEROXIDE 3% 118 ML BOTTLE TP SCH ×2 (09:00→21:40)
[2020-06-15] MEDS: ASPIRIN 81 MG TAB.CHEW GT SCH (09:05)
[2020-06-15] MEDS: levETIRAcetam 500 MG/5 ML LIQUID UDC GT SCH ×2 (09:05→20:57)
[2020-06-15] MEDS: AMLODIPINE 5 MG TABLET PO SCH (09:06)
[2020-06-15] MEDS: QUETIAPINE FUMARATE 25 MG TABLET GT SCH ×3 (09:06→20:58)
[2020-06-15] MEDS: COD LIVER OIL/ZINC OXIDE OINT 113 GM TUBE TP SCH ×2 (09:08→21:05)
[2020-06-15 20:00] VITALS: BP 123/69
[2020-06-15] MEDS: DOCUSATE SODIUM 100 MG/10 ML LIQUID UDC GT SCH (20:57)
[2020-06-15] MEDS: MIRALAX 17 GM POWD.PACK GT SCH (20:58)
[2020-06-15] MEDS: CYANOCOBALAMIN 1,000 MCG TABLET GT SCH (20:58)
[2020-06-15] MEDS: CHOLECALCIFEROL 1,000 UNIT TABLET GT SCH (21:01)
[2020-06-15] MEDS: buPROPion 100 MG TABLET GT SCH (21:02)
[2020-06-15] MEDS: ENOXAPARIN SODIUM 40 MG/0.4 ML DISP.SYRIN SQ SCH (21:05)
--- NOTE | 2020-06-15 21:40 | NUR ---
Alert with episodes of forgetfulness, on Cefepime IV for UTI, no adverse reactions noted. Fluids given as ordered, voiding freely with yellow urine, no hematuria noted, good anju care rendered, kept patient clean and comfortable.
--- NOTE | 2020-06-15 22:36 | NUR ---
Patient refused to be changed and repositioned, offered X 3 and still refused, will continue offering.
[2020-06-16] MEDS: OSMOLITE 1.2 CAL 1,000 ML LIQUID GT PRN ×2 (02:20→23:05)
--- NOTE | 2020-06-16 02:38 | NUR ---
Patient got upset when the staff asked her to be changed and repositioned, she refused to be change at this time. Addendum: 06/16/20 at 0242 by JATIN NI RN Patient get irritated with any sound.
[2020-06-16] MEDS: IPRATROPIUM BROMIDE 0.5 MG/2.5 ML NEBU NEB SCH ×6 (02:42→23:30)
[2020-06-16] MEDS: ALBUTEROL SULFATE 2.5 MG/3 ML NEBU NEB SCH ×6 (02:42→23:30)
[2020-06-16] MEDS: CEFEPIME HCL 1 G in IV DEXTROSE 5% 50 ML IV SCH ×3 (05:39→21:15)
[2020-06-16] MEDS: BUDESONIDE 0.5 MG/2 ML NEBU NEB SCH ×2 (07:25→19:07)
[2020-06-16 07:36] VITALS: BP 112/63
[2020-06-16] MEDS: levETIRAcetam 500 MG/5 ML LIQUID UDC GT SCH ×2 (08:50→20:49)
[2020-06-16] MEDS: ASPIRIN 81 MG TAB.CHEW GT SCH (08:50)
[2020-06-16] MEDS: QUETIAPINE FUMARATE 25 MG TABLET GT SCH ×3 (08:51→20:49)
[2020-06-16] MEDS: AMLODIPINE 5 MG TABLET PO SCH (08:52)
[2020-06-16] MEDS: COD LIVER OIL/ZINC OXIDE OINT 113 GM TUBE TP SCH ×2 (08:52→20:49)
[2020-06-16] MEDS: HYDROGEN PEROXIDE 3% 118 ML BOTTLE TP SCH ×2 (08:57→21:00)
[2020-06-16 20:25] VITALS: BP 115/64
[2020-06-16] MEDS: buPROPion 100 MG TABLET GT SCH (20:49)
[2020-06-16] MEDS: MIRALAX 17 GM POWD.PACK GT SCH (20:49)
[2020-06-16] MEDS: DOCUSATE SODIUM 100 MG/10 ML LIQUID UDC GT SCH (20:49)
[2020-06-16] MEDS: CHOLECALCIFEROL 1,000 UNIT TABLET GT SCH (20:49)
[2020-06-16] MEDS: CYANOCOBALAMIN 1,000 MCG TABLET GT SCH (20:49)
[2020-06-16] MEDS: ENOXAPARIN SODIUM 40 MG/0.4 ML DISP.SYRIN SQ SCH (21:09)
[2020-06-17] MEDS: IPRATROPIUM BROMIDE 0.5 MG/2.5 ML NEBU NEB SCH ×6 (03:12→23:30)
[2020-06-17] MEDS: ALBUTEROL SULFATE 2.5 MG/3 ML NEBU NEB SCH ×6 (03:12→23:30)
[2020-06-17] MEDS: CEFEPIME HCL 1 G in IV DEXTROSE 5% 50 ML IV SCH ×3 (05:13→21:15)
[2020-06-17] MEDS: BUDESONIDE 0.5 MG/2 ML NEBU NEB SCH ×2 (07:30→18:15)
[2020-06-17 07:57] VITALS: BP 120/60
[2020-06-17] MEDS: HYDROGEN PEROXIDE 3% 118 ML BOTTLE TP SCH ×2 (09:00→21:00)
[2020-06-17] MEDS: ASPIRIN 81 MG TAB.CHEW GT SCH (09:23)
[2020-06-17] MEDS: levETIRAcetam 500 MG/5 ML LIQUID UDC GT SCH ×2 (09:24→21:11)
[2020-06-17] MEDS: AMLODIPINE 5 MG TABLET PO SCH (09:26)
[2020-06-17] MEDS: COD LIVER OIL/ZINC OXIDE OINT 113 GM TUBE TP SCH ×2 (09:26→21:14)
[2020-06-17] MEDS: QUETIAPINE FUMARATE 25 MG TABLET GT SCH ×3 (09:26→21:12)
--- NOTE | 2020-06-17 09:30 | NUR ---
Pt refusing to use O2 connected to mask. ON room air, no distress 02 sat 98%. Frequent room visits done call-light with in reach.
--- NOTE | 2020-06-17 11:00 | NUR ---
Video chat done with pt's .
[2020-06-17] MEDS: OSMOLITE 1.2 CAL 1,000 ML LIQUID GT PRN (16:48)
--- NOTE | 2020-06-17 17:20 | NUR ---
Continue on ivatb,Cefepine for uti,no adverse reaction noted,Hl on the L wrist intact,no redness or s/s of infection noted.
[2020-06-17 20:21] VITALS: BP 118/63
[2020-06-17] MEDS: DOCUSATE SODIUM 100 MG/10 ML LIQUID UDC GT SCH (21:11)
[2020-06-17] MEDS: MIRALAX 17 GM POWD.PACK GT SCH (21:12)
[2020-06-17] MEDS: CYANOCOBALAMIN 1,000 MCG TABLET GT SCH (21:13)
[2020-06-17] MEDS: buPROPion 100 MG TABLET GT SCH (21:13)
[2020-06-17] MEDS: CHOLECALCIFEROL 1,000 UNIT TABLET GT SCH (21:13)
[2020-06-17] MEDS: ENOXAPARIN SODIUM 40 MG/0.4 ML DISP.SYRIN SQ SCH (21:37)
[2020-06-18] MEDS: IPRATROPIUM BROMIDE 0.5 MG/2.5 ML NEBU NEB SCH ×7 (03:30→23:00)
[2020-06-18] MEDS: ALBUTEROL SULFATE 2.5 MG/3 ML NEBU NEB SCH ×7 (03:30→23:00)
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
[2020-06-18] MEDS: CEFEPIME HCL 1 G in IV DEXTROSE 5% 50 ML IV SCH ×3 (05:45→21:21)
[2020-06-18] MEDS: BUDESONIDE 0.5 MG/2 ML NEBU NEB SCH ×2 (07:30→19:30)
[2020-06-18 07:45] VITALS: BP 108/55
[2020-06-18] MEDS: ASPIRIN 81 MG TAB.CHEW GT SCH (08:56)
[2020-06-18] MEDS: levETIRAcetam 500 MG/5 ML LIQUID UDC GT SCH ×2 (08:56→20:43)
[2020-06-18] MEDS: QUETIAPINE FUMARATE 25 MG TABLET GT SCH ×3 (08:58→20:44)
[2020-06-18] MEDS: AMLODIPINE 5 MG TABLET PO SCH (08:58)
[2020-06-18] MEDS: COD LIVER OIL/ZINC OXIDE OINT 113 GM TUBE TP SCH ×2 (09:05→20:44)
[2020-06-18] MEDS: SCOPOLAMINE PATCH 1 MG/72 HRS PATCH TD SCH (09:05)
[2020-06-18] MEDS: HYDROGEN PEROXIDE 3% 118 ML BOTTLE TP SCH ×2 (09:33→21:36)
[2020-06-18] MEDS: OSMOLITE 1.2 CAL 1,000 ML LIQUID GT PRN (13:03)
--- NOTE | 2020-06-18 19:06 | NUR ---
0 Addendum: 06/18/20 at 1929 by SELENA JENNINGS RN Covid results negative ,pt and Pt has been notified
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
[2020-06-18 20:09] VITALS: BP 126/72
[2020-06-18] MEDS: DOCUSATE SODIUM 100 MG/10 ML LIQUID UDC GT SCH (20:43)
[2020-06-18] MEDS: CHOLECALCIFEROL 1,000 UNIT TABLET GT SCH (20:44)
[2020-06-18] MEDS: buPROPion 100 MG TABLET GT SCH (20:44)
[2020-06-18] MEDS: MIRALAX 17 GM POWD.PACK GT SCH (20:44)
[2020-06-18] MEDS: CYANOCOBALAMIN 1,000 MCG TABLET GT SCH (20:44)
[2020-06-18] MEDS: ENOXAPARIN SODIUM 40 MG/0.4 ML DISP.SYRIN SQ SCH (21:25)
[2020-06-19] MEDS: ALBUTEROL SULFATE 2.5 MG/3 ML NEBU NEB SCH ×6 (02:43→22:42)
[2020-06-19] MEDS: IPRATROPIUM BROMIDE 0.5 MG/2.5 ML NEBU NEB SCH ×6 (02:43→22:42)
[2020-06-19] MEDS: OSMOLITE 1.2 CAL 1,000 ML LIQUID GT PRN ×2 (06:00→23:00)
[2020-06-19] MEDS: CEFEPIME HCL 1 G in IV DEXTROSE 5% 50 ML IV SCH ×3 (06:20→21:27)
[2020-06-19 07:29] VITALS: BP 118/60
[2020-06-19] MEDS: BUDESONIDE 0.5 MG/2 ML NEBU NEB SCH ×2 (07:29→19:02)
[2020-06-19] MEDS: QUETIAPINE FUMARATE 25 MG TABLET GT SCH ×3 (08:44→21:30)
[2020-06-19] MEDS: ASPIRIN 81 MG TAB.CHEW GT SCH (08:44)
[2020-06-19] MEDS: levETIRAcetam 500 MG/5 ML LIQUID UDC GT SCH ×2 (08:44→21:30)
[2020-06-19] MEDS: AMLODIPINE 5 MG TABLET PO SCH (08:44)
[2020-06-19] MEDS: COD LIVER OIL/ZINC OXIDE OINT 113 GM TUBE TP SCH ×2 (08:45→21:31)
--- NOTE | 2020-06-19 08:45 | NUR ---
RECEIVED ALERT,AND GREETING AT THIS TIME WITH A FRIENDLY MOOD WATCHING TV.,CALL LIGHT ON REACH AND ENCOURAGED TO USE IT.DOOR OPEN BUT CURTAIN CLOSED SHE REQUEST FOR PRIVACY.FREQUENT VISUAL CHECKS DONE FOR SAFETY AND ALL NEEDS ATTENDED IN ADVANCE.
[2020-06-19] MEDS: HYDROGEN PEROXIDE 3% 118 ML BOTTLE TP SCH ×2 (08:59→20:43)
--- NOTE | 2020-06-19 12:00 | NUR ---
SEEN BY NARENDRA Mtz AND WITH NNO.
--- NOTE | 2020-06-19 16:46 | NUR ---
FREQUENT VISUAL CHECKS ,NO AGGRESSIVE EPISODES NOTED ,ABLE TO USE CALL LIGHT.
[2020-06-19 20:13] VITALS: BP 114/71
[2020-06-19] MEDS: CYANOCOBALAMIN 1,000 MCG TABLET GT SCH (21:30)
[2020-06-19] MEDS: DOCUSATE SODIUM 100 MG/10 ML LIQUID UDC GT SCH (21:30)
[2020-06-19] MEDS: MIRALAX 17 GM POWD.PACK GT SCH (21:30)
[2020-06-19] MEDS: CHOLECALCIFEROL 1,000 UNIT TABLET GT SCH (21:30)
[2020-06-19] MEDS: ENOXAPARIN SODIUM 40 MG/0.4 ML DISP.SYRIN SQ SCH (21:31)
[2020-06-19] MEDS: buPROPion 100 MG TABLET GT SCH (21:31)
[2020-06-20] MEDS: ALBUTEROL SULFATE 2.5 MG/3 ML NEBU NEB SCH ×6 (02:46→22:42)
[2020-06-20] MEDS: IPRATROPIUM BROMIDE 0.5 MG/2.5 ML NEBU NEB SCH ×6 (02:46→22:42)
[2020-06-20] MEDS: BUDESONIDE 0.5 MG/2 ML NEBU NEB SCH ×2 (07:16→19:25)
[2020-06-20 07:57] VITALS: BP 108/69
[2020-06-20] MEDS: HYDROGEN PEROXIDE 3% 118 ML BOTTLE TP SCH ×2 (08:58→21:23)
[2020-06-20] MEDS: ASPIRIN 81 MG TAB.CHEW GT SCH (09:08)
[2020-06-20] MEDS: levETIRAcetam 500 MG/5 ML LIQUID UDC GT SCH ×2 (09:08→21:14)
[2020-06-20] MEDS: QUETIAPINE FUMARATE 25 MG TABLET GT SCH ×3 (09:09→21:15)
[2020-06-20] MEDS: COD LIVER OIL/ZINC OXIDE OINT 113 GM TUBE TP SCH ×2 (09:10→21:17)
[2020-06-20] MEDS: AMLODIPINE 5 MG TABLET PO SCH (09:10)
--- NOTE | 2020-06-20 10:53 | NUR ---
Seen and examined by Dr Masters ,no new orders.
[2020-06-20] MEDS: CEFEPIME HCL 1 G in IV DEXTROSE 5% 50 ML IV SCH ×2 (15:26→22:38)
--- NOTE | 2020-06-20 18:01 | NUR ---
Continue on Ivatb for uti,no adverse reaction noted.HL on the L forearm intact,no complaints of pain ,no discomfort noted,Pt continue refusing O2 and breathing tx,and continu requesting the leave the R lower siderail down.
[2020-06-20 20:10] VITALS: BP 125/75
[2020-06-20] MEDS: DOCUSATE SODIUM 100 MG/10 ML LIQUID UDC GT SCH (21:14)
[2020-06-20] MEDS: CHOLECALCIFEROL 1,000 UNIT TABLET GT SCH (21:15)
[2020-06-20] MEDS: CYANOCOBALAMIN 1,000 MCG TABLET GT SCH (21:15)
[2020-06-20] MEDS: MIRALAX 17 GM POWD.PACK GT SCH (21:15)
[2020-06-20] MEDS: buPROPion 100 MG TABLET GT SCH (21:21)
[2020-06-20] MEDS: ENOXAPARIN SODIUM 40 MG/0.4 ML DISP.SYRIN SQ SCH (21:32)
[2020-06-21] MEDS: IPRATROPIUM BROMIDE 0.5 MG/2.5 ML NEBU NEB SCH ×6 (02:42→23:07)
[2020-06-21] MEDS: ALBUTEROL SULFATE 2.5 MG/3 ML NEBU NEB SCH ×6 (02:42→23:07)
--- NOTE | 2020-06-21 03:01 | NUR ---
last dose of cefepime for uti given, no adverse reaction noted.
[2020-06-21] MEDS: BUDESONIDE 0.5 MG/2 ML NEBU NEB SCH ×2 (07:30→19:30)
[2020-06-21 07:33] VITALS: BP 110/71
[2020-06-21] MEDS: levETIRAcetam 500 MG/5 ML LIQUID UDC GT SCH ×2 (08:06→21:38)
[2020-06-21] MEDS: ASPIRIN 81 MG TAB.CHEW GT SCH (08:06)
[2020-06-21] MEDS: QUETIAPINE FUMARATE 25 MG TABLET GT SCH ×3 (08:07→21:40)
[2020-06-21] MEDS: AMLODIPINE 5 MG TABLET PO SCH (08:08)
[2020-06-21] MEDS: COD LIVER OIL/ZINC OXIDE OINT 113 GM TUBE TP SCH ×2 (08:16→21:41)
[2020-06-21] MEDS: HYDROGEN PEROXIDE 3% 118 ML BOTTLE TP SCH ×2 (09:00→21:42)
[2020-06-21] MEDS: SCOPOLAMINE PATCH 1 MG/72 HRS PATCH TD SCH (10:30)
[2020-06-21] MEDS: OSMOLITE 1.2 CAL 1,000 ML LIQUID GT PRN (10:35)
[2020-06-21 20:04] VITALS: BP 128/76
[2020-06-21] MEDS: DOCUSATE SODIUM 100 MG/10 ML LIQUID UDC GT SCH (21:37)
[2020-06-21] MEDS: MIRALAX 17 GM POWD.PACK GT SCH (21:38)
[2020-06-21] MEDS: CHOLECALCIFEROL 1,000 UNIT TABLET GT SCH (21:40)
[2020-06-21] MEDS: CYANOCOBALAMIN 1,000 MCG TABLET GT SCH (21:40)
[2020-06-21] MEDS: buPROPion 100 MG TABLET GT SCH (21:41)
[2020-06-21] MEDS: ENOXAPARIN SODIUM 40 MG/0.4 ML DISP.SYRIN SQ SCH (21:57)
[2020-06-22] MEDS: IPRATROPIUM BROMIDE 0.5 MG/2.5 ML NEBU NEB SCH ×6 (02:48→23:00)
[2020-06-22] MEDS: ALBUTEROL SULFATE 2.5 MG/3 ML NEBU NEB SCH ×6 (02:48→23:00)
[2020-06-22] MEDS: OSMOLITE 1.2 CAL 1,000 ML LIQUID GT PRN (05:00)
[2020-06-22] MEDS: BUDESONIDE 0.5 MG/2 ML NEBU NEB SCH ×2 (07:30→19:30)
[2020-06-22 07:51] VITALS: BP 113/76
[2020-06-22] MEDS: QUETIAPINE FUMARATE 25 MG TABLET GT SCH ×3 (08:12→21:35)
[2020-06-22] MEDS: levETIRAcetam 500 MG/5 ML LIQUID UDC GT SCH ×2 (08:12→21:35)
[2020-06-22] MEDS: ASPIRIN 81 MG TAB.CHEW GT SCH (08:12)
[2020-06-22] MEDS: AMLODIPINE 5 MG TABLET PO SCH (08:13)
[2020-06-22] MEDS: COD LIVER OIL/ZINC OXIDE OINT 113 GM TUBE TP SCH ×2 (08:14→21:37)
[2020-06-22] MEDS: HYDROGEN PEROXIDE 3% 118 ML BOTTLE TP SCH ×2 (09:59→21:37)
--- NOTE | 2020-06-22 17:29 | NUR ---
PT. WAS SEEN BY NARENDRA Mtz AND WITH NNO. PT'S AWARE AND IN AGREEMENT FOR COVID 19 TEST TO DAY AND ORDER CARRIED OUT.
[2020-06-22 20:27] VITALS: BP 124/72
[2020-06-22] MEDS: ENOXAPARIN SODIUM 40 MG/0.4 ML DISP.SYRIN SQ SCH (21:00)
[2020-06-22] MEDS: DOCUSATE SODIUM 100 MG/10 ML LIQUID UDC GT SCH (21:34)
[2020-06-22] MEDS: MIRALAX 17 GM POWD.PACK GT SCH (21:35)
[2020-06-22] MEDS: CYANOCOBALAMIN 1,000 MCG TABLET GT SCH (21:35)
[2020-06-22] MEDS: buPROPion 100 MG TABLET GT SCH (21:36)
[2020-06-22] MEDS: CHOLECALCIFEROL 1,000 UNIT TABLET GT SCH (21:36)
[2020-06-23] MEDS: ALBUTEROL SULFATE 2.5 MG/3 ML NEBU NEB SCH ×6 (03:00→23:18)
[2020-06-23] MEDS: IPRATROPIUM BROMIDE 0.5 MG/2.5 ML NEBU NEB SCH ×6 (03:00→23:18)
[2020-06-23] MEDS: HYDROGEN PEROXIDE 3% 118 ML BOTTLE TP SCH ×2 (07:27→21:00)
[2020-06-23] MEDS: BUDESONIDE 0.5 MG/2 ML NEBU NEB SCH ×2 (07:27→19:30)
[2020-06-23 07:35] VITALS: BP 112/66
[2020-06-23] MEDS: QUETIAPINE FUMARATE 25 MG TABLET GT SCH ×3 (08:53→21:39)
[2020-06-23] MEDS: ASPIRIN 81 MG TAB.CHEW GT SCH (08:53)
[2020-06-23] MEDS: levETIRAcetam 500 MG/5 ML LIQUID UDC GT SCH ×2 (08:53→21:38)
[2020-06-23] MEDS: AMLODIPINE 5 MG TABLET PO SCH (08:54)
[2020-06-23] MEDS: COD LIVER OIL/ZINC OXIDE OINT 113 GM TUBE TP SCH ×2 (08:55→21:39)
[2020-06-23] MEDS: OSMOLITE 1.2 CAL 1,000 ML LIQUID GT PRN (14:01)
[2020-06-23 14:55] LABS: BASOPHILS % (AUTO) 0.6 % (0.0-2.0); EOSINOPHILS # (AUTO) 0.2 K/uL (0.0-0.7); EOSINOPHILS % (AUTO) 3.7 % (0.0-7.0); HEMATOCRIT 33.2 % (31.2-41.9); HEMOGLOBIN 10.9 g/dL (10.9-14.3); IRON, SERUM 43 ug/dL (50-175); LYMPHOCYTES # (AUTO) 1.9 K/uL (20.0-40.0); LYMPHOCYTES % (AUTO) 32.2 % (20.5-51.5); MEAN CORPUSCULAR HEMOGLOBIN 29.6 uug (24.7-32.8); MEAN CORPUSCULAR HGB CONC 33 g/dL (32.3-35.6); MEAN CORPUSCULAR VOLUME 90.2 fL (75.5-95.3); MONOCYTES # (AUTO) 0.8 K/uL (2.0-10.0); MONOCYTES % (AUTO) 13.3 % (0.0-11.0); NEUTROPHILS # (AUTO) 2.9 K/uL (1.8-8.9); NEUTROPHILS % (AUTO) 50.2 % (38.5-71.5); PLATELET COUNT (AUTO) 290 K/uL (179-408); RED BLOOD CELL COUNT(AUTO) 3.68 MIL/uL (3.63-4.92); WHITE BLOOD COUNT (AUTO) 5.8 K/uL (3.8-11.8)
[2020-06-23 15:23] LABS: FERRITIN 12 ng/mL (8-252)
--- NOTE | 2020-06-23 16:45 | NUR ---
NEW ORDER CARRIED OUT FROM DR. EDOUARD Hoover RECOMENDED BY DESKTOP PUBLISHING SPECIALIST AND PT'S AWARE AND IN AGREEMENT AND ALSO PT. AWARE AND IN AGREEMENT.
[2020-06-23] MEDS: ENOXAPARIN SODIUM 40 MG/0.4 ML DISP.SYRIN SQ SCH (21:00)
[2020-06-23] MEDS: DOCUSATE SODIUM 100 MG/10 ML LIQUID UDC GT SCH (21:38)
[2020-06-23] MEDS: MIRALAX 17 GM POWD.PACK GT SCH (21:38)
[2020-06-23] MEDS: CYANOCOBALAMIN 1,000 MCG TABLET GT SCH (21:39)
[2020-06-23] MEDS: buPROPion 100 MG TABLET GT SCH (21:39)
[2020-06-23] MEDS: CHOLECALCIFEROL 1,000 UNIT TABLET GT SCH (21:39)
[2020-06-23 22:09] VITALS: BP 109/71
[2020-06-24] MEDS: IPRATROPIUM BROMIDE 0.5 MG/2.5 ML NEBU NEB SCH ×6 (03:30→23:10)
[2020-06-24] MEDS: ALBUTEROL SULFATE 2.5 MG/3 ML NEBU NEB SCH ×6 (03:30→23:10)
[2020-06-24] MEDS: BUDESONIDE 0.5 MG/2 ML NEBU NEB SCH ×2 (07:30→19:30)
[2020-06-24] MEDS: ASPIRIN 81 MG TAB.CHEW GT SCH (08:19)
[2020-06-24] MEDS: levETIRAcetam 500 MG/5 ML LIQUID UDC GT SCH ×2 (08:19→21:00)
[2020-06-24] MEDS: QUETIAPINE FUMARATE 25 MG TABLET GT SCH ×3 (08:20→21:00)
[2020-06-24] MEDS: AMLODIPINE 5 MG TABLET PO SCH (08:21)
[2020-06-24] MEDS: SCOPOLAMINE PATCH 1 MG/72 HRS PATCH TD SCH (08:21)
[2020-06-24] MEDS: COD LIVER OIL/ZINC OXIDE OINT 113 GM TUBE TP SCH ×2 (08:21→21:00)
[2020-06-24] MEDS: HYDROGEN PEROXIDE 3% 118 ML BOTTLE TP SCH ×2 (09:00→21:00)
--- NOTE | 2020-06-24 10:44 | NUR ---
PT'S MAIRA WAS AWARE THAT PT. WAS NEGATIVE FOR COVID 19 TEST FROM 06/22/20.
[2020-06-24 12:12] VITALS: BP 112/67
[2020-06-24] MEDS: CHOLECALCIFEROL 1,000 UNIT TABLET GT SCH (21:00)
[2020-06-24] MEDS: DOCUSATE SODIUM 100 MG/10 ML LIQUID UDC GT SCH (21:00)
[2020-06-24] MEDS: buPROPion 100 MG TABLET GT SCH (21:00)
[2020-06-24] MEDS: CYANOCOBALAMIN 1,000 MCG TABLET GT SCH (21:00)
[2020-06-24] MEDS: ENOXAPARIN SODIUM 40 MG/0.4 ML DISP.SYRIN SQ SCH (21:00)
[2020-06-24] MEDS: MIRALAX 17 GM POWD.PACK GT SCH (21:00)
[2020-06-24 22:14] VITALS: BP 118/78
[2020-06-25] MEDS: ALBUTEROL SULFATE 2.5 MG/3 ML NEBU NEB SCH ×6 (03:05→23:15)
[2020-06-25] MEDS: IPRATROPIUM BROMIDE 0.5 MG/2.5 ML NEBU NEB SCH ×6 (03:05→23:15)
[2020-06-25] MEDS: OSMOLITE 1.2 CAL 1,000 ML LIQUID GT PRN (06:30)
[2020-06-25] MEDS: BUDESONIDE 0.5 MG/2 ML NEBU NEB SCH ×2 (07:26→19:30)
[2020-06-25 07:46] VITALS: BP 106/66
[2020-06-25] MEDS: levETIRAcetam 500 MG/5 ML LIQUID UDC GT SCH ×2 (08:37→20:41)
[2020-06-25] MEDS: ASPIRIN 81 MG TAB.CHEW GT SCH (08:37)
[2020-06-25] MEDS: QUETIAPINE FUMARATE 25 MG TABLET GT SCH ×3 (08:39→20:42)
[2020-06-25] MEDS: AMLODIPINE 5 MG TABLET PO SCH (08:42)
[2020-06-25] MEDS: COD LIVER OIL/ZINC OXIDE OINT 113 GM TUBE TP SCH ×2 (08:43→20:45)
[2020-06-25] MEDS: HYDROGEN PEROXIDE 3% 118 ML BOTTLE TP SCH (08:43)
[2020-06-25] MEDS: DOCUSATE SODIUM 100 MG/10 ML LIQUID UDC GT SCH (20:41)
[2020-06-25] MEDS: MIRALAX 17 GM POWD.PACK GT SCH (20:42)
[2020-06-25] MEDS: CHOLECALCIFEROL 1,000 UNIT TABLET GT SCH (20:43)
[2020-06-25] MEDS: CYANOCOBALAMIN 1,000 MCG TABLET GT SCH (20:43)
[2020-06-25] MEDS: buPROPion 100 MG TABLET GT SCH (20:43)
[2020-06-25] MEDS: ENOXAPARIN SODIUM 40 MG/0.4 ML DISP.SYRIN SQ SCH (20:45)
[2020-06-25 22:25] VITALS: BP 116/65
[2020-06-26] MEDS: OSMOLITE 1.2 CAL 1,000 ML LIQUID GT PRN ×2 (01:30→21:54)
[2020-06-26] MEDS: ALBUTEROL SULFATE 2.5 MG/3 ML NEBU NEB SCH ×6 (03:05→23:30)
[2020-06-26] MEDS: IPRATROPIUM BROMIDE 0.5 MG/2.5 ML NEBU NEB SCH ×6 (03:05→23:30)
[2020-06-26 07:27] VITALS: BP 134/68
[2020-06-26] MEDS: BUDESONIDE 0.5 MG/2 ML NEBU NEB SCH ×2 (07:30→19:19)
[2020-06-26] MEDS: levETIRAcetam 500 MG/5 ML LIQUID UDC GT SCH ×2 (08:23→21:41)
[2020-06-26] MEDS: ASPIRIN 81 MG TAB.CHEW GT SCH (08:23)
[2020-06-26] MEDS: AMLODIPINE 5 MG TABLET PO SCH (08:24)
[2020-06-26] MEDS: COD LIVER OIL/ZINC OXIDE OINT 113 GM TUBE TP SCH ×2 (08:24→21:46)
[2020-06-26] MEDS: QUETIAPINE FUMARATE 25 MG TABLET GT SCH ×3 (08:24→21:43)
[2020-06-26] MEDS: HYDROGEN PEROXIDE 3% 118 ML BOTTLE TP SCH ×2 (09:14→21:00)
--- NOTE | 2020-06-26 12:53 | NUR ---
zoom provided to .
[2020-06-26] MEDS: DOCUSATE SODIUM 100 MG/10 ML LIQUID UDC GT SCH (21:41)
[2020-06-26] MEDS: CYANOCOBALAMIN 1,000 MCG TABLET GT SCH (21:43)
[2020-06-26] MEDS: MIRALAX 17 GM POWD.PACK GT SCH (21:43)
[2020-06-26] MEDS: CHOLECALCIFEROL 1,000 UNIT TABLET GT SCH (21:44)
[2020-06-26] MEDS: buPROPion 100 MG TABLET GT SCH (21:44)
[2020-06-26] MEDS: ENOXAPARIN SODIUM 40 MG/0.4 ML DISP.SYRIN SQ SCH (21:45)
[2020-06-26 23:21] VITALS: BP 125/75
[2020-06-27] MEDS: IPRATROPIUM BROMIDE 0.5 MG/2.5 ML NEBU NEB SCH ×6 (03:30→23:30)
[2020-06-27] MEDS: ALBUTEROL SULFATE 2.5 MG/3 ML NEBU NEB SCH ×6 (03:30→23:30)
[2020-06-27 07:29] VITALS: BP 116/70
[2020-06-27] MEDS: BUDESONIDE 0.5 MG/2 ML NEBU NEB SCH ×2 (07:30→19:30)
[2020-06-27] MEDS: levETIRAcetam 500 MG/5 ML LIQUID UDC GT SCH ×2 (08:52→20:47)
[2020-06-27] MEDS: AMLODIPINE 5 MG TABLET PO SCH (08:52)
[2020-06-27] MEDS: ASPIRIN 81 MG TAB.CHEW GT SCH (08:52)
[2020-06-27] MEDS: COD LIVER OIL/ZINC OXIDE OINT 113 GM TUBE TP SCH ×2 (08:52→20:47)
[2020-06-27] MEDS: QUETIAPINE FUMARATE 25 MG TABLET GT SCH ×3 (08:52→20:47)
[2020-06-27] MEDS: SCOPOLAMINE PATCH 1 MG/72 HRS PATCH TD SCH (08:52)
[2020-06-27] MEDS: HYDROGEN PEROXIDE 3% 118 ML BOTTLE TP SCH ×2 (09:46→21:31)
--- NOTE | 2020-06-27 13:51 | NUR ---
INTERDISCIPLINARY PLAN OF CARE CONFERENCE was held today. Patient's was not able to attend the meeting today. Dr. Ramirez and the Interdisciplinary Team reviewed the current plan of care in detail. RN reported on patient's medical condition, recent IV antibiotics treatment for UTI, and episode of agitated/aggressive behavior. See RN IDT conference notes. PT reported that therapy services continue 3 x week. No major changes in medical condition were reported by nursing or by the other disciplines. See all other disciplines IDT notes and physician's progress notes for additional details. Will monitor behavior and follow-up with family and psychiatrist, as needed.
--- NOTE | 2020-06-27 15:39 | NUR ---
Resident noted to be restless and speaks derogatory words to the SHAKE MAKER's regarding her care, explained to the patient that having 2 nurses change her and reposition her is fine as long that she gets the proper and right care that she needs. Pt. started to be more calm right before leaving her room.Charge nurse made aware of the incident.
--- NOTE | 2020-06-27 18:50 | NUR ---
Resident remains to be comfortable after doing the last round but pt. refused to have the 4 side rails to be up and insist to have only 2 side rails to be in a upright position. Pt. made aware that it's for her own safety that's why side rails are positioned that way, pt still remains adamant to have only 2 side rails up. Pt denies any pain when asked, Charge nurse made aware of this issue.
[2020-06-27 20:00] VITALS: BP 122/71
[2020-06-27] MEDS: ENOXAPARIN SODIUM 40 MG/0.4 ML DISP.SYRIN SQ SCH (20:46)
[2020-06-27] MEDS: CHOLECALCIFEROL 1,000 UNIT TABLET GT SCH (20:47)
[2020-06-27] MEDS: CYANOCOBALAMIN 1,000 MCG TABLET GT SCH (20:47)
[2020-06-27] MEDS: buPROPion 100 MG TABLET GT SCH (20:47)
[2020-06-27] MEDS: DOCUSATE SODIUM 100 MG/10 ML LIQUID UDC GT SCH (20:47)
[2020-06-27] MEDS: MIRALAX 17 GM POWD.PACK GT SCH (20:47)
[2020-06-27] MEDS: OSMOLITE 1.2 CAL 1,000 ML LIQUID GT PRN (20:48)
--- NOTE | 2020-06-28 03:00 | NUR ---
For Covid -19 test today per [facility] requirement.
[2020-06-28] MEDS: ALBUTEROL SULFATE 2.5 MG/3 ML NEBU NEB SCH ×6 (03:30→23:20)
[2020-06-28] MEDS: IPRATROPIUM BROMIDE 0.5 MG/2.5 ML NEBU NEB SCH ×6 (03:30→23:20)
--- NOTE | 2020-06-28 06:20 | NUR ---
Patient is alert with episodes of forgetfulness, still doesn't want all 4 side rails up, I reiterated that having the 4 side rails up is for her own safety but patient still refused to put up other two side rails. Needs attended, cleaned and repositioned patient, call light within reach.
[2020-06-28] MEDS: BUDESONIDE 0.5 MG/2 ML NEBU NEB SCH ×2 (07:30→19:30)
[2020-06-28 07:41] VITALS: BP 130/87
[2020-06-28] MEDS: levETIRAcetam 500 MG/5 ML LIQUID UDC GT SCH ×2 (08:51→20:37)
[2020-06-28] MEDS: ASPIRIN 81 MG TAB.CHEW GT SCH (08:51)
[2020-06-28] MEDS: QUETIAPINE FUMARATE 25 MG TABLET GT SCH ×3 (08:53→20:40)
[2020-06-28] MEDS: COD LIVER OIL/ZINC OXIDE OINT 113 GM TUBE TP SCH ×2 (08:53→20:42)
[2020-06-28] MEDS: AMLODIPINE 5 MG TABLET PO SCH (08:53)
[2020-06-28] MEDS ORDERED: COVID-19 VACC,MRNA(MODERNA)/PF 100 MCG/0.5 ML VIAL IM ONE (10:00)
--- NOTE | 2020-06-28 15:38 | NUR ---
patients Avinash made aware that patient received second covid vaccine and will also receive covid testing today.
--- NOTE | 2020-06-28 17:17 | NUR ---
patient stable, no adverse effects noted to moderna vaccine noted at this time, will continue to monitor.
[2020-06-28] MEDS: OSMOLITE 1.2 CAL 1,000 ML LIQUID GT PRN (17:20)
[2020-06-28 20:00] VITALS: BP 113/79
[2020-06-28] MEDS: DOCUSATE SODIUM 100 MG/10 ML LIQUID UDC GT SCH (20:37)
[2020-06-28] MEDS: CYANOCOBALAMIN 1,000 MCG TABLET GT SCH (20:40)
[2020-06-28] MEDS: CHOLECALCIFEROL 1,000 UNIT TABLET GT SCH (20:40)
[2020-06-28] MEDS: MIRALAX 17 GM POWD.PACK GT SCH (20:40)
[2020-06-28] MEDS: buPROPion 100 MG TABLET GT SCH (20:41)
[2020-06-28] MEDS: ENOXAPARIN SODIUM 40 MG/0.4 ML DISP.SYRIN SQ SCH (20:42)
[2020-06-28] MEDS: HYDROGEN PEROXIDE 3% 118 ML BOTTLE TP SCH (20:55)
--- NOTE | 2020-06-28 23:16 | NUR ---
Patient is afebrile, no adverse reactions from COVID-19 vaccine ( MODERNA), no signs of any distress noted, kept clean and comfortable.
[2020-06-29] MEDS: IPRATROPIUM BROMIDE 0.5 MG/2.5 ML NEBU NEB SCH ×6 (03:24→23:20)
[2020-06-29] MEDS: ALBUTEROL SULFATE 2.5 MG/3 ML NEBU NEB SCH ×6 (03:24→23:20)
[2020-06-29] MEDS: BUDESONIDE 0.5 MG/2 ML NEBU NEB SCH ×2 (07:30→18:56)
[2020-06-29 07:31] VITALS: BP 130/85
[2020-06-29] MEDS: QUETIAPINE FUMARATE 25 MG TABLET GT SCH ×3 (08:21→20:41)
[2020-06-29] MEDS: ASPIRIN 81 MG TAB.CHEW GT SCH (08:21)
[2020-06-29] MEDS: levETIRAcetam 500 MG/5 ML LIQUID UDC GT SCH ×2 (08:21→20:41)
[2020-06-29] MEDS: COD LIVER OIL/ZINC OXIDE OINT 113 GM TUBE TP SCH ×2 (08:22→20:42)
[2020-06-29] MEDS: AMLODIPINE 5 MG TABLET PO SCH (08:22)
[2020-06-29] MEDS: HYDROGEN PEROXIDE 3% 118 ML BOTTLE TP SCH ×2 (08:51→21:31)
[2020-06-29] MEDS: OSMOLITE 1.2 CAL 1,000 ML LIQUID GT PRN (11:30)
--- NOTE | 2020-06-29 14:11 | NUR ---
PATIENT NOTED WITH ELEVATED TEMP. 103.1. SHE DENIES BODY ACHES, MUSCLE AND JOINT PAINS. SHE ALSO DENIES FEELING CHILLS OR FEVERISH. VITALS BP 138/70 PULSE 100, O2 SATURATION 99%. PAGED DR. NUNN WITH NO RESPONSE, LEFT MESSAGE TO CALL BACK. WILL CONTINUE TO MONITOR PATIENT. Addendum: 06/29/20 at 1453 by KAREN HAYES RN S/P COVID-19 VACCINATION ON 06/28/2020. PATIENT NOTED WITH ELEVATED TEMP. 103.1. SHE DENIES BODY ACHES, MUSCLE AND JOINT PAINS. SHE ALSO DENIES FEELING CHILLS OR FEVERISH. VITALS BP 138/70 PULSE 100, O2 SATURATION 99%. PAGED DR. NUNN WITH NO RESPONSE, LEFT MESSAGE TO CALL BACK. WILL CONTINUE TO MONITOR PATIENT.
--- NOTE | 2020-06-29 16:48 | NUR ---
DR. NUNN CALLED BACK REGARDING S /P COVID-19 VACCINATION ON 06/28/2020 AND PATIENT NOTED WITH ELEVATED TEMP. 103.1. SHE DENIES BODY ACHES, MUSCLE AND JOINT PAINS. SHE ALSO DENIES FEELING CHILLS OR FEVERISH. VITALS BP 138/70 PULSE 100, O2 SATURATION 99%. ASSESSMENT RELAYED WITH ORDER TO GIVEN TYLENOL AND MONITOR. TYLENOL WAS ALREADY GIVEN ORDERED. WILL CONTINUE TO MONITOR.
--- NOTE | 2020-06-29 17:02 | NUR ---
SW received the annual paperwork back from patient's Avinash, signed by Avinash. The paperwork includes: Conditions of Admission, Patient Rights Acknowledgement, An Important Message from Medicare about your Rights, Documentation of Preferred Intensity of Care, Voluntary Prior Express Consent Form, Race and Ethnicity Patient Self-Identification, and the [facility] Agreement. For previous assessment/quarterly information, see patient's previous chart #[id number].
[2020-06-29] MEDS: ACETAMINOPHEN 650 MG/20 ML UDC- SA PATIENTS-PAIN ONLY GT PRN (17:53)
--- NOTE | 2020-06-29 17:53 | NUR ---
S /P COVID-19 VACCINATION ON 06/28/2020 AND PATIENT NOTED WITH ELEVATED TEMP. 103.1, TYLENOL GIVEN TEMP IS NOW 99.3. WILL CONTINUE TO MONITOR.
[2020-06-29 20:00] VITALS: BP 116/77
[2020-06-29] MEDS: buPROPion 100 MG TABLET GT SCH (20:41)
[2020-06-29] MEDS: MIRALAX 17 GM POWD.PACK GT SCH (20:41)
[2020-06-29] MEDS: CYANOCOBALAMIN 1,000 MCG TABLET GT SCH (20:41)
[2020-06-29] MEDS: DOCUSATE SODIUM 100 MG/10 ML LIQUID UDC GT SCH (20:41)
[2020-06-29] MEDS: CHOLECALCIFEROL 1,000 UNIT TABLET GT SCH (20:41)
[2020-06-29] MEDS: ENOXAPARIN SODIUM 40 MG/0.4 ML DISP.SYRIN SQ SCH (21:44)
[2020-06-30] MEDS: IPRATROPIUM BROMIDE 0.5 MG/2.5 ML NEBU NEB SCH ×6 (03:26→23:07)
[2020-06-30] MEDS: ALBUTEROL SULFATE 2.5 MG/3 ML NEBU NEB SCH ×6 (03:26→23:07)
[2020-06-30] MEDS: OSMOLITE 1.2 CAL 1,000 ML LIQUID GT PRN (03:34)
--- NOTE | 2020-06-30 06:30 | NUR ---
S/P 2nd dose Covid 19 vaccine, noted with fever yesterday, afebrile this shift, continue to monitor temp and other A/R from vaccine.
[2020-06-30] MEDS: BUDESONIDE 0.5 MG/2 ML NEBU NEB SCH ×2 (07:30→19:30)
[2020-06-30 08:00] VITALS: BP 125/90
[2020-06-30] MEDS: levETIRAcetam 500 MG/5 ML LIQUID UDC GT SCH ×2 (08:29→21:25)
[2020-06-30] MEDS: ASPIRIN 81 MG TAB.CHEW GT SCH (08:29)
[2020-06-30] MEDS: QUETIAPINE FUMARATE 25 MG TABLET GT SCH ×3 (08:30→21:27)
[2020-06-30] MEDS: AMLODIPINE 5 MG TABLET PO SCH (08:31)
[2020-06-30] MEDS: SCOPOLAMINE PATCH 1 MG/72 HRS PATCH TD SCH (08:31)
[2020-06-30] MEDS: COD LIVER OIL/ZINC OXIDE OINT 113 GM TUBE TP SCH ×2 (08:31→21:27)
[2020-06-30] MEDS: ACETAMINOPHEN 650 MG/20 ML UDC- SA PATIENTS-PAIN ONLY GT PRN (08:33)
[2020-06-30] MEDS: HYDROGEN PEROXIDE 3% 118 ML BOTTLE TP SCH ×2 (09:37→21:27)
[2020-06-30 20:00] VITALS: BP 124/76
--- NOTE | 2020-06-30 21:00 | NUR ---
Patient had Zoom with .
[2020-06-30] MEDS: MIRALAX 17 GM POWD.PACK GT SCH (21:25)
[2020-06-30] MEDS: DOCUSATE SODIUM 100 MG/10 ML LIQUID UDC GT SCH (21:25)
[2020-06-30] MEDS: buPROPion 100 MG TABLET GT SCH (21:27)
[2020-06-30] MEDS: CYANOCOBALAMIN 1,000 MCG TABLET GT SCH (21:27)
[2020-06-30] MEDS: CHOLECALCIFEROL 1,000 UNIT TABLET GT SCH (21:27)
[2020-06-30] MEDS: ENOXAPARIN SODIUM 40 MG/0.4 ML DISP.SYRIN SQ SCH (21:36)
[2020-07-01] MEDS: OSMOLITE 1.2 CAL 1,000 ML LIQUID GT PRN ×2 (01:10→22:37)
[2020-07-01] MEDS: IPRATROPIUM BROMIDE 0.5 MG/2.5 ML NEBU NEB SCH ×6 (03:30→23:22)
[2020-07-01] MEDS: ALBUTEROL SULFATE 2.5 MG/3 ML NEBU NEB SCH ×6 (03:30→23:22)
--- NOTE | 2020-07-01 04:34 | NUR ---
2nd Dose of COVID Vaccine ( MODERNA) given on 06/28/20, 98.0, no signs of any distress, will continue monitor.
[2020-07-01] MEDS: BUDESONIDE 0.5 MG/2 ML NEBU NEB SCH ×2 (07:30→19:30)
[2020-07-01 07:47] VITALS: BP 123/66
[2020-07-01] MEDS: ASPIRIN 81 MG TAB.CHEW GT SCH (08:20)
[2020-07-01] MEDS: levETIRAcetam 500 MG/5 ML LIQUID UDC GT SCH ×2 (08:20→20:26)
[2020-07-01] MEDS: QUETIAPINE FUMARATE 25 MG TABLET GT SCH ×3 (08:23→20:26)
[2020-07-01] MEDS: COD LIVER OIL/ZINC OXIDE OINT 113 GM TUBE TP SCH ×2 (08:24→21:46)
[2020-07-01] MEDS: AMLODIPINE 5 MG TABLET PO SCH (08:24)
[2020-07-01] MEDS: HYDROGEN PEROXIDE 3% 118 ML BOTTLE TP SCH ×2 (09:00→21:46)
--- NOTE | 2020-07-01 16:07 | NUR ---
Patients aware of patients negative Covid tests.
--- NOTE | 2020-07-01 18:12 | NUR ---
patient stable, afebrile. no adverse effects to moderna vaccine noted at this time, will continue to monitor.
[2020-07-01] MEDS: DOCUSATE SODIUM 100 MG/10 ML LIQUID UDC GT SCH (20:26)
[2020-07-01] MEDS: ENOXAPARIN SODIUM 40 MG/0.4 ML DISP.SYRIN SQ SCH (20:26)
[2020-07-01] MEDS: CHOLECALCIFEROL 1,000 UNIT TABLET GT SCH (20:26)
[2020-07-01] MEDS: MIRALAX 17 GM POWD.PACK GT SCH (20:26)
[2020-07-01] MEDS: buPROPion 100 MG TABLET GT SCH (20:26)
[2020-07-01] MEDS: CYANOCOBALAMIN 1,000 MCG TABLET GT SCH (20:26)
[2020-07-01 20:37] VITALS: BP 112/68
[2020-07-02] MEDS: IPRATROPIUM BROMIDE 0.5 MG/2.5 ML NEBU NEB SCH ×6 (03:30→23:30)
[2020-07-02] MEDS: ALBUTEROL SULFATE 2.5 MG/3 ML NEBU NEB SCH ×6 (03:30→23:30)
[2020-07-02] MEDS: BUDESONIDE 0.5 MG/2 ML NEBU NEB SCH ×2 (07:30→19:30)
[2020-07-02 07:36] VITALS: BP 121/72
[2020-07-02] MEDS: QUETIAPINE FUMARATE 25 MG TABLET GT SCH ×3 (09:10→21:03)
[2020-07-02] MEDS: ASPIRIN 81 MG TAB.CHEW GT SCH (09:10)
[2020-07-02] MEDS: levETIRAcetam 500 MG/5 ML LIQUID UDC GT SCH ×2 (09:10→21:03)
[2020-07-02] MEDS: AMLODIPINE 5 MG TABLET PO SCH (09:11)
[2020-07-02] MEDS: COD LIVER OIL/ZINC OXIDE OINT 113 GM TUBE TP SCH ×2 (09:12→21:04)
[2020-07-02] MEDS: OSMOLITE 1.2 CAL 1,000 ML LIQUID GT PRN (18:04)
[2020-07-02] MEDS: ENOXAPARIN SODIUM 40 MG/0.4 ML DISP.SYRIN SQ SCH (21:00)
[2020-07-02] MEDS: DOCUSATE SODIUM 100 MG/10 ML LIQUID UDC GT SCH (21:03)
[2020-07-02] MEDS: MIRALAX 17 GM POWD.PACK GT SCH (21:03)
[2020-07-02] MEDS: CHOLECALCIFEROL 1,000 UNIT TABLET GT SCH (21:04)
[2020-07-02] MEDS: buPROPion 100 MG TABLET GT SCH (21:04)
[2020-07-02] MEDS: CYANOCOBALAMIN 1,000 MCG TABLET GT SCH (21:04)
[2020-07-02] MEDS: HYDROGEN PEROXIDE 3% 118 ML BOTTLE TP SCH (21:55)
[2020-07-02 22:12] VITALS: BP 131/74
[2020-07-03] MEDS: ALBUTEROL SULFATE 2.5 MG/3 ML NEBU NEB SCH ×6 (03:30→23:09)
[2020-07-03] MEDS: IPRATROPIUM BROMIDE 0.5 MG/2.5 ML NEBU NEB SCH ×6 (03:30→23:09)
[2020-07-03] MEDS: BUDESONIDE 0.5 MG/2 ML NEBU NEB SCH ×2 (07:25→19:30)
[2020-07-03 07:27] VITALS: BP 118/62
[2020-07-03] MEDS: ASPIRIN 81 MG TAB.CHEW GT SCH (09:16)
[2020-07-03] MEDS: levETIRAcetam 500 MG/5 ML LIQUID UDC GT SCH ×2 (09:16→21:34)
[2020-07-03] MEDS: QUETIAPINE FUMARATE 25 MG TABLET GT SCH ×3 (09:16→21:34)
[2020-07-03] MEDS: AMLODIPINE 5 MG TABLET PO SCH (09:17)
[2020-07-03] MEDS: COD LIVER OIL/ZINC OXIDE OINT 113 GM TUBE TP SCH ×2 (09:17→21:34)
[2020-07-03] MEDS: SCOPOLAMINE PATCH 1 MG/72 HRS PATCH TD SCH (09:17)
[2020-07-03] MEDS: HYDROGEN PEROXIDE 3% 118 ML BOTTLE TP SCH ×2 (09:17→21:34)
[2020-07-03] MEDS: OSMOLITE 1.2 CAL 1,000 ML LIQUID GT PRN (18:14)
[2020-07-03 19:57] VITALS: BP 110/66
[2020-07-03] MEDS: ENOXAPARIN SODIUM 40 MG/0.4 ML DISP.SYRIN SQ SCH (21:00)
[2020-07-03] MEDS: CYANOCOBALAMIN 1,000 MCG TABLET GT SCH (21:34)
[2020-07-03] MEDS: DOCUSATE SODIUM 100 MG/10 ML LIQUID UDC GT SCH (21:34)
[2020-07-03] MEDS: buPROPion 100 MG TABLET GT SCH (21:34)
[2020-07-03] MEDS: CHOLECALCIFEROL 1,000 UNIT TABLET GT SCH (21:34)
[2020-07-03] MEDS: MIRALAX 17 GM POWD.PACK GT SCH (21:34)
[2020-07-04] MEDS: ALBUTEROL SULFATE 2.5 MG/3 ML NEBU NEB SCH ×6 (03:26→23:15)
[2020-07-04] MEDS: IPRATROPIUM BROMIDE 0.5 MG/2.5 ML NEBU NEB SCH ×6 (03:26→23:15)
[2020-07-04] MEDS: BUDESONIDE 0.5 MG/2 ML NEBU NEB SCH ×2 (07:14→19:30)
[2020-07-04 07:26] VITALS: BP 113/71
[2020-07-04] MEDS: AMLODIPINE 5 MG TABLET PO SCH (09:00)
[2020-07-04] MEDS: QUETIAPINE FUMARATE 25 MG TABLET GT SCH ×3 (09:00→21:14)
[2020-07-04] MEDS: levETIRAcetam 500 MG/5 ML LIQUID UDC GT SCH ×2 (09:00→21:13)
[2020-07-04] MEDS: HYDROGEN PEROXIDE 3% 118 ML BOTTLE TP SCH ×2 (09:00→21:17)
[2020-07-04] MEDS: COD LIVER OIL/ZINC OXIDE OINT 113 GM TUBE TP SCH ×2 (09:00→21:17)
[2020-07-04] MEDS: ASPIRIN 81 MG TAB.CHEW GT SCH (09:00)
[2020-07-04] MEDS: OSMOLITE 1.2 CAL 1,000 ML LIQUID GT PRN (11:01)
--- NOTE | 2020-07-04 13:01 | NUR ---
Seen By Cleo Brock,with no new orders noted.
[2020-07-04 20:00] VITALS: BP 104/57
[2020-07-04] MEDS: DOCUSATE SODIUM 100 MG/10 ML LIQUID UDC GT SCH (21:13)
[2020-07-04] MEDS: MIRALAX 17 GM POWD.PACK GT SCH (21:14)
[2020-07-04] MEDS: CHOLECALCIFEROL 1,000 UNIT TABLET GT SCH (21:15)
[2020-07-04] MEDS: CYANOCOBALAMIN 1,000 MCG TABLET GT SCH (21:15)
[2020-07-04] MEDS: buPROPion 100 MG TABLET GT SCH (21:16)
[2020-07-04] MEDS: ENOXAPARIN SODIUM 40 MG/0.4 ML DISP.SYRIN SQ SCH (21:17)
[2020-07-05] MEDS: ALBUTEROL SULFATE 2.5 MG/3 ML NEBU NEB SCH ×6 (03:30→23:15)
[2020-07-05] MEDS: IPRATROPIUM BROMIDE 0.5 MG/2.5 ML NEBU NEB SCH ×6 (03:30→23:15)
[2020-07-05] MEDS: OSMOLITE 1.2 CAL 1,000 ML LIQUID GT PRN ×2 (04:09→21:31)
[2020-07-05 07:31] VITALS: BP 124/80
[2020-07-05] MEDS: BUDESONIDE 0.5 MG/2 ML NEBU NEB SCH ×2 (08:10→19:30)
[2020-07-05] MEDS: HYDROGEN PEROXIDE 3% 118 ML BOTTLE TP SCH ×2 (09:02→21:20)
[2020-07-05] MEDS: ASPIRIN 81 MG TAB.CHEW GT SCH (09:28)
[2020-07-05] MEDS: levETIRAcetam 500 MG/5 ML LIQUID UDC GT SCH ×2 (09:28→21:14)
[2020-07-05] MEDS: QUETIAPINE FUMARATE 25 MG TABLET GT SCH ×3 (09:29→21:17)
[2020-07-05] MEDS: AMLODIPINE 5 MG TABLET PO SCH (09:30)
[2020-07-05] MEDS: COD LIVER OIL/ZINC OXIDE OINT 113 GM TUBE TP SCH ×2 (09:30→21:20)
--- NOTE | 2020-07-05 16:42 | NUR ---
Covid 19 test today,Pt's Avinash notified,pt is still refusing O2 and breathing tx's.On close observation.
[2020-07-05 20:00] VITALS: BP 122/84
[2020-07-05] MEDS: DOCUSATE SODIUM 100 MG/10 ML LIQUID UDC GT SCH (21:14)
[2020-07-05] MEDS: CYANOCOBALAMIN 1,000 MCG TABLET GT SCH (21:17)
[2020-07-05] MEDS: MIRALAX 17 GM POWD.PACK GT SCH (21:17)
[2020-07-05] MEDS: buPROPion 100 MG TABLET GT SCH (21:18)
[2020-07-05] MEDS: CHOLECALCIFEROL 1,000 UNIT TABLET GT SCH (21:18)
[2020-07-05] MEDS: ENOXAPARIN SODIUM 40 MG/0.4 ML DISP.SYRIN SQ SCH (21:20)
[2020-07-06] MEDS: ALBUTEROL SULFATE 2.5 MG/3 ML NEBU NEB SCH ×7 (03:19→23:30)
[2020-07-06] MEDS: IPRATROPIUM BROMIDE 0.5 MG/2.5 ML NEBU NEB SCH ×7 (03:19→23:30)
[2020-07-06] MEDS: HYDROGEN PEROXIDE 3% 118 ML BOTTLE TP SCH ×2 (07:25→19:05)
[2020-07-06] MEDS: BUDESONIDE 0.5 MG/2 ML NEBU NEB SCH ×2 (07:25→19:05)
[2020-07-06 07:45] VITALS: BP 123/75
[2020-07-06] MEDS: ASPIRIN 81 MG TAB.CHEW GT SCH (08:27)
[2020-07-06] MEDS: AMLODIPINE 5 MG TABLET PO SCH (08:29)
[2020-07-06] MEDS: QUETIAPINE FUMARATE 25 MG TABLET GT SCH ×3 (08:29→21:51)
[2020-07-06] MEDS: levETIRAcetam 500 MG/5 ML LIQUID UDC GT SCH ×2 (08:29→21:50)
[2020-07-06] MEDS: SCOPOLAMINE PATCH 1 MG/72 HRS PATCH TD SCH (08:30)
[2020-07-06] MEDS: COD LIVER OIL/ZINC OXIDE OINT 113 GM TUBE TP SCH ×2 (08:31→21:52)
--- NOTE | 2020-07-06 14:58 | NUR ---
SEEN BY NARENDRA Mtz AND WITH NNO.
[2020-07-06] MEDS: OSMOLITE 1.2 CAL 1,000 ML LIQUID GT PRN (17:44)
[2020-07-06 20:00] VITALS: BP 126/62
[2020-07-06] MEDS: DOCUSATE SODIUM 100 MG/10 ML LIQUID UDC GT SCH (21:50)
[2020-07-06] MEDS: MIRALAX 17 GM POWD.PACK GT SCH (21:51)
[2020-07-06] MEDS: buPROPion 100 MG TABLET GT SCH (21:51)
[2020-07-06] MEDS: CHOLECALCIFEROL 1,000 UNIT TABLET GT SCH (21:51)
[2020-07-06] MEDS: CYANOCOBALAMIN 1,000 MCG TABLET GT SCH (21:51)
[2020-07-06] MEDS: ENOXAPARIN SODIUM 40 MG/0.4 ML DISP.SYRIN SQ SCH (21:52)
[2020-07-07] MEDS: IPRATROPIUM BROMIDE 0.5 MG/2.5 ML NEBU NEB SCH ×6 (02:33→23:30)
[2020-07-07] MEDS: ALBUTEROL SULFATE 2.5 MG/3 ML NEBU NEB SCH ×6 (02:33→23:30)
[2020-07-07] MEDS: BUDESONIDE 0.5 MG/2 ML NEBU NEB SCH ×2 (07:30→19:30)
[2020-07-07 07:37] VITALS: BP 111/64
[2020-07-07] MEDS: levETIRAcetam 500 MG/5 ML LIQUID UDC GT SCH ×2 (08:34→20:36)
[2020-07-07] MEDS: ASPIRIN 81 MG TAB.CHEW GT SCH (08:34)
[2020-07-07] MEDS: QUETIAPINE FUMARATE 25 MG TABLET GT SCH ×3 (08:35→20:36)
[2020-07-07] MEDS: COD LIVER OIL/ZINC OXIDE OINT 113 GM TUBE TP SCH ×2 (08:36→20:36)
[2020-07-07] MEDS: AMLODIPINE 5 MG TABLET PO SCH (08:36)
[2020-07-07] MEDS: HYDROGEN PEROXIDE 3% 118 ML BOTTLE TP SCH ×2 (09:00→21:37)
--- NOTE | 2020-07-07 14:35 | NUR ---
PT'S WAS AWARE THAT PT. IS NEGATIVE FOR COVID 19 TEST FROM 07/05/20 .
[2020-07-07] MEDS: OSMOLITE 1.2 CAL 1,000 ML LIQUID GT PRN (17:53)
[2020-07-07] MEDS: MIRALAX 17 GM POWD.PACK GT SCH (20:36)
[2020-07-07] MEDS: DOCUSATE SODIUM 100 MG/10 ML LIQUID UDC GT SCH (20:36)
[2020-07-07] MEDS: CHOLECALCIFEROL 1,000 UNIT TABLET GT SCH (20:36)
[2020-07-07] MEDS: buPROPion 100 MG TABLET GT SCH (20:36)
[2020-07-07] MEDS: CYANOCOBALAMIN 1,000 MCG TABLET GT SCH (20:36)
[2020-07-07] MEDS: ENOXAPARIN SODIUM 40 MG/0.4 ML DISP.SYRIN SQ SCH (21:22)
[2020-07-07 22:23] VITALS: BP 100/62
[2020-07-08] MEDS: IPRATROPIUM BROMIDE 0.5 MG/2.5 ML NEBU NEB SCH ×6 (03:30→23:05)
[2020-07-08] MEDS: ALBUTEROL SULFATE 2.5 MG/3 ML NEBU NEB SCH ×6 (03:30→23:05)
[2020-07-08 06:20] LABS: BASOPHILS % (AUTO) 0.5 % (0.0-2.0); EOSINOPHILS # (AUTO) 0.2 K/uL (0.0-0.7); EOSINOPHILS % (AUTO) 4.3 % (0.0-7.0); HEMATOCRIT 33.4 % (31.2-41.9); LYMPHOCYTES % (AUTO) 34.9 % (20.5-51.5); MEAN CORPUSCULAR HEMOGLOBIN 29.1 uug (24.7-32.8); MEAN CORPUSCULAR HGB CONC 33 g/dL (32.3-35.6); MEAN CORPUSCULAR VOLUME 88.4 fL (75.5-95.3); MONOCYTES # (AUTO) 0.5 K/uL (2.0-10.0); MONOCYTES % (AUTO) 8.6 % (0.0-11.0); NEUTROPHILS # (AUTO) 2.9 K/uL (1.8-8.9); NEUTROPHILS % (AUTO) 51.7 % (38.5-71.5); PLATELET COUNT (AUTO) 402 K/uL (179-408); RED BLOOD CELL COUNT(AUTO) 3.78 MIL/uL (3.63-4.92); WHITE BLOOD COUNT (AUTO) 5.7 K/uL (3.8-11.8)
[2020-07-08 06:43] LABS: CREATININE 0.7 mg/dL (0.6-1.3); MAGNESIUM 1.8 mg/dL (1.8-2.4); PHOSPHOROUS 3.5 mg/dL (2.5-4.9); POTASSIUM 3.8 mmol/L (3.5-5.1)
[2020-07-08] MEDS: BUDESONIDE 0.5 MG/2 ML NEBU NEB SCH ×2 (07:30→19:30)
[2020-07-08 07:38] VITALS: BP 125/66
[2020-07-08] MEDS: ASPIRIN 81 MG TAB.CHEW GT SCH (08:50)
[2020-07-08] MEDS: levETIRAcetam 500 MG/5 ML LIQUID UDC GT SCH ×2 (08:50→20:30)
[2020-07-08] MEDS: COD LIVER OIL/ZINC OXIDE OINT 113 GM TUBE TP SCH ×2 (08:53→20:30)
[2020-07-08] MEDS: AMLODIPINE 5 MG TABLET PO SCH (08:53)
[2020-07-08] MEDS: QUETIAPINE FUMARATE 25 MG TABLET GT SCH ×3 (08:53→20:30)
[2020-07-08] MEDS: HYDROGEN PEROXIDE 3% 118 ML BOTTLE TP SCH ×2 (09:19→21:25)
[2020-07-08] MEDS: MIRALAX 17 GM POWD.PACK GT SCH (20:30)
[2020-07-08] MEDS: DOCUSATE SODIUM 100 MG/10 ML LIQUID UDC GT SCH (20:30)
[2020-07-08] MEDS: CHOLECALCIFEROL 1,000 UNIT TABLET GT SCH (20:30)
[2020-07-08] MEDS: CYANOCOBALAMIN 1,000 MCG TABLET GT SCH (20:30)
[2020-07-08] MEDS: buPROPion 100 MG TABLET GT SCH (20:30)
[2020-07-08] MEDS: ENOXAPARIN SODIUM 40 MG/0.4 ML DISP.SYRIN SQ SCH (21:07)
[2020-07-09] MEDS: ALBUTEROL SULFATE 2.5 MG/3 ML NEBU NEB SCH ×6 (03:30→23:21)
[2020-07-09] MEDS: IPRATROPIUM BROMIDE 0.5 MG/2.5 ML NEBU NEB SCH ×6 (03:30→23:21)
[2020-07-09 07:27] VITALS: BP 115/59
[2020-07-09] MEDS: BUDESONIDE 0.5 MG/2 ML NEBU NEB SCH ×2 (07:30→19:30)
[2020-07-09] MEDS: QUETIAPINE FUMARATE 25 MG TABLET GT SCH ×3 (08:35→20:33)
[2020-07-09] MEDS: ASPIRIN 81 MG TAB.CHEW GT SCH (08:35)
[2020-07-09] MEDS: levETIRAcetam 500 MG/5 ML LIQUID UDC GT SCH ×2 (08:35→20:33)
[2020-07-09] MEDS: AMLODIPINE 5 MG TABLET PO SCH (08:37)
[2020-07-09] MEDS: COD LIVER OIL/ZINC OXIDE OINT 113 GM TUBE TP SCH ×2 (08:38→20:33)
[2020-07-09] MEDS: SCOPOLAMINE PATCH 1 MG/72 HRS PATCH TD SCH (08:38)
[2020-07-09] MEDS: HYDROGEN PEROXIDE 3% 118 ML BOTTLE TP SCH ×2 (09:00→21:12)
[2020-07-09] MEDS: OSMOLITE 1.2 CAL 1,000 ML LIQUID GT PRN (13:10)
[2020-07-09 20:05] VITALS: BP 119/66
[2020-07-09] MEDS: DOCUSATE SODIUM 100 MG/10 ML LIQUID UDC GT SCH (20:32)
[2020-07-09] MEDS: CHOLECALCIFEROL 1,000 UNIT TABLET GT SCH (20:33)
[2020-07-09] MEDS: buPROPion 100 MG TABLET GT SCH (20:33)
[2020-07-09] MEDS: CYANOCOBALAMIN 1,000 MCG TABLET GT SCH (20:33)
[2020-07-09] MEDS: MIRALAX 17 GM POWD.PACK GT SCH (20:33)
[2020-07-09] MEDS: ENOXAPARIN SODIUM 40 MG/0.4 ML DISP.SYRIN SQ SCH (21:12)
[2020-07-10] MEDS: IPRATROPIUM BROMIDE 0.5 MG/2.5 ML NEBU NEB SCH ×6 (03:30→23:30)
[2020-07-10] MEDS: ALBUTEROL SULFATE 2.5 MG/3 ML NEBU NEB SCH ×6 (03:30→23:30)
--- NOTE | 2020-07-10 06:35 | NUR ---
RESIDENT REFUSES TO BE CHANGED AT THIS TIME. RISKS AND BENEFITS EXPLAINED, RESIDENT STILL REFUSES. PER RESIDENT, "I WANT TO SLEEP RIGHT NOW." CHARGE NURSE NOTIFIED, WILL ENDORSE TO AM SHIT NURSE
[2020-07-10] MEDS: BUDESONIDE 0.5 MG/2 ML NEBU NEB SCH ×2 (07:30→19:30)
[2020-07-10 07:43] VITALS: BP 113/67
[2020-07-10] MEDS: ASPIRIN 81 MG TAB.CHEW GT SCH (08:38)
[2020-07-10] MEDS: levETIRAcetam 500 MG/5 ML LIQUID UDC GT SCH ×2 (08:39→21:17)
[2020-07-10] MEDS: QUETIAPINE FUMARATE 25 MG TABLET GT SCH ×3 (08:39→21:18)
[2020-07-10] MEDS: AMLODIPINE 5 MG TABLET PO SCH (08:42)
[2020-07-10] MEDS: COD LIVER OIL/ZINC OXIDE OINT 113 GM TUBE TP SCH ×2 (08:42→21:21)
[2020-07-10] MEDS: HYDROGEN PEROXIDE 3% 118 ML BOTTLE TP SCH ×2 (09:43→21:52)
[2020-07-10] MEDS: OSMOLITE 1.2 CAL 1,000 ML LIQUID GT PRN (12:33)
[2020-07-10] MEDS: ENOXAPARIN SODIUM 40 MG/0.4 ML DISP.SYRIN SQ SCH (21:00)
[2020-07-10] MEDS: DOCUSATE SODIUM 100 MG/10 ML LIQUID UDC GT SCH (21:16)
[2020-07-10] MEDS: MIRALAX 17 GM POWD.PACK GT SCH (21:18)
[2020-07-10] MEDS: CHOLECALCIFEROL 1,000 UNIT TABLET GT SCH (21:20)
[2020-07-10] MEDS: CYANOCOBALAMIN 1,000 MCG TABLET GT SCH (21:20)
[2020-07-10] MEDS: buPROPion 100 MG TABLET GT SCH (21:20)
[2020-07-10 22:49] VITALS: BP 120/84
[2020-07-11] MEDS: IPRATROPIUM BROMIDE 0.5 MG/2.5 ML NEBU NEB SCH ×6 (07:05→23:16)
[2020-07-11] MEDS: ALBUTEROL SULFATE 2.5 MG/3 ML NEBU NEB SCH ×6 (07:05→23:16)
[2020-07-11] MEDS: BUDESONIDE 0.5 MG/2 ML NEBU NEB SCH ×2 (07:22→19:30)
[2020-07-11 07:26] VITALS: BP 115/62
[2020-07-11] MEDS: ASPIRIN 81 MG TAB.CHEW GT SCH (09:04)
[2020-07-11] MEDS: AMLODIPINE 5 MG TABLET PO SCH (09:04)
[2020-07-11] MEDS: levETIRAcetam 500 MG/5 ML LIQUID UDC GT SCH ×2 (09:04→21:27)
[2020-07-11] MEDS: QUETIAPINE FUMARATE 25 MG TABLET GT SCH ×3 (09:04→21:29)
[2020-07-11] MEDS: COD LIVER OIL/ZINC OXIDE OINT 113 GM TUBE TP SCH ×2 (09:04→21:34)
[2020-07-11] MEDS: HYDROGEN PEROXIDE 3% 118 ML BOTTLE TP SCH ×2 (09:31→21:08)
[2020-07-11] MEDS: OSMOLITE 1.2 CAL 1,000 ML LIQUID GT PRN (12:09)
--- NOTE | 2020-07-11 15:57 | NUR ---
SADIA called patient's Avinash, , and left him a voicemail message stating that the next IDT meeting for the patient has been scheduled for 07/25 at 11am. SADIA asked Avinash to call this SW back and let her know if Avinash would like to participate in the meeting by speaker phone.
[2020-07-11 20:00] VITALS: BP 135/85
[2020-07-11] MEDS: DOCUSATE SODIUM 100 MG/10 ML LIQUID UDC GT SCH (21:27)
[2020-07-11] MEDS: MIRALAX 17 GM POWD.PACK GT SCH (21:28)
[2020-07-11] MEDS: CYANOCOBALAMIN 1,000 MCG TABLET GT SCH (21:30)
[2020-07-11] MEDS: CHOLECALCIFEROL 1,000 UNIT TABLET GT SCH (21:31)
[2020-07-11] MEDS: buPROPion 100 MG TABLET GT SCH (21:31)
[2020-07-11] MEDS: ENOXAPARIN SODIUM 40 MG/0.4 ML DISP.SYRIN SQ SCH (21:32)
--- NOTE | 2020-07-12 03:00 | NUR ---
For Covid-19 test today per [facility] requirement.
[2020-07-12] MEDS: ALBUTEROL SULFATE 2.5 MG/3 ML NEBU NEB SCH ×6 (03:09→23:30)
[2020-07-12] MEDS: IPRATROPIUM BROMIDE 0.5 MG/2.5 ML NEBU NEB SCH ×6 (03:09→23:30)
[2020-07-12 07:24] VITALS: BP 118/77
[2020-07-12] MEDS: BUDESONIDE 0.5 MG/2 ML NEBU NEB SCH ×2 (07:30→19:30)
[2020-07-12] MEDS: SCOPOLAMINE PATCH 1 MG/72 HRS PATCH TD SCH (09:03)
[2020-07-12] MEDS: ASPIRIN 81 MG TAB.CHEW GT SCH (09:03)
[2020-07-12] MEDS: AMLODIPINE 5 MG TABLET PO SCH (09:03)
[2020-07-12] MEDS: QUETIAPINE FUMARATE 25 MG TABLET GT SCH ×3 (09:03→21:01)
[2020-07-12] MEDS: COD LIVER OIL/ZINC OXIDE OINT 113 GM TUBE TP SCH ×2 (09:03→21:02)
[2020-07-12] MEDS: levETIRAcetam 500 MG/5 ML LIQUID UDC GT SCH ×2 (09:03→21:01)
[2020-07-12] MEDS: HYDROGEN PEROXIDE 3% 118 ML BOTTLE TP SCH ×2 (09:31→21:04)
[2020-07-12 20:00] VITALS: BP 113/74
[2020-07-12] MEDS: DOCUSATE SODIUM 100 MG/10 ML LIQUID UDC GT SCH (21:01)
[2020-07-12] MEDS: buPROPion 100 MG TABLET GT SCH (21:01)
[2020-07-12] MEDS: CYANOCOBALAMIN 1,000 MCG TABLET GT SCH (21:01)
[2020-07-12] MEDS: MIRALAX 17 GM POWD.PACK GT SCH (21:01)
[2020-07-12] MEDS: CHOLECALCIFEROL 1,000 UNIT TABLET GT SCH (21:01)
[2020-07-12] MEDS: ENOXAPARIN SODIUM 40 MG/0.4 ML DISP.SYRIN SQ SCH (21:02)
[2020-07-13] MEDS: ALBUTEROL SULFATE 2.5 MG/3 ML NEBU NEB SCH ×7 (03:28→23:04)
[2020-07-13] MEDS: IPRATROPIUM BROMIDE 0.5 MG/2.5 ML NEBU NEB SCH ×7 (03:28→23:04)
[2020-07-13] MEDS: BUDESONIDE 0.5 MG/2 ML NEBU NEB SCH ×2 (06:16→19:30)
[2020-07-13] MEDS: OSMOLITE 1.2 CAL 1,000 ML LIQUID GT PRN (06:51)
[2020-07-13 07:50] VITALS: BP 106/59
[2020-07-13] MEDS: HYDROGEN PEROXIDE 3% 118 ML BOTTLE TP SCH ×2 (08:48→21:06)
[2020-07-13] MEDS: ASPIRIN 81 MG TAB.CHEW GT SCH (09:27)
[2020-07-13] MEDS: levETIRAcetam 500 MG/5 ML LIQUID UDC GT SCH ×2 (09:27→21:05)
[2020-07-13] MEDS: QUETIAPINE FUMARATE 25 MG TABLET GT SCH ×3 (09:27→21:06)
[2020-07-13] MEDS: COD LIVER OIL/ZINC OXIDE OINT 113 GM TUBE TP SCH ×2 (09:28→21:11)
[2020-07-13] MEDS: AMLODIPINE 5 MG TABLET PO SCH (09:28)
[2020-07-13 20:00] VITALS: BP 119/67
[2020-07-13] MEDS: DOCUSATE SODIUM 100 MG/10 ML LIQUID UDC GT SCH (21:05)
[2020-07-13] MEDS: CYANOCOBALAMIN 1,000 MCG TABLET GT SCH (21:06)
[2020-07-13] MEDS: MIRALAX 17 GM POWD.PACK GT SCH (21:06)
[2020-07-13] MEDS: buPROPion 100 MG TABLET GT SCH (21:07)
[2020-07-13] MEDS: CHOLECALCIFEROL 1,000 UNIT TABLET GT SCH (21:07)
[2020-07-13] MEDS: ENOXAPARIN SODIUM 40 MG/0.4 ML DISP.SYRIN SQ SCH (21:08)
--- NOTE | 2020-07-14 | NUR ---
Dago from the Lab called RE: Covid-19 test result that is negative.
[2020-07-14] MEDS: OSMOLITE 1.2 CAL 1,000 ML LIQUID GT PRN (01:03)
[2020-07-14] MEDS: IPRATROPIUM BROMIDE 0.5 MG/2.5 ML NEBU NEB SCH ×6 (02:57→23:30)
[2020-07-14] MEDS: ALBUTEROL SULFATE 2.5 MG/3 ML NEBU NEB SCH ×6 (02:57→23:30)
--- NOTE | 2020-07-14 06:31 | NUR ---
Patient has been sleeping most of the night, no agitation noted, no signs of any distress, needs anticipated, call light within reach. Will continue monitoring.
[2020-07-14] MEDS: BUDESONIDE 0.5 MG/2 ML NEBU NEB SCH ×2 (07:21→19:30)
[2020-07-14] MEDS: HYDROGEN PEROXIDE 3% 118 ML BOTTLE TP SCH ×2 (07:21→20:49)
[2020-07-14 07:49] VITALS: BP 128/74
[2020-07-14] MEDS: ASPIRIN 81 MG TAB.CHEW GT SCH (09:39)
[2020-07-14] MEDS: QUETIAPINE FUMARATE 25 MG TABLET GT SCH ×3 (09:39→20:34)
[2020-07-14] MEDS: levETIRAcetam 500 MG/5 ML LIQUID UDC GT SCH ×2 (09:39→20:33)
[2020-07-14] MEDS: AMLODIPINE 5 MG TABLET PO SCH (09:39)
[2020-07-14] MEDS: COD LIVER OIL/ZINC OXIDE OINT 113 GM TUBE TP SCH ×2 (09:39→20:35)
--- NOTE | 2020-07-14 17:06 | NUR ---
Seen by Dr. Ramirez, new orders carried out, st re-evaluation (decannulation candidate?) cxr, abg on room air 07/17/20.
[2020-07-14 20:33] VITALS: BP 119/66
[2020-07-14] MEDS: MIRALAX 17 GM POWD.PACK GT SCH (20:33)
[2020-07-14] MEDS: DOCUSATE SODIUM 100 MG/10 ML LIQUID UDC GT SCH (20:33)
[2020-07-14] MEDS: CHOLECALCIFEROL 1,000 UNIT TABLET GT SCH (20:34)
[2020-07-14] MEDS: CYANOCOBALAMIN 1,000 MCG TABLET GT SCH (20:34)
[2020-07-14] MEDS: buPROPion 100 MG TABLET GT SCH (20:35)
[2020-07-14] MEDS: ENOXAPARIN SODIUM 40 MG/0.4 ML DISP.SYRIN SQ SCH (20:52)
[2020-07-15] MEDS: IPRATROPIUM BROMIDE 0.5 MG/2.5 ML NEBU NEB SCH ×6 (03:04→23:19)
[2020-07-15] MEDS: ALBUTEROL SULFATE 2.5 MG/3 ML NEBU NEB SCH ×6 (03:04→23:19)
[2020-07-15] MEDS: BUDESONIDE 0.5 MG/2 ML NEBU NEB SCH ×2 (07:30→19:30)
[2020-07-15] MEDS: HYDROGEN PEROXIDE 3% 118 ML BOTTLE TP SCH ×2 (07:41→20:23)
[2020-07-15 07:49] VITALS: BP 135/73
[2020-07-15] MEDS: ASPIRIN 81 MG TAB.CHEW GT SCH (08:53)
[2020-07-15] MEDS: levETIRAcetam 500 MG/5 ML LIQUID UDC GT SCH ×2 (08:53→20:26)
[2020-07-15] MEDS: AMLODIPINE 5 MG TABLET PO SCH (08:54)
[2020-07-15] MEDS: SCOPOLAMINE PATCH 1 MG/72 HRS PATCH TD SCH (08:54)
[2020-07-15] MEDS: QUETIAPINE FUMARATE 25 MG TABLET GT SCH ×3 (08:54→20:26)
[2020-07-15] MEDS: COD LIVER OIL/ZINC OXIDE OINT 113 GM TUBE TP SCH ×2 (08:56→20:26)
[2020-07-15] MEDS: OSMOLITE 1.2 CAL 1,000 ML LIQUID GT PRN (12:15)
[2020-07-15] MEDS: buPROPion 100 MG TABLET GT SCH (20:26)
[2020-07-15] MEDS: CHOLECALCIFEROL 1,000 UNIT TABLET GT SCH (20:26)
[2020-07-15] MEDS: CYANOCOBALAMIN 1,000 MCG TABLET GT SCH (20:26)
[2020-07-15] MEDS: MIRALAX 17 GM POWD.PACK GT SCH (20:26)
[2020-07-15] MEDS: DOCUSATE SODIUM 100 MG/10 ML LIQUID UDC GT SCH (20:26)
[2020-07-15] MEDS: ENOXAPARIN SODIUM 40 MG/0.4 ML DISP.SYRIN SQ SCH (21:00)
[2020-07-15 22:00] VITALS: BP 143/78
[2020-07-16] MEDS: IPRATROPIUM BROMIDE 0.5 MG/2.5 ML NEBU NEB SCH ×6 (03:30→23:20)
[2020-07-16] MEDS: ALBUTEROL SULFATE 2.5 MG/3 ML NEBU NEB SCH ×6 (03:30→23:20)
[2020-07-16] MEDS: BUDESONIDE 0.5 MG/2 ML NEBU NEB SCH ×2 (07:30→19:30)
[2020-07-16] MEDS: HYDROGEN PEROXIDE 3% 118 ML BOTTLE TP SCH ×2 (07:39→20:28)
[2020-07-16 07:51] VITALS: BP 125/69
[2020-07-16] MEDS: levETIRAcetam 500 MG/5 ML LIQUID UDC GT SCH ×2 (09:54→21:45)
[2020-07-16] MEDS: ASPIRIN 81 MG TAB.CHEW GT SCH (09:54)
[2020-07-16] MEDS: QUETIAPINE FUMARATE 25 MG TABLET GT SCH ×3 (09:54→21:45)
[2020-07-16] MEDS: AMLODIPINE 5 MG TABLET PO SCH (09:55)
[2020-07-16] MEDS: COD LIVER OIL/ZINC OXIDE OINT 113 GM TUBE TP SCH ×2 (09:55→21:46)
[2020-07-16] MEDS: ENOXAPARIN SODIUM 40 MG/0.4 ML DISP.SYRIN SQ SCH (21:00)
[2020-07-16 21:03] VITALS: BP 119/78
[2020-07-16] MEDS: DOCUSATE SODIUM 100 MG/10 ML LIQUID UDC GT SCH (21:45)
[2020-07-16] MEDS: MIRALAX 17 GM POWD.PACK GT SCH (21:45)
[2020-07-16] MEDS: CYANOCOBALAMIN 1,000 MCG TABLET GT SCH (21:46)
[2020-07-16] MEDS: CHOLECALCIFEROL 1,000 UNIT TABLET GT SCH (21:46)
[2020-07-16] MEDS: buPROPion 100 MG TABLET GT SCH (21:46)
[2020-07-17] MEDS: IPRATROPIUM BROMIDE 0.5 MG/2.5 ML NEBU NEB SCH ×6 (03:30→23:02)
[2020-07-17] MEDS: ALBUTEROL SULFATE 2.5 MG/3 ML NEBU NEB SCH ×6 (03:30→23:03)
[2020-07-17 07:23] VITALS: BP 126/77
[2020-07-17] MEDS: BUDESONIDE 0.5 MG/2 ML NEBU NEB SCH ×2 (07:30→19:30)
[2020-07-17] MEDS: levETIRAcetam 500 MG/5 ML LIQUID UDC GT SCH ×2 (08:43→21:00)
[2020-07-17] MEDS: ASPIRIN 81 MG TAB.CHEW GT SCH (08:43)
[2020-07-17] MEDS: QUETIAPINE FUMARATE 25 MG TABLET GT SCH ×3 (08:44→21:00)
[2020-07-17] MEDS: COD LIVER OIL/ZINC OXIDE OINT 113 GM TUBE TP SCH ×2 (08:45→21:00)
[2020-07-17] MEDS: AMLODIPINE 5 MG TABLET PO SCH (08:45)
[2020-07-17] MEDS: HYDROGEN PEROXIDE 3% 118 ML BOTTLE TP SCH ×2 (09:42→19:33)
[2020-07-17 10:02] LABS: ABG HCO3 27.9 mmol/L; ABG PCO2 39.6 mmHg (35.0-45.0); ABG PH 7.466 (7.350-7.450); ABG PO2 103.8 mmHg (75.0-100.0); ABG SITE RIGHT RADIAL; ABG TOTAL HEMOGLOBIN 12.3 G/dL (12.0-16.0); COHb 1.5 % (0.5-1.5); MetHb 0.2 % (0.0-1.5); O2Hb 96.9 % (94.0-97.0); VENT MODE Room Air
--- NOTE | 2020-07-17 14:36 | NUR ---
Seen by ST, tolerated finger occlusion and re cap trial for 1 hr without any discomfort.
[2020-07-17] MEDS: ENOXAPARIN SODIUM 40 MG/0.4 ML DISP.SYRIN SQ SCH (20:20)
[2020-07-17 20:51] VITALS: BP 130/86
[2020-07-17] MEDS: buPROPion 100 MG TABLET GT SCH (21:00)
[2020-07-17] MEDS: CYANOCOBALAMIN 1,000 MCG TABLET GT SCH (21:00)
[2020-07-17] MEDS: MIRALAX 17 GM POWD.PACK GT SCH (21:00)
[2020-07-17] MEDS: CHOLECALCIFEROL 1,000 UNIT TABLET GT SCH (21:00)
[2020-07-17] MEDS: DOCUSATE SODIUM 100 MG/10 ML LIQUID UDC GT SCH (21:00)
[2020-07-18] MEDS: OSMOLITE 1.2 CAL 1,000 ML LIQUID GT PRN ×2 (02:03→18:13)
[2020-07-18] MEDS: IPRATROPIUM BROMIDE 0.5 MG/2.5 ML NEBU NEB SCH ×6 (02:40→23:30)
[2020-07-18] MEDS: ALBUTEROL SULFATE 2.5 MG/3 ML NEBU NEB SCH ×6 (02:40→23:30)
[2020-07-18] MEDS: BUDESONIDE 0.5 MG/2 ML NEBU NEB SCH ×2 (07:20→19:30)
[2020-07-18 07:24] VITALS: BP 120/76
[2020-07-18] MEDS: ASPIRIN 81 MG TAB.CHEW GT SCH (08:08)
[2020-07-18] MEDS: levETIRAcetam 500 MG/5 ML LIQUID UDC GT SCH ×2 (08:08→21:20)
[2020-07-18] MEDS: QUETIAPINE FUMARATE 25 MG TABLET GT SCH ×3 (08:08→21:21)
[2020-07-18] MEDS: AMLODIPINE 5 MG TABLET PO SCH (08:08)
[2020-07-18] MEDS: SCOPOLAMINE PATCH 1 MG/72 HRS PATCH TD SCH (08:14)
[2020-07-18] MEDS: COD LIVER OIL/ZINC OXIDE OINT 113 GM TUBE TP SCH ×2 (08:14→21:21)
[2020-07-18] MEDS: HYDROGEN PEROXIDE 3% 118 ML BOTTLE TP SCH ×2 (09:13→21:26)
--- NOTE | 2020-07-18 19:35 | NUR ---
Pt is tolerating red capping ,o2 sat 97%,pt doen't want us to remove the red capping ,notified her we will try tomorrow again,she stated she will left the Rt remove it tonight before she goes to sleep.
[2020-07-18 20:39] VITALS: BP 130/58
[2020-07-18] MEDS: DOCUSATE SODIUM 100 MG/10 ML LIQUID UDC GT SCH (21:19)
[2020-07-18] MEDS: MIRALAX 17 GM POWD.PACK GT SCH (21:20)
[2020-07-18] MEDS: buPROPion 100 MG TABLET GT SCH (21:21)
[2020-07-18] MEDS: CYANOCOBALAMIN 1,000 MCG TABLET GT SCH (21:21)
[2020-07-18] MEDS: CHOLECALCIFEROL 1,000 UNIT TABLET GT SCH (21:21)
[2020-07-18] MEDS: ENOXAPARIN SODIUM 40 MG/0.4 ML DISP.SYRIN SQ SCH (21:25)
[2020-07-19] MEDS: ALBUTEROL SULFATE 2.5 MG/3 ML NEBU NEB SCH ×6 (03:30→23:30)
[2020-07-19] MEDS: IPRATROPIUM BROMIDE 0.5 MG/2.5 ML NEBU NEB SCH ×6 (03:30→23:30)
[2020-07-19 07:05] LABS: BASOPHILS % (AUTO) 0.5 % (0.0-2.0); EOSINOPHILS # (AUTO) 0.3 K/uL (0.0-0.7); EOSINOPHILS % (AUTO) 4.4 % (0.0-7.0); HEMATOCRIT 36.9 % (31.2-41.9); LYMPHOCYTES # (AUTO) 1.9 K/uL (20.0-40.0); LYMPHOCYTES % (AUTO) 33.3 % (20.5-51.5); MEAN CORPUSCULAR HEMOGLOBIN 29.2 uug (24.7-32.8); MEAN CORPUSCULAR HGB CONC 33 g/dL (32.3-35.6); MEAN CORPUSCULAR VOLUME 89.6 fL (75.5-95.3); MONOCYTES # (AUTO) 0.6 K/uL (2.0-10.0); MONOCYTES % (AUTO) 11.1 % (0.0-11.0); NEUTROPHILS # (AUTO) 2.9 K/uL (1.8-8.9); NEUTROPHILS % (AUTO) 50.7 % (38.5-71.5); PLATELET COUNT (AUTO) 301 K/uL (179-408); RED BLOOD CELL COUNT(AUTO) 4.11 MIL/uL (3.63-4.92); WHITE BLOOD COUNT (AUTO) 5.8 K/uL (3.8-11.8)
[2020-07-19 07:24] VITALS: BP 122/81
[2020-07-19 07:28] LABS: CREATININE 0.5 mg/dL (0.6-1.3); POTASSIUM 4.3 mmol/L (3.5-5.1)
[2020-07-19] MEDS: BUDESONIDE 0.5 MG/2 ML NEBU NEB SCH ×2 (07:30→19:30)
[2020-07-19] MEDS: HYDROGEN PEROXIDE 3% 118 ML BOTTLE TP SCH ×2 (07:45→21:20)
[2020-07-19] MEDS: QUETIAPINE FUMARATE 25 MG TABLET GT SCH ×3 (09:02→20:08)
[2020-07-19] MEDS: levETIRAcetam 500 MG/5 ML LIQUID UDC GT SCH ×2 (09:02→20:07)
[2020-07-19] MEDS: ASPIRIN 81 MG TAB.CHEW GT SCH (09:02)
[2020-07-19] MEDS: COD LIVER OIL/ZINC OXIDE OINT 113 GM TUBE TP SCH ×2 (09:03→20:10)
[2020-07-19] MEDS: AMLODIPINE 5 MG TABLET PO SCH (09:03)
[2020-07-19 12:02] LABS: EOSINOPHILS % (MANUAL) 5 % (0-8); LYMPHOCYTES % (MANUAL) 33 % (20-40); MONOCYTES % (MANUAL) 12 % (2-10); NEUTROPHILS % (MANUAL) 50 % (42-75)
--- NOTE | 2020-07-19 17:00 | NUR ---
SW met with Dr. Ramirez today, discussed patient's progress with capping the trach, and ongoing wheening process. Discharge plans discussed, which includes patient returning to [facility], per family's request. SW to follow up with patient's Avinash to discuss discharge plans.
--- NOTE | 2020-07-19 19:34 | NUR ---
Seen by Dr Ramirez,with new orders noted.
[2020-07-19 20:00] VITALS: BP 136/76
[2020-07-19] MEDS: OSMOLITE 1.2 CAL 1,000 ML LIQUID GT PRN (20:05)
[2020-07-19] MEDS: MIRALAX 17 GM POWD.PACK GT SCH (20:07)
[2020-07-19] MEDS: DOCUSATE SODIUM 100 MG/10 ML LIQUID UDC GT SCH (20:07)
[2020-07-19] MEDS: CYANOCOBALAMIN 1,000 MCG TABLET GT SCH (20:08)
[2020-07-19] MEDS: CHOLECALCIFEROL 1,000 UNIT TABLET GT SCH (20:09)
[2020-07-19] MEDS: buPROPion 100 MG TABLET GT SCH (20:09)
--- NOTE | 2020-07-19 20:23 | NUR ---
Due to MD order pt placed back on PMV. Nurse Anita notified.
[2020-07-19] MEDS: ENOXAPARIN SODIUM 40 MG/0.4 ML DISP.SYRIN SQ SCH (21:00)
[2020-07-20] MEDS: IPRATROPIUM BROMIDE 0.5 MG/2.5 ML NEBU NEB SCH ×6 (03:30→23:30)
[2020-07-20] MEDS: ALBUTEROL SULFATE 2.5 MG/3 ML NEBU NEB SCH ×6 (03:30→23:30)
[2020-07-20] MEDS: BUDESONIDE 0.5 MG/2 ML NEBU NEB SCH ×2 (07:30→19:30)
[2020-07-20 07:42] VITALS: BP 118/72
[2020-07-20] MEDS: HYDROGEN PEROXIDE 3% 118 ML BOTTLE TP SCH ×2 (09:16→20:56)
[2020-07-20] MEDS: COD LIVER OIL/ZINC OXIDE OINT 113 GM TUBE TP SCH ×2 (09:25→21:05)
[2020-07-20] MEDS: QUETIAPINE FUMARATE 25 MG TABLET GT SCH ×3 (09:26→21:01)
[2020-07-20] MEDS: ASPIRIN 81 MG TAB.CHEW GT SCH (09:26)
[2020-07-20] MEDS: levETIRAcetam 500 MG/5 ML LIQUID UDC GT SCH ×2 (09:26→20:59)
[2020-07-20] MEDS: AMLODIPINE 5 MG TABLET PO SCH (09:26)
--- NOTE | 2020-07-20 11:27 | NUR ---
SADIA called and spoke with patient's Avinash, , and informed him that the next IDT meeting is scheduled for 07/25/2020 at 11am. Avinash stated that he would like to participate by speaker phone. SADIA asked Avinash to be available on 07/25 between 11am-12pm to receive the team's call. SADIA then discussed possible discharge plans with Avinash, given Dr. Ramirez's preliminary feedback on patient's trach capping and wheening process. Avinash stated that if patient is able to successfully wheen off of the trach, he would like for the patient to return to [facility] facility. SW to contact [facility] to initiate discharge plans. Avinash is in agreement with this plan. SADIA will follow-up with Avinash for ongoing coordination of discharge plans.
--- NOTE | 2020-07-20 11:45 | NUR ---
TRACH CAPPING STARTED BY RT TAYO AND O2 SAT 100% AND HR 76X' ,NO S/S OF CAUTE RESP. DISTRESS,NO CYANOSIS NO SOB, SKIN DRY AND WARM TO TOUCH ,WILL CONT. TO MONITOR PT. WITH FREQUENT VISUAL CHECKS AND CALL LIGHT ON REACH.
[2020-07-20 20:00] VITALS: BP 127/71
[2020-07-20] MEDS: DOCUSATE SODIUM 100 MG/10 ML LIQUID UDC GT SCH (20:59)
--- NOTE | 2020-07-20 21:00 | NUR ---
Patient was able to tolerate capping trials, no respiratory distress noted, still on urban redevelopment specialist, 02 sat is 98% on room air.
[2020-07-20] MEDS: CHOLECALCIFEROL 1,000 UNIT TABLET GT SCH (21:01)
[2020-07-20] MEDS: MIRALAX 17 GM POWD.PACK GT SCH (21:01)
[2020-07-20] MEDS: buPROPion 100 MG TABLET GT SCH (21:01)
[2020-07-20] MEDS: CYANOCOBALAMIN 1,000 MCG TABLET GT SCH (21:01)
[2020-07-20] MEDS: ENOXAPARIN SODIUM 40 MG/0.4 ML DISP.SYRIN SQ SCH (21:04)
[2020-07-21] MEDS: IPRATROPIUM BROMIDE 0.5 MG/2.5 ML NEBU NEB SCH ×6 (03:19→23:30)
[2020-07-21] MEDS: ALBUTEROL SULFATE 2.5 MG/3 ML NEBU NEB SCH ×6 (03:19→23:30)
[2020-07-21] MEDS: BUDESONIDE 0.5 MG/2 ML NEBU NEB SCH ×2 (08:00→19:30)
[2020-07-21] MEDS: levETIRAcetam 500 MG/5 ML LIQUID UDC GT SCH ×2 (09:04→20:24)
[2020-07-21] MEDS: ASPIRIN 81 MG TAB.CHEW GT SCH (09:04)
[2020-07-21] MEDS: QUETIAPINE FUMARATE 25 MG TABLET GT SCH ×3 (09:05→20:24)
[2020-07-21] MEDS: SCOPOLAMINE PATCH 1 MG/72 HRS PATCH TD SCH (09:06)
[2020-07-21] MEDS: AMLODIPINE 5 MG TABLET PO SCH (09:06)
[2020-07-21] MEDS: COD LIVER OIL/ZINC OXIDE OINT 113 GM TUBE TP SCH ×2 (09:06→20:25)
[2020-07-21] MEDS: HYDROGEN PEROXIDE 3% 118 ML BOTTLE TP SCH ×2 (09:13→21:25)
--- NOTE | 2020-07-21 12:51 | NUR ---
Pt remains on capping trials well tolerated 02 SAT 99%-100% no s/s respiratory distress.
--- NOTE | 2020-07-21 13:39 | NUR ---
SADIA called [facility], . SW asked to speak with the admissions department, but no one was available. SW left a voicemail message for the admissions department, asking for a call back in order to discuss the referral process for patient, as this is the family's preferred discharge plan. SW will await call back, and will follow-up as needed.
[2020-07-21] MEDS: buPROPion 100 MG TABLET GT SCH (20:24)
[2020-07-21] MEDS: CHOLECALCIFEROL 1,000 UNIT TABLET GT SCH (20:24)
[2020-07-21] MEDS: MIRALAX 17 GM POWD.PACK GT SCH (20:24)
[2020-07-21] MEDS: DOCUSATE SODIUM 100 MG/10 ML LIQUID UDC GT SCH (20:24)
[2020-07-21] MEDS: CYANOCOBALAMIN 1,000 MCG TABLET GT SCH (20:24)
[2020-07-21] MEDS: ENOXAPARIN SODIUM 40 MG/0.4 ML DISP.SYRIN SQ SCH (20:24)
--- NOTE | 2020-07-21 20:40 | NUR ---
Patient is awake, forgetful, tolerating red capping, no SOB noted, no respiratory distress noted, kept patient clean and comfortable.
[2020-07-21 22:12] VITALS: BP 133/77
[2020-07-22] MEDS: IPRATROPIUM BROMIDE 0.5 MG/2.5 ML NEBU NEB SCH ×6 (03:30→23:25)
[2020-07-22] MEDS: ALBUTEROL SULFATE 2.5 MG/3 ML NEBU NEB SCH ×6 (03:30→23:25)
--- NOTE | 2020-07-22 06:38 | NUR ---
Patient refused to be changed this morning. She Stated, " I just wanna sleep right now, go away.", offered to change X 3 but refused.
[2020-07-22] MEDS: BUDESONIDE 0.5 MG/2 ML NEBU NEB SCH ×2 (07:30→19:30)
[2020-07-22 07:47] VITALS: BP 120/76
[2020-07-22] MEDS: HYDROGEN PEROXIDE 3% 118 ML BOTTLE TP SCH ×2 (08:07→21:15)
[2020-07-22] MEDS: ASPIRIN 81 MG TAB.CHEW GT SCH (08:44)
[2020-07-22] MEDS: QUETIAPINE FUMARATE 25 MG TABLET GT SCH ×3 (08:44→20:33)
[2020-07-22] MEDS: levETIRAcetam 500 MG/5 ML LIQUID UDC GT SCH ×2 (08:44→20:32)
[2020-07-22] MEDS: COD LIVER OIL/ZINC OXIDE OINT 113 GM TUBE TP SCH ×2 (08:46→20:33)
[2020-07-22] MEDS: AMLODIPINE 5 MG TABLET PO SCH (08:46)
--- NOTE | 2020-07-22 09:30 | NUR ---
Pt remains with trach capped as ordered no s/s of respiratory distress well tolerated. O2 sat 99%-100%.
--- NOTE | 2020-07-22 20:18 | NUR ---
Patient is awake, denies any distress, tolerating red capping at this time, 02 sat @ 99%, will continue monitor.
[2020-07-22] MEDS: DOCUSATE SODIUM 100 MG/10 ML LIQUID UDC GT SCH (20:32)
[2020-07-22] MEDS: MIRALAX 17 GM POWD.PACK GT SCH (20:32)
[2020-07-22] MEDS: CYANOCOBALAMIN 1,000 MCG TABLET GT SCH (20:33)
[2020-07-22] MEDS: CHOLECALCIFEROL 1,000 UNIT TABLET GT SCH (20:33)
[2020-07-22] MEDS: buPROPion 100 MG TABLET GT SCH (20:33)
[2020-07-22] MEDS: ENOXAPARIN SODIUM 40 MG/0.4 ML DISP.SYRIN SQ SCH (21:21)
[2020-07-22 21:31] VITALS: BP 123/73
[2020-07-23] MEDS: ALBUTEROL SULFATE 2.5 MG/3 ML NEBU NEB SCH ×6 (03:30→23:30)
[2020-07-23] MEDS: IPRATROPIUM BROMIDE 0.5 MG/2.5 ML NEBU NEB SCH ×6 (03:30→23:30)
[2020-07-23 07:25] VITALS: BP 127/72
[2020-07-23] MEDS: BUDESONIDE 0.5 MG/2 ML NEBU NEB SCH ×2 (07:30→19:30)
[2020-07-23] MEDS: ASPIRIN 81 MG TAB.CHEW GT SCH (08:34)
[2020-07-23] MEDS: levETIRAcetam 500 MG/5 ML LIQUID UDC GT SCH ×2 (08:34→20:28)
[2020-07-23] MEDS: QUETIAPINE FUMARATE 25 MG TABLET GT SCH ×3 (08:34→20:28)
[2020-07-23] MEDS: COD LIVER OIL/ZINC OXIDE OINT 113 GM TUBE TP SCH ×2 (08:35→20:28)
[2020-07-23] MEDS: AMLODIPINE 5 MG TABLET PO SCH (08:35)
[2020-07-23] MEDS ORDERED: SCOPOLAMINE PATCH 1 MG/72 HRS PATCH TD SCH (09:00)
[2020-07-23] MEDS: HYDROGEN PEROXIDE 3% 118 ML BOTTLE TP SCH ×2 (09:00→20:11)
[2020-07-23] MEDS: OSMOLITE 1.2 CAL 1,000 ML LIQUID GT PRN (13:42)
[2020-07-23] MEDS: CHOLECALCIFEROL 1,000 UNIT TABLET GT SCH (20:28)
[2020-07-23] MEDS: CYANOCOBALAMIN 1,000 MCG TABLET GT SCH (20:28)
[2020-07-23] MEDS: buPROPion 100 MG TABLET GT SCH (20:28)
[2020-07-23] MEDS: DOCUSATE SODIUM 100 MG/10 ML LIQUID UDC GT SCH (20:28)
[2020-07-23] MEDS: MIRALAX 17 GM POWD.PACK GT SCH (20:28)
[2020-07-23] MEDS: ENOXAPARIN SODIUM 40 MG/0.4 ML DISP.SYRIN SQ SCH (21:20)
[2020-07-23 22:31] VITALS: BP 112/83
[2020-07-24] MEDS: IPRATROPIUM BROMIDE 0.5 MG/2.5 ML NEBU NEB SCH ×6 (03:30→23:08)
[2020-07-24] MEDS: ALBUTEROL SULFATE 2.5 MG/3 ML NEBU NEB SCH ×6 (03:30→23:08)
[2020-07-24] MEDS: BUDESONIDE 0.5 MG/2 ML NEBU NEB SCH ×2 (07:15→19:30)
[2020-07-24 07:24] VITALS: BP 120/69
[2020-07-24] MEDS: COD LIVER OIL/ZINC OXIDE OINT 113 GM TUBE TP SCH ×2 (08:53→20:48)
[2020-07-24] MEDS: QUETIAPINE FUMARATE 25 MG TABLET GT SCH ×3 (08:53→20:46)
[2020-07-24] MEDS: AMLODIPINE 5 MG TABLET PO SCH (08:53)
[2020-07-24] MEDS: ASPIRIN 81 MG TAB.CHEW GT SCH (08:53)
[2020-07-24] MEDS: levETIRAcetam 500 MG/5 ML LIQUID UDC GT SCH ×2 (08:53→20:46)
[2020-07-24] MEDS: SCOPOLAMINE PATCH 1 MG/72 HRS PATCH TD SCH (08:53)
[2020-07-24] MEDS: HYDROGEN PEROXIDE 3% 118 ML BOTTLE TP SCH ×2 (09:15→21:02)
--- NOTE | 2020-07-24 10:28 | NUR ---
10:10am: SADIA called [facility], , again this morning, as a follow-up to the voicemail message this SW had left the admissions department on 07/21. SADIA spoke with Admissions Asst.Juan R. SADIA stated that SADIA would like to refer the patient to [facility], since patient was previously a resident there and the family would like for patient to return there again. Juan R asked for this SADIA to fax patient's facesheet, H & P, recent progress notes, and list of medications to the Admission's Director Jeanette Michaud. ; work cell # [phone]. SW to fax the requested information.
--- NOTE | 2020-07-24 10:52 | NUR ---
SADIA faxed patient's facesheet, H & P, most recent progress notes from internal medicine, pulmonology, and neurology, and list of current medications to the Admission's Director Jeanette Michaud at [facility]. ; work cell # [phone].
--- NOTE | 2020-07-24 13:00 | NUR ---
SEEN BY NARENDRA Mtz AND WITH NNO.
--- NOTE | 2020-07-24 14:59 | NUR ---
2:10pm: SADIA received a voicemail message from Admission's Director Jeanette Michaud at [facility], , in response to the fax this SADIA had sent her earlier today (see previous SS note). SADIA called Jeanette back, but was unable to connect with her. SADIA left a voicemail message asking Jeanette to call this SADIA back.
[2020-07-24] MEDS: MIRALAX 17 GM POWD.PACK GT SCH (20:46)
[2020-07-24] MEDS: DOCUSATE SODIUM 100 MG/10 ML LIQUID UDC GT SCH (20:46)
[2020-07-24] MEDS: buPROPion 100 MG TABLET GT SCH (20:47)
[2020-07-24] MEDS: CHOLECALCIFEROL 1,000 UNIT TABLET GT SCH (20:47)
[2020-07-24] MEDS: CYANOCOBALAMIN 1,000 MCG TABLET GT SCH (20:47)
[2020-07-24] MEDS: ENOXAPARIN SODIUM 40 MG/0.4 ML DISP.SYRIN SQ SCH (21:27)
[2020-07-24 22:00] VITALS: BP 122/69
[2020-07-25] MEDS: IPRATROPIUM BROMIDE 0.5 MG/2.5 ML NEBU NEB SCH ×6 (03:17→23:18)
[2020-07-25] MEDS: ALBUTEROL SULFATE 2.5 MG/3 ML NEBU NEB SCH ×6 (03:17→23:18)
[2020-07-25 07:30] VITALS: BP 133/59
[2020-07-25] MEDS: BUDESONIDE 0.5 MG/2 ML NEBU NEB SCH ×2 (07:50→19:15)
[2020-07-25] MEDS: levETIRAcetam 500 MG/5 ML LIQUID UDC GT SCH ×2 (09:04→21:18)
[2020-07-25] MEDS: ASPIRIN 81 MG TAB.CHEW GT SCH (09:04)
[2020-07-25] MEDS: AMLODIPINE 5 MG TABLET PO SCH (09:10)
[2020-07-25] MEDS: COD LIVER OIL/ZINC OXIDE OINT 113 GM TUBE TP SCH ×2 (09:10→21:23)
[2020-07-25] MEDS: HYDROGEN PEROXIDE 3% 118 ML BOTTLE TP SCH ×2 (09:10→20:59)
[2020-07-25] MEDS: QUETIAPINE FUMARATE 25 MG TABLET GT SCH ×3 (09:10→21:20)
--- NOTE | 2020-07-25 13:38 | NUR ---
SADIA called Admission's Director Jeanette Michaud at [facility], . Jeanette was not available, and therefore this SW left a voicemail message asking for a call back.
--- NOTE | 2020-07-25 14:51 | NUR ---
INTERDISCIPLINARY PLAN OF CARE CONFERENCE was held today. Patient's Avinash participated in the meeting today. Dr. Ramirez and the Interdisciplinary Team reviewed the current plan of care in detail. RN reported on patient's medical condition. See RN IDT conference notes. PT reported on patient's progress and treatment plan. No major changes in medical condition were reported by nursing or by any of the other disciplines. See all other disciplines IDT notes and physician's progress notes for additional details. Dr. Ramirez discussed progress of patient's wheening process, and plans to remove trach. Discharge plans reviewed, which include patient returning to previous facility, [facility]. SW to follow-up with coordinating discharge plans. Avinash expressed appreciation and agreement with the plan of care.
--- NOTE | 2020-07-25 15:30 | NUR ---
SADIA met with Dr. Masters today, and informed him of DC plans for patient, which includes family's and patient's request for patient to return to [facility], after successful wheening and removal of trach. Dr. Masters expressed agreement with this plan.
--- NOTE | 2020-07-25 15:35 | NUR ---
SADIA received a call back from Jeanette Michaud, Vocational Training Teacher at [facility], . Jeanette stated that they would accept patient back to their facility, but that Jeanette was going to run patient's insurance eligibility and call this SW back with confirmation. SADIA will wait to hear back from Jeanette for final acceptance confirmation, and will then coordinate with patient's physicians, interdisciplinary team, and patient's to arrange a safe and proper discharge.
--- NOTE | 2020-07-25 17:47 | NUR ---
Covid 19 test done today,[facility] requirement.Pt agreed.
[2020-07-25 20:29] VITALS: BP 139/73
[2020-07-25] MEDS: DOCUSATE SODIUM 100 MG/10 ML LIQUID UDC GT SCH (21:18)
[2020-07-25] MEDS: MIRALAX 17 GM POWD.PACK GT SCH (21:19)
[2020-07-25] MEDS: CYANOCOBALAMIN 1,000 MCG TABLET GT SCH (21:20)
[2020-07-25] MEDS: buPROPion 100 MG TABLET GT SCH (21:20)
[2020-07-25] MEDS: CHOLECALCIFEROL 1,000 UNIT TABLET GT SCH (21:21)
[2020-07-25] MEDS: ENOXAPARIN SODIUM 40 MG/0.4 ML DISP.SYRIN SQ SCH (21:23)
--- NOTE | 2020-07-25 22:10 | NUR ---
Patient is awake, trach is intact and patent, tolerating dredge pipe operator, on room air,
--- NOTE | 2020-07-25 22:12 | NUR ---
Tolerating red capping, 02 sat is 99%, no signs of any distress at this time, needs attended, call light within reach.
[2020-07-26] MEDS: ALBUTEROL SULFATE 2.5 MG/3 ML NEBU NEB SCH ×6 (03:09→23:30)
[2020-07-26] MEDS: IPRATROPIUM BROMIDE 0.5 MG/2.5 ML NEBU NEB SCH ×6 (03:09→23:30)
[2020-07-26] MEDS: BUDESONIDE 0.5 MG/2 ML NEBU NEB SCH ×2 (07:30→19:30)
[2020-07-26 07:56] VITALS: BP 121/70
[2020-07-26] MEDS: levETIRAcetam 500 MG/5 ML LIQUID UDC GT SCH ×2 (08:34→20:52)
[2020-07-26] MEDS: ASPIRIN 81 MG TAB.CHEW GT SCH (08:34)
[2020-07-26] MEDS: QUETIAPINE FUMARATE 25 MG TABLET GT SCH ×3 (08:35→20:52)
[2020-07-26] MEDS: COD LIVER OIL/ZINC OXIDE OINT 113 GM TUBE TP SCH ×2 (08:36→20:53)
[2020-07-26] MEDS: AMLODIPINE 5 MG TABLET PO SCH (08:36)
[2020-07-26] MEDS: HYDROGEN PEROXIDE 3% 118 ML BOTTLE TP SCH ×2 (09:00→20:17)
--- NOTE | 2020-07-26 15:56 | NUR ---
SADIA called Jeanette Michaud, Biopharmaceutical Rep at [facility], , to follow-up on conversation this SW had with Jeanette yesterday, (see SS note). Jeanette was not available, and this SW left Jeanette a voicemail message asking Jeanette to call this SW back with an update on the outcome of patient's insurance verification and discharge planning process.
--- NOTE | 2020-07-26 16:00 | NUR ---
SW called patient's Avinash, and provided him with an update on the discharge plans. SW informed Avinash that SW is waiting to hear back from [facility] regarding patient's insurance eligibility. Avinash expressed understanding. SW then met with patient and updated her on the discharge plans. Patient was awake, alert, receptive to meeting with this SW, and expressed agreement and understanding with the discharge plans. SW to continue to work with patient and patient's family to coordinate discharge plans, as SW received updates.
[2020-07-26 20:20] VITALS: BP 128/76
[2020-07-26] MEDS: CYANOCOBALAMIN 1,000 MCG TABLET GT SCH (20:52)
[2020-07-26] MEDS: MIRALAX 17 GM POWD.PACK GT SCH (20:52)
[2020-07-26] MEDS: buPROPion 100 MG TABLET GT SCH (20:52)
[2020-07-26] MEDS: DOCUSATE SODIUM 100 MG/10 ML LIQUID UDC GT SCH (20:52)
[2020-07-26] MEDS: CHOLECALCIFEROL 1,000 UNIT TABLET GT SCH (20:52)
[2020-07-26] MEDS: ENOXAPARIN SODIUM 40 MG/0.4 ML DISP.SYRIN SQ SCH (20:53)
--- NOTE | 2020-07-26 22:13 | NUR ---
Afebrile, tolerating red capping, still on room air, 02 sat is 98%, patient refused to be suctioned at this time, Will continue monitor.
--- NOTE | 2020-07-26 22:21 | NUR ---
Got a call from Dago from the Lab RE: Covid 19 test resulted Negative.
[2020-07-27] MEDS: ALBUTEROL SULFATE 2.5 MG/3 ML NEBU NEB SCH ×6 (03:30→23:30)
[2020-07-27] MEDS: IPRATROPIUM BROMIDE 0.5 MG/2.5 ML NEBU NEB SCH ×6 (03:30→23:30)
[2020-07-27] MEDS: BUDESONIDE 0.5 MG/2 ML NEBU NEB SCH ×2 (07:30→19:30)
[2020-07-27] MEDS: HYDROGEN PEROXIDE 3% 118 ML BOTTLE TP SCH ×2 (07:47→20:00)
[2020-07-27 07:58] VITALS: BP 104/76
[2020-07-27] MEDS: QUETIAPINE FUMARATE 25 MG TABLET GT SCH ×3 (08:57→21:05)
[2020-07-27] MEDS: AMLODIPINE 5 MG TABLET PO SCH (08:57)
[2020-07-27] MEDS: ASPIRIN 81 MG TAB.CHEW GT SCH (08:57)
[2020-07-27] MEDS: levETIRAcetam 500 MG/5 ML LIQUID UDC GT SCH ×2 (08:57→21:05)
[2020-07-27] MEDS: COD LIVER OIL/ZINC OXIDE OINT 113 GM TUBE TP SCH ×2 (08:58→21:06)
[2020-07-27] MEDS: SCOPOLAMINE PATCH 1 MG/72 HRS PATCH TD SCH (08:58)
--- NOTE | 2020-07-27 09:13 | NUR ---
NOTIFIED [employer]IBLE [employer] OF NEGATIVE COVID-19 TEST FROM 07/25/2020.
[2020-07-27 20:26] VITALS: BP 147/72
[2020-07-27] MEDS: CHOLECALCIFEROL 1,000 UNIT TABLET GT SCH (21:05)
[2020-07-27] MEDS: CYANOCOBALAMIN 1,000 MCG TABLET GT SCH (21:05)
[2020-07-27] MEDS: MIRALAX 17 GM POWD.PACK GT SCH (21:05)
[2020-07-27] MEDS: DOCUSATE SODIUM 100 MG/10 ML LIQUID UDC GT SCH (21:05)
[2020-07-27] MEDS: buPROPion 100 MG TABLET GT SCH (21:05)
[2020-07-27] MEDS: ENOXAPARIN SODIUM 40 MG/0.4 ML DISP.SYRIN SQ SCH (21:06)
--- NOTE | 2020-07-27 21:07 | NUR ---
Patient is awake and watching TV, tolerating red capping, denies respiratory distress, breathing even and non-labored, 02 sat is 99% on room air, needs attended, call light within reach, will continue monitor.
[2020-07-28] MEDS: ALBUTEROL SULFATE 2.5 MG/3 ML NEBU NEB SCH ×6 (03:30→23:30)
[2020-07-28] MEDS: IPRATROPIUM BROMIDE 0.5 MG/2.5 ML NEBU NEB SCH ×6 (03:30→23:30)
[2020-07-28] MEDS: OSMOLITE 1.2 CAL 1,000 ML LIQUID GT PRN (03:30)
[2020-07-28] MEDS: BUDESONIDE 0.5 MG/2 ML NEBU NEB SCH ×2 (07:30→19:30)
[2020-07-28 07:52] VITALS: BP 132/69
[2020-07-28] MEDS: HYDROGEN PEROXIDE 3% 118 ML BOTTLE TP SCH ×2 (08:34→21:45)
[2020-07-28] MEDS: ASPIRIN 81 MG TAB.CHEW GT SCH (08:38)
[2020-07-28] MEDS: levETIRAcetam 500 MG/5 ML LIQUID UDC GT SCH ×2 (08:38→21:52)
[2020-07-28] MEDS: COD LIVER OIL/ZINC OXIDE OINT 113 GM TUBE TP SCH ×2 (08:39→21:53)
[2020-07-28] MEDS: QUETIAPINE FUMARATE 25 MG TABLET GT SCH ×3 (08:39→21:53)
[2020-07-28] MEDS: AMLODIPINE 5 MG TABLET PO SCH (08:39)
--- NOTE | 2020-07-28 11:06 | NUR ---
SADIA once again called Jeanette Michaud, Human Factors Engineer at [facility], , who was available to speak with this SW. Jeanette stated that patient has been cleared to be admitted to [facility], as soon as patient's trach has been successfully removed. Jeanette also stated that the facilities preference is for all admissions to arrive before 4pm on day of admission. SADIA acknowledged this preference. SADIA stated that SW will let patient's physician, , and IDT team know about the patient being accepted at [facility]. SADIA explained that the physician will work towards decanulation, and the team will work towards DC planning. SW will inform Jeanette when patient is ready for discharge. Jeanette expressed agreement. SADIA then called patient's Avinash [phone], and informed him of above. Avinash expressed agreement with the DC plans.
--- NOTE | 2020-07-28 11:13 | NUR ---
SADIA informed both Dr. Ramirez and Dr. Masters that patient has been accepted at [facility]. SADIA informed storage battery charger Mario and Nurse Ground Crew Lines Person Young Licona.
--- NOTE | 2020-07-28 16:45 | NUR ---
Seen by Dr. Ramirez, new orders carried to decannulate trach, (RT department notified).
[2020-07-28 20:15] VITALS: BP 132/72
[2020-07-28] MEDS: ENOXAPARIN SODIUM 40 MG/0.4 ML DISP.SYRIN SQ SCH (21:00)
[2020-07-28] MEDS: MIRALAX 17 GM POWD.PACK GT SCH (21:52)
[2020-07-28] MEDS: DOCUSATE SODIUM 100 MG/10 ML LIQUID UDC GT SCH (21:52)
[2020-07-28] MEDS: buPROPion 100 MG TABLET GT SCH (21:53)
[2020-07-28] MEDS: CHOLECALCIFEROL 1,000 UNIT TABLET GT SCH (21:53)
[2020-07-28] MEDS: CYANOCOBALAMIN 1,000 MCG TABLET GT SCH (21:53)
[2020-07-29] MEDS: OSMOLITE 1.2 CAL 1,000 ML LIQUID GT PRN ×2 (00:34→18:01)
[2020-07-29] MEDS: IPRATROPIUM BROMIDE 0.5 MG/2.5 ML NEBU NEB SCH ×6 (03:30→23:10)
[2020-07-29] MEDS: ALBUTEROL SULFATE 2.5 MG/3 ML NEBU NEB SCH ×6 (03:30→23:10)
[2020-07-29] MEDS: BUDESONIDE 0.5 MG/2 ML NEBU NEB SCH ×2 (07:30→19:30)
[2020-07-29 07:56] VITALS: BP 105/75
[2020-07-29] MEDS: HYDROGEN PEROXIDE 3% 118 ML BOTTLE TP SCH ×2 (08:30→21:45)
[2020-07-29] MEDS: ASPIRIN 81 MG TAB.CHEW GT SCH (08:39)
[2020-07-29] MEDS: levETIRAcetam 500 MG/5 ML LIQUID UDC GT SCH ×2 (08:41→20:52)
[2020-07-29] MEDS: QUETIAPINE FUMARATE 25 MG TABLET GT SCH ×3 (08:42→20:53)
[2020-07-29] MEDS: AMLODIPINE 5 MG TABLET PO SCH (08:43)
[2020-07-29] MEDS: COD LIVER OIL/ZINC OXIDE OINT 113 GM TUBE TP SCH ×2 (08:45→20:57)
--- NOTE | 2020-07-29 11:33 | NUR ---
Pt decannulated by Rt as ordered at 0830 am,no bleeding noted,site covered by gauze.on close observation ,o2 saturation 97 to 98 %.
[2020-07-29 20:15] VITALS: BP 134/72
[2020-07-29] MEDS: DOCUSATE SODIUM 100 MG/10 ML LIQUID UDC GT SCH (20:52)
[2020-07-29] MEDS: MIRALAX 17 GM POWD.PACK GT SCH (20:53)
[2020-07-29] MEDS: CHOLECALCIFEROL 1,000 UNIT TABLET GT SCH (20:57)
[2020-07-29] MEDS: CYANOCOBALAMIN 1,000 MCG TABLET GT SCH (20:57)
[2020-07-29] MEDS: buPROPion 100 MG TABLET GT SCH (20:57)
--- NOTE | 2020-07-29 21:07 | NUR ---
97.9,86,18,134/72, o2sat- 97%, awake and alert, watching t.v., no respiratory distress noted, pt checked frequently, call light within reach, called and notified that pt is doing well, will monitor pt closely.
[2020-07-29] MEDS: ENOXAPARIN SODIUM 40 MG/0.4 ML DISP.SYRIN SQ SCH (21:23)
[2020-07-30] MEDS: ALBUTEROL SULFATE 2.5 MG/3 ML NEBU NEB SCH ×6 (03:24→23:10)
[2020-07-30] MEDS: IPRATROPIUM BROMIDE 0.5 MG/2.5 ML NEBU NEB SCH ×6 (03:24→23:10)
[2020-07-30] MEDS: BUDESONIDE 0.5 MG/2 ML NEBU NEB SCH ×2 (07:29→19:23)
[2020-07-30 07:58] VITALS: BP 135/63
[2020-07-30] MEDS: levETIRAcetam 500 MG/5 ML LIQUID UDC GT SCH ×2 (08:57→20:00)
[2020-07-30] MEDS: ASPIRIN 81 MG TAB.CHEW GT SCH (08:57)
[2020-07-30] MEDS: QUETIAPINE FUMARATE 25 MG TABLET GT SCH ×3 (08:57→20:00)
[2020-07-30] MEDS: SCOPOLAMINE PATCH 1 MG/72 HRS PATCH TD SCH (08:59)
[2020-07-30] MEDS: COD LIVER OIL/ZINC OXIDE OINT 113 GM TUBE TP SCH ×2 (08:59→20:01)
[2020-07-30] MEDS: HYDROGEN PEROXIDE 3% 118 ML BOTTLE TP SCH ×2 (09:00→21:02)
[2020-07-30] MEDS: AMLODIPINE 5 MG TABLET PO SCH (09:02)
--- NOTE | 2020-07-30 18:16 | NUR ---
PT S/P DECANNULATED NO SOB DISTRESS HOB FOR ASPIRATIONS PRECAUTION.STOMA SITE CLEAN AND DRY COVER WITH DRY DRESSING NO S/S OF BURN OR PAIN AT STOMA SITE.O2 SAT 96-98%AND CHECKED FREQUENTLY& MONITOR CLOSELY. CALLED AND NOTIFIED FOR PT GOOD CONDITION.CALL LIGHT WITHIN REACH.
[2020-07-30] MEDS: OSMOLITE 1.2 CAL 1,000 ML LIQUID GT PRN (19:46)
[2020-07-30] MEDS: MIRALAX 17 GM POWD.PACK GT SCH (20:00)
[2020-07-30] MEDS: DOCUSATE SODIUM 100 MG/10 ML LIQUID UDC GT SCH (20:00)
[2020-07-30] MEDS: CHOLECALCIFEROL 1,000 UNIT TABLET GT SCH (20:01)
[2020-07-30] MEDS: CYANOCOBALAMIN 1,000 MCG TABLET GT SCH (20:01)
[2020-07-30] MEDS: buPROPion 100 MG TABLET GT SCH (20:01)
[2020-07-30] MEDS: ENOXAPARIN SODIUM 40 MG/0.4 ML DISP.SYRIN SQ SCH (20:03)
[2020-07-30 20:23] VITALS: BP 126/74
[2020-07-31] MEDS: IPRATROPIUM BROMIDE 0.5 MG/2.5 ML NEBU NEB SCH ×6 (02:48→23:30)
[2020-07-31] MEDS: ALBUTEROL SULFATE 2.5 MG/3 ML NEBU NEB SCH ×6 (02:48→23:30)
[2020-07-31 07:29] VITALS: BP 132/84
[2020-07-31] MEDS: BUDESONIDE 0.5 MG/2 ML NEBU NEB SCH ×2 (07:30→19:30)
[2020-07-31] MEDS: HYDROGEN PEROXIDE 3% 118 ML BOTTLE TP SCH ×2 (08:43→20:47)
[2020-07-31] MEDS: QUETIAPINE FUMARATE 25 MG TABLET GT SCH ×3 (09:18→20:17)
[2020-07-31] MEDS: levETIRAcetam 500 MG/5 ML LIQUID UDC GT SCH ×2 (09:18→20:15)
[2020-07-31] MEDS: AMLODIPINE 5 MG TABLET PO SCH (09:18)
[2020-07-31] MEDS: ASPIRIN 81 MG TAB.CHEW GT SCH (09:18)
[2020-07-31] MEDS: COD LIVER OIL/ZINC OXIDE OINT 113 GM TUBE TP SCH ×2 (09:18→20:18)
--- NOTE | 2020-07-31 17:07 | NUR ---
SEEN BY NARENDRA Mtz AND WITH NNO.REMAINS STABLE AT ROOM AIR.(SEE V/S RECORD)
[2020-07-31] MEDS: DOCUSATE SODIUM 100 MG/10 ML LIQUID UDC GT SCH (20:15)
[2020-07-31] MEDS: CYANOCOBALAMIN 1,000 MCG TABLET GT SCH (20:17)
[2020-07-31] MEDS: MIRALAX 17 GM POWD.PACK GT SCH (20:17)
[2020-07-31] MEDS: CHOLECALCIFEROL 1,000 UNIT TABLET GT SCH (20:17)
[2020-07-31 20:18] VITALS: BP 132/76
[2020-07-31] MEDS: buPROPion 100 MG TABLET GT SCH (20:18)
[2020-07-31] MEDS: ENOXAPARIN SODIUM 40 MG/0.4 ML DISP.SYRIN SQ SCH (20:19)
[2020-08-01] MEDS: IPRATROPIUM BROMIDE 0.5 MG/2.5 ML NEBU NEB SCH ×6 (03:30→23:30)
[2020-08-01] MEDS: ALBUTEROL SULFATE 2.5 MG/3 ML NEBU NEB SCH ×6 (03:30→23:30)
[2020-08-01 07:22] VITALS: BP 143/76
[2020-08-01] MEDS: BUDESONIDE 0.5 MG/2 ML NEBU NEB SCH ×2 (08:05→19:30)
[2020-08-01] MEDS: ASPIRIN 81 MG TAB.CHEW GT SCH (09:16)
[2020-08-01] MEDS: levETIRAcetam 500 MG/5 ML LIQUID UDC GT SCH ×2 (09:17→21:21)
[2020-08-01] MEDS: QUETIAPINE FUMARATE 25 MG TABLET GT SCH ×3 (09:18→21:23)
[2020-08-01] MEDS: AMLODIPINE 5 MG TABLET PO SCH (09:19)
[2020-08-01] MEDS: COD LIVER OIL/ZINC OXIDE OINT 113 GM TUBE TP SCH ×3 (09:19→21:34)
[2020-08-01] MEDS: HYDROGEN PEROXIDE 3% 118 ML BOTTLE TP SCH ×2 (09:35→21:24)
--- NOTE | 2020-08-01 12:30 | NUR ---
New orders to continue Pt services 3x week x 2 weeks.
--- NOTE | 2020-08-01 15:25 | NUR ---
SW informed by MARIELA Cortes to Dr. Ramirez, that patient will probably be ready for discharge by Friday 08/04. SW to coordinate discharge plans and transportation, and notify patient's and [facility]. SW to arrange transportation via ambulance for transport. Nurse Research Group Director Young Licona and SANDY Lugo notified by this SW. This SW also notified Dr. Masters, who is in agreement with discharge plans.
--- NOTE | 2020-08-01 17:02 | NUR ---
Seen and examined by Dr Masters with new orders noted.new orders for discharge to [facility] by ambulance,on friday08/04/20
--- NOTE | 2020-08-01 17:09 | NUR ---
Seen and examined by Dr Pretty ,no new orders.
--- NOTE | 2020-08-01 18:57 | NUR ---
New orders noted for Gt site redness,carried out.
[2020-08-01 20:00] VITALS: BP 131/77
[2020-08-01] MEDS: MIRALAX 17 GM POWD.PACK GT SCH (21:21)
[2020-08-01] MEDS: DOCUSATE SODIUM 100 MG/10 ML LIQUID UDC GT SCH (21:21)
[2020-08-01] MEDS: buPROPion 100 MG TABLET GT SCH (21:23)
[2020-08-01] MEDS: CYANOCOBALAMIN 1,000 MCG TABLET GT SCH (21:25)
[2020-08-01] MEDS: CHOLECALCIFEROL 1,000 UNIT TABLET GT SCH (21:25)
[2020-08-01] MEDS: ENOXAPARIN SODIUM 40 MG/0.4 ML DISP.SYRIN SQ SCH (21:31)
[2020-08-02] MEDS: ALBUTEROL SULFATE 2.5 MG/3 ML NEBU NEB SCH ×7 (03:30→22:30)
[2020-08-02] MEDS: IPRATROPIUM BROMIDE 0.5 MG/2.5 ML NEBU NEB SCH ×7 (03:30→22:30)
[2020-08-02 07:19] VITALS: BP 134/63
[2020-08-02] MEDS: BUDESONIDE 0.5 MG/2 ML NEBU NEB SCH ×2 (07:22→19:30)
[2020-08-02] MEDS: levETIRAcetam 500 MG/5 ML LIQUID UDC GT SCH ×2 (08:06→20:14)
[2020-08-02] MEDS: ASPIRIN 81 MG TAB.CHEW GT SCH (08:06)
[2020-08-02] MEDS: QUETIAPINE FUMARATE 25 MG TABLET GT SCH ×3 (08:07→20:14)
[2020-08-02] MEDS: AMLODIPINE 5 MG TABLET PO SCH (08:07)
[2020-08-02] MEDS: SCOPOLAMINE PATCH 1 MG/72 HRS PATCH TD SCH (08:08)
[2020-08-02] MEDS: COD LIVER OIL/ZINC OXIDE OINT 113 GM TUBE TP SCH ×4 (08:09→20:15)
[2020-08-02] MEDS: HYDROGEN PEROXIDE 3% 118 ML BOTTLE TP SCH ×2 (09:00→21:08)
[2020-08-02] MEDS: OSMOLITE 1.2 CAL 1,000 ML LIQUID GT PRN (12:00)
--- NOTE | 2020-08-02 12:37 | NUR ---
no respiratory distress,o2 sat 97 %,has pending discharge to [facility] on Friday08/04/20.
--- NOTE | 2020-08-02 14:11 | NUR ---
12:30pm: SADIA called Textile Dyer Jeanette Michaud at [facility], , and informed her that patient has been scheduled for discharge on Friday, 08/04. Jeanette informed this SW that they are not able to admit patient on Friday, and asked if patient could be discharged on Friday or Friday. SADIA stated that SW would speak with patient's physicians and DON, and get back to [facility]. SADIA informed nurse manager custom Young Licona and SANDY Lugo.
--- NOTE | 2020-08-02 16:09 | NUR ---
SW called patient's Avinash, , and provided him with an update on the DC plans, and the possibility that patient's discharge may be delayed a couple of days, per [facility] facilities limitations. Avinash expressed understanding. SW will continue to coordinate discharge plans and communicate with patient's about timeline.
--- NOTE | 2020-08-02 17:00 | NUR ---
Covid 19 test done today. Responsible libertarian requested to be call only with positive results, hence was not notified before the test.
[2020-08-02 20:00] VITALS: BP 131/76
[2020-08-02] MEDS: DOCUSATE SODIUM 100 MG/10 ML LIQUID UDC GT SCH (20:12)
[2020-08-02] MEDS: MIRALAX 17 GM POWD.PACK GT SCH (20:14)
[2020-08-02] MEDS: buPROPion 100 MG TABLET GT SCH (20:14)
[2020-08-02] MEDS: CYANOCOBALAMIN 1,000 MCG TABLET GT SCH (20:15)
[2020-08-02] MEDS: CHOLECALCIFEROL 1,000 UNIT TABLET GT SCH (20:15)
[2020-08-02] MEDS: ENOXAPARIN SODIUM 40 MG/0.4 ML DISP.SYRIN SQ SCH (20:17)
[2020-08-03] MEDS: IPRATROPIUM BROMIDE 0.5 MG/2.5 ML NEBU NEB SCH ×7 (03:30→23:19)
[2020-08-03] MEDS: ALBUTEROL SULFATE 2.5 MG/3 ML NEBU NEB SCH ×7 (03:30→23:19)
[2020-08-03] MEDS: HYDROGEN PEROXIDE 3% 118 ML BOTTLE TP SCH ×2 (07:22→21:16)
[2020-08-03] MEDS: BUDESONIDE 0.5 MG/2 ML NEBU NEB SCH ×3 (07:22→19:30)
[2020-08-03 07:51] VITALS: BP 130/69
[2020-08-03] MEDS: levETIRAcetam 500 MG/5 ML LIQUID UDC GT SCH ×2 (08:51→20:59)
[2020-08-03] MEDS: ASPIRIN 81 MG TAB.CHEW GT SCH (08:51)
[2020-08-03] MEDS: QUETIAPINE FUMARATE 25 MG TABLET GT SCH ×3 (08:52→20:59)
[2020-08-03] MEDS: AMLODIPINE 5 MG TABLET PO SCH (08:52)
[2020-08-03] MEDS: COD LIVER OIL/ZINC OXIDE OINT 113 GM TUBE TP SCH ×4 (08:53→21:00)
--- NOTE | 2020-08-03 11:03 | NUR ---
PER PARTS FABRICATOR SHANAE MARTINEZ NEEDS A NEW ORDER TO BE DISCHARGED TILL FRIDAY NOT TOMORROW D/T THE ADMITTING FACILITY ACCEPTS ADMISSIONS TILL FRIDAY.[address] EDOUARD Hoover TO CALL BACK.
--- NOTE | 2020-08-03 11:24 | NUR ---
SADIA called Java Golden Gate Developer Jeanette Michaud at [facility], , and confirmed discharge for Monday 08/07. Jeanette asked for this SW to fax to her the most recent progress notes from this week, along with current list of medications. Jeanette also asked for a recent COVID test, which SADIA stated was done on 08/02, pending results. COVID test results will be faxed to Jeanette, once received. Discharge details discussed, and Jeanette stated that patient needs to arrive to their facility no later then 3pm in the afternoon, and that a discharge/transfer summary should be faxed to them Friday morning, prior to transfer. All above was relayed to charge attendant Norma. SADIA also informed Dr. Mastres. PLAN: SADIA to fax current medications and recent progress notes to Jeanette. SADIA will fax most recent COVID results to Jeanette once results are in.
--- NOTE | 2020-08-03 12:20 | NUR ---
PT'S MAIRA PRICE WAS NOTIFIED WITH A MESSAGE THAT PT. WILL BE DISCHARGED TO [facility] TILL FRIDAY.
--- NOTE | 2020-08-03 12:23 | NUR ---
SADIA faxed patient's recent progress notes and current medication list to Single Pass Soil Stabilizer Operator Jeanette Michaud at [facility], . .
--- NOTE | 2020-08-03 14:22 | NUR ---
SADIA called [facility] and spoke with Porter, . Ambulance reservations were made for Friday, 08/07, pick-up time 12 noon. Patient will be picked up from [facility], and transported to [facility], [address] [place] [address], . Porter provided confirmation # [id number]. candy bar attendant Keysha informed, and provided above information.
--- NOTE | 2020-08-03 14:41 | NUR ---
patient is alert, oriented x 3, no sob, resp even nonlabored, skin warm and dry to touch, no distress noted, no chills, fever, nausea, vomiting noted, g-tube intact, patent with positive placement, no residual noted, tolerating g-tube formula well, kept clean and dry, noted with secretions, good oral care provided.
[2020-08-03 20:00] VITALS: BP 133/75
[2020-08-03] MEDS: CYANOCOBALAMIN 1,000 MCG TABLET GT SCH (20:59)
[2020-08-03] MEDS: DOCUSATE SODIUM 100 MG/10 ML LIQUID UDC GT SCH (20:59)
[2020-08-03] MEDS: MIRALAX 17 GM POWD.PACK GT SCH (20:59)
[2020-08-03] MEDS: CHOLECALCIFEROL 1,000 UNIT TABLET GT SCH (20:59)
[2020-08-03] MEDS: buPROPion 100 MG TABLET GT SCH (21:00)
[2020-08-03] MEDS: ENOXAPARIN SODIUM 40 MG/0.4 ML DISP.SYRIN SQ SCH (21:48)
[2020-08-04] MEDS: OSMOLITE 1.2 CAL 1,000 ML LIQUID GT PRN (01:38)
[2020-08-04] MEDS: IPRATROPIUM BROMIDE 0.5 MG/2.5 ML NEBU NEB SCH ×6 (03:05→23:30)
[2020-08-04] MEDS: ALBUTEROL SULFATE 2.5 MG/3 ML NEBU NEB SCH ×6 (03:05→23:30)
[2020-08-04] MEDS: BUDESONIDE 0.5 MG/2 ML NEBU NEB SCH ×2 (07:30→19:30)
[2020-08-04 07:51] VITALS: BP 130/70
[2020-08-04] MEDS: ASPIRIN 81 MG TAB.CHEW GT SCH (08:53)
[2020-08-04] MEDS: levETIRAcetam 500 MG/5 ML LIQUID UDC GT SCH ×2 (08:54→21:27)
[2020-08-04] MEDS: QUETIAPINE FUMARATE 25 MG TABLET GT SCH ×3 (08:55→21:27)
[2020-08-04] MEDS: AMLODIPINE 5 MG TABLET PO SCH (08:55)
[2020-08-04] MEDS: COD LIVER OIL/ZINC OXIDE OINT 113 GM TUBE TP SCH ×4 (08:55→21:28)
[2020-08-04] MEDS: HYDROGEN PEROXIDE 3% 118 ML BOTTLE TP SCH ×2 (09:00→21:37)
--- NOTE | 2020-08-04 10:52 | NUR ---
SADIA faxed patient's most recent COVID test results to Jeanette, Admission Director at [facility], fax # [phone]. SADIA called Jeanette, and left her a voicemail stating that SADIA has sent fax, and stating that patient's ambulance pick-up for Mondays is scheduled for 12 noon.
--- NOTE | 2020-08-04 11:40 | NUR ---
Called patient's Avinash to update him on patient's recent covid test but received no answer. Left voicemail. Will f/up later.
--- NOTE | 2020-08-04 15:12 | NUR ---
SADIA called patient's Avinash [phone], and left him a voicemail message letting him know that patient is scheduled for discharge for Monday 08/07, and that ambulance arrangements have been made for a 12 noon pick-up on Friday.
[2020-08-04 20:22] VITALS: BP 138/88
[2020-08-04] MEDS: MIRALAX 17 GM POWD.PACK GT SCH (21:27)
[2020-08-04] MEDS: DOCUSATE SODIUM 100 MG/10 ML LIQUID UDC GT SCH (21:27)
[2020-08-04] MEDS: CYANOCOBALAMIN 1,000 MCG TABLET GT SCH (21:28)
[2020-08-04] MEDS: CHOLECALCIFEROL 1,000 UNIT TABLET GT SCH (21:28)
[2020-08-04] MEDS: buPROPion 100 MG TABLET GT SCH (21:28)
[2020-08-04] MEDS: ENOXAPARIN SODIUM 40 MG/0.4 ML DISP.SYRIN SQ SCH (21:40)
--- NOTE | 2020-08-04 22:00 | NUR ---
Afebrile, breathing even and non- labored, noted patient trying to cough out phlegm, encouraged patient to cough up phlegm as she can and patient expressed understanding. No signs of any respiratory distress noted, needs attended, call light within reach.
[2020-08-05] MEDS: OSMOLITE 1.2 CAL 1,000 ML LIQUID GT PRN (02:31)
[2020-08-05] MEDS: ALBUTEROL SULFATE 2.5 MG/3 ML NEBU NEB SCH ×6 (03:30→23:30)
[2020-08-05] MEDS: IPRATROPIUM BROMIDE 0.5 MG/2.5 ML NEBU NEB SCH ×6 (03:30→23:30)
[2020-08-05] MEDS: BUDESONIDE 0.5 MG/2 ML NEBU NEB SCH ×2 (07:30→19:30)
[2020-08-05 07:55] VITALS: BP 129/79
[2020-08-05] MEDS: QUETIAPINE FUMARATE 25 MG TABLET GT SCH ×3 (08:41→20:50)
[2020-08-05] MEDS: ASPIRIN 81 MG TAB.CHEW GT SCH (08:41)
[2020-08-05] MEDS: levETIRAcetam 500 MG/5 ML LIQUID UDC GT SCH ×2 (08:41→20:50)
[2020-08-05] MEDS: SCOPOLAMINE PATCH 1 MG/72 HRS PATCH TD SCH (08:42)
[2020-08-05] MEDS: COD LIVER OIL/ZINC OXIDE OINT 113 GM TUBE TP SCH ×4 (08:42→20:50)
[2020-08-05] MEDS: AMLODIPINE 5 MG TABLET PO SCH (08:42)
[2020-08-05] MEDS: HYDROGEN PEROXIDE 3% 118 ML BOTTLE TP SCH ×2 (08:43→21:08)
--- NOTE | 2020-08-05 09:05 | NUR ---
PT. WAS SEEN BY DR. EDOUARD Hoover AND WITH NEW ORDER CARRIED OUT TO DISCHARGE TO [facility] ON Friday08/07/20 AND ORDER TO BE CARRIED OUT.
--- NOTE | 2020-08-05 16:06 | NUR ---
DISCHARGE SUMMARY FROM DR. EDOUARD HooverWAS FAXED TO [facility] .
[2020-08-05 20:13] VITALS: BP 130/72
[2020-08-05] MEDS: DOCUSATE SODIUM 100 MG/10 ML LIQUID UDC GT SCH (20:48)
[2020-08-05] MEDS: CHOLECALCIFEROL 1,000 UNIT TABLET GT SCH (20:50)
[2020-08-05] MEDS: MIRALAX 17 GM POWD.PACK GT SCH (20:50)
[2020-08-05] MEDS: CYANOCOBALAMIN 1,000 MCG TABLET GT SCH (20:50)
[2020-08-05] MEDS: buPROPion 100 MG TABLET GT SCH (20:50)
[2020-08-05] MEDS: ENOXAPARIN SODIUM 40 MG/0.4 ML DISP.SYRIN SQ SCH (20:51)
--- NOTE | 2020-08-06 02:40 | NUR ---
Patient is asleep, breathing is even and non- labored, no respiratory distress noted. Gt feeding tolerating well, no residuals or n/v noted, no signs of any distress noted, will continue monitor.
[2020-08-06 07:23] VITALS: BP 135/68
[2020-08-06] MEDS: BUDESONIDE 0.5 MG/2 ML NEBU NEB SCH ×2 (07:30→19:18)
[2020-08-06] MEDS: ALBUTEROL SULFATE 2.5 MG/3 ML NEBU NEB SCH ×5 (07:35→22:33)
[2020-08-06] MEDS: IPRATROPIUM BROMIDE 0.5 MG/2.5 ML NEBU NEB SCH ×5 (07:35→22:33)
[2020-08-06] MEDS: ASPIRIN 81 MG TAB.CHEW GT SCH (08:31)
[2020-08-06] MEDS: levETIRAcetam 500 MG/5 ML LIQUID UDC GT SCH ×2 (08:34→21:16)
[2020-08-06] MEDS: QUETIAPINE FUMARATE 25 MG TABLET GT SCH ×3 (08:35→21:16)
[2020-08-06] MEDS: COD LIVER OIL/ZINC OXIDE OINT 113 GM TUBE TP SCH ×4 (08:36→21:16)
[2020-08-06] MEDS: AMLODIPINE 5 MG TABLET PO SCH (08:37)
[2020-08-06] MEDS: HYDROGEN PEROXIDE 3% 118 ML BOTTLE TP SCH ×2 (19:18→21:00)
[2020-08-06 20:10] VITALS: BP 141/71
[2020-08-06] MEDS: ENOXAPARIN SODIUM 40 MG/0.4 ML DISP.SYRIN SQ SCH (21:00)
[2020-08-06] MEDS: CHOLECALCIFEROL 1,000 UNIT TABLET GT SCH (21:16)
[2020-08-06] MEDS: DOCUSATE SODIUM 100 MG/10 ML LIQUID UDC GT SCH (21:16)
[2020-08-06] MEDS: MIRALAX 17 GM POWD.PACK GT SCH (21:16)
[2020-08-06] MEDS: buPROPion 100 MG TABLET GT SCH (21:16)
[2020-08-06] MEDS: CYANOCOBALAMIN 1,000 MCG TABLET GT SCH (21:16)
[2020-08-07] MEDS: IPRATROPIUM BROMIDE 0.5 MG/2.5 ML NEBU NEB SCH ×3 (03:30→11:28)
[2020-08-07] MEDS: ALBUTEROL SULFATE 2.5 MG/3 ML NEBU NEB SCH ×3 (03:30→11:28)
[2020-08-07 07:27] VITALS: BP 123/69
[2020-08-07] MEDS: BUDESONIDE 0.5 MG/2 ML NEBU NEB SCH (07:30)
[2020-08-07] MEDS: HYDROGEN PEROXIDE 3% 118 ML BOTTLE TP SCH (08:37)
[2020-08-07] MEDS: ASPIRIN 81 MG TAB.CHEW GT SCH (08:43)
[2020-08-07] MEDS: levETIRAcetam 500 MG/5 ML LIQUID UDC GT SCH (08:43)
[2020-08-07 08:44] VITALS: BP 123/69
[2020-08-07] MEDS: COD LIVER OIL/ZINC OXIDE OINT 113 GM TUBE TP SCH ×2 (08:44)
[2020-08-07] MEDS: AMLODIPINE 5 MG TABLET PO SCH (08:44)
[2020-08-07] MEDS: QUETIAPINE FUMARATE 25 MG TABLET GT SCH (08:44)
[2020-08-07] MEDS ORDERED: NYSTATIN POWDER 15 GM BOTTLE TP SCH (09:00)
--- NOTE | 2020-08-07 10:56 | NUR ---
This SADIA spoke with charge nurse Keysha this morning, who stated that she received DC orders from Dr. Masters this weekend. Keysha stated that Dr. Masters also prepared the discharge summary, and Keysha stated that she faxed it to [facility] on Friday. SADIA called Sales Team Recruiter at [facility], Jeanette Michaud [phone], to finalize all discharge information and arrangements. Jeanette stated that all necessary information has been received, expectt hat she had not received the discharge summary yet. This SADIA stated that it was faxed over on Friday, however SADIA offered to fax it over again, along with today's list of medications. Jeanette expressed agreement. Jeanette also asked for subacute charge nurse to provide [id number] report to their nurse Shayan, . SADIA faxed the discharge summary and list of current medications to Jeanette at [phone]. SADIA also provided charge nurse Keysha the name and phone number to Shayan [phone] in order for Keysha to provide nursing report. Keysha to follow-up.
--- NOTE | 2020-08-07 12:00 | NUR ---
[facility] NURSE YING WAS CALLED AND REPORT WAS GIVEN BY PHONE.
--- NOTE | 2020-08-07 12:30 | NUR ---
PT. WAS DISCHARGED AT THIS TIME VIA AMBULANCE SCHEDULED,ALERT AND ORIENTED AND STABLE V/S ,NO SOB ,NO C/O PAIN OR DISCOMFORT.
--- NOTE | 2020-08-07 12:56 | NUR ---
SW called patient's Avinash [phone], and informed him that patient was already picked up by ambulance, and was headed to [facility]. Avinash thanked this SW and staff for all their support and help. SW assessed for any additional concerns/needs, and Avinash stated not having any concerns or needs at this time.
--- NOTE | 2020-08-07 13:00 | NUR ---
PT'S DEE RAO WAS NOTIFIED RE :PT. BEING DISCHARGED TO [facility] AND THANKED THE STAFF FOR THE CARE.
== END 2020-08-07 12:30 | DRG 189 ==
LOC: SA
PROVIDERS: ADMIT Internal Medicine Nephrology; ATTEND Internal Medicine Nephrology
DX: J96.21 Acute and chronic respiratory failure with hypoxia (principal); N39.0 Urinary tract infection, site not specified; Z16.19 Resistance to other specified beta lactam antibiotics; F41.9 Anxiety disorder, unspecified; G40.909 Epilepsy, unspecified, not intractable, without status epilepticus; I10 Essential (primary) hypertension; N31.9 Neuromuscular dysfunction of bladder, unspecified; Z93.0 Tracheostomy status; Z88.0 Allergy status to penicillin; Z88.2 Allergy status to sulfonamides; D64.9 Anemia, unspecified; F32.9 Major depressive disorder, single episode, unspecified; Z87.440 Personal history of urinary (tract) infections; R13.10 Dysphagia, unspecified; Z86.16 Personal history of COVID-19; I69.298 Other sequelae of other nontraumatic intracranial hemorrhage; Z87.891 Personal history of nicotine dependence; Z98.2 Presence of cerebrospinal fluid drainage device; K94.29 Other complications of gastrostomy; B96.1 Klebsiella pneumoniae [K. pneumoniae] as the cause of diseases classified elsewhere
CPT/HCPCS: 36415; 36600; 70030-TC; 71045; 83550; 83735; 84100; 85025; 87077; 87086; 94640; C1758; J0692; J1650; J3590; J7060; U0003